=== PATIENT | female | born 1945 | race Caucasian/White ===

== ENCOUNTER → 2017-06-16 | Day surgery (SDC) | payer MEDICARE, BC ==
[2017-06-15 09:03] VITALS: BMI 31.4
[~2017-06-16] MED LIST: LIDOCAINE 2% INJ 20 MG/ML SQ ONE; LISINOPRIL 20 MG TAB PO STA; MIDAZOLAM 2 MG/2 ML VIAL IVP ONE; SODIUM CHLORIDE 0.9% 1,000 ML IV SCH; ceFAZolin IN SWFI 2 GM/20 ML SYRINGE IVP ONE
[2017-06-16 06:54] VITALS: RESP 18; TEMP 97.8
--- NOTE | 2017-06-16 08:13 | CE ---
CARDIAC ELECTROPHYSIOLOGY REPORT DATE OF SERVICE: 06/16/2017 PROCEDURE: Loop recorder implantation. PERFORMED BY: Dr. Ignacio Grewal. Moderate conscious sedation time was between 10 and 15 minutes. CLINICAL INFORMATION: Mrs. Nelly Souza is a 72-year-old lady with episodes of dizziness, lightheadedness and near syncope, who had an event monitor that was unremarkable for any bradyarrhythmias. She had 1 short nonsustained run of wide QRS tachycardia, but she has underlying left bundle branch block pattern. I have therefore advised her to have a loop recorder insertion and brought her in for the procedure electively. PROCEDURE NOTE: After the administration of antibiotic intravenously, under the influence of a local anesthetic as well as sedation, a single stab incision was made in the left 4th intercostal space using the tool that was provided with the device. I then implanted the Med[employer]onic LINQ device in a lateral direction in the 4th intercostal space. Excellent signal was obtained. The R-wave amplitude was 0.46 mV. A single suture was used to close the stab incision. The settings were made for syncope with a low rate of 40 and high rate of 140. The patient will be discharged in the next couple of hours. I will see her in the office in one week. Instructions regarding loop recorder, usage were given to the patient and her family. 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 The device is Reveal LINQ model number LNQ11, serial number [id number]. R-wave amplitude was 0.46 mV. Patient tolerated the procedure well without complication. MMODL / IJN: [id number] /
[2017-06-16 09:04] VITALS: BP 131/63; PULSE 65
== END ==
LOC: CATHEP 06:24
PROVIDERS: ATTEND Internal Medicine Interventional Cardiology
DX: R55 Syncope and collapse (principal); I44.7 Left bundle-branch block, unspecified; I10 Essential (primary) hypertension; E78.00 Pure hypercholesterolemia, unspecified; E78.5 Hyperlipidemia, unspecified; L40.50 Arthropathic psoriasis, unspecified; Z82.49 Family history of ischemic heart disease and other diseases of the circulatory system; Z79.82 Long term (current) use of aspirin; Z79.899 Other long term (current) drug therapy; Z88.5 Allergy status to narcotic agent; Z88.8 Allergy status to other drugs, medicaments and biological substances
CPT/HCPCS: 33282; C1764; J2001; J2250; J0690

== ENCOUNTER 2018-03-07 11:54 | Day surgery (SDC) | payer MEDICARE, BC ==
[2018-03-03 11:32] VITALS: BMI 31.3
[~2018-03-07 11:54] MED LIST changes: -LIDOCAINE 2% INJ 20 MG/ML SQ ONE; -LISINOPRIL 20 MG TAB PO STA; -MIDAZOLAM 2 MG/2 ML VIAL IVP ONE; -ceFAZolin IN SWFI 2 GM/20 ML SYRINGE IVP ONE
[2018-03-07] MEDS ORDERED: SODIUM CHLORIDE 0.9% 1,000 ML IV ONE (12:09)
[2018-03-07] MEDS ORDERED: ceFAZolin IN SWFI 2 GM/20 ML SYRINGE IVP STA (13:26)
[2018-03-07] MEDS ORDERED: PROPOFOL 10 MG/ML 20 ML VIAL IV ONE (13:31)
[2018-03-07] MEDS ORDERED: fentaNYL (PF) 50 MCG/ML 2 ML AMP ONE (13:31)
[2018-03-07] MEDS ORDERED: ISOPROTERENOL 250 MCG/1.25 ML SYR IV ONE (13:31)
[2018-03-07] MEDS ORDERED: MIDAZOLAM 2 MG/2 ML VIAL ONE (13:31)
[2018-03-07] MEDS ORDERED: HEPARIN SODIUM 1,000 UN/ML (10ML VL) ONE (13:42)
[2018-03-07] MEDS ORDERED: LIDOCAINE 1% INJ 10MG/ML (20 ML MDV) ONE (13:44)
[2018-03-07] MEDS ORDERED: LIDOCAINE 1% INJ 10MG/ML (20 ML MDV) SQ ONE (14:14)
[2018-03-07] MEDS ORDERED: ACETAMINOPHEN TAB 325 MG TAB PO PRN (16:48)
[2018-03-07] MEDS ORDERED: HYDROcodone/APAP 5-325MG 1 EACH TAB PO PRN (16:48)
[2018-03-07] MEDS ORDERED: ACETAMINOPHEN IV (For NPO) 1,000 MG in EMPTY BAG 1 BAG IVPB ONE (16:48)
[2018-03-07] MEDS: METOPROLOL TARTRATE 25 MG TAB PO SCH (17:37)
--- NOTE | 2018-03-07 17:53 | LTR ---
To: Dr. Montez Cid Re: Nelly Souza (47) Dear Montez, I had the pleasure seeing Nelly Souza in electrophysiology followup. 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 Hopefully this takes care of her SVT, which was causing presyncopal spells, even though they were very short episodes. I will restart all her medications again and we will watch for any episodes of atrial tachycardia or atrial fibrillation in the future. Thank you for entrusting me with the care of your patient. Warm regards. Sincerely, MD KADE Iyer / SHALININ: [id number] /
--- NOTE | 2018-03-07 17:53 | PCN ---
PROCEDURE NOTE Nelly Souza is a 73-year-old female who has had recurrent supraventricular tachycardia documented on a loop monitor with presyncope. These were short episodes, but nevertheless they result in presyncopal spells. She was brought in for a diagnostic EP study and possible radiofrequency ablation. The patient was brought to the EP lab in a fasting state. Written informed consent was obtained prior to the procedure. The right and left groins were prepped and draped as per protocol. Lidocaine 1% was used for local anesthesia. Venous sheaths were placed in the right and left femoral veins. Via these, diagnostic catheters were placed in the high right atrium, His bundle, right ventricle and coronary sinus. The sinus cycle length was 900 milliseconds, WV interval 204 milliseconds, QRS 178 milliseconds, left bundle branch block pattern, and QT interval was 470 milliseconds. AH interval 88 milliseconds, HV interval 54 milliseconds. Atrial pacing was performed. There was evidence of slow pathway conduction. There were no delta waves noted. Sinus node recovery times at 600, 500 and 400 milliseconds were 1166, 1256 milliseconds. When pacing at a cycle length of 400 milliseconds, there was intermittent induction of SVT consistent with AV christo reentry, but these were very brief episodes. With atrial extrastimulation there was significant prolongation of the AH interval to 286 milliseconds but no clear-cut jump in the AH interval. AV node Wenckebach block 380 milliseconds, VA Wenckebach block 40 milliseconds, slow pathway around 390 to 400 milliseconds. Retrograde conduction in the midline and decremental. Ventricular extrastimulation was performed. Atrial extrastimulation was performed. Para-Hisian pacing produced christo response. On Isuprel, there was absolutely no SVT that could be induced despite stimulation from 3 sites. In the presence of antegrade slow pathway conduction with very brief bursts of AV christo reentry and absence of atrial fibrillation, atrial flutter and atrial tachycardia or any accessory pathway conduction, decision was made to proceed with slow pathway ablation for management of recurrent symptomatic SVT. A 4 mm catheter was used. A long sheath was placed. Slow pathway was mapped. RF ablation was applied. Good power and temperature was achieved. Occasional junctional beats were noted and there was a clear change in the antegrade conduction properties of the AV node, and the AV node block occurred at 420 milliseconds thereafter. There was a mild shortening of the WV interval to 170 to 180 milliseconds at the end of the procedure. Atrial and ventricular extrastimulation was performed and no echo beats and no bursts of SVT or AV christo reentry were induced. No other SVT was induced. All catheters were then removed and patient was transferred back to Telemetry. RESULT: Diagnostic EP study revealed the presence of slow pathway and very brief bursts of AV christo reentry. No other SVT induced. Therefore, slow pathway ablation was performed. PLAN: Resume current medications and follow up thereafter. KADE / ABDI: [id number] /
[2018-03-07] MEDS: HYDROmorphone 0.5 MG/0.5 ML SYRINGE IVP PRN (20:08)
[2018-03-07] MEDS ORDERED: METHYLDOPA 250 MG TAB PO SCH (21:00)
[2018-03-08] MEDS: HYDROmorphone 0.5 MG/0.5 ML SYRINGE IVP PRN (02:29)
[2018-03-08 07:46] VITALS: BP 176/81; PULSE 59; RESP 18; TEMP 98.3
[2018-03-08] MEDS: METOPROLOL TARTRATE 25 MG TAB PO SCH (08:17)
[2018-03-08] MEDS ORDERED: FUROSEMIDE 40 MG TAB PO SCH (09:00)
[2018-03-08] MEDS ORDERED: ASPIRIN 81 MG PO SCH (09:00)
[2018-03-08] MEDS ORDERED: METHYLDOPA 250 MG TAB PO SCH (09:00)
[2018-03-08] MEDS ORDERED: ATORVASTATIN 40 MG TAB PO SCH (09:00)
--- NOTE | 2018-03-08 10:40 | P.DS ---
Providers Attending physician: Stephan Soliman Primary care physician: Montez [facility] Course: Patient is ambulating in the room and is getting up in the bathroom. She denies any dizziness lightheadedness chest discomfort. 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 Grewal within a week for a groin check Loop monitor should stay in situ for future monitoring If she does well in the next 4-6 weeks without any episodes I would consider reducing the dose of metoprolol to 50 g twice daily Plan - Discharge Summary Discharge Rx Participant: Yes New Discharge Prescriptions: Continue Omeprazole 40 mg PO DAILY Ascorbic Acid [Vitamin C] 1,000 mg PO DAILY Multivitamins, Thera [Multivitamin (formulary)] 2 tab PO DAILY Folic Acid 1 mg PO DAILY Ibuprofen [Motrin] 800 mg PO Q8HR PRN PRN Reason: Mild Pain Atorvastatin [Lipitor] 40 mg PO DAILY Furosemide [Lasix] 40 mg PO DAILY Methyldopa [Aldomet] 500 mg PO BID Potassium Chloride [Klor-Con 10] 10 meq PO DAILY Methotrexate Sodium [Methotrexate] 25 mg PO TH Methylcellulose (with Sugar) [Citrucel Powder] 2 gm PO DAILY Vitamin E (Dl,Tocopheryl Acet) [Vitamin E] 400 unit PO DAILY Aspirin 81 mg PO DAILY Vitamin B Complex 1 each PO DAILY [place]-3 Fatty Acids/Fish Oil [Fish Oil 1,000 mg Softgel] 1 each PO DAILY Cranberry Fruit Extract [Cranberry] 25,000 mg PO DAILY Cholecalciferol (Vitamin D3) [Vitamin D3] 2,000 unit PO DAILY Calcium Carb/Vitamin D3/Vit K1 [Citracal Soft Chew] 1 each PO DAILY Acai [place] Extract [Acai] 1,000 mg PO DAILY Metoprolol Tartrate [Lopressor] 75 mg PO BID L.acidoph,Paracasei, B.lactis [Probiotic] 1 each PO DAILY Discharge Medication List Ascorbic Acid [Vitamin C] 1,000 mg PO DAILY 10/02/15 [History] Atorvastatin [Lipitor] 40 mg PO DAILY 10/02/15 [History] Folic Acid 1 mg PO DAILY 10/02/15 [History] Furosemide [Lasix] 40 mg PO DAILY 10/02/15 [History] Ibuprofen [Motrin] 800 mg PO Q8HR PRN 10/02/15 [History] Methotrexate Sodium [Methotrexate] 25 mg PO TH 10/02/15 [History] Methyldopa [Aldomet] 500 mg PO BID 10/02/15 [History] Multivitamins, Thera [Multivitamin (formulary)] 2 tab PO DAILY 10/02/15 [History ] Omeprazole 40 mg PO DAILY 10/02/15 [History] Potassium Chloride [Klor-Con 10] 10 meq PO DAILY 10/02/15 [History] Acai Manz[place] Extract [Acai] 1,000 mg PO DAILY 06/15/17 [History] Aspirin 81 mg PO DAILY 06/15/17 [History] Calcium Carb/Vitamin D3/Vit K1 [Citracal Soft Chew] 1 each PO DAILY 06/15/17 [ History] Cholecalciferol (Vitamin D3) [Vitamin D3] 2,000 unit PO DAILY 06/15/17 [History] Cranberry Fruit Extract [Cranberry] 25,000 mg PO DAILY 06/15/17 [History] Methylcellulose (with Sugar) [Citrucel Powder] 2 gm PO DAILY 06/15/17 [History] [place]-3 Fatty Acids/Fish Oil [Fish Oil 1,000 mg Softgel] 1 each PO DAILY [History] Vitamin B Complex 1 each PO DAILY 06/15/17 [History] Vitamin E (Dl,Tocopheryl Acet) [Vitamin E] 400 unit PO DAILY 06/15/17 [History] L.acidoph,Paracasei, B.lactis [Probiotic] 1 each PO DAILY 03/03/18 [History] Metoprolol Tartrate [Lopressor] 75 mg PO BID 03/03/18 [History] Follow up Appointment(s)/Referral(s): Stephan Soliman MD [STAFF PHYSICIAN] - As Needed (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 Martinez as needed) Activity/Diet/Wound Care/Special Instructions: Post EP study - Ablation instructions 1. Keep access sites dry for 2 days. 2. No heavy lifting or straining for 2 days. 3. Avoid bending the hips repeatedly for 2 days. 4. You may go up and down stairs slowly Call if the following is noted 1. Bleeding, increasing swelling or pain at the access sites. 2. Increasing chest discomfort, especially upon taking a deep breath. 3. Increasing shortness of breath, at rest or with exertion. 4. Undue cough / phlegm 5. Difficulty or pain while swallowing. 6. Pain or change in color in the extremities. 7. Fever, chills, rigors. 8. Increasing headache or neurologic symptoms. 9. Dizziness, fainting, palpitations Discharge Disposition: HOME SELF-CARE
[2018-03-10] MEDS ORDERED: METHOTREXATE SODIUM 2.5 MG TAB PO SCH (09:00)
== END 2018-03-08 10:54 | disposition home or self-care (01) ==
LOC: CATHEP 11:54 → 1SOBS 16:21 → CATHEP 03-08 10:54
PROVIDERS: ATTEND Internal Medicine Clinical Cardiac Electrophysiology
DX: I47.1 Supraventricular tachycardia (principal); I25.10 Atherosclerotic heart disease of native coronary artery without angina pectoris; I44.7 Left bundle-branch block, unspecified; R94.39 Abnormal result of other cardiovascular function study; E78.00 Pure hypercholesterolemia, unspecified; L40.50 Arthropathic psoriasis, unspecified; R33.9 Retention of urine, unspecified; K21.9 Gastro-esophageal reflux disease without esophagitis; I10 Essential (primary) hypertension; E78.5 Hyperlipidemia, unspecified; Z79.82 Long term (current) use of aspirin; Z82.49 Family history of ischemic heart disease and other diseases of the circulatory system; Z79.899 Other long term (current) drug therapy; Z88.8 Allergy status to other drugs, medicaments and biological substances; Z88.1 Allergy status to other antibiotic agents; Z79.1 Long term (current) use of non-steroidal anti-inflammatories (NSAID)
CPT/HCPCS: 93623; 93613; 93653; C1894; C1769 ×2; C1893; C1730 ×3; C1732; J2250; J2001; J3010; J2704; J1170 ×2; J0690

== ENCOUNTER → 2018-03-14 | Outpatient (CLI) | payer MEDICARE, BC ==
--- NOTE | 2018-03-14 16:19 | US ---
EXAMINATION TYPE: US venous doppler duplex LE DATE OF EXAM: 03/14/2018 4:06 PM COMPARISON: NONE CLINICAL HISTORY: Z86.718 HX venous thrombosis and embolism. Bilateral lower extremities swelling. SIDE PERFORMED: Bilateral TECHNIQUE: The lower extremity deep venous system is examined utilizing real time linear array sonog demond with graded compression, doppler sonography and color-flow sonography. VESSELS IMAGED: External Iliac Vein (EIV) Common Femoral Vein Deep Femoral Vein Greater Saphenous Vein * Femoral Vein Popliteal Vein Small Saphenous Vein * Proximal Calf Veins (* superficial vessels) Large body habitus. Right Leg: Negative for DVT Left Leg: Negative for DVT Grayscale, color doppler, spectral doppler imaging performed of the deep veins of the lower extremiti es. There is normal flow, compressibility, vascular waveforms. IMPRESSION: No sonographic evidence of deep venous thrombosis within either lower extremity.
== END | disposition home or self-care (01) ==
LOC: RADUSWWP 15:26
PROVIDERS: ATTEND Internal Medicine Interventional Cardiology
DX: I82.403 Acute embolism and thrombosis of unspecified deep veins of lower extremity, bilateral (principal)
CPT/HCPCS: 93970

== ENCOUNTER 2018-04-01 14:46 | Observation (INO) | payer MEDICARE, BC ==
[2018-04-01] MEDS ORDERED: SODIUM CHLORIDE 0.9% 500 ML 500 ML IV ONE (15:08)
--- NOTE | 2018-04-01 15:20 | ED ---
General Adult HPI - General Chief complaint: Syncope Stated complaint: SYNCOPE Time Seen by Provider: 04/01/18 14:55 Source: patient, RN notes reviewed Mode of arrival: ambulatory Limitations: no limitations - History of Present Illness Initial comments: This is a 73-year-old female who presents emergency Department complaining of having had a syncopal episode. Patient states she was having quite a few near syncopal episodes and recently she had a cardiac ablation for which she believes was SVT occasionally. Patient states since then she's only had one near syncopal episode but today she actually passed out for the first time. Patient states she was in a bar and lost her balance and fell backwards and hit the barn door and slid to the ground. Patient states she may have hit her head but she does not have any tenderness in that area no bleeding in that area. Patient states she did have a headache at the time but it resolved. At this time the patient was headache free and has no numbness or weakness and has no tenderness in the scalp at all. Patient states shortly thereafter she went over to her neighbor's house was sitting in a chair and felt extremely lightheaded like she was given a passout and the next thing she knew she was on the ground listening to her neighbor. Patient states at no time did she have any chest pain difficulty breathing or shortness of breath and and no tenderness she have any palpitations. Patient denies any recent fever chills. Patient denies any recent vomiting or diarrhea. - Related Data Home Medications Medication Instructions Recorded Confirmed Ascorbic Acid [Vitamin C] 1,000 mg PO DAILY 10/02/15 04/01/18 Folic Acid 1 mg PO DAILY 10/02/15 04/01/18 Furosemide [Lasix] 40 mg PO DAILY 10/02/15 04/01/18 Ibuprofen [Motrin] 800 mg PO Q8HR PRN 10/02/15 04/01/18 Methotrexate Sodium [Methotrexate] 25 mg PO TH 10/02/15 04/01/18 Methyldopa [Aldomet] 500 mg PO BID 10/02/15 04/01/18 Multivitamins, Thera [Multivitamin 2 tab PO DAILY 10/02/15 04/01/18 (formulary)] Omeprazole 40 mg PO DAILY 10/02/15 04/01/18 Potassium Chloride [Klor-Con 10] 10 meq PO DAILY 10/02/15 04/01/18 Acai Manzano Extract [Acai] 1,000 mg PO DAILY 06/15/17 04/01/18 Aspirin 81 mg PO DAILY 06/15/17 04/01/18 Calcium Carb/Vitamin D3/Vit K1 1 each PO DAILY 06/15/17 04/01/18 [Citracal Soft Chew] Cholecalciferol (Vitamin D3) 2,000 unit PO DAILY 06/15/17 04/01/18 [Vitamin D3] Cranberry Fruit Extract [Cranberry] 25,000 mg PO DAILY 06/15/17 04/01/18 Methylcellulose (with Sugar) 2 gm PO DAILY 06/15/17 04/01/18 [Citrucel Powder] [place]-3 Fatty Acids/Fish Oil [Fish 1 each PO DAILY 06/15/17 04/01/18 Oil 1,000 mg Softgel] Vitamin B Complex 1 each PO DAILY 06/15/17 04/01/18 Vitamin E (Dl,Tocopheryl Acet) 400 unit PO DAILY 06/15/17 04/01/18 [Vitamin E] L.acidoph,Paracasei, B.lactis 1 each PO DAILY 03/03/18 04/01/18 [Probiotic] Atorvastatin [Lipitor] 40 mg PO DAILY 04/01/18 04/01/18 Metoprolol Tartrate [Lopressor] 50 mg PO BID 04/01/18 04/01/18 Allergies Allergy/AdvReac Type Severity Reaction Status Date / Time meperidine HCl [From Demerol] Allergy Rash/Hives Verified 04/01/18 15:20 prochlorperazine Allergy Unknown Verified 04/01/18 15:20 [From Compazine] prochlorperazine edisylate Allergy Unknown Verified 04/01/18 15:20 [From Compazine] prochlorperazine maleate Allergy Unknown Verified 04/01/18 15:20 [From Compazine] simvastatin [From Zocor] Allergy Unknown Verified 04/01/18 15:20 moxifloxacin HCl AdvReac Anaphylaxis Verified 04/01/18 15:20 [From Avelox] Review of Systems ROS Statement: Those systems with pertinent positive or pertinent negative responses have been documented in the HPI. ROS Other: All systems not noted in ROS Statement are negative. Past Medical History Past Medical History: Cancer, GERD/Reflux, Hyperlipidemia, Hypertension, Osteoarthritis (OA), Rheumatoid Arthritis (RA), Syncope Additional Past Medical History / Comment(s): psoriatic arthritis, dizzy spells , palpitations, hx. skin cancer, self-cath's due to bladder not emptying completely History of Any Multi-Drug Resistant Organisms: None Reported Past Surgical History: Back Surgery, Cholecystectomy, Heart Catheterization, Hernia Repair, Hysterectomy, Joint Replacement, Orthopedic Surgery Additional Past Surgical History / Comment(s): henok knee replacements & right hip replaced, vein stripping, left hand fusion, left retinal repair of tear, right carpal tunnel, cardiac ablation Past Anesthesia/Blood Transfusion Reactions: No Reported Reaction Past Psychological History: No Psychological Hx Reported Smoking Status: Never smoker Past Alcohol Use History: Occasional Past Drug Use History: None Reported - Past Family History Father Family Medical History: Myocardial Infarction ([place]) Mother Family Medical History: Cancer Daughter(s) Family Medical History: Cancer General Exam - General Exam Comments Initial Comments: GENERAL: Patient is well-developed and well-nourished. Patient is nontoxic and well- hydrated and is in mild distress. ENT: Neck is soft and supple. No significant lymphadenopathy is noted. Oropharynx is clear. Moist mucous membranes. Neck has full range of motion without eliciting any pain. EYES: The sclera were anicteric and conjunctiva were pink and moist. Extraocular movements were intact and pupils were equal round and reactive to light. Eyelids were unremarkable. PULMONARY: Unlabored respirations. Good breath sounds bilaterally. No audible rales rhonchi or wheezing was noted. CARDIOVASCULAR: There is a regular rate and rhythm without any murmurs gallops or rubs. ABDOMEN: Soft and nontender with normal bowel sounds. No palpable organomegaly was noted. There is no palpable pulsatile mass. SKIN: Skin is clear with no lesions or rashes and otherwise unremarkable. NEUROLOGIC: Patient is alert and oriented x3. Cranial nerves II through XII are grossly intact. Motor and sensory are also intact. Normal speech, volume and content. Symmetrical smile. MUSCULOSKELETAL: Normal extremities with adequate strength and full range of motion. No lower extremity swelling or edema. No calf tenderness. LYMPHATICS: No significant lymphadenopathy is noted PSYCHIATRIC: Normal psychiatric evaluation. Limitations: no limitations Course Vital Signs 04/01/18 14:55 Temperature 98.7 F Pulse Rate 66 Respiratory 18 Rate Blood Pressure 154/102 O2 Sat by Pulse 97 Oximetry Medical Decision Making - Medical Decision Making EKG shows normal sinus rhythm at 60 bpm DC interval is on 76 QRS is under 58 QT interval is 486 QTC is 46 per patient has a left bundle branch block previous EKG showed the patient having a left bundle branch block as well. Chest x-ray shows atelectasis. I spoke with Dr. Giron he agreed to admit the patient admitted the patient I wrote admitting orders. - Lab Data Result diagrams: 04/01/18 15:10 04/01/18 15:10 Lab Results 04/01/18 04/01/18 04/01/18 Range/Units 15:10 15:10 15:10 WBC 3.7 L (3.8-10.6) k/uL RBC 4.07 (3.80-5.40) m/uL Hgb 12.2 (11.4-16.0) gm/dL Hct 38.2 (34.0-46.0) % MCV 93.9 (80.0-100.0) fL MCH 29.9 (25.0-35.0) pg MCHC 31.8 (31.0-37.0) g/dL RDW 14.5 (11.5-15.5) % Plt Count 157 (150-450) k/uL Neutrophils % 61 % Lymphocytes % 31 % Monocytes % 5 % Eosinophils % 2 % Basophils % 0 % Neutrophils # 2.3 (1.3-7.7) k/uL Lymphocytes # 1.2 (1.0-4.8) k/uL Monocytes # 0.2 (0-1.0) k/uL Eosinophils # 0.1 (0-0.7) k/uL Basophils # 0.0 (0-0.2) k/uL PT 9.8 (9.0-12.0) sec INR 0.9 (<1.2) APTT 17.9 L (22.0-30.0) sec Sodium 141 (137-145) mmol/L Potassium 4.1 (3.5-5.1) mmol/L Chloride 106 (98-107) mmol/L Carbon Dioxide 28 (22-30) mmol/L Anion Gap 7 mmol/L BUN 20 H (7-17) mg/dL Creatinine 0.72 (0.52-1.04) mg/dL Est GFR (CKD-EPI)AfAm >90 (>60 ml/min/1.73 sqM) Est GFR (CKD-EPI)NonAf 85 (>60 ml/min/1.73 sqM) Glucose 95 (74-99) mg/dL Calcium 9.0 (8.4-10.2) mg/dL Magnesium 2.0 (1.6-2.3) mg/dL Total Bilirubin 0.6 (0.2-1.3) mg/dL AST 29 (14-36) U/L ALT 31 (9-52) U/L Alkaline Phosphatase 70 (38-126) U/L Troponin I (0.000-0.034) ng/mL Total Protein 6.0 L (6.3-8.2) g/dL Albumin 3.8 (3.5-5.0) g/dL 04/01/18 Range/Units 15:10 WBC (3.8-10.6) k/uL RBC (3.80-5.40) m/uL Hgb (11.4-16.0) gm/dL Hct (34.0-46.0) % MCV (80.0-100.0) fL MCH (25.0-35.0) pg MCHC (31.0-37.0) g/dL RDW (11.5-15.5) % Plt Count (150-450) k/uL Neutrophils % % Lymphocytes % % Monocytes % % Eosinophils % % Basophils % % Neutrophils # (1.3-7.7) k/uL Lymphocytes # (1.0-4.8) k/uL Monocytes # (0-1.0) k/uL Eosinophils # (0-0.7) k/uL Basophils # (0-0.2) k/uL PT (9.0-12.0) sec INR (<1.2) APTT (22.0-30.0) sec Sodium (137-145) mmol/L Potassium (3.5-5.1) mmol/L Chloride (98-107) mmol/L Carbon Dioxide (22-30) mmol/L Anion Gap mmol/L BUN (7-17) mg/dL Creatinine (0.52-1.04) mg/dL Est GFR (CKD-EPI)AfAm (>60 ml/min/1.73 sqM) Est GFR (CKD-EPI)NonAf (>60 ml/min/1.73 sqM) Glucose (74-99) mg/dL Calcium (8.4-10.2) mg/dL Magnesium (1.6-2.3) mg/dL Total Bilirubin (0.2-1.3) mg/dL AST (14-36) U/L ALT (9-52) U/L Alkaline Phosphatase (38-126) U/L Troponin I <0.012 (0.000-0.034) ng/mL Total Protein (6.3-8.2) g/dL Albumin (3.5-5.0) g/dL Disposition Clinical Impression: Syncope and collapse, History of paroxysmal supraventricular tachycardia Disposition: ADMITTED IP TO THIS HOSP Referrals: Montez Cid DO [Primary Care Provider] - 1-2 days Time of Disposition: 16:09
[2018-04-01 15:35] LABS: Basophils % (A) 0 %; Eosinophils # (A) 0.1 k/uL (0-0.7); Eosinophils % (A) 2 %; HCT 38.2 % (34.0-46.0); HGB 12.2 gm/dL (11.4-16.0); Lymphocytes # (A) 1.2 k/uL (1.0-4.8); Lymphocytes % (A) 31 %; MCH 29.9 pg (25.0-35.0); MCHC 31.8 g/dL (31.0-37.0); MCV 93.9 fL (80.0-100.0); Monocytes # (A) 0.2 k/uL (0-1.0); Monocytes % (A) 5 %; Neutrophils # (A) 2.3 k/uL (1.3-7.7); Neutrophils % (A) 61 %; Platelet Count 157 k/uL (150-450); RBC 4.07 m/uL (3.80-5.40); RDW 14.5 % (11.5-15.5); WBC 3.7 k/uL (3.8-10.6)
--- NOTE | 2018-04-01 15:36 | XR ---
EXAMINATION TYPE: XR chest 2V DATE OF EXAM: 04/01/2018 COMPARISON: 12/01/2009 TECHNIQUE: PA and lateral views submitted. HISTORY: Chest pain FINDINGS: There is limited inspiration. Diffuse osteopenia and arthropathy of the shoulders. Atherosclerotic ch renny aorta. Mild central perihilar interstitial pattern with subsegmental basilar changes. Hypertroph ic and degenerative changes of the spine. IMPRESSION: 1. Basilar atelectasis or early infiltrate. Atelectasis favored secondary to reduced inspiration. 2. Correlate for mild central venous congestion.
[2018-04-01 15:41] LABS: INR 0.9 (<1.2); Prothrombin Time 9.8 sec (9.0-12.0)
[2018-04-01 15:44] LABS: Partial Thromboplastin Time 17.9 sec (22.0-30.0)
[2018-04-01 15:56] LABS: ALT 31 U/L (9-52); AST 29 U/L (14-36); Albumin 3.8 g/dL (3.5-5.0); Alkaline Phosphatase 70 U/L (38-126); Anion Gap 7 mmol/L; Blood Urea Nitrogen 20 mg/dL (7-17); Carbon Dioxide 28 mmol/L (22-30); Chloride 106 mmol/L (98-107); Glucose 95 mg/dL (74-99); Potassium 4.1 mmol/L (3.5-5.1); Sodium 141 mmol/L (137-145); Total Bilirubin 0.6 mg/dL (0.2-1.3)
[2018-04-01] MEDS ORDERED: NITROGLYCERIN SL TABS 0.4 MG TAB SUBLINGUAL PRN (16:09)
[2018-04-01] MEDS: IBUPROFEN 800 MG TAB PO PRN (18:32)
[2018-04-01] MEDS: NITROGLYCERIN OINT 1 INCH/GM PACKET TOPICAL SCH (18:33)
[2018-04-01 18:42] VITALS: BMI 30.4
[2018-04-01] MEDS ORDERED: ACETAMINOPHEN TAB 500 MG TAB PO PRN (20:04)
[2018-04-01] MEDS ORDERED: ALPRAZolam 0.25 MG TAB PO PRN (20:04)
[2018-04-01] MEDS ORDERED: TEMAZEPAM 15 MG CAP PO PRN (20:04)
--- NOTE | 2018-04-01 20:33 | CT ---
EXAMINATION TYPE: CT brain wo con DATE OF EXAM: 04/01/2018 COMPARISON: None HISTORY: Syncope/fall today. CT DLP: 1111.4 mGycm Automated exposure control for dose reduction was used. FINDINGS: There is cerebral cortical atrophy. There is no mass effect nor midline shift. There is no sign of in tracranial hemorrhage. The calvarium is intact. IMPRESSION: CEREBRAL ATROPHY. NO ACUTE INTRACRANIAL ABNORMALITY.
[2018-04-01] MEDS ORDERED: METHYLDOPA 250 MG TAB PO SCH (21:00)
--- NOTE | 2018-04-01 21:04 | HP ---
HISTORY AND PHYSICAL I am covering for Dr. Cid. DATE OF SERVICE: 04/01/2018 CHIEF COMPLAINT: Syncope. HISTORY OF PRESENT ILLNESS: This 73-year-old woman with a past medical history of multiple medical problems, including hypertension, history of hyperlipidemia,rheumatoid arthritis, syncope, history of cholecystectomy, being followed by Dr. Cid in the outpatient setting, was apparently moving a bale of hay in a barn. The patient apparently fell backwards and lost his balance, hit the barn door and slipped to the ground. The patient did not have any loss of consciousness. The patient went to his neighbor to get it checked, and while she was sitting in a chair, the patient apparently passed out. The patient is unable to remember it. The patient passed out for a few minutes and the neighbor called 911. The patient came back and was taken to [facility] admitted for further evaluation. Patient also had a Reveal monitor apparently, and the monitoring did not show any acute abnormality previously. Patient had previously episodes of PSVT and patient also had ablation. There is no history of any fever, rigor or chills. No history of headache, seizures at this time. The patient also had a cardiac catheterization. 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 PAST MEDICAL HISTORY: 1. Hypertension. 2. Hyperlipidemia. 3. History of DJD. 4. History of rheumatoid arthritis. 5. History of back surgery. 6. Cholecystectomy. 7. History of AVNRT and SVT. HOME MEDICATIONS: 1. Vitamin E 400 units daily. 2. Vitamin B complex 1 p.o. daily. 3. Klor-Con 10 mEq p.o. daily. 4. Omeprazole 40 mg p.o. daily. 5. Fish oil 1 p.o. daily. 6. Multivitamins 1 p.o. daily. 7. Lopressor 50 mg p.o. b.i.d. 8. Aldomet 500 mg p.o. b.i.d. 9. Citrucel powder 2 grams daily. 10.Methotrexate 25 mg p.o. . 11.Probiotic 1 tablet p.o. daily. 12.Motrin 800 mg q.8 p.r.n. 13.Lasix 40 mg p.o. daily. 14.Folic acid 1 mg daily. 15.Cranberry 25,000 mg p.o. daily. 16.Vitamin D3 2000 daily. 17.Citracal 1 daily. 18.Lipitor 40 mg daily. 19.Aspirin 81 mg daily. 20.Vitamin C 1000 mg daily. 21.Acai 1000 mg p.o. daily. ALLERGIES: 1. MEPERIDINE. 2. PROCHLORPERAZINE. 3. STATIN. 4. AVELOX. FAMILY HISTORY: History of myocardial infarction in the family. SOCIAL HISTORY: No history of smoking. No history of alcohol. REVIEW OF SYSTEMS: ENT: No diminished hearing. No diminished vision. Otherwise as mentioned earlier. CARDIOVASCULAR SYSTEM: As mentioned earlier. RESPIRATORY SYSTEM: No cough, hemoptysis. GI: No nausea, vomiting. : No dysuria or retention. NERVOUS SYSTEM: As mentioned earlier. ALLERGY/IMMUNOLOGY: No asthma, hayfever. MUSCULOSKELETAL: As mentioned earlier. HEMATOLOGY/ONCOLOGY: No history of anemia. ENDOCRINE: No history of diabetes, hypothyroidism. CONSTITUTIONAL: As mentioned earlier. DERMATOLOGY: Negative. RHEUMATOLOGY: Negative. PSYCHIATRY: As mentioned earlier. PHYSICAL EXAMINATION: Patient alert and oriented x3. Pulse is 67, blood pressure 168/85, respiration 16, temperature 98.2, pulse ox 94% on room air. HEENT: Conjunctivae normal. NECK: No jugular venous distention. CARDIOVASCULAR SYSTEM: S1, S2 muffled. No S3. No S4. RESPIRATORY SYSTEM: Breath sounds diminished at the bases. No rhonchi. No crackles. ABDOMEN: Soft, obese, non-tender. No mass palpable. LEGS: No edema. No swelling. NERVOUS SYSTEM: Higher functions as mentioned earlier. Moves all 4 limbs. No focal motor or sensory deficit. LYMPHATICS: No lymph node palpable in neck, axillae or groin. SKIN: No ulcer, rash, bleeding. JOINTS: No active deforming arthropathy. LABS: WBC 3.7, hemoglobin 12.2. Sodium 141, potassium 4.1. ASSESSMENT: 1. Syncope for evaluation. Rule out cardiac arrhythmia. 2. History of recent ablation for supraventricular tachycardia and AVNRT. 3. History of gastroesophageal reflux disease. 4. Hypertension. 5. Hyperlipidemia. 6. History of degenerative joint disease. 7. History of rheumatoid arthritis. 8. History of psoriatic arthritis. 9. History of self-catheterization. 10.History of cholecystectomy. RECOMMENDATIONS AND DISCUSSION: In this 73-year-old woman who presented with multiple complex medical issues, we will monitor the patient closely, continue the current medications, continue with symptomatic treatment. We will monitor the patient closely with telemetry. Cardiology consultation. Resume the home medications. Orthostatic vitals. Would also recommend a CT scan of the brain to complete the workup as well as a trauma consult. Prognosis guarded. We will follow the patient closely with you. Home medications are reconciled. KADE / SHALININ: [id number] / MTDD
--- NOTE | 2018-04-01 21:30 | US ---
EXAMINATION TYPE: US carotid duplex BILAT DATE OF EXAM: 04/01/2018 COMPARISON: NONE CLINICAL HISTORY: syncope. Syncope EXAM MEASUREMENTS: RIGHT: Peak Systolic Velocity (PSV) cm/sec ----- Right CCA: 77.6 ----- Right ICA: 81.2 ----- Right ECA: 81.2 ICA/CCA ratio: 1.0 RIGHT: End Diastole cm/sec ----- Right CCA: 16.5 ----- Right ICA: 18.6 ----- Right ECA: 9.8 LEFT: Peak Systolic Velocity (PSV) cm/sec ----- Left CCA: 79.0 ----- Left ICA: 79.8 ----- Left ECA: 75.7 ICA/CCA ratio: 1.0 LEFT: End Diastole cm/sec ----- Left CCA: 15.3 ----- Left ICA: 25.5 ----- Left ECA: 4.3 VERTEBRALS (direction of flow): Right Vertebral: Antegrade Left Vertebral: Antegrade Rhythm: Normal No significant stenosis seen, left ICA tortuous IMPRESSION: There is antegrade flow in the vertebral arteries. The images and measurements suggest l ess than 20% stenosis in both internal carotid arteries. Criteria for Assigning % of Stenosis / Diameter reduction (Estimation based on the indirect measurements of the internal carotid artery velocities (ICA PSV). 1. Normal (no stenosis)=ICA PSV < 125 cm/s: ratio < 2.0: ICA EDV<40 cm/s. 2. Less than 50% stenosis=ICA PSV < 125 cm/s: ratio < 2.0: ICA EDV<40 cm/s. 3. 50 to 69% stenosis=ICA PSV of 125 to 230 cm/s: ration 2.0 ? 4.0: ICA EDV 40-100 cm/s. 4. Greater than 70% stenosis to near occlusion= ICA PSV > 230 cm/s: ratio > 4.0: ICA EDV > 100 cm/s. 5. Near occlusion= ICA PSV velocities may be low or undetectable: variable ratio and ICA EDV. 6. Total occlusion=unable to detect flow.
[2018-04-01 22:25] LABS: Cholesterol 186 mg/dL (<200); HDL Cholesterol 39 mg/dL (40-60); LDL Cholesterol,Calculated 80 mg/dL (0-99); Triglycerides 335 mg/dL (<150)
[2018-04-01] MEDS: METOPROLOL TARTRATE 50 MG TAB PO SCH (22:31)
[2018-04-01] MEDS: HEPARIN SODIUM,PORCINE 5,000 UNIT/ML 1 ML VIAL SQ SCH (22:32)
[2018-04-02] MEDS: METHYLDOPA 250 MG TAB PO SCH ×2 (04:33→13:19)
[2018-04-02] MEDS: NITROGLYCERIN OINT 1 INCH/GM PACKET TOPICAL SCH ×4 (04:34→18:42)
[2018-04-02] MEDS: METOPROLOL TARTRATE 50 MG TAB PO SCH ×2 (05:36→18:41)
[2018-04-02] MEDS: PANTOPRAZOLE 40 MG TABLET PO SCH (05:36)
[2018-04-02 05:43] VITALS: RESP 16
[2018-04-02] MEDS ORDERED: ASCORBIC ACID 500 MG TAB PO SCH (09:00)
[2018-04-02] MEDS ORDERED: CRANBERRY FRUIT EXTRACT PO SCH (09:00)
[2018-04-02] MEDS ORDERED: FUROSEMIDE 40 MG TAB PO SCH (09:00)
[2018-04-02] MEDS ORDERED: ASPIRIN 325 MG TAB PO SCH (09:00)
[2018-04-02] MEDS ORDERED: NON-FORMULARY DRUG (Vitamin B Complex [Vitamin B Complex] 1 EACH) PO SCH (09:00)
[2018-04-02] MEDS ORDERED: NON-FORMULARY DRUG (Omega-3 Fatty Acids/Fish Oil [Fish Oil 1,000 Mg Softgel] 1 EACH) PO SCH (09:00)
[2018-04-02] MEDS ORDERED: POTASSIUM CHLORIDE ER 10 MEQ TAB.ER.PRT PO SCH (09:00)
[2018-04-02] MEDS ORDERED: ATORVASTATIN 40 MG TAB PO SCH (09:00)
[2018-04-02] MEDS: POLYETHYLENE GLYCOL 3350 17 GM POWD.PACK PO SCH (09:53)
[2018-04-02] MEDS: HEPARIN SODIUM,PORCINE 5,000 UNIT/ML 1 ML VIAL SQ SCH ×2 (09:53→21:43)
[2018-04-02] MEDS: LACTOBACILLUS ACIDOPH & BULGAR 1 EACH PACKET PO SCH (09:54)
[2018-04-02] MEDS ORDERED: amLODIPine 5 MG TAB PO SCH (10:15)
[2018-04-02] MEDS: VITAMIN E (DL,TOCOPHERYL ACET) 400 UNIT CAP PO SCH (12:58)
[2018-04-02] MEDS: CHOLECALCIFEROL 1,000 UNIT TAB PO SCH (12:58)
[2018-04-02] MEDS: MULTIVITAMINS, THERA 1 EACH TAB PO SCH (12:58)
[2018-04-02] MEDS: CALCIUM CARB-VIT D 500MG-200UN 1 EACH TAB PO SCH (12:58)
[2018-04-02] MEDS: FOLIC ACID 1 MG TAB PO SCH (12:59)
[2018-04-02] MEDS: METHYLDOPA 500MG TABLET PO SCH ×2 (13:00→13:19)
--- NOTE | 2018-04-02 14:03 | P.CRDCN ---
History of Present Illness History of present illness: This is a pleasant 73-year-old female past medical history significant for dyslipidemia, hypertension, SVT status post low back or hip lesion February 2018 gastroesophageal reflux disease. She follows in the office with Dr. Grewal. We have been asked to see her in consultation secondary to an episode of syncope. The patient states yesterday she was working out in her barn moving robbi of hay 11 of the rbobi came loose she fell backwards on her back. She felt associated have injured her back she walked over to her neighbor 's house to have her take a look at her back. While she was sitting there and her barstool and her neighbor was drinking some tea per the neighbor she put her head forward and passed out. The patient denies having any symptoms of dizziness, chest pain, shortness of breath, diaphoresis, nausea or palpitations prior to passing out. When she woke up she states she felt extremely diaphoretic and did not recall the episode whatsoever. Per the neighbor she had an passed out for approximately 6-7 minutes there is no seizure-like activity, no loss of bowel or bladder and she was unable to shake the patient awake. The neighbor states patient was extremely diaphoretic during this episode. Patient was seen and examined sitting up in bed with multiple family members at the bedside. She denies any symptoms of chest discomfort, palpitations, shortness of breath or dizziness. She's had no further episodes of syncope since arriving to the hospital. EKG reveals sinus mechanism with left bundle branch block pattern. This is consistent with previous EKG. Loop recorder interrogation shows no evidence of an acute bradycardia arrhythmia. Telemetry tracings appeared unremarkable. Chest x-ray is negative for an acute cardiopulmonary process. Bilateral carotid duplex is negative for any significant stenosis. CT of the brain is negative for an acute intracranial process. Laboratory data reviewed, WBC 3.7, hemoglobin 12.2, platelets 157, sodium 141, potassium 4.1, creatinine 0.72, magnesium 2.0, cardiac enzymes negative 3, LDL 80 and HDL 39. Current cardiac medications include Lopressor 50 mg twice a day aspirin 81 mg daily, atorvastatin 40 mg daily, Lasix 40 mg daily and Aldomet 500 mg twice a day. She underwent cardiac catheterization in 2015 revealed a right dominant system with moderate calcification, no significant obstructive coronary artery disease , normal filling pressures and preserved LV systolic function. Most recent echocardiogram obtained in the office reveals mildly decreased systolic function with ejection fraction 45%, stage I diastolic dysfunction with impaired relaxation, moderate asymmetric septal hypertrophy, moderately dilated left atrium, moderate mitral regurgitation, mildly calcified aortic valve with mild aortic regurgitation and mild tricuspid regurgitation. At the time of my exam: CONSTITUTIONAL: Denies fever. Denies chills. EYES: Denies blurred vision. Denies vision changes. Denies eye pain. EARS, NOSE, MOUTH & THROAT: Denies headache. Denies sore throat. Denies ear pain. CARDIOVASCULAR: Denies chest pain. Denies shortness of breath. Denies orthopnea. Denies PND. Denies palpitations. RESPIRATORY: Denies cough. GASTROINTESTINAL: Denies abdominal pain. Denies diarrhea. Denies constipation. Denies nausea. Denies vomiting. MUSCULOSKELETAL: Denies myalgias. INTEGUMENTARY: Denies pruitis. Denies rash. NEUROLOGIC: Denies numbness. Denies tingling. Denies weakness. PSYCHIATRIC: Denies anxiety. Denies depression. ENDOCRINE: Denies fatigue. Denies weight change. Denies polydipsia. Denies polyurina. GENITOURINARY: Denies burning, hematuria or urgency with micturation. HEMATOLOGIC: Denies history of anemia. Denies bleeding. Blood pressure 199/91 heart rate 63 afebrile maintaining oxygen saturation on room air GENERAL: This is a 73-year-old female in no apparent distress at the time of my examination. HEENT: Head is atraumatic, normocephalic. Pupils are equal, round. Sclerae anicteric. Conjunctivae are clear. Mucous membranes of the mouth are moist. Neck is supple. There is no jugular venous distention. No carotid bruit is heard. LUNGS: Clear to auscultation no wheezes, rales or rhonchi. No chest wall tenderness is noted on palpation or with deep breathing. HEART: Regular rate and rhythm with systolic ejection murmur at the left sternal border, no rubs or gallops. S1 and S2 heard. ABDOMEN: Soft, nontender. Bowel sounds are heard. No organomegaly noted. EXTREMITIES: No evidence of peripheral edema and no calf tenderness noted. VASCULAR: Radial and dorsalis pedis pulses palpated, no evidence of clubbing. NEUROLOGIC: Patient is awake, alert and oriented x3. ASSESSMENT Syncope, suggestive of possible vasovagal reaction. No evidence of acute arrhythmia loop recorder interrogation. Hypertension, uncontrolled History of paroxysmal supraventricular tachycardia status post ablation Dyslipidemia PLAN Obtain 2-D echocardiogram and Doppler study to assess cardiac structure and function. Check d-dimer, if elevated we'll proceed with CT angios of the chest to rule out pulmonary embolism. Initiate the patient on amlodipine 5 mg twice a day. Aldomet is not on formulary here and the patient states she has been on this medication for over 50 years and would like to take her home medications. No evidence of an acute arrhythmia thus far to explain her symptoms as a cardiac cause. We will continue to follow and make recommendations accordingly. Thank you kindly for this consultation. Nurse Practitioner note has been reviewed, I agree with a documented findings and plan of care. Patient was seen and examined. Past Medical History Past Medical History: Cancer, GERD/Reflux, Hyperlipidemia, Hypertension, Osteoarthritis (OA), Rheumatoid Arthritis (RA), Syncope Additional Past Medical History / Comment(s): psoriatic arthritis, dizzy spells , palpitations, hx. skin cancer, self-cath's due to bladder not emptying completely History of Any Multi-Drug Resistant Organisms: None Reported Past Surgical History: Back Surgery, Cholecystectomy, Heart Catheterization, Hernia Repair, Hysterectomy, Joint Replacement, Orthopedic Surgery Additional Past Surgical History / Comment(s): henok knee replacements & right hip replaced, vein stripping, left hand fusion, left retinal repair of tear, right carpal tunnel, cardiac ablation Past Anesthesia/Blood Transfusion Reactions: No Reported Reaction Past Psychological History: No Psychological Hx Reported Smoking Status: Unknown if ever smoked Past Alcohol Use History: Occasional Past Drug Use History: None Reported - Past Family History Father Family Medical History: Myocardial Infarction ([place]) Mother Family Medical History: Cancer Daughter(s) Family Medical History: Cancer Medications and Allergies Home Medications Medication Instructions Recorded Confirmed Type Ascorbic Acid [Vitamin C] 1,000 mg PO DAILY 10/02/15 04/01/18 History Folic Acid 1 mg PO DAILY 10/02/15 04/01/18 History Furosemide [Lasix] 40 mg PO DAILY 10/02/15 04/01/18 History Ibuprofen [Motrin] 800 mg PO Q8HR PRN 10/02/15 04/01/18 History Methotrexate Sodium [Methotrexate] 25 mg PO TH 10/02/15 04/01/18 History Methyldopa [Aldomet] 500 mg PO BID 10/02/15 04/01/18 History Multivitamins, Thera [Multivitamin 2 tab PO DAILY 10/02/15 04/01/18 History (formulary)] Omeprazole 40 mg PO DAILY 10/02/15 04/01/18 History Potassium Chloride [Klor-Con 10] 10 meq PO DAILY 10/02/15 04/01/18 History Acai [place] Extract [Acai] 1,000 mg PO DAILY 06/15/17 04/01/18 History Aspirin 81 mg PO DAILY 06/15/17 04/01/18 History Calcium Carb/Vitamin D3/Vit K1 1 each PO DAILY 06/15/17 04/01/18 History [Citracal Soft Chew] Cholecalciferol (Vitamin D3) 2,000 unit PO DAILY 06/15/17 04/01/18 History [Vitamin D3] Cranberry Fruit Extract [Cranberry] 25,000 mg PO DAILY 06/15/17 04/01/18 History Methylcellulose (with Sugar) 2 gm PO DAILY 06/15/17 04/01/18 History [Citrucel Powder] [place]-3 Fatty Acids/Fish Oil [Fish 1 each PO DAILY 06/15/17 04/01/18 History Oil 1,000 mg Softgel] Vitamin B Complex 1 each PO DAILY 06/15/17 04/01/18 History Vitamin E (Dl,Tocopheryl Acet) 400 unit PO DAILY 06/15/17 04/01/18 History [Vitamin E] L.acidoph,Paracasei, B.lactis 1 each PO DAILY 03/03/18 04/01/18 History [Probiotic] Atorvastatin [Lipitor] 40 mg PO DAILY 04/01/18 04/01/18 History Metoprolol Tartrate [Lopressor] 50 mg PO BID 04/01/18 04/01/18 History Allergies Allergy/AdvReac Type Severity Reaction Status Date / Time meperidine HCl [From Demerol] Allergy Rash/Hives Verified 04/01/18 15:20 prochlorperazine Allergy Unknown Verified 04/01/18 15:20 [From Compazine] prochlorperazine edisylate Allergy Unknown Verified 04/01/18 15:20 [From Compazine] prochlorperazine maleate Allergy Unknown Verified 04/01/18 15:20 [From Compazine] simvastatin [From Zocor] Allergy Unknown Verified 04/01/18 15:20 moxifloxacin HCl AdvReac Anaphylaxis Verified 04/01/18 15:20 [From Avelox] Physical Exam Vitals: Vital Signs Temp Pulse Pulse Pulse Pulse Resp BP 04/02/18 12:00 97.4 F L 63 16 04/02/18 08:00 97.9 F 56 L 16 04/02/18 04:00 98.4 F 52 L 71 63 16 04/01/18 20:00 97.6 F 63 71 63 18 04/01/18 19:30 63 67 58 L 18 04/01/18 17:48 98.2 F 67 16 04/01/18 17:36 71 04/01/18 17:34 67 04/01/18 17:33 66 04/01/18 17:10 66 18 154/60 04/01/18 14:55 98.7 F 66 18 154/102 BP BP BP BP Pulse Ox 04/02/18 12:00 163/95 153/81 199/91 98 04/02/18 08:00 199/92 98 04/02/18 04:00 202/84 97 04/01/18 20:00 177/80 96 04/01/18 19:30 205/93 212/98 184/85 04/01/18 17:48 168/85 94 L 04/01/18 17:36 153/95 04/01/18 17:34 154/85 04/01/18 17:33 154/85 04/01/18 17:10 98 04/01/18 14:55 97 Intake and Output 04/01/18 04/02/18 04/02/18 22:59 06:59 14:59 Other: Voiding Method Self-Catheterization # Voids 1 1 1 Results 04/01/18 15:10 04/01/18 15:10 Cardiac Enzymes 04/01/18 04/01/18 04/01/18 Range/Units 15:10 15:10 20:49 AST 29 (14-36) U/L Troponin I <0.012 <0.012 (0.000-0.034) ng/mL 04/02/18 Range/Units 03:21 AST (14-36) U/L Troponin I <0.012 (0.000-0.034) ng/mL Coagulation 02/22/19 Range/Units 15:10 PT 9.8 (9.0-12.0) sec APTT 17.9 L (22.0-30.0) sec Lipids 04/01/18 Range/Units 15:10 Triglycerides 335 H (<150) mg/dL Cholesterol 186 (<200) mg/dL HDL Cholesterol 39 L (40-60) mg/dL CBC 04/01/18 Range/Units 15:10 WBC 3.7 L (3.8-10.6) k/uL RBC 4.07 (3.80-5.40) m/uL Hgb 12.2 (11.4-16.0) gm/dL Hct 38.2 (34.0-46.0) % Plt Count 157 (150-450) k/uL Comprehensive Metabolic Panel 04/01/18 Range/Units 15:10 Sodium 141 (137-145) mmol/L Potassium 4.1 (3.5-5.1) mmol/L Chloride 106 (98-107) mmol/L Carbon Dioxide 28 (22-30) mmol/L BUN 20 H (7-17) mg/dL Creatinine 0.72 (0.52-1.04) mg/dL Glucose 95 (74-99) mg/dL Calcium 9.0 (8.4-10.2) mg/dL AST 29 (14-36) U/L ALT 31 (9-52) U/L Alkaline Phosphatase 70 (38-126) U/L Total Protein 6.0 L (6.3-8.2) g/dL Albumin 3.8 (3.5-5.0) g/dL Current Medications Generic Name Dose Route Start Last Admin Trade Name Freq PRN Reason Stop Dose Admin Acetaminophen 500 mg 04/01/18 20:04 Tylenol Tab PO Q6HR PRN Fever and/ or Mild Pain Alprazolam 0.25 mg 04/01/18 20:04 Xanax PO TID PRN Anxiety Amlodipine Besylate 5 mg 04/02/18 10:15 04/02/18 10:24 Norvasc PO 5 mg BID KODY Administration Ascorbic Acid 1,000 mg 04/02/18 09:00 04/02/18 09:50 Vitamin C PO 1,000 mg DAILY KODY Administration Aspirin 325 mg 04/02/18 09:00 04/02/18 09:51 Aspirin PO 325 mg DAILY KODY Administration Atorvastatin Calcium 40 mg 04/02/18 09:00 04/02/18 09:51 Lipitor PO 40 mg DAILY [facility] Administration Calcium Carbonate 1 each 04/02/18 12:00 04/02/18 12:58 Oscal 500+D PO 1 each DAILY@1200 KODY Administration Cholecalciferol 2,000 unit 04/02/18 12:00 04/02/18 12:58 Vitamin D3 PO 2,000 unit DAILY@1200 [facility] Administration Folic Acid 1 mg 04/02/18 12:00 04/02/18 12:59 Folic Acid PO 1 mg DAILY@1200 [facility] Administration Furosemide 40 mg 04/02/18 09:00 04/02/18 09:51 Lasix PO 40 mg DAILY [facility] Administration Heparin Sodium (Porcine) 5,000 unit 04/01/18 21:00 04/02/18 09:53 Heparin SQ Not Given Q12HR [facility] Ibuprofen 800 mg 04/01/18 17:37 04/01/18 18:32 Motrin PO 800 mg Q8HR PRN Administration Mild Pain Lactobacillus Acidoph/[place] 1 each 04/02/18 09:00 04/02/18 09:54 Lactinex PO 1 each DAILY [facility] Administration Methotrexate 25 mg 04/07/18 12:00 Methotrexate PO TH [facility] Metoprolol Tartrate 50 mg 04/01/18 21:00 04/02/18 05:36 Lopressor PO 50 mg BID [facility] Administration Multivitamins 1 each 04/02/18 12:00 04/02/18 12:58 Theragran PO 1 each DAILY@1200 [facility] Administration Nitroglycerin 1 inch 04/01/18 18:00 04/02/18 13:01 Nitro-Bid Oint TOPICAL 1 inch Q6HR [facility] Administration Nitroglycerin 0.4 mg 04/01/18 16:09 Nitrostat SUBLINGUAL Q5M PRN Chest Pain Methyldopa 500mg 1 each 04/02/18 12:00 04/02/18 13:19 Tablet PO 1 each BID [facility] Administration Pantoprazole Sodium 40 mg 04/02/18 07:30 04/02/18 05:36 Protonix PO 40 mg AC-BRKFST [facility] Administration Polyethylene Glycol 17 gm 04/02/18 09:00 04/02/18 09:53 Miralax PO 17 gm DAILY [facility] Administration Potassium Chloride 10 meq 04/02/18 09:00 04/02/18 09:51 K-Dur 10 PO 10 meq DAILY [facility] Administration Temazepam 15 mg 04/01/18 20:04 04/01/18 22:42 Restoril PO 15 mg HS PRN Administration Insomnia Vitamin E 400 unit 04/02/18 12:00 04/02/18 12:58 Vitamin E PO 400 unit DAILY@1200 KODY Administration Intake and Output 04/01/18 04/02/18 04/02/18 22:59 06:59 14:59 Other: Voiding Method Self-Catheterization # Voids 1 1 1 04/01/18 15:10 04/01/18 15:10
--- NOTE | 2018-04-02 14:57 | CT ---
EXAMINATION TYPE: CT angio chest DATE OF EXAM: 04/02/2018 COMPARISON: NONE HISTORY: Chest pain, dyspnea CT DLP: 382.8 mGycm. Automated Exposure Control for Dose Reduction was Utilized. CONTRAST: CTA scan of the thorax. Injected with 54 mL of Isovue 370, pulmonary embolism protocol. MIP Images a re created on CT scanner and reviewed. FINDINGS: LUNGS: The lungs are grossly clear, there is no concerning parenchymal mass or nodule identified. T here is no pleural effusion or pneumothorax seen. The tracheobronchial tree is patent. MEDIASTINUM: There is satisfactory enhancement of the pulmonary artery and its branches, there is no CT evidence for pulmonary embolism. There are no greater than 1 cm hilar or mediastinal lymph nodes. No cardiomegaly or pericardial effusion is seen. OTHER: Extensive multilevel degenerative type changes are seen of the spine. IMPRESSION: No pulmonary embolism.
[2018-04-02] MEDS: IBUPROFEN 800 MG TAB PO PRN (15:21)
[2018-04-02] MEDS ORDERED: hydrALAZINE HCL 20 MG/ML 1 ML VIAL IVP PRN (17:21)
[2018-04-02] MEDS ORDERED: cloNIDine HCL 0.1 MG TAB PO PRN (17:21)
[2018-04-02] MEDS: LISINOPRIL 10 MG TAB PO SCH (18:42)
[2018-04-02] MEDS: amLODIPine 5 MG TAB PO SCH (18:42)
[2018-04-02 18:56] LABS: Appearance,Urine Clear (Clear); Bilirubin,Urine Negative (Negative); Blood,Urine Negative (Negative); Color,Urine Yellow; Glucose,Urine (UA) Negative (Negative); Ketones,Urine Negative (Negative); Leukocyte Esterase,Urine Small (Negative); Nitrite,Urine Negative (Negative); Protein,Urine Negative (Negative); RBC,Urine <1 /hpf (0-5); Specific Gravity,Urine 1.036 (1.001-1.035); Urobilinogen,Urine <2.0 mg/dL (<2.0); WBC,Urine 2 /hpf (0-5)
--- NOTE | 2018-04-02 19:05 | PN ---
PROGRESS NOTE DATE OF SERVICE: 04/02/2018 I am covering for Dr. Cid. This 73-year-old woman was admitted with syncope. Patient also had cardiac arrhythmia recently with a history of ablations. Patient apparently had a fall and subsequent had syncope. Patient fell down. Cardiology is following the patient closely. The initial evaluation is being closely monitored. D-dimer is found to be 7.03. However, a chest CT was also done, which showed no evidence of pulmonary embolism. The EKG shows left bundle branch block. PAST MEDICAL HISTORY: Reviewed. REVIEW OF SYSTEMS: CARDIOVASCULAR: No angina. RESPIRATORY: As mentioned. GI: As mentioned. : No dysuria. NERVOUS SYSTEM: As mentioned earlier. CURRENT MEDICATIONS: Reviewed and include: 1. Tylenol 500 mg q.6h p.r.n. 2. Xanax 0.5 t.i.d. 3. Norvasc 5 mg b.i.d. 4. Vitamin C 1000 mg. 5. Aspirin 325 mg. 6. Lipitor 40 mg. 7. Os-Jose J with vitamin D 1 p.o. daily. 8. Vitamin D3 1999. 9. Folic acid 1 mg daily. 10.Lasix 40 mg p.o. daily. 11.Heparin 5 subcu b.i.d. 12.Motrin 800 mg q.8h p.r.n. 13.Lactinex 1 p.o. daily. 14.Zestril 10 mg p.o. b.i.d. 15.Methotrexate 25 mg q.h.s. 16.Multivitamin. 17.Nitrostat. 18.Nitro-Bid. 20.MiraLAX. 21.K-Dur. 22.Restoril. 23.Vitamin E. PHYSICAL EXAM: Patient is alert, oriented x2. Pulse is 77, blood pressure 175/92, mild orthostatic changes, respirations 16, temperature 97.8, pulse ox 93% on room air. HEENT: Conjunctivae normal. NECK: No jugular venous distention. CARDIOVASCULAR: S1, S2. RESPIRATORY: Breath sounds diminished in the bases. no rhonchi, no crackles. ABDOMEN: Soft, nontender. LEGS: No edema. NERVOUS SYSTEM: Higher functions as mentioned earlier. Moves all four limbs. No focal motor deficits. LYMPHATICS: No lymphadenopathy in the neck, axillae, groin. SKIN: No ulcer, rash or bleeding. JOINTS: No active arthropathy. LABS: At this time shows WBC 3.7, D-dimer noted. Other labs are noted. Triglycerides are 335. ASSESSMENT: 1. Syncope for evaluation, rule out cardiac arrhythmia, possible vasovagal. 2. History of recent ablation for supraventricular tachycardia and AVNRT. 3. Left bundle branch block in EKG. 4. History of gastroesophageal reflux disease. 5. Uncontrolled hypertension with hypertensive urgency. 6. Hyperlipidemia. 7. History of degenerative joint disease. 8. Rheumatoid arthritis. 9. History of psoriatic arthritis. 10.History of self catheterization. 11.History of cholecystectomy. 12.Elevated D-dimer without any evidence of pulmonary embolism. RECOMMENDATIONS AND DISCUSSION: I recommend to continue current management, continue with monitoring, and symptomatic treatment. Add lisinopril to the current regimen. Orthostatic vitals. Otherwise, continue the telemetry and I would also repeat labs. Prognosis guarded. Further recommendations to follow. MMODL / IJN: [id number] / MTDD
[2018-04-03] MEDS: METHYLDOPA 500MG TABLET PO SCH ×2 (05:54→05:57)
[2018-04-03] MEDS: NITROGLYCERIN OINT 1 INCH/GM PACKET TOPICAL SCH ×3 (05:54→12:04)
[2018-04-03] MEDS: amLODIPine 5 MG TAB PO SCH (05:55)
[2018-04-03] MEDS: IBUPROFEN 800 MG TAB PO PRN (05:56)
[2018-04-03] MEDS ORDERED: POTASSIUM CHLORIDE ER 10 MEQ TAB.ER.PRT PO SCH (06:00)
[2018-04-03] MEDS ORDERED: ATORVASTATIN 40 MG TAB PO SCH (06:00)
[2018-04-03] MEDS ORDERED: FUROSEMIDE 40 MG TAB PO SCH (06:00)
[2018-04-03] MEDS ORDERED: ASCORBIC ACID 500 MG TAB PO SCH (06:00)
[2018-04-03] MEDS ORDERED: ASPIRIN 325 MG TAB PO SCH (06:00)
[2018-04-03] MEDS: METOPROLOL TARTRATE 50 MG TAB PO SCH (06:02)
[2018-04-03] MEDS: PANTOPRAZOLE 40 MG TABLET PO SCH (06:02)
[2018-04-03 06:32] LABS: Basophils % (A) 0 %; Eosinophils # (A) 0.1 k/uL (0-0.7); Eosinophils % (A) 4 %; HCT 36.9 % (34.0-46.0); HGB 11.4 gm/dL (11.4-16.0); Hypochromasia Slight; Lymphocytes # (A) 0.9 k/uL (1.0-4.8); Lymphocytes % (A) 34 %; MCH 29.3 pg (25.0-35.0); MCHC 30.9 g/dL (31.0-37.0); MCV 94.6 fL (80.0-100.0); Mean Platelet Volume 6.9; Monocytes # (A) 0.2 k/uL (0-1.0); Monocytes % (A) 6 %; Neutrophils # (A) 1.4 k/uL (1.3-7.7); Neutrophils % (A) 52 %; Platelet Count 140 k/uL (150-450); RDW 14.6 % (11.5-15.5); WBC 2.6 k/uL (3.8-10.6)
[2018-04-03 06:45] LABS: Anion Gap 6 mmol/L; Blood Urea Nitrogen 13 mg/dL (7-17); Carbon Dioxide 31 mmol/L (22-30); Chloride 104 mmol/L (98-107); Glucose 99 mg/dL (74-99); Potassium 4.4 mmol/L (3.5-5.1); Sodium 141 mmol/L (137-145)
[2018-04-03] MEDS: LISINOPRIL 10 MG TAB PO SCH (07:45)
[2018-04-03] MEDS: POLYETHYLENE GLYCOL 3350 17 GM POWD.PACK PO SCH (09:40)
[2018-04-03] MEDS: HEPARIN SODIUM,PORCINE 5,000 UNIT/ML 1 ML VIAL SQ SCH (09:42)
[2018-04-03] MEDS: LACTOBACILLUS ACIDOPH & BULGAR 1 EACH PACKET PO SCH (09:42)
[2018-04-03] MEDS: FOLIC ACID 1 MG TAB PO SCH (12:00)
[2018-04-03] MEDS: CALCIUM CARB-VIT D 500MG-200UN 1 EACH TAB PO SCH (12:00)
[2018-04-03] MEDS: CHOLECALCIFEROL 1,000 UNIT TAB PO SCH (12:00)
[2018-04-03] MEDS: VITAMIN E (DL,TOCOPHERYL ACET) 400 UNIT CAP PO SCH (12:01)
[2018-04-03] MEDS: MULTIVITAMINS, THERA 1 EACH TAB PO SCH (12:02)
[2018-04-03 12:52] VITALS: BP 159/74; PULSE 55; TEMP 97.4
--- NOTE | 2018-04-03 15:45 | PN ---
PROGRESS NOTE This patient was admitted with syncope. Patient is feeling well. No dysrhythmias are noted on the monitor. Patient's blood pressure is stable. Echocardiogram reveals normal left ventricular systolic function. The patient can be discharged home and follow up with Dr. Ignacio Grewal as an outpatient. MMIRA / ABDI: [id number] /
--- NOTE | 2018-04-03 19:36 | DS ---
DISCHARGE SUMMARY DATE OF SERVICE: 04/03/2018 I am covering for Dr. Cid. FINAL DIAGNOSES: 1. Syncope possibly vasovagal rule out cardiac arrhythmia. 2. History of recent ablation with supraventricular tachycardia with AVNRT. 3. Left bundle branch block in EKG. 4. History of gastroesophageal reflux disease. 5. Uncontrolled hypertension with hypertensive urgency. 6. Hyperlipidemia. 7. History of degenerative joint disease. 8. History of rheumatoid arthritis. 9. History of psoriatic arthritis. 10.History of self catheterization. 11.History of cholecystectomy. 12.Elevated D-dimer without any evidence of pulmonary embolus. DISCHARGE DISPOSITION: Patient is being discharged in stable condition with guarded prognosis. Discharge cleared by Cardiology. HISTORY OF PRESENT ILLNESS: This 73-year-old woman with past medical history of multiple medical problems being followed by Dr. Montez Cid in the outpatient setting was admitted with syncope. The patient apparently had a fall also but however evaluation in the hospital was negative except minimal orthostatic hypotension. Medications were adjusted. Cardiology saw the patient and recommended outpatient followup. Chest CT was negative for pulmonary embolism. CT scan of the brain was also reviewed. On exam vitals are stable. Cardiovascular: S1, S2. Abdomen: Soft. Nervous System: No focal deficits. DISCHARGE ADVICE: 1. Diet is cardiac. 2. Activity limited until followup. 3. Follow up with Dr. Cid in 2-3 days. 4. Follow up with Cardiology in 1 week. MEDICATIONS: 1. Acai as before. 2. Vitamin C 1000 mg daily. 3. Aspirin 81 mg daily. 4. Lipitor 40 mg daily. 5. Citracal 1 tablet daily. 6. Vitamin D3 2000 daily. 7. Cranberry 61568 mg. 8. Folic acid 1 mg daily. 9. Lasix 40 mg daily. 10.Motrin mg q.p.m. 11.Probiotic 1 p.o. daily. 12.Methotrexate 25 mg p.o. q.h.s. 13.Citrucel powder 2 g daily. 14.Aldomet 500 mg p.o. b.i.d. 15.Lopressor 50 mg p.o. b.i.d. 16.Multivitamin 2 tabs daily. 17.Fish oil 1 p.o. daily. 18.Omeprazole 40 mg p.o. daily. 19.Klor-Con 10 mg p.o. daily. 20.Vitamin B complex 1. 21.Vitamin E 400 units daily. 22.Zestril 10 mg p.o. b.i.d. Hold if the blood pressure is less than 120 and blood pressure medications to be adjusted in the outpatient setting by Dr. Grewal of cardiology. KADE / SHALININ: [id number] /
[2018-04-07] MEDS ORDERED: METHOTREXATE SODIUM 2.5 MG TAB PO SCH (12:00)
== END 2018-04-03 14:25 | disposition home or self-care (01) ==
LOC: EC 14:46 → 3SCARD 16:36
PROVIDERS: ADMIT Internal Medicine; ATTEND Internal Medicine
DX: R55 Syncope and collapse (principal); I16.0 Hypertensive urgency; I10 Essential (primary) hypertension; I44.7 Left bundle-branch block, unspecified; I08.3 Combined rheumatic disorders of mitral, aortic and tricuspid valves; J98.11 Atelectasis; R61 Generalized hyperhidrosis; R79.89 Other specified abnormal findings of blood chemistry; M06.9 Rheumatoid arthritis, unspecified; K21.9 Gastro-esophageal reflux disease without esophagitis; E78.5 Hyperlipidemia, unspecified; R33.9 Retention of urine, unspecified; M19.90 Unspecified osteoarthritis, unspecified site; Z79.82 Long term (current) use of aspirin; Z79.899 Other long term (current) drug therapy; Z88.1 Allergy status to other antibiotic agents; Z88.5 Allergy status to narcotic agent; Z88.8 Allergy status to other drugs, medicaments and biological substances; Z85.828 Personal history of other malignant neoplasm of skin; L40.50 Arthropathic psoriasis, unspecified; Z90.49 Acquired absence of other specified parts of digestive tract; Z90.710 Acquired absence of both cervix and uterus; Z96.653 Presence of artificial knee joint, bilateral; Z86.79 Personal history of other diseases of the circulatory system; Z96.649 Presence of unspecified artificial hip joint; Z98.1 Arthrodesis status; Z82.49 Family history of ischemic heart disease and other diseases of the circulatory system; Z80.9 Family history of malignant neoplasm, unspecified; W01.0XXA Fall on same level from slipping, tripping and stumbling without subsequent striking against object, initial encounter
CPT/HCPCS: 96360; 99285; 36415; 93005; 93306; 85379; 80061; 80053; 80048; 83735; 84484 ×2; 85025 ×2; 85610; 85730; 81001; 71046; 93880; 70450; 71275; G0378 ×3; Q9967

== ENCOUNTER → 2018-09-21 | Day surgery (SDC) | payer MEDICARE, BC ==
[2018-09-15 16:15] VITALS: BMI 32.3
[~2018-09-21] MED LIST changes: +ACETAMINOPHEN TAB 325 MG TAB PO STA; +ACETAMINOPHEN TAB 500 MG TAB PO PRN; +LIDOCAINE 1% INJ 10MG/ML (20 ML MDV) ONE; +MIDAZOLAM (PF) 2 MG/2 ML VIAL IVP ONE; +NITROGLYCERIN SL TABS 0.4 MG TAB SUBLINGUAL ONE; +amLODIPine 5 MG TAB ONE; +amLODIPine 5 MG TAB PO STA
[2018-09-21 10:08] VITALS: RESP 16; TEMP 97.9
[2018-09-21] MEDS: LIDOCAINE 1% INJ 10MG/ML (20 ML MDV) SQ ONE ×2 (11:28→11:34)
--- NOTE | 2018-09-21 12:33 | PCN ---
PROCEDURE NOTE DATE OF SERVICE: 09/21/2018 PROCEDURE: Explantation of Loop Recorder. PERFORMED BY: Dr. Ignacio Grewal. ANESTHESIA: Moderate conscious sedation time was 17 minutes. CLINICAL INFORMATION: Ms. Nelly Souza is a 73-year-old lady with underlying left bundle branch block pattern and symptomatic SVT which was discovered on a loop recorder. She underwent ablation with good results and has not had any issues. She wished explantation of loop recorder and we had the discussion at the office regarding the rationale, risks, benefits, and options. She was brought in for the procedure. Patient was administered local anesthesia over the site with 1% lidocaine. Subsequently, a linear incision was made of about 1 inch long. Blunt dissection was performed. The device was located and taken out intact. The patient tolerated the procedure well. Hemostasis was secured. Three separate sutures were placed with a 2 0 silk. Good hemostasis was secured. She tolerated the procedure well. She was administered antibiotic at the beginning of the procedure intravenously and she will be on Keflex 500 mg t.i.d. upon discharge. I will see her in the office in one week. The details were discussed with the patient and daughter. MMODL / IJN: [id number] /
[2018-09-21 17:24] VITALS: BP 155/75; PULSE 48
== END ==
LOC: CATHEP 09:22
PROVIDERS: ATTEND Internal Medicine Interventional Cardiology
DX: Z45.09 Encounter for adjustment and management of other cardiac device (principal); R55 Syncope and collapse; I47.1 Supraventricular tachycardia; I44.7 Left bundle-branch block, unspecified; I49.5 Sick sinus syndrome; I10 Essential (primary) hypertension; E78.5 Hyperlipidemia, unspecified; E78.00 Pure hypercholesterolemia, unspecified; Z82.49 Family history of ischemic heart disease and other diseases of the circulatory system; Z79.82 Long term (current) use of aspirin; Z79.899 Other long term (current) drug therapy; Z79.1 Long term (current) use of non-steroidal anti-inflammatories (NSAID); Z88.1 Allergy status to other antibiotic agents; Z88.5 Allergy status to narcotic agent; Z88.8 Allergy status to other drugs, medicaments and biological substances
CPT/HCPCS: 33286; J0690; J2001; J2250

== ENCOUNTER → 2018-09-30 | Outpatient (CLI) | payer MEDICARE, BC ==
[2018-09-30 23:19] LABS: African American GFR (CKD) 85.4 (60.0-200.0); Anion Gap 9.7 mmol/L (4.00-12.00); Calcium 9.1 mg/dL (8.7-10.3); Carbon Dioxide 28.3 mmol/L (21.6-31.8); Non-African American GFR(CKD) 73.7 (60.0-200.0); Potassium 4.1 mmol/L (3.5-5.5)
== END | disposition home or self-care (01) ==
LOC: LABWHC1 15:25
PROVIDERS: ATTEND Nurse Practitioner
DX: I10 Essential (primary) hypertension (principal); I49.5 Sick sinus syndrome; R55 Syncope and collapse; E78.00 Pure hypercholesterolemia, unspecified; I44.7 Left bundle-branch block, unspecified; I47.1 Supraventricular tachycardia
CPT/HCPCS: 36415; 80048

== ENCOUNTER → 2020-10-31 | Outpatient (CLI) | payer MEDICARE, BC | END | disposition home or self-care (01) | LOC: LABPAT 09:06 | PROVIDERS: ATTEND Orthopaedic Surgery | DX: Z01.812 Encounter for preprocedural laboratory examination (principal); M16.12 Unilateral primary osteoarthritis, left hip | CPT/HCPCS: 87070 ==

== ENCOUNTER 2020-11-11 13:43 | Inpatient (IN) | payer MEDICARE, BC ==
[2020-11-06 17:19] VITALS: BMI 30.5
--- NOTE | 2020-11-10 16:19 | HP ---
HISTORY AND PHYSICAL HISTORY: Nelly Souza is a 75-year-old patient seen with symptomatic left hip osteoarthritis. We discussed options for treatment. She elected to proceed with direct anterior left total hip arthroplasty. Consent was obtained. Medical clearance was provided by Dr. Montez Cid. PAST MEDICAL HISTORY: Hyperlipidemia, hypertension, coronary artery disease. PAST SURGICAL HISTORY: Cholecystectomy, hysterectomy, herniorrhaphy, bilateral total knee arthroplasty, right total hip arthroplasty, lumbar spine surgery. MEDICATIONS: Omeprazole, methotrexate, losartan, ibuprofen, hydralazine, furosemide. ALLERGIES: None reported. SOCIAL HISTORY: She denies tobacco use. PHYSICAL EXAMINATION: Evaluation of the left hip, she has very limited range of motion with severe pain, diffuse weakness, diffuse tenderness. Positive impingement sign. The left lower extremity is approximately 1 cm shorter than the right. Distal neurovascular exam is intact. RADIOGRAPHS: Radiographs of the left hip reveal severe osteoarthritic changes. IMPRESSION: 1. Left hip osteoarthritis. 2. Hypertension. 3. Hyperlipidemia. 4. Rheumatoid arthritis. PLAN: Direct anterior left total hip arthroplasty. MMODL / IJN: [id number] /
[~2020-11-11 13:43] MED LIST changes: -ACETAMINOPHEN TAB 325 MG TAB PO STA; +DEXAMETHASONE SOD PHOSPHATE 4 MG/ML 1 ML VIAL IV ONE; +HYDROmorphone 0.5 MG/0.5 ML SYRINGE IVP PRN; +LIDOCAINE 1% (10MG/ML) FOR IV START INTRADERMA PRN; -LIDOCAINE 1% INJ 10MG/ML (20 ML MDV) ONE; +MELOXICAM 7.5 MG TAB PO PRN; -MIDAZOLAM (PF) 2 MG/2 ML VIAL IVP ONE; -NITROGLYCERIN SL TABS 0.4 MG TAB SUBLINGUAL ONE; +ONDANSETRON 4 MG/2 ML VIAL IVP ONE; +ONDANSETRON 4 MG/2 ML VIAL IVP PRN; +ROPIVACAINE/EPI/CLONIDINE/KET 50 ML SYRINGE MISCELLANE PRN; -SODIUM CHLORIDE 0.9% 1,000 ML IV SCH; +TRANEXAMIC ACID 1,000 MG in SODIUM CHLORIDE 0.9% 100 ML IVPB PRN; -amLODIPine 5 MG TAB ONE; -amLODIPine 5 MG TAB PO STA
[2020-11-11] MEDS: LACTATED RINGERS 1,000 ML IV SCH (15:00)
[2020-11-11] MEDS ORDERED: fentaNYL (PF) 50 MCG/ML 2 ML AMP IV ONE (15:15)
[2020-11-11] MEDS ORDERED: ePHEDrine SULFATE/0.9% NACL/PF 50 MG/5 ML SYRINGE IV ONE (15:54)
[2020-11-11] MEDS ORDERED: PROPOFOL 10 MG/ML 20 ML VIAL IV ONE (15:54)
[2020-11-11] MEDS ORDERED: fentaNYL (PF) 50 MCG/ML 2 ML AMP ONE (15:54)
[2020-11-11] MEDS ORDERED: TRANEXAMIC ACID 1,000 MG/10 ML VIAL ONE (15:54)
[2020-11-11] MEDS ORDERED: MIDAZOLAM 2 MG/2 ML VIAL ONE (15:54)
[2020-11-11] MEDS ORDERED: SODIUM CHLORIDE 0.9% 100 ML BAG ONE (15:54)
[2020-11-11] MEDS ORDERED: LACTATED RINGERS 1,000 ML IV ONE (16:56)
[2020-11-11] MEDS ORDERED: HYDROmorphone 0.5 MG/0.5 ML SYRINGE IVP PRN ×2 (17:46)
[2020-11-11] MEDS ORDERED: ONDANSETRON 4 MG/2 ML VIAL IVP PRN (17:46)
[2020-11-11] MEDS ORDERED: HYDROmorphone 0.2 MG/1 ML SYRINGE IVP PRN (17:46)
[2020-11-11] MEDS ORDERED: HYDROcodone/APAP 5-325MG 1 EACH TAB PO PRN (17:46)
[2020-11-11] MEDS ORDERED: NALOXONE 0.4 MG/ML 1 ML VIAL IV PRN (17:46)
--- NOTE | 2020-11-11 17:46 | P.OP ---
Date of Procedure: 11/11/20 Preoperative Diagnosis: Left hip osteoarthritis Postoperative Diagnosis: Left hip osteoarthritis Procedure(s) Performed: Direct anterior left total hip arthroplasty Implants: 1. Depuy Corail KA size 15 with collar press-fit femoral stem 2. Depuy pinnacle 58 mm multi hole press-fit acetabular shell 3. Depuy pinnacle neutral polyethylene acetabular liner 36 mm ID 58 mm OD 4. Biolox delta ceramic femoral head +5 36 mm Anesthesia: local, spinal Surgeon: Ramu Curtis Internet Site Designer #1: Sang Cruz Estimated Blood Loss (ml): 100 Pathology: other (Femoral head) Condition: stable Disposition: PACU Indications for Procedure: 75-year-old patient seen with symptomatic left hip osteoarthritis. After treatment options were discussed, she elected to proceed with direct anterior left total hip arthroplasty. Operative Findings: See description of procedure Description of Procedure: The patient was taken to the operative suite. Patient underwent a spinal anesthetic by the department of anesthesia. Patient was then transferred to the [place] table. Patient was given preoperative IV antibiotics and TXA. Both lower extremities were placed in standard leg spars. The hip was then prepped and draped in the normal sterile orthopedic fashion. A standard anterior incision was made beginning 3 cm lateral and 1 cm distal to the ASIS extending 10 cm. Dissection was then carried down through the subcutaneous soft tissues down to the fascia overlying the tensor fascia lorie. An incision was now made through the fascia. Careful dissection was taken down exposing the tensor fascia lorie muscle. A Cobra retractor was now placed along the medial femoral neck and a second one along the lateral femoral neck. The venous circumflex vessels were now identified, cauterized and clipped. We identified the anterior hip capsule. An incision was made through the hip capsule along the lateral border. I performed a partial anterior capsulectomy. Retractors were now placed around the femoral neck itself. A femoral neck cut was now made with a sagittal saw. It was completed with an osteotome at the lateral neck area. The femoral head was now removed without difficulty. The extremity was now rotated to 60 of external rotation. It was locked in position. Residual labrum was now debrided out. Serial reaming was performed of the acetabulum while Roberto CRUZ assisted holding an anterior retractor for exposure. Once we reached the appropriate size and a trial was position and fit nicely. The appropriate size was now chosen opened and made available. It was introduced into the acetabulum without difficulty. The C-arm/fluoroscopy was now brought into the operative field. We made sure we had a true AP pelvic view. We now under direct C-arm/fluoroscopy introduced into the acetabular component with appropriate version and inclination. I held the cup in appropriate position well Roberto CRUZ used a mallet to seat the acetabular component. I noted the component now to be well seated and stable. Acetabular cup introduce her was removed. The C-arm was pulled back. An appropriate liner was introduced and clicked into position. It was felt to be stable. At this point retractors were removed. The extremity was now placed into 140 external rotation with no traction. The leg was now dropped to the ground and adducted. Appropriate retractors were now positioned along the proximal femur. We also placed our femoral look into position. Additional capsular releasing was performed to gain access to the proximal femur. We now used a box osteotome. A canal finder was now utilized. Serial broaching was now performed with the assistance of Roberto CRUZ tapping the broaches down with a mallet while held the broach in appropriate rotation and position. This was done until we reached the appropriate size with good overall rotational stability. Appropriate calcar planing was performed. A trial head/neck was placed into position. The hip was now reduced. I brought the C-arm in and evaluated AP pelvis view. We noted reasonable leg length alignment. The trial components appeared adequately size. The C- arm/fluoroscopy was pulled back. Retractors were repositioned and the hip was dislocated. The leg was again taken down to the ground and adducted. Appropriate retractors were repositioned as well as the femoral hook. All trial components were removed. The femoral implant was opened along with the femoral head. The femoral implant was introduced on the appropriate handle into our pre-broached area. I held the component position well Roberto CRUZ used a mallet to seat the femoral component. The femoral component was now noted to be well seated and stable.. The femoral head was introduced with good positioning and fixation noted. Retractors were now removed. The hip was now reduced. There appeared be good positioning of the hip confirmed on intraoperative fluoroscopy. Spot films were obtained to document this. A second gram of TXA was given. The deep and superficial soft tissues were infiltrated with local analgesic. Bipolar cautery had been utilized intermittently through the procedure for hemostasis. The wound was irrigated copiously with pulse lavage mechanical irrigation. The fascia was repaired with Vicryl suture. The subcutaneous soft tissues were repaired in layers with Vicryl suture. The skin was approximated with pernio/Dermabond. Sterile dressings were applied. Patient was then awakened, transferred to a bed and taken to recovery in stable condition. Roberto CRUZ assisted with the complex procedure.
[2020-11-11] MEDS: hydrALAZINE HCL 25 MG TAB PO SCH (23:20)
[2020-11-11] MEDS: LOSARTAN-HCTZ 50-12.5 MG 1 EACH TAB PO SCH (23:20)
[2020-11-11] MEDS: MELATONIN 1 MG TAB PO SCH (23:20)
[2020-11-11] MEDS: ATORVASTATIN 40 MG TAB PO SCH (23:20)
[2020-11-11] MEDS: SENNOSIDES-DOCUSATE SODIUM 1 EACH TAB PO SCH (23:21)
--- NOTE | 2020-11-12 03:45 | XR ---
EXAMINATION TYPE: XR Hip Limited LT DATE OF EXAM: 11/11/2020 COMPARISON: NONE HISTORY: Hip surgery TECHNIQUE: 2 views FINDINGS: 2 fluoroscopic images were obtained at show left hip prosthesis. Components appear in good position. There was 8 seconds of fluoroscopy time recorded for the surgery. IMPRESSION: No complicating process seen.
--- NOTE | 2020-11-12 08:34 | FL ---
Fluoroscopy HISTORY: Hip replacement 8 seconds fluoroscopy time supplied to the referring clinician. 2 intraoperative C-arm images docume nt the procedure. See dictated report from orthopedic surgery.
[2020-11-12] MEDS: ENOXAPARIN 40 MG/0.4 ML SYRINGE SQ SCH (09:05)
[2020-11-12] MEDS: FUROSEMIDE 40 MG TAB PO SCH (09:06)
[2020-11-12] MEDS: POTASSIUM CHLORIDE ER 10 MEQ TAB.ER.PRT PO SCH (09:06)
[2020-11-12] MEDS: LOSARTAN-HCTZ 50-12.5 MG 1 EACH TAB PO SCH ×2 (09:06→20:45)
[2020-11-12] MEDS: PANTOPRAZOLE 40 MG TABLET PO SCH (09:06)
[2020-11-12] MEDS: HYDROcodone/APAP 5-325MG 1 EACH TAB PO PRN ×3 (09:06→19:36)
[2020-11-12] MEDS: FAMOTIDINE 20 MG TAB PO SCH (09:06)
[2020-11-12] MEDS: hydrALAZINE HCL 25 MG TAB PO SCH ×2 (09:06→20:44)
[2020-11-12 09:25] LABS: Basophils # (A) 0.01 X 10*3/uL (0.00-0.10); Basophils % (A) 0.1 %; Eosinophils # (A) 0 X 10*3/uL (0.04-0.35); Eosinophils % (A) 0 %; HCT 33.3 % (37.2-46.3); HGB 10.4 g/dL (12.0-15.0); Lymphocytes # (A) 0.83 X 10*3/uL (0.90-5.00); Lymphocytes % (A) 11.8 %; MCH 28.1 pg (27.0-32.0); MCHC 31.2 g/dL (32.0-37.0); Mean Platelet Volume 9.6 fL (9.5-12.2); Monocytes # (A) 0.62 X 10*3/uL (0.20-1.00); Monocytes % (A) 8.8 %; Neutrophils # (A) 5.54 X 10*3/uL (1.80-7.70); Platelet Count 221 X 10*3/uL (140-440); RDW 13.4 % (11.5-14.5); WBC 7.02 X 10*3/uL (4.50-10.00)
--- NOTE | 2020-11-12 09:54 | P.PN ---
Subjective Progress Note Date: 11/12/20 Principal diagnosis: Status post direct anterior left total hip arthroplasty Patient was evaluated today at bedside, she is resting comfortably. She has been up ambulating very well with therapy. Her pain is well-controlled currently. She denies any headaches, lightheadedness, chest pain or shortness of breath. Objective - Vital Signs Vital signs: Vital Signs Temp 97.9 F 11/12/20 07:28 Pulse 56 L 11/12/20 09:07 Resp 16 11/12/20 09:07 BP 138/69 11/12/20 07:28 Pulse Ox 99 11/12/20 07:28 Intake & Output 11/11/20 11/12/20 11/12/20 18:59 06:59 18:59 Intake Total 1250 100 Output Total 200 700 Balance 1050 -600 Weight 86.18 kg Intake: IV 1250 100 Output: Urine 100 700 Estimated Blood Loss 100 Other: Voiding Method Indwelling Catheter Indwelling Catheter - Exam Left lower extremity: Incision is clean, dry, and intact. The foam dress is in good condition. There is minimal soft tissue swelling and ecchymosis surrounding the medial and lateral aspects of the incision. Calf is soft, no tenderness with palpation. Plantar flexion, dorsiflexion, EHL, FHL are intact. Sensory exam to light touch throughout the extremity is intact, dorsal pedis pulses 2+. - Labs CBC & Chem 7: 11/12/20 05:43 Labs: Abnormal Lab Results - Last 24 Hours (Table) 11/12/20 Range/Units 05:43 RBC 3.70 L (4.10-5.20) X 10*6/uL Hgb 10.4 L (12.0-15.0) g/dL Hct 33.3 L (37.2-46.3) % MCHC 31.2 L (32.0-37.0) g/dL Lymphocytes # 0.83 L (0.90-5.00) X 10*3/uL Eosinophils # 0 L (0.04-0.35) X 10*3/uL Assessment and Plan Assessment: Postoperative day #1 status post direct anterior left total hip arthroplasty Plan: Pain control, plan for discharge home on oral medication GI and DVT prophylaxis, aspirin 81 mg twice a day for 30 days Wound care instructions discussed, this including both icing and elevating the limb showering Home therapy and nursing after discharge Medical recommendations Discharge planning: Patient stable for discharge home today Time with Patient: Less than 30
--- NOTE | 2020-11-12 11:11 | P.DS ---
Providers Date of admission: 11/11/2020 Expected date of discharge: 11/12/20 Attending physician: Ramu Curtis Consults: 11/11/20 17:46 Consult Physician Routine Consulting Provider: Montez Cid Reason/Comments: Medical management Do you want consulting provider notified?: Yes 11/11/20 17:50 Consult Physician Routine Consulting Provider: [facility] Reason/Comments: Intraoperative cardiac arrhythmia Do you want consulting provider notified?: Yes Primary care physician: Montez Cid Hospital Course: Date of admission: 11/11/2020 Date of discharge: 11/12/2020 Admission diagnosis: Status post direct anterior left total hip arthroplasty Discharge diagnosis: Same Attending physician: Dr. Curtis Surgical procedures: Direct anterior left total hip arthroplasty Brief history: Patient is a 75-year-old female with a history of regressive primary left hip osteoarthritis. At this point patient has failed conservative treatment measures and has opted to proceed with a elective direct anterior left total hip arthroplasty. Hospital course: Details of patient's surgery can be found in operative report. Patient tolerated the procedure well and was subsequently transported to orthopedic floor. Patient's orthopeidc and medical care was provided daily. Patient had daily laboratory tests performed for evaluation of overall blood cou nts. Patient had daily physical therapy to include strengthening range of motion as well as education with walker ambulation. Patient was treated with Lovenox for their postoperative DVT prophylaxis during their inpatient stay. Patient was noted to have a relatively uneventful postoperative course. Patient reported satisfactory pain control with oral pain medications by postoperative day 0. Patient showed satisfactory progress with physical therapy. Patient moved steadily through the program and had no difficulty meeting the goals by postoperative day 1. Given patient's otherwise satisfactory course and having met physical therapy goals, plan is to discharge patient home on postoperative day 1. Discharge condition/disposition: Patient will be discharged home in stable condition. Discharge medications: Instructions are given on resumption of patient's normal daily medications per primary care recommendation, in addition patient will be prescribed [place] 5 mg/325 mg, aspirin 81 mg, Keflex 500 mg. Discharge instructions: 1. Wound care and infection precautions, keep incision dry and covered while showering, no lotions, creams, moisturizers. No soaking, tubs, pools, hottubs. D o not scrub over the incision. 2. Weight-bear as tolerated with walker / cane until follow-up. 3. Ice and elevate when necessary. Do not exceed 20 minutes per hour with ice pack. 4. Utilize compression sleeve until seen at first follow up appointment. 5. Visiting nursing care. 6. Home physical therapy. 7. Pain meds and anticoagulants per prescription. 8. Pain medication has potential to cause constipation. Increase oral fluid and fiber intake. Contact primary care provider if you have not had a bowel movement within 48 hours after discharge 9. No anti-inflammatory medication until discussed at first post operative visit, this including Motrin, Aleve, Mobic, Diclofenac. 10. Follow up in office at 2 weeks postop with Roberto Cruz PA-C/Laith Tello 11. Follow up with your primary care doctor 7-10 days after discharge. 12. Contact [facility] with any questions, . Procedures: Direct anterior left total hip arthroplasty Patient Condition at Discharge: Good Plan - Discharge Summary Discharge Rx Participant: Yes New Discharge Prescriptions: New Aspirin [Adult Low Dose Aspirin EC] 81 mg PO BID #60 tab Cephalexin [Keflex] 500 mg PO Q6HR 10 Days #40 cap HYDROcodone/APAP 5-325MG [[place] 5-325] 1 - 2 tab PO Q6HR PRN #42 tab PRN Reason: Pain Discontinued Ibuprofen [Motrin] 800 mg PO Q8HR PRN PRN Reason: Mild Pain No Action Omeprazole 40 mg PO DAILY Ascorbic Acid [Vitamin C] 1,000 mg PO DAILY Multivitamins, Thera [Multivitamin (formulary)] 2 tab PO DAILY Folic Acid 1 mg PO DAILY Furosemide [Lasix] 40 mg PO DAILY Potassium Chloride [Klor-Con 10 ER] 10 meq PO DAILY metHOTREXate sodium [Methotrexate] 25 mg PO TH Vitamin E (Dl,Tocopheryl Acet) [Vitamin E (400 Iu = 180 mg)] 400 unit PO DAILY Vitamin B Complex 1 each PO DAILY Higden-3 Fatty Acids/Fish Oil [Fish Oil 1,000 mg Softgel] 1 each PO DAILY Cranberry Fruit Extract [Cranberry] 2,500 mg PO DAILY Cholecalciferol (Vitamin D3) [Vitamin D3] 2,000 unit PO DAILY Calcium Carb/Vitamin D3/Vit K1 [Citracal-D3 500 mg Soft Chew] 1 each PO DAILY Acai Manzano Extract [Acai] 1,000 mg PO DAILY L.acidoph,Paracasei, B.lactis [Probiotic] 1 each PO DAILY Atorvastatin [Lipitor] 40 mg PO HS Magnesium/Zinc 1 tab PO DAILY hydrALAZINE HCL [Apresoline] 25 mg PO BID Losartan-Hctz 50-12.5 mg [Hyzaar 50-12.5] 1 tab PO BID calcium polycarbophiL [Fibercon] 2 tab PO DAILY Discharge Medication List Ascorbic Acid [Vitamin C] 1,000 mg PO DAILY 10/02/15 [History] Folic Acid 1 mg PO DAILY 10/02/15 [History] Furosemide [Lasix] 40 mg PO DAILY 10/02/15 [History] Multivitamins, Thera [Multivitamin (formulary)] 2 tab PO DAILY 10/02/15 [History] Omeprazole 40 mg PO DAILY 10/02/15 [History] Potassium Chloride [Klor-Con 10 ER] 10 meq PO DAILY 10/02/15 [History] metHOTREXate sodium [Methotrexate] 25 mg PO TH 10/02/15 [History] Acai Manzano Extract [Acai] 1,000 mg PO DAILY 06/15/17 [History] Calcium Carb/Vitamin D3/Vit K1 [Citracal-D3 500 mg Soft Chew] 1 each PO DAILY 06/15/17 [History] Cholecalciferol (Vitamin D3) [Vitamin D3] 2,000 unit PO DAILY 06/15/17 [History] Cranberry Fruit Extract [Cranberry] 2,500 mg PO DAILY 06/15/17 [History] Higden-3 Fatty Acids/Fish Oil [Fish Oil 1,000 mg Softgel] 1 each PO DAILY 06/15/17 [History] Vitamin B Complex 1 each PO DAILY 06/15/17 [History] Vitamin E (Dl,Tocopheryl Acet) [Vitamin E (400 Iu = 180 mg)] 400 unit PO DAILY 06/15/17 [History] L.acidoph,Paracasei, B.lactis [Probiotic] 1 each PO DAILY 03/03/18 [History] Atorvastatin [Lipitor] 40 mg PO HS 04/01/18 [History] Losartan-Hctz 50-12.5 mg [Hyzaar 50-12.5] 1 tab PO BID 11/06/20 [History] Magnesium/Zinc 1 tab PO DAILY 11/06/20 [History] calcium polycarbophiL [Fibercon] 2 tab PO DAILY 11/06/20 [History] hydrALAZINE HCL [Apresoline] 25 mg PO BID 11/06/20 [History] Aspirin [Adult Low Dose Aspirin EC] 81 mg PO BID #60 tab 11/12/20 [Rx] Cephalexin [Keflex] 500 mg PO Q6HR 10 Days #40 cap 11/12/20 [Rx] HYDROcodone/APAP 5-325MG [[place] 5-325] 1 - 2 tab PO Q6HR PRN #42 tab 11/12/20 [Rx] Follow up Appointment(s)/Referral(s): Montez Cid DO [Primary Care Provider] - 11/15/20 11:20 am Sang Cruz PAC [PHYSICIAN ASSURANCE MANAGER] - 11/27/20 2:50 pm Fady Peres [NON-STAFF] - ([facility] will call you to schedule your first visit. ) Activity/Diet/Wound Care/Special Instructions: Orthopedic Discharge Instructions: 1. Wound care and infection precautions, keep incision dry and covered while showering, no lotions, creams, moisturizers. No soaking, pools, hot tubs. Do not scrub over incision. 2. Weight-bear as tolerated with walker / cane until follow-up. 3. Ice and elevate when necessary. Do not exceed 20 minutes per hour with ice pack. 4. Utilize compression sleeve until seen at first follow up appointment. 5. Pain meds and anticoagulants per prescription. 6. Pain medication has potential to cause constipation. Increase oral fluid and fiber intake. Contact primary care provider if you have not had a bowel movement within 48 hours after discharge. 7. No anti-inflammatory medication until discussed at first post operative visit, this including Motrin, Aleve, Mobic, Diclofenac. 8. Follow up in office at 2 weeks postop with Roberto Cruz PA-C/Laith Centeno PA-C 9. Follow up with your primary care doctor 7-10 days after discharge. 10. Contact [facility] with any questions, . Wound care instructions: 1. Okay to remove dressing on 11/15/2020 2. Keep incision covered and dry while showering Discharge Disposition: HOME WITH HOME HEALTH SERVICES
[2020-11-12 12:56] LABS: Glucose,Whole Blood 104 mg/dL (75-99)
--- NOTE | 2020-11-12 13:45 | P.CRDCN ---
History of Present Illness History of present illness: HISTORY OF PRESENTING ILLNESS This is a pleasant 75-year-old female past medical history significant for SVT status post ablation, hypertension, rheumatoid arthritis, dyslipidemia and left bundle branch block. He follows in the office with Dr. Grewal. We have been asked to see in consultation for arrhythmia intraoperatively. She presented to the hospital for an elective outpatient left hip hemiarthroplasty with Dr. Curtis. According to the nursing staff and the intra-operative paper chart there was an EKG change noted during the procedure. The documentation states "ST elevation". Telemetry tracings and EKG reviewed. She is in a left bundle branch block, making ST elevation difficult to determine. She is seen and examined sitting up in the recliner. She got up with physical therapy for the first time and walked the halls this morning. She denies symptoms of chest pain, shortness of breath, dizziness or palpitations. She complains of pain in the left leg. Later in the early afternoon she was bending over to put her shoes on and she started to feel acutely dizzy. She told the nurse she did feel good and then she went unresponsive. Unfortunately, telemetry had already been removed. Blood pressure is 138/69 heart rate 56 afebrile maintaining oxygen saturation on room air. Current daily cardiac medications include atorvastatin 40 mg at bedtime, Lasix 40 mg daily secondary to chronic lower extremity edema, losartan/hydrochlorothiazide 50/12.5 mg twice a day and hydralazine 25 mg twice a day. Most recent echocardiogram obtained in the office within 2018 revealing preserved LV systolic function with ejection fraction 50%, grade 2 diastolic dysfunction, mild concentric LVH, mildly dilated left atrium, mild aortic regurgitation, mild to moderate mitral regurgitation, mild tricuspid regurgitation and mild pulmonary hypertension. Most recent stress test performed in the office was a Lexiscan stress test in April 2020 which was negative for stress-induced ischemia. REVIEW OF SYSTEMS At the time of my exam: CONSTITUTIONAL: Denies fever or chills. CARDIOVASCULAR: Denies chest pain, shortness of breath, orthopnea, PND or palpitations. RESPIRATORY: Denies cough. GASTROINTESTINAL: Denies abdominal pain, diarrhea, constipation, nausea or vomiting. MUSCULOSKELETAL: Complains of postsurgical pain in the left hip and left leg. NEUROLOGIC: Denies numbness, tingling, headache or weakness. ENDOCRINE: Denies fatigue, weight change, polydipsia or polyurina. GENITOURINARY: Denies burning, hematuria or urgency with micturation. HEMATOLOGIC: Denies history of anemia or bleeding. PHYSICAL EXAMINATION CONSTITUTIONAL: No apparent distress. HEENT: Head is normocephalic. Pupils are equal, round. Sclerae anicteric. Mucous membranes of the mouth are moist. No JVD. No carotid bruit. CHEST EXAMINATION: Lungs are clear to auscultation. No chest wall tenderness is noted on palpation or with deep breathing. HEART EXAMINATION: Regular rate and rhythm. S1, S2 heard. Systolic ejection murmur at the left sternal border, no gallops or rub. ABDOMEN: Soft, nontender. EXTREMITIES: 2+ peripheral pulses, no lower extremity edema and no calf tenderness. NEUROLOGIC EXAMINATION: Patient is awake, alert and oriented x3. ASSESSMENT Status post left hip hemiarthroplasty Syncope Left bundle branch block Hypertension Dyslipidemia PLAN There is no documented evidence of an arrhythmia. She has baseline left bundle branch block. Obtain 2D echocardiogram and doppler study to assess cardiac structure and function. Check BMP, magnesium, TSH and troponin. Ongoing telemetry monitoring. Obtain baseline EKG. Check for orthostatic changes. Thank you kindly for this consultation. Nurse Practitioner note has been reviewed, I agree with a documented findings and plan of care. Patient was seen and examined. Past Medical History Past Medical History: Cancer, Deep Vein Thrombosis (DVT), GERD/Reflux, Hyperlipi demia, Hypertension, Osteoarthritis (OA), Rheumatoid Arthritis (RA), Syncope Additional Past Medical History / Comment(s): DVT years ago, psoriatic arthritis, hx. skin cancer, self-cath's due to bladder not emptying completely since 2006, hx. of UTI's-nothing recent that she knows of, syncope episodes prior to ablation History of Any Multi-Drug Resistant Organisms: None Reported Past Surgical History: Back Surgery, Cardiac Ablation, Cholecystectomy, Heart Catheterization, Hernia Repair, Hysterectomy, Joint Replacement, Orthopedic Surgery Additional Past Surgical History / Comment(s): henok knee replacements & right hip replaced, vein stripping, left hand fusion, left retinal repair of tear, right carpal tunnel, loop recorder insertion & then removal Past Anesthesia/Blood Transfusion Reactions: No Reported Reaction Additional Past Anesthesia/Blood Transfusion Reaction / Comment(s): seems to require alot of anesthesia to be sedated per pt. Past Psychological History: No Psychological Hx Reported Smoking Status: Never smoker Past Alcohol Use History: Rare Past Drug Use History: None Reported - Past Family History Father Family Medical History: Myocardial Infarction ([place]) Mother Family Medical History: Cancer Daughter(s) Family Medical History: Cancer Medications and Allergies Home Medications Medication Instructions Recorded Confirmed Type Ascorbic Acid [Vitamin C] 1,000 mg PO DAILY 10/02/15 11/06/20 History Folic Acid 1 mg PO DAILY 10/02/15 11/06/20 History Furosemide [Lasix] 40 mg PO DAILY 10/02/15 11/06/20 History Multivitamins, Thera [Multivitamin 2 tab PO DAILY 10/02/15 11/06/20 History (formulary)] Omeprazole 40 mg PO DAILY 10/02/15 11/06/20 History Potassium Chloride [Klor-Con 10 ER] 10 meq PO DAILY 10/02/15 11/06/20 History metHOTREXate sodium [Methotrexate] 25 mg PO TH 10/02/15 11/06/20 History Acai [place] Extract [Acai] 1,000 mg PO DAILY 06/15/17 11/06/20 History Calcium Carb/Vitamin D3/Vit K1 1 each PO DAILY 06/15/17 11/06/20 History [Citracal-D3 500 mg Soft Chew] Cholecalciferol (Vitamin D3) 2,000 unit PO DAILY 06/15/17 11/06/20 History [Vitamin D3] Cranberry Fruit Extract [Cranberry] 2,500 mg PO DAILY 06/15/17 11/06/20 History [place]-3 Fatty Acids/Fish Oil [Fish 1 each PO DAILY 06/15/17 11/06/20 History Oil 1,000 mg Softgel] Vitamin B Complex 1 each PO DAILY 06/15/17 11/06/20 History Vitamin E (Dl,Tocopheryl Acet) 400 unit PO DAILY 06/15/17 11/06/20 History [Vitamin E (400 Iu = 180 mg)] L.acidoph,Paracasei, B.lactis 1 each PO DAILY 03/03/18 11/06/20 History [Probiotic] Atorvastatin [Lipitor] 40 mg PO HS 04/01/18 11/06/20 History Losartan-Hctz 50-12.5 mg [Hyzaar 1 tab PO BID 11/06/20 11/06/20 History 50-12.5] Magnesium/Zinc 1 tab PO DAILY 11/06/20 History calcium polycarbophiL [Fibercon] 2 tab PO DAILY 11/06/20 11/06/20 History hydrALAZINE HCL [Apresoline] 25 mg PO BID 11/06/20 11/06/20 History Aspirin [Adult Low Dose Aspirin EC] 81 mg PO BID #60 tab 11/12/20 Rx Cephalexin [Keflex] 500 mg PO Q6HR 10 Days #40 cap 11/12/20 Rx HYDROcodone/APAP 5-325MG [[place] 1 - 2 tab PO Q6HR PRN #42 tab 11/12/20 Rx 5-325] Allergies Allergy/AdvReac Type Severity Reaction Status Date / Time meperidine HCl [From Demerol] Allergy Rash/Hives Verified 11/06/20 16:24 prochlorperazine Allergy agitation Verified 11/06/20 16:24 [From Compazine] prochlorperazine edisylate Allergy agitation Verified 11/06/20 16:24 [From Compazine] prochlorperazine maleate Allergy agitation Verified 11/06/20 16:24 [From Compazine] simvastatin [From Zocor] Allergy severe leg Verified 11/06/20 16:24 weakness moxifloxacin HCl AdvReac Anaphylaxis Verified 11/06/20 16:24 [From Avelox] Physical Exam Vitals: Vital Signs Temp Pulse Resp BP Pulse Ox 11/12/20 07:28 97.9 F 56 L 16 138/69 99 11/12/20 02:00 97.8 F 82 124/76 97 11/11/20 23:19 78 125/64 11/11/20 23:00 78 11/11/20 22:05 85 112/67 95 11/11/20 21:50 83 127/67 98 11/11/20 21:35 88 127/70 97 11/11/20 21:20 88 133/70 98 11/11/20 20:50 103 H 139/87 98 11/11/20 20:35 102 H 132/83 98 11/11/20 20:20 84 146/84 99 11/11/20 20:05 82 153/76 100 11/11/20 19:50 97.7 F 78 163/80 99 11/11/20 19:09 85 16 155/79 98 11/11/20 18:54 89 16 151/70 98 11/11/20 18:39 87 16 153/73 93 L 11/11/20 18:24 91 16 154/66 94 L 11/11/20 18:09 97 F L 90 16 120/80 95 11/11/20 14:20 98.3 F 77 20 189/87 95 Intake and Output 11/11/20 11/12/20 11/12/20 22:59 06:59 14:59 Intake Total 1350 Output Total 275 625 Balance 1075 -625 Intake: IV 1350 Output: Urine 175 625 Estimated Blood Loss 100 Other: Voiding Method Indwelling Catheter Weight 86.18 kg Results 11/12/20 05:43 Current Medications Generic Name Dose Route Start Last Admin Trade Name Freq PRN Reason Stop Dose Admin Hydrocodone Bitart/Acetaminophen 1 each 11/11/20 17:46 11/12/20 00:08 Hydrocodone/Apap 5-325mg 1 Each Tab PO 12/11/20 17:47 1 each Q6HR PRN Administration Pain Scale 1 to 5 Hydrocodone Bitart/Acetaminophen 2 each 11/11/20 17:46 Hydrocodone/Apap 5-325mg 1 Each Tab PO 12/11/20 17:47 Q6HR PRN Pain Scale 6 to 10 Atorvastatin Calcium 40 mg 11/11/20 21:00 11/11/20 23:20 Atorvastatin 40 Mg Tab PO 40 mg HS KODY Administration Enoxaparin Sodium 40 mg 11/12/20 09:00 Enoxaparin 40 Mg/0.4 Ml Syringe SQ 12/12/20 09:01 DAILY KODY Famotidine 20 mg 11/12/20 09:00 Famotidine 20 Mg Tab PO 12/12/20 09:01 DAILY KODY Furosemide 40 mg 11/12/20 09:00 Furosemide 40 Mg Tab PO DAILY KODY HCTZ/Losartan Potassium 1 each 11/11/20 21:00 11/11/20 23:20 Losartan-Hctz 50-12.5 Mg 1 Each Tab PO 1 each BID KODY Administration Hydralazine HCl 25 mg 11/11/20 21:00 11/11/20 23:20 Hydralazine Hcl 25 Mg Tab PO 25 mg BID KODY Administration Hydromorphone HCl 0.5 mg 11/11/20 17:46 Hydromorphone 0.5 Mg/0.5 Ml Syringe IVP 12/11/20 17:47 Q3HR PRN Pain Scale 7 to 10 Hydromorphone HCl 0.125 mg 11/11/20 17:46 Hydromorphone 0.5 Mg/0.5 Ml Syringe IVP 12/11/20 17:47 Q3HR PRN Pain Scale 1 to 3 Hydromorphone HCl 0.2 mg 11/11/20 17:46 Hydromorphone 0.2 Mg/1 Ml Syringe IVP 12/11/20 17:47 Q3HR PRN Pain Scale 4 to 6 Lactated Ringer's 1,000 mls @ 20 mls/hr 11/11/20 07:36 11/11/20 15:00 Lactated Ringers IV 12/11/20 07:37 1,000 mls .Q24H KOYD Administration Sodium Chloride 1,000 mls @ 50 mls/hr 11/11/20 18:00 Saline 0.9% IV 12/11/20 18:01 .Q20H KODY Lidocaine HCl 0.1 ml 11/11/20 07:36 11/11/20 15:00 Lidocaine 1% (10mg/Ml) For Iv Start INTRADERMA 12/11/20 07:37 0.1 ml PER PROTOCOL PRN Administration IV Start Melatonin 2 mg 11/11/20 21:30 11/11/20 23:20 Melatonin 1 Mg Tab PO 2 mg HS KODY Administration Naloxone HCl 0.2 mg 11/11/20 17:46 Naloxone 0.4 Mg/Ml 1 Ml Vial IV 12/11/20 17:47 Q2M PRN Opioid Reversal Ondansetron HCl 4 mg 11/11/20 17:46 Ondansetron 4 Mg/2 Ml Vial IVP 12/11/20 17:47 DAILY PRN Nausea And Vomiting Pantoprazole Sodium 40 mg 11/12/20 07:30 Pantoprazole 40 Mg Tablet PO AC-BRKFST KODY Potassium Chloride 10 meq 11/12/20 09:00 Potassium Chloride Er 10 Meq Tab.Er.Prt PO DAILY KODY Senna/Docusate Sodium 2 each 11/11/20 21:00 11/11/20 23:21 Sennosides-Docusate Sodium 1 Each Tab PO 12/11/20 21:01 2 each HS KODY Administration Intake and Output 11/11/20 11/12/20 11/12/20 22:59 06:59 14:59 Intake Total 1350 Output Total 275 625 Balance 1075 -625 Intake: IV 1350 Output: Urine 175 625 Estimated Blood Loss 100 Other: Voiding Method Indwelling Catheter Weight 86.18 kg
[2020-11-12 15:28] LABS: African American GFR (CKD) >90 (>60 ml/min/1.73 sqM); Anion Gap 7 mmol/L; Blood Urea Nitrogen 18 mg/dL (7-17); Calcium 8.6 mg/dL (8.4-10.2); Carbon Dioxide 26 mmol/L (22-30); Chloride 96 mmol/L (98-107); Glucose 112 mg/dL (74-99); Magnesium 1.6 mg/dL (1.6-2.3); Non-African American GFR(CKD) 90 (>60 ml/min/1.73 sqM); Potassium 3.5 mmol/L (3.5-5.1); Sodium 129 mmol/L (137-145)
--- NOTE | 2020-11-12 16:14 | US ---
EXAMINATION TYPE: US venous doppler duplex LE LT DATE OF EXAM: 11/12/2020 3:59 PM COMPARISON: US 2019 CLINICAL HISTORY: calf pain. Exam done portable. SIDE PERFORMED: Left TECHNIQUE: The lower extremity deep venous system is examined utilizing real time linear array sonog demond with graded compression, doppler sonography and color-flow sonography. VESSELS IMAGED: Common Femoral Vein Deep Femoral Vein Greater Saphenous Vein * Femoral Vein Popliteal Vein Small Saphenous Vein * Proximal Calf Veins (* superficial vessels) There is normal flow, compressibility, vascular waveforms. Left Leg: Appears negative for DVT IMPRESSION: No evident deep venous thrombosis within the left lower extremity from the level of the k nee centrally, follow-up is indicated in 24 to 48 hours if occult thrombus propagation is suspected
[2020-11-12] MEDS: LACTATED RINGERS 1,000 ML IV SCH (16:58)
[2020-11-12] MEDS: SENNOSIDES-DOCUSATE SODIUM 1 EACH TAB PO SCH (20:45)
[2020-11-12] MEDS: ATORVASTATIN 40 MG TAB PO SCH (20:45)
[2020-11-12] MEDS: MELATONIN 1 MG TAB PO SCH (20:45)
--- NOTE | 2020-11-12 23:19 | P.CONS ---
History of Present Illness - Reason for Consult Consult date: 11/12/20 - History of Present Illness This a pleasant 75-year-old white female was asked to consult postop left anterior hip replacement who apparently had an episode of SVT intraoperatively. She is currently upright in bed feeling better without any complaints. She denies any fever she denies any cough. Patient's pain is adequately controlled she currently is under cardiac evaluation for intraoperative SVT she was seen in preoperative consultation in the office without incident including EKG and labs which were unremarkable. She's had a history of SVT with prior laser ablation. Review of Systems GENERAL: Patient denies fever. Denies chills. EYES: Denies blurred vision. Denies vision changes. Denies eye pain. EARS, NOSE, MOUTH, & THROAT: Denies headache. Denies sore throat. Denies ear pain. RESPIRATORY: Denies cough. Denies shortness of breath. Denies sputum production. Denies hemoptysis. CARDIOVASCULAR: Denies chest pain or pressure. Admits to history of SVT GASTROINTESTINAL: Denies abdominal pain. Denies diarrhea. Denies constipation. Denies nausea. Denies vomiting. Denies heartburn. Denies blood in the stool. GENITOURINARY: Denies urinary frequency. Denies burning. Denies dysuria. Denies cloudy urine. Denies blood in the urine. MUSCULOSKELETAL: States the pain is controlled denies any bruising or bleeding. INTEGUMENTARY: Denies pruitis. Denies rash. PSYCHIATRIC: Denies suicidal or homicial ideations. ENDOCRINE: Denies weight change. Denies polydipsia. Denies polyuria. HEMATOLOGIC: Denies bleeding disorders. Past Medical History Past Medical History: Cancer, Deep Vein Thrombosis (DVT), GERD/Reflux, Hyperlipidemia, Hypertension, Osteoarthritis (OA), Rheumatoid Arthritis (RA), Syncope Additional Past Medical History / Comment(s): DVT years ago, psoriatic arthritis, hx. skin cancer, self-cath's due to bladder not emptying completely since 2006, hx. of UTI's-nothing recent that she knows of, syncope episodes prior to ablation History of Any Multi-Drug Resistant Organisms: None Reported Past Surgical History: Back Surgery, Cardiac Ablation, Cholecystectomy, Heart Catheterization, Hernia Repair, Hysterectomy, Joint Replacement, Orthopedic Surgery Additional Past Surgical History / Comment(s): henok knee replacements & right hip replaced, vein stripping, left hand fusion, left retinal repair of tear, right carpal tunnel, loop recorder insertion & then removal Past Anesthesia/Blood Transfusion Reactions: No Reported Reaction Additional Past Anesthesia/Blood Transfusion Reaction / Comm: seems to require alot of anesthesia to be sedated per pt. Past Psychological History: No Psychological Hx Reported Smoking Status: Never smoker Past Alcohol Use History: Rare Past Drug Use History: None Reported - Past Family History Father Family Medical History: Myocardial Infarction ([place]) Mother Family Medical History: Cancer Daughter(s) Family Medical History: Cancer Medications and Allergies Home Medications Medication Instructions Recorded Confirmed Type Ascorbic Acid [Vitamin C] 1,000 mg PO DAILY 10/02/15 11/06/20 History Folic Acid 1 mg PO DAILY 10/02/15 11/06/20 History Furosemide [Lasix] 40 mg PO DAILY 10/02/15 11/06/20 History Multivitamins, Thera [Multivitamin 2 tab PO DAILY 10/02/15 11/06/20 History (formulary)] Omeprazole 40 mg PO DAILY 10/02/15 11/06/20 History Potassium Chloride [Klor-Con 10 ER] 10 meq PO DAILY 10/02/15 11/06/20 History metHOTREXate sodium [Methotrexate] 25 mg PO TH 10/02/15 11/06/20 History Acai Manzano Extract [Acai] 1,000 mg PO DAILY 06/15/17 11/06/20 History Calcium Carb/Vitamin D3/Vit K1 1 each PO DAILY 06/15/17 11/06/20 History [Citracal-D3 500 mg Soft Chew] Cholecalciferol (Vitamin D3) 2,000 unit PO DAILY 06/15/17 11/06/20 History [Vitamin D3] Cranberry Fruit Extract [Cranberry] 2,500 mg PO DAILY 06/15/17 11/06/20 History [place]-3 Fatty Acids/Fish Oil [Fish 1 each PO DAILY 06/15/17 11/06/20 History Oil 1,000 mg Softgel] Vitamin B Complex 1 each PO DAILY 06/15/17 11/06/20 History Vitamin E (Dl,Tocopheryl Acet) 400 unit PO DAILY 06/15/17 11/06/20 History [Vitamin E (400 Iu = 180 mg)] LN[place]acidnanette,Ignacio Bravolactis 1 each PO DAILY 03/03/18 11/06/20 History [Probiotic] Atorvastatin [Lipitor] 40 mg PO HS 04/01/18 11/06/20 History Losartan-Hctz 50-12.5 mg [Hyzaar 1 tab PO BID 11/06/20 11/06/20 History 50-12.5] Magnesium/Zinc 1 tab PO DAILY 11/06/20 History calcium polycarbophiL [Fibercon] 2 tab PO DAILY 11/06/20 11/06/20 History hydrALAZINE HCL [Apresoline] 25 mg PO BID 11/06/20 11/06/20 History Aspirin [Adult Low Dose Aspirin EC] 81 mg PO BID #60 tab 11/12/20 Rx Cephalexin [Keflex] 500 mg PO Q6HR 10 Days #40 cap 11/12/20 Rx HYDROcodone/APAP 5-325MG [[place] 1 - 2 tab PO Q6HR PRN #42 tab 11/12/20 Rx 5-325] Allergies Allergy/AdvReac Type Severity Reaction Status Date / Time meperidine HCl [From Demerol] Allergy Rash/Hives Verified 11/06/20 16:24 prochlorperazine Allergy agitation Verified 11/06/20 16:24 [From Compazine] prochlorperazine edisylate Allergy agitation Verified 11/06/20 16:24 [From Compazine] prochlorperazine maleate Allergy agitation Verified 11/06/20 16:24 [From Compazine] simvastatin [From Zocor] Allergy severe leg Verified 11/06/20 16:24 weakness moxifloxacin HCl AdvReac Anaphylaxis Verified 11/06/20 16:24 [From Avelox] Physical Exam Osteopathic Statement: *. No significant issues noted on an osteopathic structural exam other than those noted in the History and Physical/Consult. Vitals: Vital Signs Temp Pulse Pulse Pulse Pulse Resp BP 11/12/20 19:13 98.2 F 79 15 11/12/20 16:42 92 70 84 100/62 11/12/20 14:00 97.8 F 72 16 135/68 11/12/20 09:07 56 L 16 11/12/20 07:28 97.9 F 56 L 16 138/69 11/12/20 02:00 97.8 F 82 124/76 11/11/20 23:19 78 125/64 11/11/20 23:00 78 BP BP Pulse Ox 11/12/20 19:13 120/61 96 11/12/20 16:42 82/48 156/69 11/12/20 14:00 98 11/12/20 09:07 11/12/20 07:28 99 11/12/20 02:00 97 11/11/20 23:19 11/11/20 23:00 Intake and Output 11/12/20 11/12/20 11/12/20 06:59 14:59 22:59 Output Total 625 300 Balance -625 -300 Output: Urine 625 300 Uretheral (Gallagher) 300 Other: Voiding Method Indwelling Catheter Indwelling Catheter # Voids 2 GENERAL: This is a 75-year-old in no apparent distress at the time of examination. Pleasant and cooperative. HEENT: Head is atraumatic, normocephalic. Pupils are equal, round, and reactive to light. Sclerae anicteric. Conjunctivae are clear. Mucus membranes of the mouth are moist. Neck is supple. RESPIRATORY: Clear to auscultation. No wheezes, rales, or rhonchi. No use of accessory muscles. No chest wall tenderness is noted on palpation or with deep breathing. CARDIOVASCULAR: Regular rate and rhythm. GASTROINTESTINAL: No distention noted. Abdomen soft and round. Normal active bowel sounds auscultated x 4 quadrants. No pain or tenderness noted upon palpation. INTEGUMENTARY: No cyanosis. No jaundice. No rashes noted. No cellulitis noted. EXTREMITIES: 2+ peripheral pulses. No evidence of peripheral edema. No calf tenderness noted. NEUROLOGIC: Cranial nerves II-XII intact. PSYCHIATRIC: Awake, alert, and oriented X 3. Appropriate affect. Intact judgement and insight. Results CBC & Chem 7: 11/12/20 05:43 11/12/20 15:01 Labs: Abnormal Lab Results - Last 24 Hours (Table) 11/12/20 11/12/20 11/12/20 Range/Units 05:43 12:55 15:01 RBC 3.70 L (4.10-5.20) X 10*6/uL Hgb 10.4 L (12.0-15.0) g/dL Hct 33.3 L (37.2-46.3) % MCHC 31.2 L (32.0-37.0) g/dL Lymphocytes # 0.83 L (0.90-5.00) X 10*3/uL Eosinophils # 0 L (0.04-0.35) X 10*3/uL Sodium 129 L (137-145) mmol/L Chloride 96 L (98-107) mmol/L BUN 18 H (7-17) mg/dL Glucose 112 H (74-99) mg/dL POC Glucose (mg/dL) 104 H (75-99) mg/dL Assessment and Plan (1) Osteoarthritis of left hip Current Visit: Yes Status: Acute Code(s): M16.12 - UNILATERAL PRIMARY OSTEOARTHRITIS, LEFT HIP SNOMED Code(s): 450164465444962 (2) S/P total left hip arthroplasty Current Visit: Yes Status: Acute Code(s): Z96.642 - PRESENCE OF LEFT AR TIFICIAL HIP JOINT SNOMED Code(s): 450568538248 (3) History of paroxysmal supraventricular tachycardia Current Visit: No Status: Acute Code(s): Z86.79 - PERSONAL HISTORY OF OTHER DISEASES OF THE CIRCULATORY SYSTEM SNOMED Code(s): 411626840518180 (4) Syncope and collapse Current Visit: No Status: Acute Code(s): R55 - SYNCOPE AND COLLAPSE SNOMED Code(s): 040719280 Plan: Apparently patient had an episode of syncope and collapse today nurses notify me in the afternoon. She quickly responded and was placed back in bed. She will continue cardiac workup will also check labs for any abnormalities patient did had quite a bit of pain on ambulation which we could be dealing with a vasovagal syncope. Agree with holding discharge at this time we'll observe her and monitor her overnight and await recommendations forthcoming. Thank you for allowing me to participate in this patient's care.
--- NOTE | 2020-11-13 00:36 | XR ---
EXAMINATION TYPE: XR Hip Complete LT DATE OF EXAM: 11/12/2020 COMPARISON: 10/15/2020 HISTORY: Hip surgery TECHNIQUE: 2 views FINDINGS: There is a left hip prosthesis. Components are in anatomic position. No fracture seen. Left hemipelvis appears intact. IMPRESSION: Hip prosthesis appears in good position. No complicating process.
--- NOTE | 2020-11-13 00:37 | XR ---
EXAMINATION TYPE: XR femur LT DATE OF EXAM: 11/12/2020 COMPARISON: NONE HISTORY: Leg pain TECHNIQUE: 4 views FINDINGS: There is left knee prosthesis. Components appear in anatomic position. There is left hip pr osthesis. Components appear in anatomic position. I see no fracture. IMPRESSION: Hip and knee surgery. No complicating process seen. There is some soft tissue air lateral to the left hip related to recent surgery.
[2020-11-13] MEDS: HYDROcodone/APAP 5-325MG 1 EACH TAB PO PRN ×4 (01:48→19:41)
[2020-11-13] MEDS: PANTOPRAZOLE 40 MG TABLET PO SCH (07:20)
[2020-11-13] MEDS: ENOXAPARIN 40 MG/0.4 ML SYRINGE SQ SCH (07:20)
[2020-11-13] MEDS: POTASSIUM CHLORIDE ER 10 MEQ TAB.ER.PRT PO SCH (07:21)
[2020-11-13] MEDS: hydrALAZINE HCL 25 MG TAB PO SCH ×2 (07:21→21:07)
[2020-11-13] MEDS: FAMOTIDINE 20 MG TAB PO SCH (07:21)
[2020-11-13] MEDS: FUROSEMIDE 40 MG TAB PO SCH (07:21)
[2020-11-13] MEDS: LOSARTAN-HCTZ 50-12.5 MG 1 EACH TAB PO SCH ×2 (07:21→21:07)
--- NOTE | 2020-11-13 10:51 | P.PN ---
Subjective HISTORY OF PRESENTING ILLNESS This is a pleasant 75-year-old female past medical history significant for SVT status post ablation, hypertension, rheumatoid arthritis, dyslipidemia and left bundle branch block. He follows in the office with Dr. Grewal. We have been asked to see in consultation for arrhythmia intraoperatively. She presen fatmata to the hospital for an elective outpatient left hip hemiarthroplasty with Dr. Curtis. According to the nursing staff and the intra-operative paper chart there was an EKG change noted during the procedure. The documentation states "ST elevation". Telemetry tracings and EKG reviewed. She is in a left bundle branch block, making ST elevation difficult to determine. She is seen and examined sitting up in the recliner. She got up with physical therapy for the first time and walked the halls this morning. She denies symptoms of chest pain, shortness of breath, dizziness or palpitations. She complains of pain in the left leg. Later in the early afternoon she was bending over to put her shoes on and she started to feel acutely dizzy. She told the nurse she did feel good and then she went unresponsive. Unfortunately, telemetry had already been removed. Blood pressure is 138/69 heart rate 56 afebrile maintaining oxygen saturation on room air. Current daily cardiac medications include atorvastatin 40 mg at bedtime, Lasix 40 mg daily secondary to chronic lower extremity edema, losartan/hydrochlorothiazide 50/12.5 mg twice a day and hydralazine 25 mg twice a day. Most recent echocardiogram obtained in the office within 2018 revealing preserved LV systolic function with ejection fraction 50%, grade 2 diastolic dysfunction, mild concentric LVH, mildly dilated left atrium, mild aortic regurgitation, mild to moderate mitral regurgitation, mild tricuspid regurgitation and mild pulmonary hypertension. Most recent stress test performed in the office was a Lexiscan stress test in April 2020 which was negative for stress-induced ischemia. 11/13/2020 Pt is seen and examined sitting up in bed with her daughter at the bedside. She has been up and ambulating in the room this morning to the bathroom and chair without incident. She denies any further episodes of dizziness or syncope. Yesterday, orthostatic blood pressures were positive, supine blood pressure was 156/69 and standing was 82/48. She was initiated on IV fluids. This morning blood pressure is 144/70 heart rate of 81 afebrile maintaining oxygen saturation on room air. Telemetry tracings have been unremarkable for an acute arrhythmia. Laboratory data reviewed, WBC 7, hemoglobin 10.4, platelets 221, sodium 129, potassium 3.5, creatinine 0.61, magnesium 1.6, TSH 1.14 and troponin 0.028. PHYSICAL EXAMINATION HEENT: Head is normocephalic. Pupils are equal, round. Sclerae anicteric. Mucous membranes of the mouth are moist. No JVD. No carotid bruit. CHEST EXAMINATION: Lungs are clear to auscultation. No chest wall tenderness is noted on palpation or with deep breathing. HEART EXAMINATION: Regular rate and rhythm. S1, S2 heard. Systolic ejection murmur at the left sternal border, no gallops or rub. EXTREMITIES: 2+ peripheral pulses, no lower extremity edema and no calf tenderness. ASSESSMENT Status post left hip hemiarthroplasty Syncope, likely related to orthostatic changes Orthostatic hypotension Left bundle branch block Hypertension Dyslipidemia PLAN Check d-dimer. Repeat orthostatic vital signs. Echocardiogram has been obtained and will be reviewed. Recommend outpatient event monitoring on discharge. Nurse Practitioner note has been reviewed, I agree with a documented findings and plan of care. Patient was seen and examined. Objective - Vital Signs Vital signs: Vital Signs Temp 98.4 F 11/13/20 07:43 Pulse 81 11/13/20 08:00 Resp 17 11/13/20 08:00 BP 144/70 11/13/20 07:43 Pulse Ox 92 L 11/13/20 07:43 Intake & Output 11/12/20 11/13/20 11/13/20 18:59 06:59 18:59 Output Total 300 Balance -300 Output: Urine 300 Uretheral (Gallagher) 300 Other: Voiding Method Indwelling Catheter Indwelling Catheter # Voids 2 2 - Labs CBC & Chem 7: 11/12/20 05:43 11/12/20 15:01 Labs: Abnormal Lab Results - Last 24 Hours (Table) 11/12/20 11/12/20 Range/Units 12:55 15:01 Sodium 129 L (137-145) mmol/L Chloride 96 L (98-107) mmol/L BUN 18 H (7-17) mg/dL Glucose 112 H (74-99) mg/dL POC Glucose (mg/dL) 104 H (75-99) mg/dL
[2020-11-13 11:11] LABS: Basophils % (A) 0 %; Eosinophils % (A) 1 %; HCT 31.1 % (34.0-46.0); Lymphocytes # (A) 0.9 k/uL (1.0-4.8); Lymphocytes % (A) 17 %; MCH 28.9 pg (25.0-35.0); MCHC 32.2 g/dL (31.0-37.0); MCV 89.7 fL (80.0-100.0); Mean Platelet Volume 7.1; Monocytes # (A) 0.2 k/uL (0-1.0); Monocytes % (A) 5 %; Neutrophils # (A) 4.1 k/uL (1.3-7.7); Neutrophils % (A) 76 %; Platelet Count 196 k/uL (150-450); RBC 3.47 m/uL (3.80-5.40); RDW 13.4 % (11.5-15.5); WBC 5.4 k/uL (3.8-10.6)
[2020-11-13 11:28] LABS: African American GFR (CKD) >90 (>60 ml/min/1.73 sqM); Anion Gap 6 mmol/L; Blood Urea Nitrogen 12 mg/dL (7-17); Calcium 8.1 mg/dL (8.4-10.2); Carbon Dioxide 28 mmol/L (22-30); Chloride 96 mmol/L (98-107); Glucose 147 mg/dL (74-99); Non-African American GFR(CKD) >90 (>60 ml/min/1.73 sqM); Potassium 3.1 mmol/L (3.5-5.1); Sodium 130 mmol/L (137-145)
--- NOTE | 2020-11-13 12:40 | P.PN ---
Subjective Progress Note Date: 11/13/20 Principal diagnosis: Status post direct anterior left total hip arthroplasty Patient was evaluated today at bedside, she is resting comfortably. Patient was kept overnight last night due to a syncopal episode. She's undergone further testing. She is being followed by both cardiology and internal medicine at this time. She's had no further episodes since yesterday. She does note some discomfort throughout the lower extremity. X-rays were ordered yesterday, there were no acute findings of either the hip or femur fracture. She currently denies any headaches, lightheadedness, chest pain or shortness of breath. Objective - Vital Signs Vital signs: Vital Signs Temp 98.4 F 11/13/20 07:43 Pulse 81 11/13/20 08:00 Resp 17 11/13/20 08:00 BP 144/70 11/13/20 07:43 Pulse Ox 92 L 11/13/20 07:43 Intake & Output 11/12/20 11/13/20 11/13/20 18:59 06:59 18:59 Output Total 300 Balance -300 Output: Urine 300 Uretheral (Gallagher) 300 Other: Voiding Method Indwelling Catheter Indwelling Catheter # Voids 2 2 - Exam Left lower extremity: Incision is clean, dry, and intact. The foam dress is in good condition. There is minimal soft tissue swelling and ecchymosis surrounding the medial and lateral aspects of the incision. Calf is soft, no tenderness with palpation. Plantar flexion, dorsiflexion, EHL, FHL are intact. Sensory exam to light touch throughout the extremity is intact, dorsal pedis pulses 2+. - Labs CBC & Chem 7: 11/13/20 10:45 11/13/20 10:45 Labs: Abnormal Lab Results - Last 24 Hours (Table) 11/12/20 11/12/20 11/13/20 Range/Units 12:55 15:01 10:45 RBC 3.47 L (3.80-5.40) m/uL Hgb 10.0 L (11.4-16.0) gm/dL Hct 31.1 L (34.0-46.0) % Lymphocytes # 0.9 L (1.0-4.8) k/uL D-Dimer (<0.60) mg/L FEU Sodium 129 L (137-145) mmol/L Potassium (3.5-5.1) mmol/L Chloride 96 L (98-107) mmol/L BUN 18 H (7-17) mg/dL Glucose 112 H (74-99) mg/dL POC Glucose (mg/dL) 104 H (75-99) mg/dL Calcium (8.4-10.2) mg/dL 11/13/20 11/13/20 Range/Units 10:45 10:55 RBC (3.80-5.40) m/uL Hgb (11.4-16.0) gm/dL Hct (34.0-46.0) % Lymphocytes # (1.0-4.8) k/uL D-Dimer 1.02 H (<0.60) mg/L FEU Sodium 130 L (137-145) mmol/L Potassium 3.1 L (3.5-5.1) mmol/L Chloride 96 L (98-107) mmol/L BUN (7-17) mg/dL Glucose 147 H (74-99) mg/dL POC Glucose (mg/dL) (75-99) mg/dL Calcium 8.1 L (8.4-10.2) mg/dL Assessment and Plan Assessment: Postoperative day #1 status post direct anterior left total hip arthroplasty Hyponatremia Other medical comorbidities Plan: Pain control, continue current medication GI and DVT prophylaxis, aspirin 81 mg twice a day for 30 days Wound care instructions discussed, this including both icing and elevating the limb showering Home therapy and nursing after discharge Other medical scheduler recommendations Discharge planning: Orthopedically patient remained stable for discharge, we'll await medical scheduler recommendations. Time with Patient: Less than 30
--- NOTE | 2020-11-13 14:38 | P.PN ---
Subjective Progress Note Date: 11/13/20 Patient seen today with no complaints however her potassium and sodium were low and these are being replaced. She has been on telemetry overnight without incident she's had no new syncopal episodes. Objective - Vital Signs Vital signs: Vital Signs Temp 97.8 F 11/13/20 13:22 Pulse 72 11/13/20 13:22 Resp 18 11/13/20 13:22 BP 130/71 11/13/20 13:22 Pulse Ox 95 11/13/20 13:22 Intake & Output 11/12/20 11/13/20 11/13/20 18:59 06:59 18:59 Output Total 300 Balance -300 Output: Urine 300 Uretheral (Gallagher) 300 Other: Voiding Method Indwelling Catheter Indwelling Catheter # Voids 2 2 - Exam GENERAL: This is a 75-year-old in no apparent distress at the time of examination. Pleasant and cooperative. HEENT: Head is atraumatic, normocephalic. Pupils are equal, round, and reactive to light. Sclerae anicteric. Conjunctivae are clear. Mucus membranes of the mouth are moist. Neck is supple. RESPIRATORY: Clear to auscultation. No wheezes, rales, or rhonchi. No use of accessory muscles. No chest wall tenderness is noted on palpation or with deep breathing. CARDIOVASCULAR: Regular rate and rhythm. GASTROINTESTINAL: No distention noted. Abdomen soft and round. Normal active bowel sounds auscultated x 4 quadrants. No pain or tenderness noted upon palpation. INTEGUMENTARY: No cyanosis. No jaundice. No rashes noted. No cellulitis noted. EXTREMITIES: 2+ peripheral pulses. No evidence of peripheral edema. No calf tenderness noted. NEUROLOGIC: Cranial nerves II-XII intact. PSYCHIATRIC: Awake, alert, and oriented X 3. Appropriate affect. Intact judgement and insight. - Labs CBC & Chem 7: 11/13/20 10:45 11/13/20 10:45 Labs: Abnormal Lab Results - Last 24 Hours (Table) 11/12/20 11/13/20 11/13/20 Range/Units 15:01 10:45 10:45 RBC 3.47 L (3.80-5.40) m/uL Hgb 10.0 L (11.4-16.0) gm/dL Hct 31.1 L (34.0-46.0) % Lymphocytes # 0.9 L (1.0-4.8) k/uL D-Dimer (<0.60) mg/L FEU Sodium 129 L 130 L (137-145) mmol/L Potassium 3.1 L (3.5-5.1) mmol/L Chloride 96 L 96 L (98-107) mmol/L BUN 18 H (7-17) mg/dL Glucose 112 H 147 H (74-99) mg/dL Calcium 8.1 L (8.4-10.2) mg/dL 11/13/20 Range/Units 10:55 RBC (3.80-5.40) m/uL Hgb (11.4-16.0) gm/dL Hct (34.0-46.0) % Lymphocytes # (1.0-4.8) k/uL D-Dimer 1.02 H (<0.60) mg/L FEU Sodium (137-145) mmol/L Potassium (3.5-5.1) mmol/L Chloride (98-107) mmol/L BUN (7-17) mg/dL Glucose (74-99) mg/dL Calcium (8.4-10.2) mg/dL Assessment and Plan (1) Osteoarthritis of left hip Current Visit: Yes Status: Acute Code(s): M16.12 - UNILATERAL PRIMARY OSTEOARTHRITIS, LEFT HIP SNOMED Code(s): 454540289504386 (2) S/P total left hip arthroplasty Current Visit: Yes Status: Acute Code(s): Z96.642 - PRESENCE OF LEFT F[place]A F[place]IAL HIP JOINT SNOMED Code(s): 208201851819 (3) History of paroxysmal supraventricular tachycardia Current Visit: No Status: Acute Code(s): Z86.79 - PERSONAL HISTORY OF OTHER DISEASES OF THE CIRCULATORY SYSTEM SNOMED Code(s): 516177625799675 (4) Syncope and collapse Current Visit: No Status: Acute Code(s): R55 - SYNCOPE AND COLLAPSE SNOMED Code(s): 116258919 (5) Hyponatremia Current Visit: Yes Status: Acute Code(s): E87.1 - HYPO-OSMOLALITY AND HYPONATREMIA SNOMED Code(s): 77150285 (6) Hypokalemia Current Visit: Yes Status: Acute Code(s): E87.6 - HYPOKALEMIA SNOMED Code(s): 42497527 Plan: We will replace electrolytes and continue to observe her overnight if she is doing well most likely discharge in the morning. Patient seen with daughter at bedside and appears stable at this time.
[2020-11-13] MEDS ORDERED: Potassium Replacement Protocol 1 EACH MISC MISCELLANE PRN (14:40)
--- NOTE | 2020-11-13 15:26 | CT ---
EXAMINATION TYPE: CT angio chest DATE OF EXAM: 11/13/2020 3:16 PM COMPARISON: CT chest April 02, 2018 HISTORY: ELEVATED D-DIMER CT DLP: 371.1 mGycm Automated exposure control for dose reduction was used. CONTRAST: CTA scan of the thorax is performed with IV Contrast, patient injected with 100 mL of Isovue 370, pul monary embolism protocol. MIP images are created and reviewed. FINDINGS: LUNGS: Mild underlying emphysematous changes are present. Small 4 mm calcified nodule or granuloma po sterior aspect left upper lobe axial image 23. Mild bibasilar linear scarring redemonstrated. No pleu ral effusion or pneumothorax. No suspicious focal consolidation MEDIASTINUM: There is satisfactory enhancement of the pulmonary artery and its branches, there is no CT evidence for pulmonary embolism. Enlarged main pulmonary artery at 3.7 cm axial image 74, CT findi ng consistent with underlying pulmonary artery hypertension. There are no greater than 1 cm hilar or mediastinal lymph nodes. Tiny pericardial effusion is redemonstrated. No cardiomegaly. Severe coronar y artery calcification redemonstrated. Persistent ascending aortic aneurysm up to 4.6 cm. Calcificati on at level of mitral valve redemonstrated. OTHER: Underlying scoliosis. Moderate to severe multilevel spurring in the spine. IMPRESSION: 1. No CT evidence for acute pulmonary embolism. 2. Mild underlying emphysematous change without acute pulmonary process. Underlying pulmonary artery hypertension and 4.6 cm ascending aortic aneurysm are redemonstrated.
[2020-11-13] MEDS: POTASSIUM CHLORIDE ER 20 MEQ TAB.ER PO SCH ×2 (19:41→21:07)
[2020-11-13] MEDS: ATORVASTATIN 40 MG TAB PO SCH (21:07)
[2020-11-13] MEDS: SENNOSIDES-DOCUSATE SODIUM 1 EACH TAB PO SCH (21:07)
[2020-11-13] MEDS: MELATONIN 1 MG TAB PO SCH (21:07)
[2020-11-14] MEDS ORDERED: POTASSIUM CHLORIDE ER 20 MEQ TAB.ER PO STA (00:42)
[2020-11-14] MEDS: HYDROcodone/APAP 5-325MG 1 EACH TAB PO PRN ×2 (02:12→09:18)
[2020-11-14] MEDS: SODIUM CHLORIDE 0.9% 1,000 ML IV SCH ×3 (05:39→06:32)
[2020-11-14] MEDS: POTASSIUM CHLORIDE ER 20 MEQ TAB.ER PO SCH ×2 (05:40→05:41)
[2020-11-14] MEDS: LACTATED RINGERS 1,000 ML IV SCH ×2 (05:40→09:26)
[2020-11-14 06:29] LABS: Potassium 4.2 mmol/L (3.5-5.1)
[2020-11-14] MEDS: ENOXAPARIN 40 MG/0.4 ML SYRINGE SQ SCH (07:07)
[2020-11-14] MEDS: LOSARTAN-HCTZ 50-12.5 MG 1 EACH TAB PO SCH (07:07)
[2020-11-14] MEDS: POTASSIUM CHLORIDE ER 10 MEQ TAB.ER.PRT PO SCH (07:08)
[2020-11-14] MEDS: PANTOPRAZOLE 40 MG TABLET PO SCH (07:08)
[2020-11-14] MEDS: FUROSEMIDE 40 MG TAB PO SCH (07:08)
[2020-11-14] MEDS: FAMOTIDINE 20 MG TAB PO SCH (07:08)
[2020-11-14] MEDS: hydrALAZINE HCL 25 MG TAB PO SCH (07:08)
[2020-11-14 08:24] VITALS: BP 102/66; PULSE 79; RESP 18; TEMP 98.2
[2020-11-14 09:54] LABS: Basophils # (A) 0.02 X 10*3/uL (0.00-0.10); Basophils % (A) 0.4 %; Eosinophils # (A) 0.08 X 10*3/uL (0.04-0.35); Eosinophils % (A) 1.7 %; HCT 28.5 % (37.2-46.3); HGB 8.7 g/dL (12.0-15.0); Lymphocytes # (A) 1.01 X 10*3/uL (0.90-5.00); Lymphocytes % (A) 21.4 %; MCH 27.2 pg (27.0-32.0); MCHC 30.5 g/dL (32.0-37.0); MCV 89.1 fL (80.0-97.0); Mean Platelet Volume 9.6 fL (9.5-12.2); Monocytes # (A) 0.43 X 10*3/uL (0.20-1.00); Monocytes % (A) 9.1 %; Neutrophils # (A) 3.17 X 10*3/uL (1.80-7.70); Neutrophils % (A) 67.2 %; Platelet Count 189 X 10*3/uL (140-440); RDW 13.5 % (11.5-14.5); WBC 4.72 X 10*3/uL (4.50-10.00)
[2020-11-14 11:37] LABS: African American GFR (CKD) >90 (>60 ml/min/1.73 sqM); Anion Gap 4 mmol/L; Blood Urea Nitrogen 11 mg/dL (7-17); Calcium 8.1 mg/dL (8.4-10.2); Carbon Dioxide 28 mmol/L (22-30); Chloride 101 mmol/L (98-107); Glucose 106 mg/dL (74-99); Non-African American GFR(CKD) >90 (>60 ml/min/1.73 sqM); Sodium 133 mmol/L (137-145)
--- NOTE | 2020-11-14 12:44 | ECHOF ---
Referral Reason:syncope MEASUREMENTS -------- HEIGHT: 170.2 cm WEIGHT: 85.7 kg BP: 138/69 RVIDd: 3.6 cm (< 3.3) IVSd: 1.5 cm (0.6 - 1.1) LVIDd: 4.3 cm (3.9 - 5.3) LVPWd: 1.4 cm (0.6 - 1.1) IVSs: 1.9 cm LVIDs: 3.2 cm LVPWs: 1.9 cm LA Diam: 3.9 cm (2.7 - 3.8) LAESV Index (A-L): 27.50 ml/m Ao Diam: 4.0 cm (2.0 - 3.7) AV Cusp: 2.3 cm (1.5 - 2.6) MV EXCURSION: 14.924 mm (> 18.000) MV EF SLOPE: 34 mm/s (70 - 150) EPSS: 0.9 cm MV E Romie: 1.07 m/s MV DecT: 270 ms MV A Romie: 1.06 m/s MV E/A Ratio: 1.01 AV maxP.54 mmHg AV meanP.88 mmHg RAP: 5.00 mmHg RVSP: 34.31 mmHg FINDINGS -------- Sinus rhythm. This was a technically adequate study. The left ventricular size is normal. There is moderate concentric left ventricular hypertrophy. O verall left ventricular systolic function is normal with, an EF between 55 - 60 %. The right ventricle is mildly enlarged. Normal LA size by volume 22+/-6 ml/m2. The right atrium is normal in size. There is mild aortic valve sclerosis. There is mild aortic regurgitation. The mitral valve leaflets are mildly thickened. Moderate mitral annular calcification present. Mild tricuspid regurgitation present. There is borderline pulmonary hypertension. The right ventr icular systolic pressure, as measured by Doppler, is 34.31mmHg. There is no pulmonic regurgitation present. The aortic root is dilated measuring 4.0cm. IVC Not well visulized. There is no pericardial effusion. CONCLUSIONS -------- 1. The left ventricular size is normal. 2. There is moderate concentric left ventricular hypertrophy. 3. Overall left ventricular systolic function is normal with, an EF between 55 - 60 %. 4. The right ventricle is mildly enlarged. 5. Normal LA size by volume 22+/-6 ml/m2. 6. There is mild aortic valve sclerosis. 7. There is mild aortic regurgitation. 8. The mitral valve leaflets are mildly thickened. 9. Moderate mitral annular calcification present. 10. Mild tricuspid regurgitation present. 11. There is borderline pulmonary hypertension. 12. The right ventricular systolic pressure, as measured by Doppler, is 34.31mmHg. 13. The aortic root is dilated measuring 4.0cm. 14. There is no pericardial effusion. WORD PROCESSING SUPERVISOR: Sonja Garcia RDCS
--- NOTE | 2020-11-14 13:00 | P.PN ---
Subjective Progress Note Date: 11/14/20 Principal diagnosis: Status post direct anterior left total hip arthroplasty Patient was evaluated today at bedside, she is resting comfortably. Patient's labs are improving, she was noted to have a decrease in her hemoglobin compared to last. She currently denies any headaches, lightheadedness, chest pain or shortness of breath. Objective - Vital Signs Vital signs: Vital Signs Temp 98.2 F 11/14/20 08:00 Pulse 79 11/14/20 08:00 Resp 18 11/14/20 08:00 BP 102/66 11/14/20 08:00 Pulse Ox 95 11/14/20 08:00 Intake & Output 11/13/20 11/14/20 11/14/20 18:59 06:59 18:59 Other: Voiding Method Self-Catheterization # Voids 4 1 - Exam Left lower extremity: Incision is clean, dry, and intact. The foam dress is in good condition. There is minimal soft tissue swelling and ecchymosis surrounding the medial and lateral aspects of the incision. Calf is soft, no tenderness with palpation. Plantar flexion, dorsiflexion, EHL, FHL are intact. Sensory exam to light touch throughout the extremity is intact, dorsal pedis pulses 2+. - Labs CBC & Chem 7: 11/14/20 05:27 11/14/20 05:27 Labs: Abnormal Lab Results - Last 24 Hours (Table) 11/13/20 11/14/20 11/14/20 Range/Units 17:57 05:27 05:27 RBC 3.20 L (4.10-5.20) X 10*6/uL Hgb 8.7 L (12.0-15.0) g/dL Hct 28.5 L (37.2-46.3) % MCHC 30.5 L (32.0-37.0) g/dL Sodium 133 L (137-145) mmol/L Potassium 3.3 L (3.5-5.1) mmol/L Glucose 106 H (74-99) mg/dL Calcium 8.1 L (8.4-10.2) mg/dL Assessment and Plan Assessment: Postoperative day #3 status post direct anterior left total hip arthroplasty Acute blood loss anemia, expected surgical outcome Hyponatremia Other medical comorbidities Plan: Pain control, plan for discharge home on [employer] 5 mg/325 mg Ferrous sulfate 325 mg twice a day for 30 days Both CBC and CMP will be drawn early next week GI and DVT prophylaxis, aspirin 81 mg twice a day for 30 days Wound care instructions discussed, this including both icing and elevating along with showering Home therapy and nursing after discharge Other medical care manager recommendations Discharge planning: Plan for discharge home today Time with Patient: Less than 30
--- NOTE | 2020-11-14 13:07 | P.DS ---
Providers Date of admission: 11/13/20 16:39 Expected date of discharge: 11/14/20 Attending physician: Ramu Curtis Consults: 11/11/20 17:46 Consult Physician Routine Consulting Provider: Montez Cid Reason/Comments: Medical management Do you want consulting provider notified?: Yes 11/11/20 17:50 Consult Physician Routine Consulting Provider: Cardiology Nuha Consult Reason/Comments: Intraoperative cardiac arrhythmia Do you want consulting provider notified?: Yes Primary care physician: Montez Cid Hospital Course: Date of admission: 11/11/2020 Date of discharge: 11/14/2020 Admission diagnosis: Status post direct anterior left total hip arthroplasty Discharge diagnosis: Same Attending physician: Dr. Curtis Surgical procedures: Direct anterior left total hip arthroplasty Brief history: Patient is a 75-year-old female with a history of progressive primary left hip osteoarthritis. At this point patient has failed conservative treatment measures and has opted to proceed with a elective direct anterior left total hip arthroplasty. Hospital course: Details of patient's surgery can be found in operative report. Patient tolerated the procedure well and was subsequently transported to orthopedic floor. Patient's orthopeidc and medical care was provided daily. Patient had daily laboratory tests performed for evaluation of overall blood counts. Patient had daily physical therapy to include strengthening range of motion as well as education with walker ambulation. Patient was treated with Lovenox for their postoperative DVT prophylaxis during their inpatient stay. On postop day #1 patient had a syncopal/unresponsive episode in her room. Patient has known history of these events. Patient was evaluated by cardiology during her hospital stay. It was noted she had hypokalemia along with hyponatremia, both treated during the hospital stay. Patient reported satisfactory pain control with oral pain medications by postoperative day 0. Patient showed satisfactory progress with physical therapy. Patient moved steadily through the program and had no difficulty meeting the goals by postoperative day 3. Given patient's otherwise satisfactory course and having met physical therapy goals, plan is to discharge patient home on postoperative day 3. Discharge condition/disposition: Patient will be discharged home in stable co ndition. Discharge medications: Instructions are given on resumption of patient's normal daily medications per primary care recommendation, in addition patient will be prescribed [place] 5 mg/325 mg, aspirin 81 mg, ferrous sulfate 325 mg, Keflex 5 mg. Discharge instructions: 1. Wound care and infection precautions, keep incision dry and covered while showering, no lotions, creams, moisturizers. No soaking, tubs, pools, hottubs. Do not scrub over the incision. 2. Weight-bear as tolerated with walker / cane until follow-up. 3. Ice and elevate when necessary. Do not exceed 20 minutes per hour with ice pack. 4. Utilize compression sleeve until seen at first follow up appointment. 5. Visiting nursing care. 6. Home physical therapy. 7. Pain meds and anticoagulants per prescription. 8. Pain medication has potential to cause constipation. Increase oral fluid and fiber intake. Contact primary care provider if you have not had a bowel movement within 48 hours after discharge 9. No anti-inflammatory medication until discussed at first post operative visit, this including Motrin, Aleve, Mobic, Diclofenac. 10. Follow up in office at 2 weeks postop with Roberto Cruz PA-C/Laith Tello 11. Follow up with your primary care doctor 7-10 days after discharge. 12. Contact [facility] with any questions, . Procedures: Direct anterior left total hip arthroplasty Patient Condition at Discharge: Good Plan - Discharge Summary Discharge Rx Participant: Yes New Discharge Prescriptions: New Aspirin [Adult Low Dose Aspirin EC] 81 mg PO BID #60 tab Cephalexin [Keflex] 500 mg PO Q6HR 10 Days #40 cap HYDROcodone/APAP 5-325MG [[place] 5-325] 1 - 2 tab PO Q6HR PRN #42 tab PRN Reason: Pain Ferrous Sulfate [Iron (65 MG Elemental)] 325 mg PO BID #60 tab Discontinued Ibuprofen [Motrin] 800 mg PO Q8HR PRN PRN Reason: Mild Pain No Action Omeprazole 40 mg PO DAILY Ascorbic Acid [Vitamin C] 1,000 mg PO DAILY Multivitamins, Thera [Multivitamin (formulary)] 2 tab PO DAILY Folic Acid 1 mg PO DAILY Furosemide [Lasix] 40 mg PO DAILY Potassium Chloride [Klor-Con 10 ER] 10 meq PO DAILY metHOTREXate sodium [Methotrexate] 25 mg PO TH Vitamin E (Dl,Tocopheryl Acet) [Vitamin E (400 Iu = 180 mg)] 400 unit PO DAILY Vitamin B Complex 1 each PO DAILY [place]-3 Fatty Acids/Fish Oil [Fish Oil 1,000 mg Softgel] 1 each PO DAILY Cranberry Fruit Extract [Cranberry] 2,500 mg PO DAILY Cholecalciferol (Vitamin D3) [Vitamin D3] 2,000 unit PO DAILY Calcium Carb/Vitamin D3/Vit K1 [Citracal-D3 500 mg Soft Chew] 1 each PO DAILY Acai Manzano Extract [Acai] 1,000 mg PO DAILY L.acidoph,Paracasei, B.lactis [Probiotic] 1 each PO DAILY Atorvastatin [Lipitor] 40 mg PO HS Magnesium/Zinc 1 tab PO DAILY hydrALAZINE HCL [Apresoline] 25 mg PO BID Losartan-Hctz 50-12.5 mg [Hyzaar 50-12.5] 1 tab PO BID calcium polycarbophiL [Fibercon] 2 tab PO DAILY Discharge Medication List Ascorbic Acid [Vitamin C] 1,000 mg PO DAILY 10/02/15 [History] Folic Acid 1 mg PO DAILY 10/02/15 [History] Furosemide [Lasix] 40 mg PO DAILY 10/02/15 [History] Multivitamins, Thera [Multivitamin (formulary)] 2 tab PO DAILY 10/02/15 [History] Omeprazole 40 mg PO DAILY 10/02/15 [History] Potassium Chloride [Klor-Con 10 ER] 10 meq PO DAILY 10/02/15 [History] metHOTREXate sodium [Methotrexate] 25 mg PO TH 10/02/15 [History] Acai Manzano Extract [Acai] 1,000 mg PO DAILY 06/15/17 [History] Calcium Carb/Vitamin D3/Vit K1 [Citracal-D3 500 mg Soft Chew] 1 each PO DAILY 06/15/17 [History] Cholecalciferol (Vitamin D3) [Vitamin D3] 2,000 unit PO DAILY 06/15/17 [History] Cranberry Fruit Extract [Cranberry] 2,500 mg PO DAILY 06/15/17 [History] [place]-3 Fatty Acids/Fish Oil [Fish Oil 1,000 mg Softgel] 1 each PO DAILY 06/15/17 [History] Vitamin B Complex 1 each PO DAILY 06/15/17 [History] Vitamin E (Dl,Tocopheryl Acet) [Vitamin E (400 Iu = 180 mg)] 400 unit PO DAILY 06/15/17 [History] L.acidoph,Paracasei, B.lactis [Probiotic] 1 each PO DAILY 03/03/18 [History] Atorvastatin [Lipitor] 40 mg PO HS 04/01/18 [History] Losartan-Hctz 50-12.5 mg [Hyzaar 50-12.5] 1 tab PO BID 11/06/20 [History] Magnesium/Zinc 1 tab PO DAILY 11/06/20 [History] calcium polycarbophiL [Fibercon] 2 tab PO DAILY 11/06/20 [History] hydrALAZINE HCL [Apresoline] 25 mg PO BID 11/06/20 [History] Aspirin [Adult Low Dose Aspirin EC] 81 mg PO BID #60 tab 11/12/20 [Rx] Cephalexin [Keflex] 500 mg PO Q6HR 10 Days #40 cap 11/12/20 [Rx] HYDROcodone/APAP 5-325MG [[place] 5-325] 1 - 2 tab PO Q6HR PRN #42 tab 11/12/20 [Rx] Ferrous Sulfate [Iron (65 MG Elemental)] 325 mg PO BID #60 tab 11/14/20 [Rx] Follow up Appointment(s)/Referral(s): Yassine Grewal MD [STAFF PHYSICIAN] - 02/03/21 9:00 am Montez Cid DO [Primary Care Provider] - 11/15/20 11:20 am Sang Cruz PAC [PHYSICIAN DEVELOPMENT SYSTEM EFFICIENCY MANAGER] - 11/27/20 2:50 pm Fady Peres [NON-STAFF] - ([facility] will call you to schedule your first visit. ) Ambulatory/Diagnostic Orders: Complete Blood Count w/diff [LAB.AMB] Location: None Selected Complete Blood Count w/diff [LAB.AMB] Location: None Selected Comprehensive Metabolic Panel [LAB.AMB] Location: None Selected Comprehensive Metabolic Panel [LAB.AMB] Location: None Selected Patient Instructions/Handouts: Anterior Hip Replacement (DC) Activity/Diet/Wound Care/Special Instructions: Orthopedic Discharge Instructions: 1. Wound care and infection precautions, keep incision dry and covered while showering, no lotions, creams, moisturizers. No soaking, pools, hot tubs. Do not scrub over incision. 2. Weight-bear as tolerated with walker / cane until follow-up. 3. Ice and elevate when necessary. Do not exceed 20 minutes per hour with ice pack. 4. Utilize compression sleeve until seen at first follow up appointment. 5. Pain meds and anticoagulants per prescription. 6. Pain medication has potential to cause constipation. Increase oral fluid and fiber intake. Contact primary care provider if you have not had a bowel movement within 48 hours after discharge. 7. No anti-inflammatory medication until discussed at first post operative visit, this including Motrin, Aleve, Mobic, Diclofenac. 8. Follow up in office at 2 weeks postop with Roberto Cruz PA-C/Laith Centeno PA-C 9. Follow up with your primary care doctor 7-10 days after discharge. 10. Contact [facility] with any questions, . Wound care instructions: 1. Okay to remove dressing on 11/15/2020 2. Keep incision covered and dry while showering Discharge Disposition: HOME WITH HOME HEALTH SERVICES
--- NOTE | 2020-11-14 19:00 | P.PN ---
Subjective Progress Note Date: 11/14/20 Patient is feeling better today she's had no further episodes of dizziness or syncope. This was no arrhythmia noted on telemetry. Her potassium and sodium have converted to normal after replacement. Objective - Vital Signs Vital signs: Vital Signs Temp 98.2 F 11/14/20 08:00 Pulse 79 11/14/20 08:00 Resp 18 11/14/20 08:00 BP 102/66 11/14/20 08:00 Pulse Ox 95 11/14/20 08:00 Intake & Output 11/13/20 11/14/20 11/14/20 18:59 06:59 18:59 Other: Voiding Method Self-Catheterization # Voids 4 1 - Exam GENERAL: This is a 75-year-old in no apparent distress at the time of examination. Pleasant and cooperative. HEENT: Head is atraumatic, normocephalic. Pupils are equal, round, and reactive to light. Sclerae anicteric. Conjunctivae are clear. Mucus membranes of the mouth are moist. Neck is supple. RESPIRATORY: Clear to auscultation. No wheezes, rales, or rhonchi. No use of accessory muscles. No chest wall tenderness is noted on palpation or with deep breathing. CARDIOVASCULAR: Regular rate and rhythm. GASTROINTESTINAL: No distention noted. Abdomen soft and round. Normal active bowel sounds auscultated x 4 quadrants. No pain or tenderness noted upon palpation. INTEGUMENTARY: No cyanosis. No jaundice. No rashes noted. No cellulitis noted. EXTREMITIES: 2+ peripheral pulses. No evidence of peripheral edema. No calf tenderness noted. NEUROLOGIC: Cranial nerves II-XII intact. PSYCHIATRIC: Awake, alert, and oriented X 3. Appropriate affect. Intact judgement and insight. - Labs CBC & Chem 7: 11/14/20 05:27 11/14/20 05:27 Labs: Abnormal Lab Results - Last 24 Hours (Table) 11/14/20 11/14/20 Range/Units 05:27 05:27 RBC 3.20 L (4.10-5.20) X 10*6/uL Hgb 8.7 L (12.0-15.0) g/dL Hct 28.5 L (37.2-46.3) % MCHC 30.5 L (32.0-37.0) g/dL Sodium 133 L (137-145) mmol/L Glucose 106 H (74-99) mg/dL Calcium 8.1 L (8.4-10.2) mg/dL Assessment and Plan (1) Osteoarthritis of left hip Status: Acute Code(s): M16.12 - UNILATERAL PRIMARY OSTEOARTHRITIS, LEFT HIP SNOMED Code(s): 838488234436083 (2) S/P total left hip arthroplasty Status: Acute Code(s): Z96.642 - PRESENCE OF LEFT ARTIFICIAL HIP JOINT SNOMED Code(s): 229729197765 (3) History of paroxysmal supraventricular tachycardia Status: Acute Code(s): Z86.79 - PERSONAL HISTORY OF OTHER DISEASES OF THE CIRCULATORY SYSTEM SNOMED Code(s): 223740538795453 (4) Syncope and collapse Status: Acute Code(s): R55 - SYNCOPE AND COLLAPSE SNOMED Code(s): 625054451 (5) Hyponatremia Status: Acute Code(s): E87.1 - HYPO-OSMOLALITY AND HYPONATREMIA SNOMED Code(s): 22602135 (6) Hypokalemia Status: Acute Code(s): E87.6 - HYPOKALEMIA SNOMED Code(s): 53510604 Plan: Patient is cleared for discharge will follow-up in the office to recheck electrolytes in one week.
== END 2020-11-14 14:28 | disposition home health service (06) | DRG 470 ==
LOC: OR 13:43 → 4SSUR 18:08 → OR 11-13 16:39 → 4SSUR 11-13 16:39
PROVIDERS: ADMIT Orthopaedic Surgery; ATTEND Orthopaedic Surgery
PROC: 0SRB04A Replacement of Left Hip Joint with Ceramic on Polyethylene Synthetic Substitute, Uncemented, Open Approach (ICD-10-PCS; principal; 2020-11-13)
PROC: 8E0YXBG Computer Assisted Procedure of Lower Extremity, With Computerized Tomography (ICD-10-PCS; 2020-11-13)
DX: M16.12 Unilateral primary osteoarthritis, left hip (principal); I47.1 Supraventricular tachycardia; D62 Acute posthemorrhagic anemia; E87.1 Hypo-osmolality and hyponatremia; M79.605 Pain in left leg; E78.5 Hyperlipidemia, unspecified; I25.10 Atherosclerotic heart disease of native coronary artery without angina pectoris; I10 Essential (primary) hypertension; I44.7 Left bundle-branch block, unspecified; M06.9 Rheumatoid arthritis, unspecified; R42 Dizziness and giddiness; Z20.822 Contact with and (suspected) exposure to COVID-19; Z79.899 Other long term (current) drug therapy; T80.92XA Unspecified transfusion reaction, initial encounter; Y84.8 Other medical procedures as the cause of abnormal reaction of the patient, or of later complication, without mention of misadventure at the time of the procedure; R60.0 Localized edema; I27.20 Pulmonary hypertension, unspecified; I95.1 Orthostatic hypotension; E87.6 Hypokalemia; Z90.710 Acquired absence of both cervix and uterus; Z96.641 Presence of right artificial hip joint; Z96.653 Presence of artificial knee joint, bilateral; K21.9 Gastro-esophageal reflux disease without esophagitis; M19.90 Unspecified osteoarthritis, unspecified site; L40.50 Arthropathic psoriasis, unspecified; Z85.828 Personal history of other malignant neoplasm of skin; Z79.82 Long term (current) use of aspirin; Z88.8 Allergy status to other drugs, medicaments and biological substances; Z87.19 Personal history of other diseases of the digestive system; Z86.718 Personal history of other venous thrombosis and embolism; Z87.440 Personal history of urinary (tract) infections; Z98.1 Arthrodesis status; Z86.79 Personal history of other diseases of the circulatory system
CPT/HCPCS: 71275; 73501; 73502; 80048; 83735; 84132; 84443; 84484; 85025; 85379; 86850; 86900; 86901; 87635; 88300; 93005; 93270; 93306; 94760

== ENCOUNTER 2020-11-24 11:48 | Emergency (ER) | payer MEDICARE, BC ==
[2020-11-24 12:14] VITALS: BP 129/78; TEMP 98.4
[2020-11-24 13:00] LABS: Basophils % (A) 1 %; Eosinophils # (A) 0.3 k/uL (0-0.7); Eosinophils % (A) 5 %; HCT 32.9 % (34.0-46.0); HGB 11.1 gm/dL (11.4-16.0); Lymphocytes # (A) 1.3 k/uL (1.0-4.8); Lymphocytes % (A) 23 %; MCH 28.8 pg (25.0-35.0); MCHC 33.7 g/dL (31.0-37.0); MCV 85.5 fL (80.0-100.0); Mean Platelet Volume 6.9; Monocytes # (A) 0.3 k/uL (0-1.0); Monocytes % (A) 5 %; Neutrophils # (A) 3.4 k/uL (1.3-7.7); Neutrophils % (A) 63 %; Platelet Count 361 k/uL (150-450); RBC 3.85 m/uL (3.80-5.40); WBC 5.4 k/uL (3.8-10.6)
[2020-11-24 13:11] LABS: ALT 22 U/L (4-34); AST 24 U/L (14-36); African American GFR (CKD) >90 (>60 ml/min/1.73 sqM); Albumin 3.5 g/dL (3.5-5.0); Alkaline Phosphatase 120 U/L (38-126); Anion Gap 10 mmol/L; Blood Urea Nitrogen 16 mg/dL (7-17); Calcium 8.9 mg/dL (8.4-10.2); Carbon Dioxide 28 mmol/L (22-30); Chloride 93 mmol/L (98-107); Glucose 96 mg/dL (74-99); Non-African American GFR(CKD) 90 (>60 ml/min/1.73 sqM); Potassium 3.1 mmol/L (3.5-5.1); Sodium 131 mmol/L (137-145); Total Bilirubin 0.5 mg/dL (0.2-1.3); Total Protein 5.8 g/dL (6.3-8.2)
[2020-11-24 13:19] LABS: INR 0.9 (<1.2); Partial Thromboplastin Time 22.4 sec (22.0-30.0); Prothrombin Time 9.9 sec (9.0-12.0)
[2020-11-24] MEDS ORDERED: POTASSIUM CHLORIDE ER 20 MEQ TAB.ER PO STA (13:25)
--- NOTE | 2020-11-24 13:48 | ED ---
General Adult HPI - General Chief complaint: Skin/Abscess/Foreign Body Stated complaint: post op possible infected incision Time Seen by Provider: 11/24/20 12:18 Source: patient, RN notes reviewed, old records reviewed Mode of arrival: wheelchair Limitations: no limitations - History of Present Illness Initial comments: 75-year-old female presenting for pain and swelling left thigh. Patient had left hip replacement approximately 2 weeks ago. Over the past 24 hours she had noted some swelling just adjacent to the incision. There was no drainage. No erythema. No fever. No pain in the remainder of the leg. Patient is not on anticoagulation. She takes 281 mg aspirin daily. - Related Data Home Medications Medication Instructions Recorded Confirmed Ascorbic Acid [Vitamin C] 1,000 mg PO DAILY 10/02/15 11/24/20 Folic Acid 1 mg PO DAILY 10/02/15 11/24/20 Furosemide [Lasix] 40 mg PO DAILY 10/02/15 11/24/20 Multivitamins, Thera [Multivitamin 2 tab PO DAILY 10/02/15 11/24/20 (formulary)] Omeprazole 40 mg PO DAILY 10/02/15 11/24/20 Potassium Chloride [Klor-Con 10 ER] 10 meq PO DAILY 10/02/15 11/24/20 metHOTREXate sodium [Methotrexate] 25 mg PO TH 10/02/15 11/24/20 Acai Manzano Extract [Acai] 1,000 mg PO DAILY 06/15/17 11/24/20 Calcium Carb/Vitamin D3/Vit K1 1 tab PO DAILY 06/15/17 11/24/20 [Citracal-D3 500 mg Soft Chew] Cranberry Fruit Extract [Cranberry] 2,500 mg PO DAILY 06/15/17 11/24/20 [place]-3 Fatty Acids/Fish Oil [Fish 1 cap PO DAILY 06/15/17 11/24/20 Oil 1,000 mg Softgel] Vitamin B Complex 1 cap PO DAILY 06/15/17 11/24/20 Vitamin E (Dl,Tocopheryl Acet) 400 unit PO DAILY 06/15/17 11/24/20 [Vitamin E (400 Iu = 180 mg)] L.acidoph,Paracasei, B.lactis 1 cap PO DAILY 03/03/18 11/24/20 [Probiotic] Atorvastatin [Lipitor] 40 mg PO HS 04/01/18 11/24/20 Losartan-Hctz 50-12.5 mg [Hyzaar 1 tab PO BID 11/06/20 11/24/20 50-12.5] Magnesium/Zinc 1 tab PO DAILY 11/06/20 11/24/20 calcium polycarbophiL [Fibercon] 1,250 mg PO DAILY 11/06/20 11/24/20 hydrALAZINE HCL [Apresoline] 50 mg PO BID 11/06/20 11/24/20 Cephalexin [Keflex] 500 mg PO Q6H 11/24/20 11/24/20 Cholecalciferol [Vitamin D3 (25 50 mcg PO DAILY 11/24/20 11/24/20 Mcg = 1000 Iu)] HYDROcodone/APAP 5-325MG [[place] 1 - 2 tab PO Q6H PRN 11/24/20 11/24/20 5-325] Previous Rx's Medication Instructions Recorded Aspirin [Adult Low Dose Aspirin EC] 81 mg PO BID #60 tab 11/12/20 Ferrous Sulfate [Iron (65 MG 325 mg PO BID #60 tab 11/14/20 Elemental)] Allergies Allergy/AdvReac Type Severity Reaction Status Date / Time meperidine HCl [From Demerol] Allergy Rash/Hives Verified 11/24/20 14:49 prochlorperazine Allergy agitation Verified 11/24/20 14:49 [From Compazine] prochlorperazine edisylate Allergy agitation Verified 11/24/20 14:49 [From Compazine] prochlorperazine maleate Allergy agitation Verified 11/24/20 14:49 [From Compazine] simvastatin [From Zocor] Allergy severe leg Verified 11/24/20 14:49 weakness moxifloxacin HCl AdvReac Anaphylaxis Verified 11/24/20 14:49 [From Avelox] Review of Systems ROS Statement: Those systems with pertinent positive or pertinent negative responses have been documented in the HPI. ROS Other: All systems not noted in ROS Statement are negative. Past Medical History Past Medical History: Cancer, GERD/Reflux, Hyperlipidemia, Hypertension Additional Past Medical History / Comment(s): DVT years ago, psoriatic arthritis, hx. skin cancer, self-cath's due to bladder not emptying completely, currently has a bladder infection-picking up antibiotic today History of Any Multi-Drug Resistant Organisms: None Reported Past Surgical History: Joint Replacement Additional Past Surgical History / Comment(s): henok knee replacements & right hip replaced, vein stripping, left hand fusion, left retinal repair of tear, right carpal tunnel, left hip replacement Past Anesthesia/Blood Transfusion Reactions: No Reported Reaction Additional Past Anesthesia/Blood Transfusion Reaction / Comment(s): seems to require alot of anesthesia to be sedated per pt. Past Psychological History: No Psychological Hx Reported Smoking Status: Never smoker Past Alcohol Use History: Occasional Past Drug Use History: None Reported - Past Family History Father Family Medical History: Myocardial Infarction (MT) Mother Family Medical History: Cancer Daughter(s) Family Medical History: Cancer General Exam Limitations: no limitations General appearance: alert, in no apparent distress Head exam: Present: atraumatic, normocephalic Eye exam: Present: normal appearance, PERRL ENT exam: Present: normal exam Neck exam: Present: normal inspection Respiratory exam: Present: normal lung sounds bilaterally. Absent: respiratory distress Cardiovascular Exam: Present: regular rate, normal rhythm GI/Abdominal exam: Present: soft. Absent: distended, tenderness Extremities exam: Present: other (Left leg. Incision is anterior thigh, well- healed. There is an adjacent approximately 10 cm x 8 cm mass which is nonpulsatile, nonerythematous, no induration. This is fluctuant. Distal pulses are intact.) Course Vital Signs 11/24/20 12:09 Temperature 98.4 F Pulse Rate 84 Respiratory 18 Rate Blood Pressure 129/78 O2 Sat by Pulse 97 Oximetry Medical Decision Making - Medical Decision Making 75-year-old female with swelling at the incision site of a left hip replacement. Distal pulses are intact, the mass is nonpulsatile, fluctuant, no overlying cellulitis or erythema. I did perform CT imaging of this which is consistent with hematoma. There is no leukocytosis, stable hemoglobin. I discussed case with [facility] who is seeing the patient on outp atient basis this week. Will follow closely. Return parameters were discussed with the patient and her daughter at length. Compression wrap and ice applied in the emergency department - Lab Data Result diagrams: 11/24/20 12:50 11/24/20 12:50 Lab Results 11/24/20 11/24/20 11/24/20 Range/Units 12:50 12:50 12:50 WBC 5.4 (3.8-10.6) k/uL RBC 3.85 (3.80-5.40) m/uL Hgb 11.1 L (11.4-16.0) gm/dL Hct 32.9 L (34.0-46.0) % MCV 85.5 (80.0-100.0) fL MCH 28.8 (25.0-35.0) pg MCHC 33.7 (31.0-37.0) g/dL RDW 14.0 (11.5-15.5) % Plt Count 361 (150-450) k/uL MPV 6.9 Neutrophils % 63 % Lymphocytes % 23 % Monocytes % 5 % Eosinophils % 5 % Basophils % 1 % Neutrophils # 3.4 (1.3-7.7) k/uL Lymphocytes # 1.3 (1.0-4.8) k/uL Monocytes # 0.3 (0-1.0) k/uL Eosinophils # 0.3 (0-0.7) k/uL Basophils # 0.0 (0-0.2) k/uL PT 9.9 (9.0-12.0) sec INR 0.9 (<1.2) APTT 22.4 (22.0-30.0) sec Sodium 131 L (137-145) mmol/L Potassium 3.1 L (3.5-5.1) mmol/L Chloride 93 L (98-107) mmol/L Carbon Dioxide 28 (22-30) mmol/L Anion Gap 10 mmol/L BUN 16 (7-17) mg/dL Creatinine 0.61 (0.52-1.04) mg/dL Est GFR (CKD-EPI)AfAm >90 (>60 ml/min/1.73 sqM) Est GFR (CKD-EPI)NonAf 90 (>60 ml/min/1.73 sqM) Glucose 96 (74-99) mg/dL Calcium 8.9 (8.4-10.2) mg/dL Total Bilirubin 0.5 (0.2-1.3) mg/dL AST 24 (14-36) U/L ALT 22 (4-34) U/L Alkaline Phosphatase 120 (38-126) U/L Total Protein 5.8 L (6.3-8.2) g/dL Albumin 3.5 (3.5-5.0) g/dL Disposition Clinical Impression: Hematoma of left hip Disposition: HOME SELF-CARE Condition: Good Instructions (If sedation given, give patient instructions): Hematoma (ED) Is patient prescribed a controlled substance at d/c from ED?: No Referrals: Montez Cid DO [Primary Care Provider] - 1-2 days Ramu Curtis DO [Doctor of Osteopathic Medicine] - 1-2 days Time of Disposition: 15:03
--- NOTE | 2020-11-24 14:35 | CT ---
EXAMINATION TYPE: CT lower extremity LT w con DATE OF EXAM: 11/24/2020 COMPARISON: None HISTORY: Pain and swelling Lt hip CT DLP: 751.1 mGycm Automated exposure control for dose reduction was used. CONTRAST: Performed with IV Contrast, patient injected with 100 mL of Isovue 300. Images obtained from the iliac crest to the mid shaft of the femur with IV contrast. There is left hip prosthesis. Visualized soft tissues in the pelvis appear intact. There is some vasc ular calcification. There is no free fluid in the pelvis. Bladder distends smoothly. Sacroiliac joint is intact. Left iliac bone appears intact. The hip prosthesis appears in good position. I see no fra cture line. There is no evidence of focal bone destruction. There is subcutaneous elongated fluid col lection lateral to the hip prosthesis measuring 7 x 2.5 cm. This is density of 33 and consistent with a hematoma. There is no pathologic enhancement. There appears to be normal enhancement of the femora l artery and vein. IMPRESSION: Subcutaneous fluid collection lateral to the left hip consistent with a hematoma. No focal bone destr uction seen.
[2020-11-24 15:28] VITALS: PULSE 78; RESP 16
== END 2020-11-24 15:28 | disposition home or self-care (01) ==
LOC: EC 11:48
DX: S70.02XA Contusion of left hip, initial encounter (principal); I10 Essential (primary) hypertension; E78.5 Hyperlipidemia, unspecified; K21.9 Gastro-esophageal reflux disease without esophagitis; Z79.899 Other long term (current) drug therapy; Z88.5 Allergy status to narcotic agent; Z88.8 Allergy status to other drugs, medicaments and biological substances; Z79.82 Long term (current) use of aspirin; Z86.718 Personal history of other venous thrombosis and embolism; Z96.643 Presence of artificial hip joint, bilateral; Z96.653 Presence of artificial knee joint, bilateral; X58.XXXA Exposure to other specified factors, initial encounter
CPT/HCPCS: 36415; 80053; 85025; 85610; 85730; 73701; 99284; Q9967

== ENCOUNTER → 2020-12-05 | Outpatient (CLI) | payer MEDICARE, BC ==
[2020-12-05 23:07] LABS: Magnesium 2.2 mg/dL (1.5-2.4)
[2020-12-06 06:55] LABS: African American GFR (CKD) 98.9 (60.0-200.0); BUN/Creat Ratio 19.57 Ratio (12.00-20.00); Blood Urea Nitrogen 13.7 mg/dL (9.0-27.0); Calcium 9.4 mg/dL (8.7-10.3); Non-African American GFR(CKD) 85.4 (60.0-200.0); Potassium 4.3 mmol/L (3.5-5.5)
== END | disposition home or self-care (01) ==
LOC: LABWHC1 09:15
PROVIDERS: ATTEND Internal Medicine Interventional Cardiology
DX: I10 Essential (primary) hypertension (principal)
CPT/HCPCS: 36415; 80048; 83735

== ENCOUNTER → 2020-12-25 | Outpatient (CLI) | payer MEDICARE, BC ==
--- NOTE | 2020-12-25 15:29 | XR ---
Left hip HISTORY: M16.12 2 views of the left hip, correlation to left femur 11/12/2020 Patient is status post left hip arthroplasty. There is anatomic alignment. Bone mineralization is red uced. There are vascular calcifications noted incidentally. Heterotopic new bone formation noted. Nile ency within the soft tissues has resolved. IMPRESSION: Postop changes.
== END | disposition home or self-care (01) ==
LOC: RADXRMAIN 11:28
PROVIDERS: ATTEND Orthopaedic Surgery
DX: M16.12 Unilateral primary osteoarthritis, left hip (principal)
CPT/HCPCS: 73502

== ENCOUNTER → 2021-09-12 | Outpatient (CLI) | payer MEDICARE, BC ==
--- NOTE | 2021-09-12 11:25 | XR ---
EXAMINATION TYPE: XR chest 2V DATE OF EXAM: 09/12/2021 COMPARISON: Chest x-ray 04/01/2018, CT chest 11/13/2020 HISTORY: Presurgical TECHNIQUE: Frontal and lateral views of the chest are obtained. FINDINGS: There is no focal air space opacity, pleural effusion, or pneumothorax seen. The cardiac silhouette size is within normal limits. Right hemidiaphragm remains elevated. Aorta is dense and ane urysmal. There is arthropathy in the right shoulder. Coronary artery calcification is present. The o sseous structures are intact. IMPRESSION: No acute cardiopulmonary process. Jose artery disease. Aortic aneurysm.
[2021-09-12 13:41] LABS: INR 0.9 (<1.2); Partial Thromboplastin Time 24.1 sec (22.0-30.0); Prothrombin Time 10.3 sec (9.0-12.0)
[2021-09-12 18:26] LABS: Basophils # (A) 0.03 X 10*3/uL (0.00-0.10); Basophils % (A) 0.7 %; Eosinophils # (A) 0.02 X 10*3/uL (0.04-0.35); Eosinophils % (A) 0.5 %; HGB 12.1 g/dL (12.0-15.0); Immature Grans, Automated 0.2 %; Lymphocytes # (A) 1.14 X 10*3/uL (0.90-5.00); MCH 27.8 pg (27.0-32.0); MCHC 30.3 g/dL (32.0-37.0); MCV 91.7 fL (80.0-97.0); Mean Platelet Volume 9.5 fL (9.5-12.2); Monocytes # (A) 0.31 X 10*3/uL (0.20-1.00); Monocytes % (A) 7.1 %; NRBC Per 100 WBC 0 /100 WBCS (0.0-0.0); Neutrophils # (A) 2.87 X 10*3/uL (1.80-7.70); Neutrophils % (A) 65.5 %; Platelet Count 309 X 10*3/uL (140-440); RBC 4.36 X 10*6/uL (4.10-5.20); RDW 14.3 % (11.5-14.5); WBC 4.38 X 10*3/uL (4.50-10.00)
[2021-09-12 19:10] LABS: African American GFR (CKD) 98.2 (60.0-200.0); Albumin 4.5 g/dL (3.8-4.9); Albumin/Globulin Ratio 1.88 (1.60-3.17); Anion Gap 15.4 mmol/L (10.00-18.00); BUN/Creat Ratio 19.71 Ratio (12.00-20.00); Blood Urea Nitrogen 13.8 mg/dL (9.0-27.0); Calcium 9.7 mg/dL (8.7-10.3); Carbon Dioxide 26.6 mmol/L (20.0-27.5); Globulin 2.4 g/dL (1.6-3.3); Non-African American GFR(CKD) 84.8 (60.0-200.0); Potassium 3.7 mmol/L (3.5-5.5); Total Bilirubin 0.5 mg/dL (0.30-1.20); Total Protein 6.9 g/dL (6.2-8.2)
== END | disposition home or self-care (01) ==
LOC: LABWHC1 10:55
PROVIDERS: ATTEND Neurological Surgery
DX: Z01.812 Encounter for preprocedural laboratory examination (principal); Z01.818 Encounter for other preprocedural examination; M48.00 Spinal stenosis, site unspecified
CPT/HCPCS: 36415; 71046; 80053; 81001; 85025; 85610; 85730; 86850; 86900; 86901; 87070; 87086; 93005

== ENCOUNTER → 2023-02-04 | Outpatient (CLI) | payer MEDICARE, BC ==
--- NOTE | 2023-02-07 20:58 | BD ---
EXAMINATION TYPE: Axial Bone Density DATE OF EXAM: 02/04/2023 CLINICAL HISTORY: 77 years old Female. 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 Menopause before 45: yes hyst Rheumatoid Arthritis: yes RISK FACTORS HISTORY OF: Hip Fracture (Right/Left): yes When: Spine Fracture: yes When: 2013 History of Wrist Fracture: yes When: 1969 Surgery to Spine/Hip(right/left)/Wrist (left): yes with cement When: Family History of Osteoporosis: yes Active: yes Diet low in dairy products/other sources of calcium: yes Postmenopausal woman: yes Lost more than 2 inches in height since high school: yes Frequent falls: no MEDICATIONS: Additional Medications: yes hbp meds cholesterol , EXAM MEASUREMENTS: Bone mineral densitometry was performed using the [employer]. Bone mineral density as measured about the Lumbar spine is: ----- L1-L4(G/cm2): 1.319 T Score Values are as follows: ----- L1: 0.0 ----- L2: 1.2 ----- L3: 1.1 ----- L4: 2.0 ----- L1-L4: 1.2 Z Score Values are as follows: ----- L1: 1.4 ----- L2: 2.6 ----- L3: 2.5 ----- L4: 3.4 ----- L1-L4: 2.6 Bone mineral density baseline Bone mineral density about the R Wrist (g/cm2): 0.571 -----Dist. R+U: -1.2 -----Prox. R+U: -2.0 -----Radius total: -1.7 Z Score values are as follows: -----Dist. R+U: 1.2 -----Prox. R+U: 0.5 -----Radius total: 0.7 Bone mineral density about the L Wrist (g/cm2): 0.574 T Score values are as follows: -----Dist. R+U: -1.3 -----Prox. R+U: -2.2 -----Radius total: -1.7 Z Score values are as follows: -----Dist. R+U: 1.2 -----Prox. R+U: 0.3 -----Radius total: 0.8 Bone mineral density baseline FRAX%s: none IMPRESSION: Osteopenia (T Score between -2.5 and -1). There is slightly increased risk of fracture and the patient may be considered for treatment. Re-Screen 2-5 years. NOTE: T-SCORE=SD OF THE YOUNG ADULT MEAN.
== END | disposition home or self-care (01) ==
LOC: RADBDWWP 15:24
PROVIDERS: ATTEND Family Medicine
DX: M85.89 Other specified disorders of bone density and structure, multiple sites (principal); M81.0 Age-related osteoporosis without current pathological fracture; Z78.0 Asymptomatic menopausal state
CPT/HCPCS: 77080

== ENCOUNTER 2023-07-24 09:43 | Observation (INO) | payer MEDICARE, BC ==
[2023-07-24 10:55] LABS: Basophils % (A) 0 %; Eosinophils # (A) 0.1 k/uL (0-0.7); Eosinophils % (A) 2 %; HCT 35.1 % (34.0-46.0); HGB 10.9 gm/dL (11.4-16.0); Hypochromasia Slight; Lymphocytes # (A) 0.6 k/uL (1.0-4.8); Lymphocytes % (A) 12 %; MCH 29.5 pg (25.0-35.0); MCHC 31.1 g/dL (31.0-37.0); MCV 94.8 fL (80.0-100.0); Mean Platelet Volume 7.1; Monocytes # (A) 0.1 k/uL (0-1.0); Monocytes % (A) 3 %; Neutrophils # (A) 3.8 k/uL (1.3-7.7); Neutrophils % (A) 82 %; Platelet Count 176 k/uL (150-450); RDW 14.3 % (11.5-15.5); WBC 4.7 k/uL (3.8-10.6)
[2023-07-24 11:14] LABS: Prothrombin Time 10.6 sec (10.0-12.5)
[2023-07-24 11:21] LABS: ALT 13 U/L (4-34); AST 25 U/L (14-36); African American GFR (CKD) >90 (>60 ml/min/1.73 sqM); Albumin 3.7 g/dL (3.5-5.0); Alkaline Phosphatase 56 U/L (38-126); Anion Gap 5 mmol/L; Blood Urea Nitrogen 20 mg/dL (7-17); Calcium 8.8 mg/dL (8.4-10.2); Carbon Dioxide 28 mmol/L (22-30); Chloride 104 mmol/L (98-107); Glucose 96 mg/dL (74-99); Non-African American GFR(CKD) 79 (>60 ml/min/1.73 sqM); Potassium 4.1 mmol/L (3.5-5.1); Sodium 137 mmol/L (137-145); Total Bilirubin 0.7 mg/dL (0.2-1.3); Total Protein 5.5 g/dL (6.3-8.2)
[2023-07-24 11:37] LABS: Partial Thromboplastin Time 21.5 sec (22.0-30.0)
[2023-07-24] MEDS: HYDROcodone/APAP 5-325MG 1 EACH TAB PO STA (11:50)
[2023-07-24 12:06] LABS: NT-Pro-B-Type Natriuretic Pept 429 pg/mL
--- NOTE | 2023-07-24 12:12 | ED ---
General Adult HPI - General Chief complaint: Syncope Stated complaint: Syncope Source: patient, EMS Mode of arrival: EMS Limitations: no limitations - History of Present Illness Initial comments: 78-year-old female who presents emergency department after she had multiple syncopal episodes at home. Patient was getting her haircut when she went unresponsive several times. Patient states that she felt very lightheaded but does not remember the majority of what happened. EMS was called. Patient reports that she thinks her symptoms are due to possible infection in her right ankle. Patient has developed a blister on the right lateral aspect. She denies any fevers. No nausea or vomiting. She did see her primary care doctor about this. She has been using Babar bandages to assist with the edema. She has been unable to get her compression stockings on. She is not currently on any antibiotics. No other alleviating, precipitating or modifying factors - Related Data Home Medications Medication Instructions Recorded Confirmed Folic Acid 1 mg PO DAILY 10/02/15 07/24/23 Furosemide [Lasix] 40 mg PO DAILY 10/02/15 07/24/23 Multivitamins, Thera [Multivitamin 2 tab PO DAILY 10/02/15 07/24/23 (formulary)] metHOTREXate sodium [Methotrexate] 25 mg PO TH 10/02/15 07/24/23 Atorvastatin [Lipitor] 40 mg PO HS 04/01/18 07/24/23 Fiber Choice 2 cap PO DAILY 07/24/23 07/24/23 Potassium Chloride ER [K-Dur 20] 20 meq PO DAILY 07/24/23 07/24/23 fluorouraciL [Efudex] 1 applic TOPICAL DIRECTED 07/24/23 07/24/23 hydrALAZINE HCL [Apresoline] 50 mg PO BID 07/24/23 07/24/23 Previous Rx's Medication Instructions Recorded Losartan [Cozaar] 100 mg PO DAILY 30 Days #30 tab 07/25/23 Metoprolol Succinate [Metoprolol 25 mg PO DAILY 30 Days #30 tab 07/25/23 Succinate ER] Allergies Allergy/AdvReac Type Severity Reaction Status Date / Time meperidine HCl [From Demerol] Allergy Rash/Hives Verified 07/24/23 13:54 moxifloxacin HCl Allergy Anaphylaxis Verified 07/24/23 13:54 [From Avelox] prochlorperazine AdvReac agitation Verified 07/24/23 13:54 [From Compazine] prochlorperazine edisylate AdvReac agitation Verified 07/24/23 13:54 [From Compazine] prochlorperazine maleate AdvReac agitation Verified 07/24/23 13:54 [From Compazine] simvastatin [From Zocor] AdvReac severe leg Verified 07/24/23 13:54 weakness Review of Systems ROS Statement: Those systems with pertinent positive or pertinent negative responses have been documented in the HPI. ROS Other: All systems not noted in ROS Statement are negative. Past Medical History Past Medical History: Cancer, GERD/Reflux, Hyperlipidemia, Hypertension Additional Past Medical History / Comment(s): DVT years ago, psoriatic arthritis, hx. skin cancer, self-cath's due to bladder not emptying completely, currently has a bladder infection-picking up antibiotic today History of Any Multi-Drug Resistant Organisms: None Reported Past Surgical History: Joint Replacement Additional Past Surgical History / Comment(s): henok knee replacements & right hip replaced, vein stripping, left hand fusion, left retinal repair of tear, right carpal tunnel, left hip replacement Past Anesthesia/Blood Transfusion Reactions: No Reported Reaction Additional Past Anesthesia/Blood Transfusion Reaction / Comment(s): seems to require alot of anesthesia to be sedated per pt. Past Psychological History: No Psychological Hx Reported Smoking Status: Never smoker Past Alcohol Use History: Occasional Past Drug Use History: None Reported - Past Family History Father Family Medical History: Myocardial Infarction ([place]) Mother Family Medical History: Cancer Daughter(s) Family Medical History: Cancer General Exam Limitations: no limitations General appearance: alert, in no apparent distress Head exam: Present: atraumatic, normocephalic, normal inspection Eye exam: Present: normal appearance, PERRL, EOMI. Absent: scleral icterus, conjunctival injection, periorbital swelling ENT exam: Present: normal exam, mucous membranes moist Neck exam: Present: normal inspection. Absent: tenderness, meningismus, lymphadenopathy Respiratory exam: Present: normal lung sounds bilaterally. Absent: respiratory distress, wheezes, rales, rhonchi, stridor Cardiovascular Exam: Present: regular rate, normal rhythm, normal heart sounds. Absent: systolic murmur, diastolic murmur, rubs, gallop, clicks GI/Abdominal exam: Present: soft, normal bowel sounds. Absent: distended, tenderness, guarding, rebound, rigid Extremities exam: Present: full ROM, normal capillary refill, other (Large blister over the right malleolus - lateral. Area of black eschar over the second toe). Absent: tenderness, pedal edema, joint swelling, calf tenderness Back exam: Present: normal inspection Neurological exam: Present: alert, oriented X3, CN II-XII intact Psychiatric exam: Present: normal affect, normal mood Skin exam: Present: warm, dry, intact, normal color. Absent: rash Course Vital Signs 07/24/23 07/24/23 09:47 15:48 Temperature 97.5 F L 97.8 F Pulse Rate 58 L Pulse Rate [ 66 Left] Respiratory 18 16 Rate Blood Pressure 152/80 Blood Pressure 130/72 [Right Arm Sitting] Blood Pressure 136/73 [Right Arm Standing] Blood Pressure 159/68 [Right Arm Supine] O2 Sat by Pulse 96 97 Oximetry Medical Decision Making - Medical Decision Making Was pt. sent in by a medical professional or institution (, PA, DEATH CLAIM CLERK, urgent care, hospital, or senior care...) When possible be specific @ -No Did you speak to anyone other than the patient for history (EMS, parent, family, police, friend...)? What history was obtained from this source @ -Spoke with EMS for history Did you review nursing and triage notes (agree or disagree)? Why? @ -I reviewed and agree with nursing and triage notes Were old charts reviewed (outside hosp., previous admission, EMS record, old EKG, old radiological studies, urgent care reports/EKG's, senior care records)? Report findings @ -No old charts were reviewed Differential Diagnosis (chest pain, altered mental status, abdominal pain women, abdominal pain men, vaginal bleeding, weakness, fever, dyspnea, syncope, headache, dizziness, GI bleed, back pain, seizure, CVA, palpatations, mental health, musculoskeletal)? @ -Differential Syncope: Valvular disease, hypertrophic cardiomyopathy, pulmonary embolism, tamponade, tachycardia, bradycardia, MA, hypovolemia, hemorrhage, dissection, anemia, intracranial hemorrhage, seizure, hypoglycemia, carbon monoxide poisoning, this is not meant to be an all-inclusive list. EKG interpreted by me (3pts min.). @ -Yes and demonstrates sinus rhythm with a rate of 59. QRS 169. QTc of 488. Left bundle branch block X-rays interpreted by me (1pt min.). @ -Yes and demonstrates no acute process CT interpreted by me (1pt min.). @ -None done U/S interpreted by me (1pt. min.). @ -None done What testing was considered but not performed or refused? (CT, X-rays, U/S, labs)? Why? @ -None What meds were considered but not given or refused? Why? @ -None Did you discuss the management of the patient with other professionals (professionals i.e. , PA, DEATH CLAIM CLERK, lab, RT, psych nurse, social worker school, attorney lawyer, teacher, donor relations officer, manager of case)? Give summary @ -Spoke with Dr. Chase for admission Was smoking cessation discussed for >3mins.? @ -No Was critical care preformed (if so, how long)? @ -No Were there social determinants of health that impacted care today? How? (Homelessness, low income, unemployed, alcoholism, drug addiction, transportation, low edu. Level, literacy, decrease access to med. care, penitentiary, rehab)? @ -No Was there de-escalation of care discussed even if they declined (Discuss DNR or withdrawal of care, Hospice)? DNR status @ -No What co-morbidities impacted this encounter? (DM, HTN, Smoking, COPD, CAD, Cancer, CVA, ARF, Chemo, Hep., AIDS, mental health diagnosis, sleep apnea, morbid obesity)? @ -None Was patient admitted / discharged? Hospital course, mention meds given and route, prescriptions, significant lab abnormalities, going to OR and other pertinent info. @ -Upon arrival patient seen and evaluated in room 9. Thorough history and physical exam was performed. Patient placed on continuous pulse ox and cardiac monitoring. Twelve-lead EKG is obtained. Laboratory studies are conducted. Chest x-ray was performed. X-ray also performed of the patient's foot. There is concern for bony destruction however this is nowhere near the patient's area of skin changes. I will cover her with 1 dose of antibiotics. Recommended admission for multiple syncopal episodes. Echo and carotid Dopplers were ordered. Spoke with Dr. Chase for admission Undiagnosed new problem with uncertain prognosis? @ -No Drug Therapy requiring intensive monitoring for toxicity (Heparin, Nitro, Insulin, Cardizem)? @ -No Were any procedures done? @ -No Diagnosis/symptom? @ -Acute syncopemultiple, lower extremity edema Acute, or Chronic, or Acute on Chronic? @ -Acute Uncomplicated (without systemic symptoms) or Complicated (systemic symptoms)? @ -Complicated Side effects of treatment? @ -No Exacerbation, Progression, or Severe Exacerbation? @ -No Poses a threat to life or bodily function? How? (Chest pain, USA, MA, pneumonia, PE, COPD, DKA, ARF, appy, cholecystitis, CVA, Diverticulitis, Homicidal, Suicidal, threat to staff... and all critical care pts) @ -No - Lab Data Result diagrams: 07/25/23 04:36 07/25/23 04:36 Lab Results 07/24/23 07/24/23 07/24/23 Range/Units 10:32 10:32 10:32 WBC 4.7 (3.8-10.6) k/uL RBC 3.70 L (3.80-5.40) m/uL Hgb 10.9 L (11.4-16.0) gm/dL Hct 35.1 (34.0-46.0) % MCV 94.8 (80.0-100.0) fL MCH 29.5 (25.0-35.0) pg MCHC 31.1 (31.0-37.0) g/dL RDW 14.3 (11.5-15.5) % Plt Count 176 (150-450) k/uL MPV 7.1 Neutrophils % 82 % Lymphocytes % 12 % Monocytes % 3 % Eosinophils % 2 % Basophils % 0 % Neutrophils # 3.8 (1.3-7.7) k/uL Lymphocytes # 0.6 L (1.0-4.8) k/uL Monocytes # 0.1 (0-1.0) k/uL Eosinophils # 0.1 (0-0.7) k/uL Basophils # 0.0 (0-0.2) k/uL Hypochromasia Slight PT 10.6 (10.0-12.5) sec INR 1.0 (<1.2) APTT 21.5 L (22.0-30.0) sec Sodium 137 (137-145) mmol/L Potassium 4.1 (3.5-5.1) mmol/L Chloride 104 (98-107) mmol/L Carbon Dioxide 28 (22-30) mmol/L Anion Gap 5 mmol/L BUN 20 H (7-17) mg/dL Creatinine 0.74 (0.52-1.04) mg/dL Est GFR (CKD-EPI)AfAm >90 (>60 ml/min/1.73 sqM) Est GFR (CKD-EPI)NonAf 79 (>60 ml/min/1.73 sqM) Glucose 96 (74-99) mg/dL Calcium 8.8 (8.4-10.2) mg/dL Total Bilirubin 0.7 (0.2-1.3) mg/dL AST 25 (14-36) U/L ALT 13 (4-34) U/L Alkaline Phosphatase 56 (38-126) U/L Troponin I (0.000-0.034) ng/mL NT-Pro-B Natriuret Pep pg/mL Total Protein 5.5 L (6.3-8.2) g/dL Albumin 3.7 (3.5-5.0) g/dL TSH (0.465-4.680) mIU/L 07/24/23 07/24/23 Range/Units 10:32 10:32 WBC (3.8-10.6) k/uL RBC (3.80-5.40) m/uL Hgb (11.4-16.0) gm/dL Hct (34.0-46.0) % MCV (80.0-100.0) fL MCH (25.0-35.0) pg MCHC (31.0-37.0) g/dL RDW (11.5-15.5) % Plt Count (150-450) k/uL MPV Neutrophils % % Lymphocytes % % Monocytes % % Eosinophils % % Basophils % % Neutrophils # (1.3-7.7) k/uL Lymphocytes # (1.0-4.8) k/uL Monocytes # (0-1.0) k/uL Eosinophils # (0-0.7) k/uL Basophils # (0-0.2) k/uL Hypochromasia PT (10.0-12.5) sec INR (<1.2) APTT (22.0-30.0) sec Sodium (137-145) mmol/L Potassium (3.5-5.1) mmol/L Chloride (98-107) mmol/L Carbon Dioxide (22-30) mmol/L Anion Gap mmol/L BUN (7-17) mg/dL Creatinine (0.52-1.04) mg/dL Est GFR (CKD-EPI)AfAm (>60 ml/min/1.73 sqM) Est GFR (CKD-EPI)NonAf (>60 ml/min/1.73 sqM) Glucose (74-99) mg/dL Calcium (8.4-10.2) mg/dL Total Bilirubin (0.2-1.3) mg/dL AST (14-36) U/L ALT (4-34) U/L Alkaline Phosphatase (38-126) U/L Troponin I <0.012 (0.000-0.034) ng/mL NT-Pro-B Natriuret Pep 429 pg/mL Total Protein (6.3-8.2) g/dL Albumin (3.5-5.0) g/dL TSH 1.390 (0.465-4.680) mIU/L Disposition Clinical Impression: Peripheral edema, Syncope Disposition: ADMITTED IP TO THIS [facility] Condition: Stable Is patient prescribed a controlled substance at d/c from ED?: No Time of Disposition: 13:32 Decision to Admit Reason: Admit from EC Decision Date: 07/24/23 Decision Time: 13:32
--- NOTE | 2023-07-24 12:20 | XR ---
EXAMINATION TYPE: XR chest 2V DATE OF EXAM: 07/24/2023 11:17 AM CLINICAL INDICATION:Female, 78 years old with history of syncope; [facility] COMPARISON: 09/12/2021 TECHNIQUE: XR chest 2V. Frontal and lateral views of the chest.. FINDINGS: Lines/Tubes/Devices: No indwelling lines are seen. EKG leads overlie the chest. Heart/mediastinum: Heart size upper normal. Atherosclerotic calcifications are seen in the aorta. N ormal mediastinal contours. Pulmonary vascularity: Not increased, Lungs/Pleura: Mild chronic senescent changes in the lungs without acute infiltrate, effusion, or pneu mothorax. Somewhat geometric shaped nodular focus over the right midlung zone likely summation of sha dows. Musculoskeletal: No acute osseous abnormality demonstrated in the limits of the exam. Degenerative c hanges of the spine and shoulders. Other findings: None. IMPRESSION: No acute cardiopulmonary abnormality.
--- NOTE | 2023-07-24 12:35 | XR ---
EXAMINATION TYPE: XR foot complete RT DATE OF EXAM: 07/24/2023 11:17 AM CLINICAL INDICATION:Female, 78 years old with history of ulcer; [facility] COMPARISON: None. TECHNIQUE: Three views right foot were obtained. FINDINGS: Bones appear demineralized with moderate osteoarthritic changes. No acute fracture lucency or disloca tion is evident. The reported ulcer/wound is not readily apparent. Best seen on frontal view there is what appears to be some lucency along the medial margin of the fifth metatarsal head region concern for cortical destruction.. Degenerative changes along the midfoot forefoot junction with preserved al ignment at the Lisfranc joints. IMPRESSION: 1. Possible destructive changes along the fifth metatarsal head, which can be seen with osteomyeliti s. 2. Please correlate clinically, and if needed MRI could be obtained for further imaging evaluation.
[2023-07-24] MEDS ORDERED: NALOXONE 0.4 MG/ML 1 ML VIAL IV PRN (13:37)
[2023-07-24] MEDS: AMPICILLIN-SULBACTAM 3 GM in SODIUM CHLORIDE 0.9% 100 ML IVPB STA (14:37)
[2023-07-24] MEDS: SODIUM CHLORIDE 0.9% 1,000 ML IV SCH (14:37)
--- NOTE | 2023-07-24 15:27 | US ---
EXAMINATION TYPE: US carotid duplex BILAT DATE OF EXAM: 07/24/2023 COMPARISON: 04/01/2018 CLINICAL INDICATION: Female, 78 years old with history of syncope; Syncope TECHNIQUE: Carotid duplex ultrasound examination. Indirect Doppler criteria was utilized. FINDINGS: EXAM MEASUREMENTS: RIGHT: Peak Systolic Velocity (PSV) cm/sec ----- Right CCA: 72.1 ----- Right ICA: 103 ----- Right ECA: 56.2 ICA/CCA ratio: 1.4 RIGHT: End Diastole cm/sec ----- Right CCA: 13.6 ----- Right ICA: 22.1 ----- Right ECA: 2.3 LEFT: Peak Systolic Velocity (PSV) cm/sec ----- Left CCA: 70.0 ----- Left ICA: 142 ----- Left ECA: 42.7 ICA/CCA ratio: 2.0 LEFT: End Diastole cm/sec ----- Left CCA: 13.8 ----- Left ICA: 38.5 ----- Left ECA: 0.0 VERTEBRALS (direction of flow): Right Vertebral: Antegrade Left Vertebral: Antegrade Rhythm: Normal CADMIUM PLATER NOTES: No significant stenosis seen, left ICA tortuous causing elevated velocities IMPRESSION: Findings suggest a 50-69% stenosis proximal left ICA.. Criteria for Assigning % of Stenosis / Diameter reduction (Estimation based on the indirect measurements of the internal carotid artery velocities (ICA PSV). 1. Normal (no stenosis)=ICA PSV < 125 cm/s: ratio < 2.0: ICA EDV<40 cm/s. 2. Less than 50% stenosis=ICA PSV < 125 cm/s: ratio < 2.0: ICA EDV<40 cm/s. 3. 50 to 69% stenosis=ICA PSV of 125 to 230 cm/s: ration 2.0 ? 4.0: ICA EDV 40-100 cm/s. 4. Greater than 70% stenosis to near occlusion= ICA PSV > 230 cm/s: ratio > 4.0: ICA EDV > 100 cm/s. 5. Near occlusion= ICA PSV velocities may be low or undetectable: variable ratio and ICA EDV. 6. Total occlusion=unable to detect flow.
[2023-07-24] MEDS: ATORVASTATIN 40 MG TAB PO SCH (20:42)
[2023-07-24] MEDS: HYDROcodone/APAP 5-325MG 1 EACH TAB PO PRN (20:42)
[2023-07-24] MEDS: hydrALAZINE HCL 50 MG TAB PO SCH (20:42)
--- NOTE | 2023-07-24 23:45 | P.HPIM ---
History of Present Illness H&P Date: 07/24/23 Chief Complaint: Syncope Patient is a 78-year-old female with a past medical history of hypertension, hyperlipidemia, GERD, history of skin cancer, psoriatic arthritis, self cath due to incomplete emptying of bladder and arthritis with history of bilateral knee and hip replacement presents to ER due to syncopal episode. Patient states that she was at home getting haircut and suddenly felt lightheaded and passed out. Patient had about 3 similar episodes. Patient states that she lost consciousness but not sure how long. Denies any chest pain. No shortness of breath denies any palpitations. No weakness or seizures. Denies any recent illnesses. No sick contacts. No headache. While in the EMS patient had another syncopal episode. Patient had similar syncopal episode several years ago and was seen by her primary care physician. Patient has been having increased swelling of the legs recently and also had blister on the right foot due to swelling and edema which has ruptured. Currently not on antibiotics. Patient did take extra dose of Lasix without impr ovement in swelling. Chest x-ray showed no acute cardiopulmonary abnormality. Foot x-ray showed possible destructive changes surrounding the fifth metatarsal head which can be seen with osteomyelitis. Please correlate clinically and if needed MRI could be obtained for further imaging evaluation. EKG showed atrial fibrillation with slow ventricular response. Review of Systems Constitutional: Patient denies any fever or chills . No generalized weakness or weight loss. Abdomen: Patient denied nausea vomiting and diarrhea and abdominal pain. Cardiovascular: Patient denies any chest pain or short of breath no palpitations. Increased leg swelling Respiratory: patient denied any cough or sputum production. No shortness of breath Neurologic: Patient denied any numbness or tingling. no headache. Musculoskeletal: Patient denies any complaints of joint swelling or deformity. Skin: Negative Psychiatric: Negative Endocrine: No heat or cold intolerance. No recent weight gain. Genitourinary: No dysuria or hematuria. All other 14 point ROS negative except the above Past Medical History Past Medical History: Cancer, GERD/Reflux, Hyperlipidemia, Hypertension Additional Past Medical History / Comment(s): psoriatic arthritis, hx. skin cancer, self-cath's due to bladder not emptying completely, History of Any Multi-Drug Resistant Organisms: None Reported Past Surgical History: Joint Replacement Additional Past Surgical History / Comment(s): henok knee replacements & right hip replaced, vein stripping, left hand fusion, left retinal repair of tear, right carpal tunnel, left hip replacement Past Anesthesia/Blood Transfusion Reactions: No Reported Reaction Additional Past Anesthesia/Blood Transfusion Reaction / Comment(s): seems to require alot of anesthesia to be sedated per pt. Past Psychological History: No Psychological Hx Reported Smoking Status: Never smoker Past Alcohol Use History: Occasional Past Drug Use History: None Reported - Past Family History Father Family Medical History: Myocardial Infarction ([place]) Mother Family Medical History: Cancer Daughter(s) Family Medical History: Cancer Medications and Allergies Home Medications Medication Instructions Recorded Confirmed Type Folic Acid 1 mg PO DAILY 10/02/15 07/24/23 History Furosemide [Lasix] 40 mg PO DAILY 10/02/15 07/24/23 History Multivitamins, Thera [Multivitamin 2 tab PO DAILY 10/02/15 07/24/23 History (formulary)] metHOTREXate sodium [Methotrexate] 25 mg PO TH 10/02/15 07/24/23 History Acai Manzano Extract [Acai] 1,000 mg PO DAILY 06/15/17 07/24/23 History Cranberry Fruit Extract [Cranberry] 500 mg PO DAILY 06/15/17 07/24/23 History Atorvastatin [Lipitor] 40 mg PO HS 04/01/18 07/24/23 History Fiber Choice 2 cap PO DAILY 07/24/23 07/24/23 History Losartan/Hydrochlorothiazide 1 tab PO DAILY 07/24/23 07/24/23 History [Losartan-Hctz 100-25 mg Tab] Metoprolol Tartrate [Lopressor] 25 mg PO DAILY 07/24/23 07/24/23 History Potassium Chloride ER [K-Dur 20] 20 meq PO DAILY 07/24/23 07/24/23 History fluorouraciL [Efudex] 1 applic TOPICAL DIRECTED 07/24/23 07/24/23 History hydrALAZINE HCL [Apresoline] 50 mg PO BID 07/24/23 07/24/23 History Allergies Allergy/AdvReac Type Severity Reaction Status Date / Time meperidine HCl [From Demerol] Allergy Rash/Hives Verified 07/24/23 13:54 moxifloxacin HCl Allergy Anaphylaxis Verified 07/24/23 13:54 [From Avelox] prochlorperazine AdvReac agitation Verified 07/24/23 13:54 [From Compazine] prochlorperazine edisylate AdvReac agitation Verified 07/24/23 13:54 [From Compazine] prochlorperazine maleate AdvReac agitation Verified 07/24/23 13:54 [From Compazine] simvastatin [From Zocor] AdvReac severe leg Verified 07/24/23 13:54 weakness Physical Exam Vitals: Vital Signs Temp Pulse Pulse Resp BP BP BP 07/24/23 15:48 97.8 F 66 16 130/72 136/73 07/24/23 09:47 97.5 F L 58 L 18 152/80 BP Pulse Ox 07/24/23 15:48 159/68 97 07/24/23 09:47 96 Intake and Output 07/24/23 07/24/23 07/24/23 06:59 14:59 22:59 Intake Total 118 Balance 118 Intake: Oral 118 Other: Voiding Method Self-Catheterization Weight 77.111 kg PHYSICAL EXAMINATION: Patient is lying in the bed comfortably, no acute distress, awake alert and oriented.. HEENT: Normocephalic. Neck is supple. Pupils reactive. Nostrils clear. Oral cavity is moist. Neck reveals no JVD, carotid bruits, or thyromegaly. CHEST EXAMINATION: Trachea is central. Symmetrical expansion. Lung piña clear to auscultation and percussion. CARDIAC: Normal S1, S2 with no gallops. No murmurs ABDOMEN: Soft. Bowel sounds present. No organomegaly. No abdominal bruits. Extremities: Bilateral lower extremity 2+ edema with ruptured blister on the side of the right ankle. No evidence of infection. No clubbing or cyanosis Neurologically awake, alert, oriented x3 with well-coordinated movements. No focal deficits noted Skin: No rash or skin lesions. Psychiatric: Coperative. Nonsuicidal Musculoskeletal: No joint swelling or deformity. Normal range of motion. Results CBC & Chem 7: 07/24/23 10:32 07/24/23 10:32 Labs: Abnormal Lab Results - Last 24 Hours (Table) 07/24/23 07/24/23 07/24/23 Range/Units 10:32 10:32 10:32 RBC 3.70 L (3.80-5.40) m/uL Hgb 10.9 L (11.4-16.0) gm/dL Lymphocytes # 0.6 L (1.0-4.8) k/uL APTT 21.5 L (22.0-30.0) sec BUN 20 H (7-17) mg/dL Total Protein 5.5 L (6.3-8.2) g/dL Thrombosis Risk Factor Assmnt - DVT/VTE Prophylaxis DVT/VTE Prophylaxis: Pharmacologic Prophylaxis ordered - Choose All That Apply Each Risk Factor Represents 3 Points: Age 75 years or older Thrombosis Risk Factor Assessment Total Risk Factor Score: 3 Thrombosis Risk Factor Assessment Level: Moderate Risk Assessment and Plan Assessment: Acute syncopal episode. Possible orthostatic. Rule out arrhythmia. Atrial fibrillation with slow ventricular response. 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 Continue with gentle IV hydration. Orthostatic vitals were ordered. Diuretics Lasix, will hydrochlorothiazide is on hold. Continue with losartan. Patient is also on metoprolol and hydralazine at home. Cardiology was consulted for evaluation. 2D echocardiogram and carotid duplex was ordered. Follow-up closely. Discussed with the patient and her family at bedside in detail. Time with Patient: Greater than 30
[2023-07-25 07:54] VITALS: RESP 16; TEMP 97.6
[2023-07-25] MEDS: MULTIVITAMINS, THERA 1 EACH TAB PO SCH (08:17)
[2023-07-25] MEDS: METOPROLOL TARTRATE 25 MG TAB PO SCH (08:17)
[2023-07-25] MEDS: FOLIC ACID 1 MG TAB PO SCH (08:17)
[2023-07-25] MEDS: POTASSIUM CHLORIDE ER 20 MEQ TAB.ER PO SCH (08:17)
[2023-07-25] MEDS ORDERED: LOSARTAN-HCTZ 50-12.5 MG 1 EACH TAB PO SCH (09:00)
[2023-07-25] MEDS ORDERED: ACAI BERRY EXTRACT PO SCH (09:00)
[2023-07-25] MEDS ORDERED: FIBER CHOICE PO SCH (09:00)
[2023-07-25] MEDS ORDERED: FUROSEMIDE 40 MG TAB PO SCH (09:00)
[2023-07-25] MEDS ORDERED: NON FORMULARY DRUG (Cranberry Fruit Extract [Cranberry] 500 MG Tablet) PO SCH (09:00)
--- NOTE | 2023-07-25 09:30 | P.GSCN ---
History of Present Illness Consult date: 07/25/23 Reason for Consult: Carotid stenosis. History of present illness: Patient is a 78-year-old female who recently experienced 4 episodes of "passing out" while sitting in a chair getting her hair styled. She denies any previous similar symptoms nor has this recurred since that time. The patient did not report any symptoms of hemiparesis, slurring of the speech or other focal motor deficits. She is a never smoker, denying any previous cardiac or neurologic event. There is no history of lower extremity claudication. During her workup carotid duplex was performed. Past Medical History Past Medical History: Cancer, GERD/Reflux, Hyperlipidemia, Hypertension Additional Past Medical History / Comment(s): psoriatic arthritis, hx. skin cancer, self-cath's due to bladder not emptying completely, History of Any Multi-Drug Resistant Organisms: None Reported Past Surgical History: Joint Replacement Additional Past Surgical History / Comment(s): henok knee replacements & right hip replaced, vein stripping, left hand fusion, left retinal repair of tear, right carpal tunnel, left hip replacement Past Anesthesia/Blood Transfusion Reactions: No Reported Reaction Additional Past Anesthesia/Blood Transfusion Reaction / Comm: seems to require alot of anesthesia to be sedated per pt. Past Psychological History: No Psychological Hx Reported Smoking Status: Never smoker Past Alcohol Use History: Occasional Past Drug Use History: None Reported - Past Family History Father Family Medical History: Myocardial Infarction ([place]) Mother Family Medical History: Cancer Daughter(s) Family Medical History: Cancer Medications and Allergies Home Medications Medication Instructions Recorded Confirmed Type Folic Acid 1 mg PO DAILY 10/02/15 07/24/23 History Furosemide [Lasix] 40 mg PO DAILY 10/02/15 07/24/23 History Multivitamins, Thera [Multivitamin 2 tab PO DAILY 10/02/15 07/24/23 History (formulary)] metHOTREXate sodium [Methotrexate] 25 mg PO TH 10/02/15 07/24/23 History Acai Manzano Extract [Acai] 1,000 mg PO DAILY 06/15/17 07/24/23 History Cranberry Fruit Extract [Cranberry] 500 mg PO DAILY 06/15/17 07/24/23 History Atorvastatin [Lipitor] 40 mg PO HS 04/01/18 07/24/23 History Fiber Choice 2 cap PO DAILY 07/24/23 07/24/23 History Losartan/Hydrochlorothiazide 1 tab PO DAILY 07/24/23 07/24/23 History [Losartan-Hctz 100-25 mg Tab] Metoprolol Tartrate [Lopressor] 25 mg PO DAILY 07/24/23 07/24/23 History Potassium Chloride ER [K-Dur 20] 20 meq PO DAILY 07/24/23 07/24/23 History fluorouraciL [Efudex] 1 applic TOPICAL DIRECTED 07/24/23 07/24/23 History hydrALAZINE HCL [Apresoline] 50 mg PO BID 07/24/23 07/24/23 History Allergies Allergy/AdvReac Type Severity Reaction Status Date / Time meperidine HCl [From Demerol] Allergy Rash/Hives Verified 07/24/23 13:54 moxifloxacin HCl Allergy Anaphylaxis Verified 07/24/23 13:54 [From Avelox] prochlorperazine AdvReac agitation Verified 07/24/23 13:54 [From Compazine] prochlorperazine edisylate AdvReac agitation Verified 07/24/23 13:54 [From Compazine] prochlorperazine maleate AdvReac agitation Verified 07/24/23 13:54 [From Compazine] simvastatin [From Zocor] AdvReac severe leg Verified 07/24/23 13:54 weakness Surgical - Exam Osteopathic Statement: *. No significant issues noted on an osteopathic structural exam other than those noted in the History and Physical/Consult. Vital Signs Temp Pulse Resp BP Pulse Ox 97.5 F L 58 L 18 152/80 96 07/24/23 09:47 07/24/23 09:47 07/24/23 09:47 07/24/23 09:47 07/24/23 09:47 Patient Seen Date: 07/25/23 Patient Seen Time: 09:10 Patient is awake, alert and in no apparent distress. Cranial nerves II through XII are grossly intact. Equal motor strength is noted in the upper lower extremities bilaterally. Bilateral carotid bruits are noted. Abdomen is soft and otherwise benign. Femoral, popliteal, DP and PT pulses are intact bilaterally. Healing superficial wound of the posterior lateral aspect of the right foot is noted. Cardiac: Regular rate and rhythm. Lungs: Clear to auscultation bilaterally. I reviewed the results of the carotid duplex imaging. This demonstrates no significant carotid occlusive disease. Results - Labs 07/24/23 10:32 07/24/23 10:32 Abnormal Lab Results - Last 24 Hours (Table) 07/24/23 07/24/23 07/24/23 Range/Units 10:32 10:32 10:32 RBC 3.70 L (3.80-5.40) m/uL Hgb 10.9 L (11.4-16.0) gm/dL Lymphocytes # 0.6 L (1.0-4.8) k/uL APTT 21.5 L (22.0-30.0) sec BUN 20 H (7-17) mg/dL Total Protein 5.5 L (6.3-8.2) g/dL Diabetes panel 07/24/23 Range/Units 10:32 Sodium 137 (137-145) mmol/L Potassium 4.1 (3.5-5.1) mmol/L Chloride 104 (98-107) mmol/L Carbon Dioxide 28 (22-30) mmol/L BUN 20 H (7-17) mg/dL Creatinine 0.74 (0.52-1.04) mg/dL Glucose 96 (74-99) mg/dL Calcium 8.8 (8.4-10.2) mg/dL AST 25 (14-36) U/L ALT 13 (4-34) U/L Alkaline Phosphatase 56 (38-126) U/L Total Protein 5.5 L (6.3-8.2) g/dL Albumin 3.7 (3.5-5.0) g/dL Thyroid panel 07/24/23 Range/Units 10:32 TSH 1.390 (0.465-4.680) mIU/L Calcium panel 07/24/23 Range/Units 10:32 Calcium 8.8 (8.4-10.2) mg/dL Albumin 3.7 (3.5-5.0) g/dL Pituitary panel 07/24/23 07/24/23 Range/Units 10:32 10:32 Sodium 137 (137-145) mmol/L Potassium 4.1 (3.5-5.1) mmol/L Chloride 104 (98-107) mmol/L Carbon Dioxide 28 (22-30) mmol/L BUN 20 H (7-17) mg/dL Creatinine 0.74 (0.52-1.04) mg/dL Glucose 96 (74-99) mg/dL Calcium 8.8 (8.4-10.2) mg/dL TSH 1.390 (0.465-4.680) mIU/L Adrenal panel 07/24/23 Range/Units 10:32 Sodium 137 (137-145) mmol/L Potassium 4.1 (3.5-5.1) mmol/L Chloride 104 (98-107) mmol/L Carbon Dioxide 28 (22-30) mmol/L BUN 20 H (7-17) mg/dL Creatinine 0.74 (0.52-1.04) mg/dL Glucose 96 (74-99) mg/dL Calcium 8.8 (8.4-10.2) mg/dL Total Bilirubin 0.7 (0.2-1.3) mg/dL AST 25 (14-36) U/L ALT 13 (4-34) U/L Alkaline Phosphatase 56 (38-126) U/L Total Protein 5.5 L (6.3-8.2) g/dL Albumin 3.7 (3.5-5.0) g/dL - Imaging Additional studies: Carotid duplex study reviewed. Assessment and Plan Assessment: 1: Nonhemodynamically severe and asymptomatic carotid stenosis. Plan: No intervention is warranted from a surgical standpoint. I agree with medical care. Will be happy to reevaluate the patient at your request. Time with Patient: Greater than 30
[2023-07-25] MEDS: LOSARTAN 50 MG TAB PO SCH (10:37)
[2023-07-25 10:58] LABS: Basophils # (A) 0.02 X 10*3/uL (0.00-0.10); Basophils % (A) 0.7 %; Eosinophils # (A) 0.12 X 10*3/uL (0.04-0.35); Eosinophils % (A) 4.5 %; HCT 31.1 % (37.2-50.0); HGB 9.3 g/dL (12.0-17.0); Lymphocytes # (A) 0.93 X 10*3/uL (0.90-5.00); Lymphocytes % (A) 34.7 %; MCHC 29.9 g/dL (32.0-37.0); MCV 96.9 FL (80.0-97.0); Mean Platelet Volume 9.6 FL (9.5-12.2); Monocytes # (A) 0.18 X 10*3/uL (0.20-1.00); Monocytes % (A) 6.7 %; NRBC Per 100 WBC 0 X 10*3/uL (0.00-0.01); Neutrophils # (A) 1.42 X 10*3/uL (1.80-7.70); Platelet Count 160 X 10*3/uL (140-440); RBC 3.21 X 10*6/uL (4.10-5.60); RDW 13.8 % (11.5-14.5); WBC 2.68 X 10*3/uL (4.50-10.00)
[2023-07-25 10:59] LABS: BUN/Creat Ratio 18.43 Ratio (12.00-20.00); Blood Urea Nitrogen 12.9 mg/dL (9.0-27.0); Calcium 8.1 mg/dL (8.7-10.3); Carbon Dioxide 26.3 mmol/L (21.6-31.8); Chloride 102 mmol/L (96-109); Glucose 88 mg/dL (70-110); Potassium 3.8 mmol/L (3.5-5.5); Sodium 138 mmol/L (135-145)
[2023-07-25] MEDS: carvediloL 6.25 MG TAB PO SCH (11:23)
[2023-07-25] MEDS: LOSARTAN 50 MG TAB PO ONE (11:54)
[2023-07-25 11:56] VITALS: BP 122/67; PULSE 54
--- NOTE | 2023-07-25 13:00 | P.CRDCN ---
History of Present Illness Consult date: 07/25/23 History of present illness: HISTORY OF PRESENTING ILLNESS 78-year-old female with past medical history of hypertension hyperlipidemia GERD. On her ECG she has a chronic left bundle branch block with first-degree AV block. She is known to follow-up with Dr. Grewal. Patient also has history of urinary retention with self-catheterization. He presented to the hospital because of a syncopal episode while she was having her haircut done. Patient felt lightheaded and passed out. Patient never had a fall from her stool. Patient denies any loss of bowel bladder control. Patient and bystanders do not describe any seizure-like activity. Patient reports that her loss of consciousness was very short-lived. She is not able to tell me that if she slept into sleep or it was really losing consciousness. Apparently patient had another episode which was very similar while she was in [place] with EMS. Patient denies any symptoms of chest pressure or shortness of breath during the event or before the event. Patient reported that she has had similar episodes in the past and she has had loop recorder sentiment monitors which has not picked up any cardiac arrhythmias in the past. Her last echocardiogram from 2020 did not show any LV dysfunction or any major valvular abnormality. She had a event monitor in 2020 which did not rock picker any atrial fibrillation. Her admission ECG is reviewed and shows sinus rhythm with first-degree AV block and left bundle branch block. Chest x-ray does not show any pulmonary congestion. Clinically she does not appear volume overloaded with normal JVD and chronic lower extremity swelling which is most likely dependent edema and chronic venous stasis. Her orthostatic vital signs have been negative. Carotid Doppler showed left 50 to 69% carotid disease. No prior history of strokes. At the time of evaluation patient is asymptomatic denies any palpitations lightheadedness dizziness chest pressure or chest pain. She is eager to go home. REVIEW OF SYSTEMS 14 point review of system is negative except what is mentioned above in HPI. PHYSICAL EXAMINATION Vital signs reviewed. Head: Normocephalic. Eyes: Sclerae nonicteric. Neck: Brisk carotid upstroke, no jugular venous distention. Lungs: Clear to auscultation. Heart: Regular rate and rhythm, S1-S2, no S3, no murmur or rub. Abdomen: Soft nontender, positive bowel sounds. Extremities: 1+ edema in bilateral lower extremity which is nonpitting. Neuro: Alert, oritented, no focal deficits. Detailed neuro exam was not performed. ASSESSMENT Questionable syncope Essential hypertension Chronic lower extremity venous stasis Left bundle branch block with first-degree AV block PLAN No active dizziness or lightheadedness. For hypertension patient is on hydralazine which can cause labile blood pressure. Not sure if patient had hypotension after taking her hydralazine that made her pass out. He is on losartan hydrochlorothiazide at home. Along with that she takes Lasix 40 mg for lower extremity edema. This might contribute to her dehydration and having presyncopal symptoms. Continue Lasix 40 mg as patient does not want to stop it because of lower extremity edema. Discontinue HCTZ Losartan 100 mg daily Meto XL 25 mg once daily Continue hydralazine 50 mg twice daily for now. Consider switching it A ntihypertensives like amlodipine. Highly recommend compression socks and EDISON hose in bilateral lower extremity Recommend blood pressure monitoring for next 2 to 3 weeks. Patient has an upcoming appointment for echocardiogram outpatient in early August. Patient is okay to be discharged from cardiovascular standpoint, recommend outpatient follow-up with Dr. Grewal for optimization of antihypertensives and going over echo results. Also consider an outpatient event monitor. Fabian Garber MD, FACC, RPVI Thank you for allowing [facility] to participate in this patient's care. Feel free to reach out in case of any followup questions. Past Medical History Past Medical History: Cancer, GERD/Reflux, Hyperlipidemia, Hypertension Additional Past Medical History / Comment(s): psoriatic arthritis, hx. skin can cer, self-cath's due to bladder not emptying completely, History of Any Multi-Drug Resistant Organisms: None Reported Past Surgical History: Joint Replacement Additional Past Surgical History / Comment(s): henok knee replacements & right hip replaced, vein stripping, left hand fusion, left retinal repair of tear, right carpal tunnel, left hip replacement Past Anesthesia/Blood Transfusion Reactions: No Reported Reaction Additional Past Anesthesia/Blood Transfusion Reaction / Comment(s): seems to require alot of anesthesia to be sedated per pt. Past Psychological History: No Psychological Hx Reported Smoking Status: Never smoker Past Alcohol Use History: Occasional Past Drug Use History: None Reported - Past Family History Father Family Medical History: Myocardial Infarction ([place]) Mother Family Medical History: Cancer Daughter(s) Family Medical History: Cancer Medications and Allergies Home Medications Medication Instructions Recorded Confirmed Type Folic Acid 1 mg PO DAILY 10/02/15 07/24/23 History Furosemide [Lasix] 40 mg PO DAILY 10/02/15 07/24/23 History Multivitamins, Thera [Multivitamin 2 tab PO DAILY 10/02/15 07/24/23 History (formulary)] metHOTREXate sodium [Methotrexate] 25 mg PO TH 10/02/15 07/24/23 History Atorvastatin [Lipitor] 40 mg PO HS 04/01/18 07/24/23 History Fiber Choice 2 cap PO DAILY 07/24/23 07/24/23 History Potassium Chloride ER [K-Dur 20] 20 meq PO DAILY 07/24/23 07/24/23 History fluorouraciL [Efudex] 1 applic TOPICAL DIRECTED 07/24/23 07/24/23 History hydrALAZINE HCL [Apresoline] 50 mg PO BID 07/24/23 07/24/23 History Losartan [Cozaar] 100 mg PO DAILY 30 Days #30 tab 07/25/23 Rx Metoprolol Succinate [Metoprolol 25 mg PO DAILY 30 Days #30 tab 07/25/23 Rx Succinate ER] Allergies Allergy/AdvReac Type Severity Reaction Status Date / Time meperidine HCl [From Demerol] Allergy Rash/Hives Verified 07/24/23 13:54 moxifloxacin HCl Allergy Anaphylaxis Verified 07/24/23 13:54 [From Avelox] prochlorperazine AdvReac agitation Verified 07/24/23 13:54 [From Compazine] prochlorperazine edisylate AdvReac agitation Verified 07/24/23 13:54 [From Compazine] prochlorperazine maleate AdvReac agitation Verified 07/24/23 13:54 [From Compazine] simvastatin [From Zocor] AdvReac severe leg Verified 07/24/23 13:54 weakness Physical Exam Vitals: Vital Signs Temp Pulse Resp BP BP BP BP 07/25/23 11:55 54 L 122/67 07/25/23 09:41 07/25/23 07:00 97.6 F 60 16 171/78 07/25/23 02:00 98.1 F 70 15 137/58 07/24/23 19:21 98.2 F 70 15 145/62 07/24/23 15:48 97.8 F 66 16 130/72 136/73 159/68 Pulse Ox FiO2 07/25/23 11:55 07/25/23 09:41 97 21 07/25/23 07:00 97 07/25/23 02:00 97 07/24/23 19:21 97 07/24/23 15:48 97 Intake and Output 07/24/23 07/25/23 07/25/23 22:59 06:59 14:59 Intake Total 118 118 Balance 118 118 Intake: Oral 118 118 Other: Voiding Method Self-Catheterization Self-Catheterization # Voids 1 1 Results 07/25/23 04:36 07/25/23 04:36 Cardiac Enzymes 07/24/23 07/24/23 Range/Units 16:14 20:34 Troponin I <0.012 <0.012 (0.000-0.034) ng/mL CBC 07/25/23 Range/Units 04:36 WBC 2.68 L (4.50-10.00) X 10*3/uL RBC 3.21 L (4.10-5.60) X 10*6/uL Hgb 9.3 L (12.0-17.0) g/dL Hct 31.1 L (37.2-50.0) % Plt Count 160 (140-440) X 10*3/uL Comprehensive Metabolic Panel 07/25/23 Range/Units 04:36 Sodium 138 (135-145) mmol/L Potassium 3.8 (3.5-5.5) mmol/L Chloride 102 (96-109) mmol/L Carbon Dioxide 26.3 (21.6-31.8) mmol/L BUN 12.9 (9.0-27.0) mg/dL Creatinine 0.7 (0.6-1.5) mg/dL Glucose 88 (70-110) mg/dL Calcium 8.1 L (8.7-10.3) mg/dL Current Medications Generic Name Dose Route Start Last Admin Trade Name Freq PRN Reason Stop Dose Admin Hydrocodone Bitart/Acetaminophen 1 each 07/24/23 20:18 07/25/23 05:32 Hydrocodone/Apap 5-325mg 1 Each Tab PO 1 each Q4HR PRN Administration Pain Atorvastatin Calcium 40 mg 07/24/23 21:00 07/24/23 20:42 Atorvastatin 40 Mg Tab PO 40 mg HS KODY Administration Folic Acid 1 mg 07/25/23 09:00 07/25/23 08:17 Folic Acid 1 Mg Tab PO 1 mg DAILY KODY Administration Heparin Sodium (Porcine) 5,000 unit 07/25/23 16:00 Heparin Sodium,Porcine 5,000 Unit/Ml 1 Ml Vial SQ Q8HR KODY Losartan Potassium 100 mg 07/26/23 09:00 Losartan 50 Mg Tab PO DAILY KODY Methotrexate 25 mg 07/29/23 09:00 Methotrexate Sodium 2.5 Mg Tab PO TH [facility] Multivitamins 1 each 07/25/23 09:00 07/25/23 08:17 Multivitamins, Thera 1 Each Tab PO 1 each DAILY KODY Administration Naloxone HCl 0.2 mg 07/24/23 13:37 Naloxone 0.4 Mg/Ml 1 Ml Vial IV Q2M PRN Opioid Reversal Fluorouracil [Efudex 1 applic 07/26/23 09:00 ] 40 Gm Cream [facility]ICAL [facility] Potassium Chloride 20 meq 07/25/23 09:00 07/25/23 08:17 Potassium Chloride Er 20 Meq Tab.Er PO 20 meq DAILY KODY Administration Intake and Output 07/24/23 07/25/23 07/25/23 22:59 06:59 14:59 Intake Total 118 118 Balance 118 118 Intake: Oral 118 118 Other: Voiding Method Self-Catheterization Self-Catheterization # Voids 1 1 07/25/23 04:36 07/25/23 04:36
[2023-07-25] MEDS ORDERED: HEPARIN SODIUM,PORCINE 5,000 UNIT/ML 1 ML VIAL SQ SCH (16:00)
[2023-07-26] MEDS ORDERED: FLUOROURACIL TOPICAL SCH (09:00)
[2023-07-26] MEDS ORDERED: LOSARTAN 50 MG TAB PO SCH (09:00)
[2023-07-26] MEDS ORDERED: amLODIPine 5 MG TAB PO SCH (09:00)
[2023-07-29] MEDS ORDERED: metHOTREXate sodium 2.5 MG TAB PO SCH (09:00)
== END 2023-07-25 12:58 | disposition home or self-care (01) ==
LOC: EC 09:43 → 6NMEDSUR 13:37
PROVIDERS: ADMIT Hospitalist; ATTEND Hospitalist
DX: R55 Syncope and collapse (principal); I48.91 Unspecified atrial fibrillation; L40.50 Arthropathic psoriasis, unspecified; M79.89 Other specified soft tissue disorders; K21.9 Gastro-esophageal reflux disease without esophagitis; E78.5 Hyperlipidemia, unspecified; I10 Essential (primary) hypertension; Z86.711 Personal history of pulmonary embolism; Z96.653 Presence of artificial knee joint, bilateral; Z85.828 Personal history of other malignant neoplasm of skin; Z82.49 Family history of ischemic heart disease and other diseases of the circulatory system; Z79.899 Other long term (current) drug therapy
CPT/HCPCS: 96365; 99285; 36415; 94760; 93005; 83880; 80053; 80048; 84443; 84484; 85025 ×2; 85610; 85730; 73630; 71046; 93880; G0378 ×2; J0295

== ENCOUNTER 2023-11-18 17:00 | Emergency (ER) | payer MEDICARE, BC ==
[2023-11-18 17:15] VITALS: RESP 18; TEMP 97.6
--- NOTE | 2023-11-18 18:32 | XR ---
EXAMINATION TYPE: XR chest 2V DATE OF EXAM: 11/18/2023 COMPARISON: 07/24/2023 HISTORY: 78-year-old female with syncope TECHNIQUE: AP and lateral views FINDINGS: The heart is upper limits of normal in size. Focal densities right mid and lower lung are unchanged f rom prior cholecystectomy represent callus of healed rib fracture deformities. There is colonic inter position below the right hemidiaphragm. Mild interstitial prominence is unchanged. On the lateral vie w, there is some focal patchy posterior basilar opacity. IMPRESSION: 1. Densities projecting at the right mid and lower lung are unchanged and are favored to represent ol d rib fracture deformities. Recommend three-month follow-up radiograph to reassess. 2. Patchy posterior basilar atelectasis versus early infiltrate on the lateral view. [facility], , 11/18/2023 6:30 PM
--- NOTE | 2023-11-18 18:51 | ED ---
General Adult HPI - General Chief complaint: Syncope Stated complaint: Syncope Time Seen by Provider: 11/18/23 17:13 Source: patient, EMS Mode of arrival: EMS Limitations: no limitations - History of Present Illness Initial comments: This patient is a 78-year-old woman who presents to have evaluation after having syncopal episode. The patient had been admitted in the hospital after having had a number of syncopal episodes and she reports that she had a loop recorder implanted. Today the patient had been walking with her walker and then stopped and was sitting on it, when she stated that she began to feel awful. She was feeling nauseated, sweaty and lightheaded. Her newspaper clipper reported that she then passed out for "probably a couple of minutes." The patient denied having marilee pains. She did not notice palpitations or dyspnea. The patient states she feels a little bit weak now but otherwise close to baseline. Onset/Timin -: hour(s) Severity scale (1-10): 0 Consistency: now resolved Improves with: none Worsens with: none Associated Symptoms: syncope Treatments Prior to Arrival: none - Related Data Home Medications Medication Instructions Recorded Confirmed Folic Acid 1 mg PO DAILY 10/02/15 07/24/23 Furosemide [Lasix] 40 mg PO DAILY 10/02/15 07/24/23 Multivitamins, Thera [Multivitamin 2 tab PO DAILY 10/02/15 07/24/23 (formulary)] metHOTREXate sodium [Methotrexate] 25 mg PO TH 10/02/15 07/24/23 Atorvastatin [Lipitor] 40 mg PO HS 04/01/18 07/24/23 Fiber Choice 2 cap PO DAILY 07/24/23 07/24/23 Potassium Chloride ER [K-Dur 20] 20 meq PO DAILY 07/24/23 07/24/23 fluorouraciL [Efudex] 1 applic TOPICAL DIRECTED 07/24/23 07/24/23 hydrALAZINE HCL [Apresoline] 50 mg PO BID 07/24/23 07/24/23 Previous Rx's Medication Instructions Recorded Losartan [Cozaar] 100 mg PO DAILY 30 Days #30 tab 07/25/23 Metoprolol Succinate [Metoprolol 25 mg PO DAILY 30 Days #30 tab 07/25/23 Succinate ER] Allergies Allergy/AdvReac Type Severity Reaction Status Date / Time meperidine HCl [From Demerol] Allergy Rash/Hives Verified 11/18/23 17:15 moxifloxacin HCl Allergy Anaphylaxis Verified 11/18/23 17:15 [From Avelox] prochlorperazine AdvReac agitation Verified 11/18/23 17:15 [From Compazine] prochlorperazine edisylate AdvReac agitation Verified 11/18/23 17:15 [From Compazine] prochlorperazine maleate AdvReac agitation Verified 11/18/23 17:15 [From Compazine] simvastatin [From Zocor] AdvReac severe leg Verified 11/18/23 17:15 weakness Review of Systems ROS Statement: Those systems with pertinent positive or pertinent negative responses have been documented in the HPI. ROS Other: All systems not noted in ROS Statement are negative. Constitutional: Reports: weakness. Denies: fever, chills Eyes: Denies: vision change Respiratory: Denies: cough, dyspnea Cardiovascular: Reports: syncope. Denies: chest pain, palpitations, orthopnea, edema Gastrointestinal: Denies: abdominal pain, nausea, vomiting, diarrhea Genitourinary: Denies: dysuria, hematuria Musculoskeletal: Denies: back pain Skin: Denies: rash Neurological: Denies: headache, weakness, numbness Past Medical History Past Medical History: Cancer, GERD/Reflux, Hyperlipidemia, Hypertension Additional Past Medical History / Comment(s): DVT years ago, psoriatic arthritis, hx. skin cancer, self-cath's due to bladder not emptying completely, currently has a bladder infection-picking up antibiotic today History of Any Multi-Drug Resistant Organisms: None Reported Past Surgical History: Joint Replacement Additional Past Surgical History / Comment(s): henok knee replacements & right hip replaced, vein stripping, left hand fusion, left retinal repair of tear, right carpal tunnel, left hip replacement Past Anesthesia/Blood Transfusion Reactions: No Reported Reaction Additional Past Anesthesia/Blood Transfusion Reaction / Comment(s): seems to require alot of anesthesia to be sedated per pt. Past Psychological History: No Psychological Hx Reported Smoking Status: Never smoker Past Alcohol Use History: Occasional Past Drug Use History: None Reported - Past Family History Father Family Medical History: Myocardial Infarction (DC) Mother Family Medical History: Cancer Daughter(s) Family Medical History: Cancer General Exam Limitations: no limitations General appearance: alert, in no apparent distress Head exam: Present: atraumatic, normocephalic Eye exam: Present: normal appearance. Absent: scleral icterus, conjunctival injection Neck exam: Present: normal inspection Respiratory exam: Present: normal lung sounds bilaterally. Absent: respiratory distress, wheezes, rales, rhonchi, stridor, accessory muscle use Cardiovascular Exam: Present: regular rate, normal rhythm, normal heart sounds. Absent: systolic murmur, diastolic murmur, rubs, gallop GI/Abdominal exam: Present: soft. Absent: distended, tenderness, guarding, rebound, rigid, mass, pulsatile mass Extremities exam: Present: normal inspection, normal capillary refill. Absent: pedal edema, calf tenderness Back exam: Present: normal inspection. Absent: CVA tenderness (R), CVA tenderness (L) Neurological exam: Present: alert Skin exam: Present: warm, dry, intact, normal color. Absent: rash Course Vital Signs 11/18/23 11/18/23 17:04 20:22 Temperature 97.6 F Pulse Rate 62 79 Respiratory 18 18 Rate Blood Pressure 160/75 133/72 O2 Sat by Pulse 99 96 Oximetry EKG Findings - EKG Comments: EKG Findings:: There is pre-existing left bundle branch block. - EKG Results: EKG: interpreted by ERMD, sinus rhythm (Right on the rate 73 bpm) - Blocks, Interior, Hypertrophy, ST Abn: AV and intraventricular conduction: 1 AV block, left bundle branch block (fixed/intermittent, complete/incomplete) Medical Decision Making - Medical Decision Making The patient had chest x-ray that I interpreted as negative for acute infiltrate, pneumothorax, congestive heart failure Was pt. sent in by a medical professional or institution (ANTHONY Eastman, DOCUMENT MANAGEMENT SPECIALIST, urgent care, hospital, or prison...) When possible be specific @ -[Advertising Inserter did give history Did you speak to anyone other than the patient for history (EMS, parent, family, police, friend...)? What history was obtained from this source @ -[No] Did you review nursing and triage notes (agree or disagree)? Why? @ -[I reviewed and agree with nursing and triage notes] Were old charts reviewed (outside hosp., previous admission, EMS record, old EKG, old radiological studies, urgent care reports/EKG's, prison records)? Report findings @ -[No old charts were reviewed] Differential Diagnosis (chest pain, altered mental status, abdominal pain women, abdominal pain men, vaginal bleeding, weakness, fever, dyspnea, syncope, headache, dizziness, GI bleed, back pain, seizure, CVA, palpatations, mental health, musculoskeletal)? @ -[Differential Syncope: Valvular disease, hypertrophic cardiomyopathy, pulmonary embolism, tamponade, tachycardia, bradycardia, DC, hypovolemia, hemorrhage, dissection, anemia, intracranial hemorrhage, seizure, hypoglycemia, carbon monoxide poisoning, this is not meant to be an all-inclusive list. EKG interpreted by me (3pts min.). @ -[I interpreted as above] X-rays interpreted by me (1pt min.). @ -I interpreted as above CT interpreted by me (1pt min.). @ -[None done] U/S interpreted by me (1pt. min.). @ -[None done] What testing was considered but not performed or refused? (CT, X-rays, U/S, labs)? Why? @ -[None] What meds were considered but not given or refused? Why? @ -[None] Did you discuss the management of the patient with other professionals (professionals i.e. , PA, DOCUMENT MANAGEMENT SPECIALIST, lab, RT, psych nurse, clinical social work aide, clay modeler, teacher, promotion officer, case supervisor)? Give summary @ -[No] Was smoking cessation discussed for >3mins.? @ -[No] Was critical care preformed (if so, how long)? @ -[No] Were there social determinants of health that impacted care today? How? (Homelessness, low income, unemployed, alcoholism, drug addiction, trans portation, low edu. Level, literacy, decrease access to med. care, group home, rehab)? @ -[No] Was there de-escalation of care discussed even if they declined (Discuss DNR or withdrawal of care, Hospice)? DNR status @ -[No] What co-morbidities impacted this encounter? (DM, HTN, Smoking, COPD, CAD, Cance r, CVA, ARF, Chemo, Hep., AIDS, mental health diagnosis, sleep apnea, morbid obesity)? @ -[None] Was patient admitted / discharged? Hospital course, mention meds given and route, prescriptions, significant lab abnormalities, going to OR and other pertinent info. @ -[Patient is 78-year-old woman here to have evaluation after syncopal episode. Patient back at baseline and would like to go home. Discussed appropriate further care and follow-up as well as return parameters. Undiagnosed new problem with uncertain prognosis? @ -[No] Drug Therapy requiring intensive monitoring for toxicity (Heparin, Nitro, Insulin, Cardizem)? @ -[No] Were any procedures done? @ -[No] Diagnosis/symptom? @ -[Acute syncopal episode Acute, or Chronic, or Acute on Chronic? @ -[Acute Uncomplicated (without systemic symptoms) or Complicated (systemic symptoms)? @ -[Uncomplicated Side effects of treatment? @ -[No] Exacerbation, Progression, or Severe Exacerbation? @ -[No] Poses a threat to life or bodily function? How? (Chest pain, USA, DC, pneumonia, PE, COPD, DKA, ARF, appy, cholecystitis, CVA, Diverticulitis, Homicidal, Suicidal, threat to staff... and all critical care pts) @ -[No] - Lab Data Result diagrams: 11/18/23 18:44 11/18/23 18:44 Lab Results 11/18/23 11/18/23 11/18/23 Range/Units 18:44 18:44 18:44 WBC 4.3 (3.8-10.6) k/uL RBC 3.75 L (3.80-5.40) m/uL Hgb 10.8 L (11.4-16.0) gm/dL Hct 34.0 (34.0-46.0) % MCV 90.8 (80.0-100.0) fL MCH 28.7 (25.0-35.0) pg MCHC 31.7 (31.0-37.0) g/dL RDW 16.2 H (11.5-15.5) % Plt Count 195 (150-450) k/uL MPV 7.3 Neutrophils % 85 % Lymphocytes % 8 % Monocytes % 4 % Eosinophils % 1 % Basophils % 0 % Neutrophils # 3.7 (1.3-7.7) k/uL Lymphocytes # 0.4 L (1.0-4.8) k/uL Monocytes # 0.2 (0-1.0) k/uL Eosinophils # 0.1 (0-0.7) k/uL Basophils # 0.0 (0-0.2) k/uL Hypochromasia Slight Anisocytosis Slight PT 10.6 (10.0-12.5) sec INR 1.0 (<1.2) APTT 20.2 L (22.0-30.0) sec Sodium 139 (137-145) mmol/L Potassium 4.2 (3.5-5.1) mmol/L Chloride 105 (98-107) mmol/L Carbon Dioxide 26 (22-30) mmol/L Anion Gap 8 mmol/L BUN 22 H (7-17) mg/dL Creatinine 0.80 (0.52-1.04) mg/dL Est GFR (CKD-EPI)AfAm 82 (>60 ml/min/1.73 sqM) Est GFR (CKD-EPI)NonAf 72 (>60 ml/min/1.73 sqM) Glucose 125 H (74-99) mg/dL Calcium 8.8 (8.4-10.2) mg/dL Magnesium 1.8 (1.6-2.3) mg/dL Total Bilirubin 0.5 (0.2-1.3) mg/dL AST 26 (14-36) U/L ALT 12 (4-34) U/L Alkaline Phosphatase 61 (38-126) U/L Troponin I (0.000-0.034) ng/mL Total Protein 5.8 L (6.3-8.2) g/dL Albumin 3.9 (3.5-5.0) g/dL 11/18/23 Range/Units 18:44 WBC (3.8-10.6) k/uL RBC (3.80-5.40) m/uL Hgb (11.4-16.0) gm/dL Hct (34.0-46.0) % MCV (80.0-100.0) fL MCH (25.0-35.0) pg MCHC (31.0-37.0) g/dL RDW (11.5-15.5) % Plt Count (150-450) k/uL MPV Neutrophils % % Lymphocytes % % Monocytes % % Eosinophils % % Basophils % % Neutrophils # (1.3-7.7) k/uL Lymphocytes # (1.0-4.8) k/uL Monocytes # (0-1.0) k/uL Eosinophils # (0-0.7) k/uL Basophils # (0-0.2) k/uL Hypochromasia Anisocytosis PT (10.0-12.5) sec INR (<1.2) APTT (22.0-30.0) sec Sodium (137-145) mmol/L Potassium (3.5-5.1) mmol/L Chloride (98-107) mmol/L Carbon Dioxide (22-30) mmol/L Anion Gap mmol/L BUN (7-17) mg/dL Creatinine (0.52-1.04) mg/dL Est GFR (CKD-EPI)AfAm (>60 ml/min/1.73 sqM) Est GFR (CKD-EPI)NonAf (>60 ml/min/1.73 sqM) Glucose (74-99) mg/dL Calcium (8.4-10.2) mg/dL Magnesium (1.6-2.3) mg/dL Total Bilirubin (0.2-1.3) mg/dL AST (14-36) U/L ALT (4-34) U/L Alkaline Phosphatase (38-126) U/L Troponin I 0.013 (0.000-0.034) ng/mL Total Protein (6.3-8.2) g/dL Albumin (3.5-5.0) g/dL Disposition Clinical Impression: Syncope Disposition: HOME SELF-CARE Condition: Good Instructions (If sedation given, give patient instructions): Syncope (ED) Is patient prescribed a controlled substance at d/c from ED?: No Referrals: Montez Cid DO [Primary Care Provider] - 1-2 days Yassine Grewal MD [STAFF PHYSICIAN] - 1-2 days
[2023-11-18 19:05] LABS: Anisocytosis Slight; Basophils % (A) 0 %; Eosinophils # (A) 0.1 k/uL (0-0.7); Eosinophils % (A) 1 %; HGB 10.8 gm/dL (11.4-16.0); Hypochromasia Slight; Lymphocytes # (A) 0.4 k/uL (1.0-4.8); Lymphocytes % (A) 8 %; MCH 28.7 pg (25.0-35.0); MCHC 31.7 g/dL (31.0-37.0); MCV 90.8 fL (80.0-100.0); Mean Platelet Volume 7.3; Monocytes # (A) 0.2 k/uL (0-1.0); Monocytes % (A) 4 %; Neutrophils # (A) 3.7 k/uL (1.3-7.7); Neutrophils % (A) 85 %; Platelet Count 195 k/uL (150-450); RBC 3.75 m/uL (3.80-5.40); RDW 16.2 % (11.5-15.5); WBC 4.3 k/uL (3.8-10.6)
[2023-11-18 19:17] LABS: Prothrombin Time 10.6 sec (10.0-12.5)
[2023-11-18 19:20] LABS: Partial Thromboplastin Time 20.2 sec (22.0-30.0)
[2023-11-18 19:26] LABS: ALT 12 U/L (4-34); AST 26 U/L (14-36); African American GFR (CKD) 82 (>60 ml/min/1.73 sqM); Albumin 3.9 g/dL (3.5-5.0); Alkaline Phosphatase 61 U/L (38-126); Anion Gap 8 mmol/L; Blood Urea Nitrogen 22 mg/dL (7-17); Calcium 8.8 mg/dL (8.4-10.2); Carbon Dioxide 26 mmol/L (22-30); Chloride 105 mmol/L (98-107); Glucose 125 mg/dL (74-99); Magnesium 1.8 mg/dL (1.6-2.3); Non-African American GFR(CKD) 72 (>60 ml/min/1.73 sqM); Potassium 4.2 mmol/L (3.5-5.1); Sodium 139 mmol/L (137-145); Total Bilirubin 0.5 mg/dL (0.2-1.3); Total Protein 5.8 g/dL (6.3-8.2)
[2023-11-18 20:23] VITALS: BP 133/72; PULSE 79
== END 2023-11-18 20:23 | disposition home or self-care (01) ==
LOC: EC 17:00
CPT/HCPCS: 36415; 71046; 80053; 83735; 84484; 85025; 85610; 85730; 93005; 99284

== ENCOUNTER → 2023-12-27 | Outpatient (CLI) | payer MEDICARE, BC ==
[2023-12-27 15:09] LABS: HCT 38.7 % (37.2-50.0); HGB 11.6 g/dL (12.0-17.0); MCH 28.3 pg (27.0-32.0); MCV 94.4 FL (80.0-97.0); Mean Platelet Volume 9.9 FL (9.5-12.2); NRBC Per 100 WBC 0 X 10*3/uL (0.00-0.01); Platelet Count 234 X 10*3/uL (140-440); RDW 15.1 % (11.5-14.5); WBC 4.24 X 10*3/uL (4.50-10.00)
[2023-12-27 15:10] LABS: Blood Urea Nitrogen 14.7 mg/dL (9.0-27.0); Carbon Dioxide 28.3 mmol/L (21.6-31.8); Chloride 102 mmol/L (96-109); Potassium 4.4 mmol/L (3.5-5.5); Sodium 143 mmol/L (135-145)
== END | disposition home or self-care (01) ==
LOC: LABPAT 10:14
PROVIDERS: ATTEND Internal Medicine Interventional Cardiology
DX: Z01.812 Encounter for preprocedural laboratory examination (principal); R94.39 Abnormal result of other cardiovascular function study
CPT/HCPCS: 36415; 80051; 82565; 84520; 85027

== ENCOUNTER 2023-12-29 10:19 | Day surgery (SDC) | payer MEDICARE, BC ==
[~2023-12-29 10:19] MED LIST changes: -ACETAMINOPHEN TAB 500 MG TAB PO PRN; +ALPRAZolam 0.25 MG TAB PO PRN; +ALPRAZolam 0.5 MG TAB PO PRN; -DEXAMETHASONE SOD PHOSPHATE 4 MG/ML 1 ML VIAL IV ONE; -HYDROmorphone 0.5 MG/0.5 ML SYRINGE IVP PRN; -LIDOCAINE 1% (10MG/ML) FOR IV START INTRADERMA PRN; -MELOXICAM 7.5 MG TAB PO PRN; +NITROGLYCERIN SL TABS 0.4 MG TAB SUBLINGUAL PRN; -ONDANSETRON 4 MG/2 ML VIAL IVP ONE; -ONDANSETRON 4 MG/2 ML VIAL IVP PRN; -ROPIVACAINE/EPI/CLONIDINE/KET 50 ML SYRINGE MISCELLANE PRN; -TRANEXAMIC ACID 1,000 MG in SODIUM CHLORIDE 0.9% 100 ML IVPB PRN
[2023-12-29] MEDS: SODIUM CHLORIDE 0.9% 1,000 ML in EMPTY BAG 1 BAG IV SCH (10:47)
[2023-12-29] MEDS: ASPIRIN 325 MG TAB PO STA (10:47)
[2023-12-29 10:48] VITALS: RESP 18; TEMP 98
[2023-12-29] MEDS: IV FLUID CONTINUATION 1,000 ML IV ONE (10:50)
[2023-12-29] MEDS: MIDAZOLAM 2 MG/2 ML VIAL IVP ONE ×2 (11:17)
[2023-12-29] MEDS: LIDOCAINE 1% INJ 10MG/ML (20 ML MDV) SQ ONE (11:17)
[2023-12-29] MEDS: HEPARIN SODIUM,PORCINE 10,000 UNIT in SODIUM CHLORIDE 0.9% 1,000 ML IRRIGATION PRN (11:25)
[2023-12-29] MEDS: HEPARIN SODIUM,PORCINE (1 ML) 2,500 UNIT in SODIUM CHLORIDE 0.9% 250 ML IRRIGATION PRN (11:29)
[2023-12-29] MEDS: IOPAMIDOL-370 100ML BTL INJ ONE (11:52)
--- NOTE | 2023-12-29 12:30 | P.CARDCATH ---
Date of Procedure: 12/29/23 Description of Procedure: History: Patient was referred for cardiac catheterization to evaluate for CAD. This is a 78-year-old lady with history of paroxysmal SVT, left bundle branch block pattern. She had ablation for SVT. She has hypertension hyperlipidemia left bundle and rheumatoid arthritis. She also has vasodepressor syncope. However she is going for elective shoulder surgery and had an abnormal stress test therefore I recommended coronary angiography. In 2016 I performed coronary angiography and from right radial approach it was very tortuous and difficult I performed from the right femoral approach and she had no obstructive CAD of significance. Given the stress test abnormality of apical ischemia and symptoms of exertional shortness of breath prior to elective surgery I recommended coronary angiography from right femoral approach and brought her with her for the procedure electively after due discussion regarding risks benefits and options Procedure Details: The risks, benefits, complications, treatment options, and expected outcomes were discussed with the patient. The patient and/or family concurred with the proposed plan, giving informed consent. Patient was brought to the dairy and food laboratory assistant after IV hydration was begun and oral premedication was given. Patient was further sedated with midazolam. Patient was prepped and draped in the usual manner. Under strict aseptic precautions and local anesthesia a 6 Kazakh introducer was placed in the right femoral artery using ultrasound guidance and micropuncture needle.. Using a JL 4.5 and a JR 4/0 catheters I performed coronary angiography. There was a lot of calcification in the distal abdominal aorta at the junction of the aorta and iliac artery on the right side. There was a lot of resistance and I used a Amplatz stiff wire with soft tip. I did not check LV pressures. Moderate conscious sedation time was 38 minutes. Patient's oxygen saturation hemodynamics and EKG were monitored closely. After the procedure was completed the sheaths and catheters were all removed. Hemostasis was achieved with Angio-Seal device. Patient tolerated procedure well. There were no complications Findings: Hemodynamics: LV pressures were not checked Left Main: Not patent calcified vessel no significant disease bifurcates into LAD and circumflex LAD: Good caliber vessel moderate calcification gives off several septal and 1 large diagonal branch. There are minor irregularities no significant disease vessel runs all the way to the apex and the distal one fourth has mild diffuse disease. No more than 30% narrowing in this calcified LAD with good flow CIRC: Nondominant vessel gives off 2 good size obtuse marginals that runs laterally and 1 vessel runs in the AV groove. There is about a 30 to 40% narrowing with calcification but no significant disease. Even though it is a nondominant vessel it is a large-caliber large distribution circumflex system RCA: Dominant vessel has some calcium at the ostium but no significant disease most of the calcium is in the aorta at the ostium but not within the ostium. Good flow noted distally bifurcates into PDA and PLV. All branches and the main RCA have minor irregularities no significant disease proximally there is about a 30 to 35% narrowing. No significant disease in the dominant RCA LV: LV pressures are not checked and LV gram not performed Closure Device: Angio-Seal Complications: None Estimated Blood Loss: Minimal Impression: This patient has calcified vessels of right dominant system LV pressures were not checked. She has a 30 to 40% disease in the RCA circumflex and LAD. Diffuse distal LAD disease. No significant CAD. Pre Procedure Diagnosis: Abnormal stress test with CAD Final Post Procedure Diagnosis: Noncritical CAD calcified coronaries Recommendation: Continued aggressive medical therapy with risk factor modification. Patient can proceed with shoulder surgery advised cautious fluid administration and optimal BP control perioperatively. No contraindication moderate risk. Complications: None; patient tolerated the procedure well. Disposition: [facility]- hemodynamically stable. Condition: Stable Discharge Disposition: Discharge patient home later on today.
[2023-12-29 17:18] VITALS: BP 135/63; PULSE 50
== END 2023-12-29 17:30 | disposition home or self-care (01) ==
LOC: CATHCVL 10:19
PROVIDERS: ATTEND Internal Medicine Interventional Cardiology
DX: I25.110 Atherosclerotic heart disease of native coronary artery with unstable angina pectoris (principal); I25.84 Coronary atherosclerosis due to calcified coronary lesion; I49.5 Sick sinus syndrome; I47.19 Other supraventricular tachycardia; I10 Essential (primary) hypertension; E78.2 Mixed hyperlipidemia; I44.7 Left bundle-branch block, unspecified; M06.9 Rheumatoid arthritis, unspecified; R55 Syncope and collapse; Z79.631 Long term (current) use of antimetabolite agent; Z79.899 Other long term (current) drug therapy; Z82.49 Family history of ischemic heart disease and other diseases of the circulatory system; Z88.1 Allergy status to other antibiotic agents; Z88.8 Allergy status to other drugs, medicaments and biological substances
CPT/HCPCS: 93454; C1769 ×4; C1760; C1894; J2250; J1644 ×2; J2003; Q9967

== ENCOUNTER → 2024-01-04 | Outpatient (CLI) | payer MEDICARE, BC ==
--- NOTE | 2024-01-04 08:36 | XR ---
EXAMINATION TYPE: XR chest 2V DATE OF EXAM: 01/04/2024 COMPARISON: 11/18/2023, CT scan 11/13/2020 CLINICAL INDICATION: Female, 78 years old with history of S22.39XB OLD RIB FX; , TECHNIQUE: XR chest 2V views of the chest. FINDINGS: Emphysematous changes. Loop recorder device. Heart size normal. Atherosclerotic change aorta. Vague d ensity overlying the right midlung laterally stable may represent a pleural plaque. Calcified nodules along the medial margin right upper lobe stable. No new consolidation or heart failure. Osteopenia a nd arthropathy of the shoulders. Degenerative change of the spine. IMPRESSION: 1. No acute process. COPD. 2. Suspect the oblong nodular density in the right lower lobe which is stable and is most likely rela fatmata to a pleural plaque or remote rib fracture. However, no pleural plaque Was seen on the CT scan of 2020 cm short-term follow-up CT scan. [facility], , 01/04/2024 8:33 AM
== END | disposition home or self-care (01) ==
LOC: RADXRMAIN 07:59
PROVIDERS: ATTEND Family Medicine
DX: S22.39XB Fracture of one rib, unspecified side, initial encounter for open fracture (principal); J44.9 Chronic obstructive pulmonary disease, unspecified
CPT/HCPCS: 71046

== ENCOUNTER → 2024-02-04 | Outpatient (CLI) | payer MEDICARE, BC ==
--- NOTE | 2024-02-04 10:34 | MR ---
EXAMINATION TYPE: MR angio head wo con DATE OF EXAM: 02/04/2024 7:09 AM COMPARISON: None. CLINICAL INDICATION: Female, 78 years old with history of R55 SYNCOPE AND COLLAPSE, Syncope, cervical myelopathy. IV Contrast: cc (None if empty) TECHNIQUE: Time of flight images focusing on the [place] were performed without contrast. Findings: There is no sizable aneurysm sac, vascular malformation or occlusive disease. IMPRESSION: No significant abnormality seen. [facility], Workstation: [id number] 02/04/2024 10:32 AM
[2024-02-04 10:42] LABS: Basophils # (A) 0.02 X 10*3/uL (0.00-0.10); Basophils % (A) 0.6 %; Eosinophils # (A) 0.09 X 10*3/uL (0.04-0.35); Eosinophils % (A) 2.6 %; HCT 35.7 % (37.2-50.0); HGB 10.7 g/dL (12.0-17.0); Lymphocytes # (A) 0.69 X 10*3/uL (0.90-5.00); Lymphocytes % (A) 19.8 %; MCV 89.9 FL (80.0-97.0); Mean Platelet Volume 9.9 FL (9.5-12.2); Monocytes % (A) 8.6 %; NRBC Per 100 WBC 0 X 10*3/uL (0.00-0.01); Neutrophils # (A) 2.37 X 10*3/uL (1.80-7.70); Neutrophils % (A) 68.1 %; Platelet Count 178 X 10*3/uL (140-440); RBC 3.97 X 10*6/uL (4.10-5.60); RDW 15.1 % (11.5-14.5); WBC 3.48 X 10*3/uL (4.50-10.00)
--- NOTE | 2024-02-04 10:43 | MR ---
EXAMINATION TYPE: MR brain wo/w mraneck wo/wcon DATE OF EXAM: 02/04/2024 7:08 AM COMPARISON: None. CLINICAL INDICATION: Female, 78 years old with history of R55 SYNCOPE AND COLLAPSE, Syncope, cervical myelopathy. IV Contrast: 8 cc Gadobutrol (None if empty) TECHNIQUE: Multiplanar, multisequence images of the brain and brainstem is performed without and with IV contras t, utilizing 8 mL intravenous Gadobutrol . Findings: MRI BRAIN: On the T1-weighted images, the midline structures including the craniovertebral junction relationship s are normal. The ventricles, basal cisterns and sulci over convexities are moderately to markedly enlarged consist ent with moderate to marked atrophy. On the diffusion-weighted images, there is no diffusion restriction or acute ischemic event. Following contrast demonstration, there is no pathological enhancement throughout the brain parenchym a On the susceptibility weighted images there is no microhemorrhage posterior fossa including the brain stem, fourth ventricle and cerebellopontine angles appear normal. The intraorbital contents appear normal and symmetric.There is moderate to marked chronic inflammator y changes in the maxillary sinuses. There is moderate fluid in the mastoid air cells bilaterally, lef t greater than right MRA neck: The common and internal carotid arteries as well as the carotid bifurcations are widely patent with n o stenosis. The brachiocephalic origins are widely patent. IMPRESSION:. 1. moderate to marked generalized atrophy. 2. No mass, mass effect, pathological enhancement or acute ischemic event. 3. Moderate to marked chronic inflammatory changes in the maxillary sinuses and fluid in the mastoid air cells bilaterally, left greater than right. 4. No significant arteriosclerotic or occlusive disease within the neck arterial circulation. [facility], , 02/04/2024 10:41 AM
[2024-02-04 11:17] LABS: ALT 13 U/L (8-49); AST 20 U/L (13-35); Blood Urea Nitrogen 20.4 mg/dL (9.0-27.0); Carbon Dioxide 28.2 mmol/L (21.6-31.8); Chloride 104 mmol/L (96-109); Glucose 94 mg/dL (70-110); Magnesium 1.9 mg/dL (1.5-2.4); Phosphorus 3.9 mg/dL (2.4-5.1); Potassium 4.3 mmol/L (3.5-5.5); Sodium 143 mmol/L (135-145)
[2024-02-04 12:30] LABS: Erythrocyte Sedimentation Rate 2 mm/Hr (0-30)
== END | disposition home or self-care (01) ==
LOC: RADMRIMAIN 05:56
PROVIDERS: ATTEND Psychiatry & Neurology Neurology
DX: R55 Syncope and collapse (principal); J34.89 Other specified disorders of nose and nasal sinuses
CPT/HCPCS: 84439; 80051; 85652; 82607; 82310; 82565; 82746; 83735; 84100; 82947; 84443; 84450; 84460; 84520; 85025; 86780; 86038; 86039; 70544; 70549; 70553; A9585

== ENCOUNTER → 2024-02-07 | Outpatient (CLI) | payer MEDICARE, BC ==
--- NOTE | 2024-02-07 08:47 | MR ---
INDICATION: Patient age:Female; 78 years old; Reason for study: G95.9 cervical myelopathy; [facility]. COMPARISON: MRI brain: 272, MRA head 02/04/2024. TECHNIQUE: Multi planar, multi sequence imaging was performed of the cervical spine before and after the uneventful administration of 8 mL of Gadobutrol intravenously. FINDINGS: Alignment: The cervical vertebral bodies have preserved heights. Alignment is within normal limits gi joel patient positioning. Bones: Bone signal is within normal limits. Multilevel anterior osteophytosis. Cord: The spinal cord is unremarkable with regards to their signal intensity and morphology. No abnor mal contrast enhancement. Discs: Multilevel disc desiccation is present. C2-C3: Eccentric left posterior disc osteophyte complex with mild effacement of the anterior thecal s ac. Uncovertebral joint hypertrophy with left facet arthropathy. Moderate left neural foraminal sten osis. The right neural foramen is patent. C3-C4: Posterior disc osteophyte complex with mild effacement of the anterior thecal sac. Mild to mod erate central canal stenosis. Uncovertebral joint hypertrophy with bilateral facet arthropathy resul ting in moderate bilateral neuroforaminal stenoses of the left greater than right. C4-C5: Minimal broad-based disc bulge with minimal effacement of the anterior thecal sac. Uncovertebr al joint hypertrophy with moderate right neural foraminal stenosis. The left neural foramen is patent . C5-C6: Eccentric right broad-based disc bulge with mild effacement of the anterior thecal sac with cl ose approximation to the anterior aspect of the spinal cord. Uncovertebral joint hypertrophy resultin g in moderate right neural foraminal stenosis. The left neural foramen is patent. C6-C7: Central disc protrusion with cranial migration approximately 7 mm along the posterior aspect o f the C6 vertebral body. Results in mild central canal stenosis. Mild left neural foraminal stenosis. The right neural foramen is patent. C7-T1: No significant disc pathology. The spinal canal is patent. No neural foraminal stenosis. Other: Dimitri cisterna magna versus arachnoid cyst in the posterior cranial fossa. IMPRESSION: Moderate multilevel disc degeneration with associated osteoarthritic changes as described above. C6-C 7 central disc protrusion with cranial migration resulting in mild central canal stenosis. No abnorma l contrast enhancement. [facility], , 02/07/2024 8:45 AM
== END | disposition home or self-care (01) ==
LOC: RADMRIMAIN 05:57
PROVIDERS: ATTEND Psychiatry & Neurology Neurology
DX: M47.812 Spondylosis without myelopathy or radiculopathy, cervical region (principal); M48.02 Spinal stenosis, cervical region; G95.9 Disease of spinal cord, unspecified; M50.321 Other cervical disc degeneration at C4-C5 level
CPT/HCPCS: 72156; A9585

== ENCOUNTER 2024-07-29 17:22 | Inpatient (IN) | payer MEDICARE, BC ==
--- NOTE | 2024-07-29 18:01 | ED ---
Syncope HPI - General Chief Complaint: Syncope Stated Complaint: Chest pain Time Seen by Provider: 07/29/24 17:34 Source: patient, family Mode of arrival: wheelchair Limitations: no limitations - History of Present Illness Initial Comments: This patient is a 79-year-old lady arriving to have evaluation after syncopal episode. The patient and daughter both contribute to history. They state that they had just gotten back to the patient's residence. Patient had gotten out of the car gone up steps to the porch and then was feeling lightheaded, having shortness of breath and was feeling sweaty. She has had previous syncopal episodes and felt that another was coming on. She then did pass out. Patient denies having any injury related to the syncopal episode. The patient's daughter monitors her blood pressure at the time and it was in the 90s. The patient states that she does feel nearly back to her baseline now. She does feel little weak. MD Complaint: loss of consciousness, collapsed -: minutes(s) Prodromal Symptoms: lightheaded, shortness of breath, diaphoresis -: second(s) Witnessed: yes - by bystander Injuries Sustained Associated with Event: None Current Symptoms: back to baseline Context: other (As above) Treatments Prior to Arrival: none - Related Data Home Medications Medication Instructions Recorded Confirmed Folic Acid 1 mg PO DAILY 10/02/15 08/05/24 metHOTREXate sodium [Methotrexate] 25 mg PO TH 10/02/15 08/05/24 Potassium Chloride ER [K-Dur 20] 20 meq PO DAILY 07/24/23 08/05/24 Cholecalciferol (Vitamin D3) 50 mcg PO DAILY 07/29/24 08/05/24 [Vitamin D3 (50 Mcg = 2000 Iu)] Citracal + Vitamin D3(Unknown Dose) 1 tab PO DAILY 07/29/24 08/05/24 Fish Oil 1360mg 1 cap PO DAILY 07/29/24 08/05/24 Magnesium-Zinc 266mg-10mg 1 tab PO DAILY 07/29/24 08/05/24 Multivitamins, Thera [Multivitamin 1 tab PO BID 07/29/24 08/05/24 (formulary)] Psyllium Husk [Fiber Capsule] 0.4 gm PO BID 07/29/24 08/05/24 Super B-Complex W/Vitamin C & 1 tab PO DAILY 07/29/24 08/05/24 Biotin Donepezil [Aricept] 10 mg PO HS 08/02/24 08/05/24 Furosemide [Lasix] 20 mg PO DAILY 08/05/24 08/05/24 Previous Rx's Medication Instructions Recorded Aspirin 81 mg PO DAILY #30 tab 08/03/24 Atorvastatin [Lipitor] 80 mg PO DAILY #30 tab 08/03/24 Nitroglycerin Sl Tabs [Nitrostat] 0.4 mg SUBLINGUAL Q5M PRN #30 tab 08/03/24 Ticagrelor [Brilinta] 90 mg PO BID #60 tab 08/03/24 hydrALAZINE HCL [Apresoline] 50 mg PO TID #90 tab 08/03/24 HYDROcodone/APAP 5-325MG [[place] 1 tab PO Q4HR PRN 3 Days #18 tab 08/06/24 5-325] Allergies Allergy/AdvReac Type Severity Reaction Status Date / Time meperidine HCl [From Demerol] Allergy Rash/Hives Verified 08/05/24 18:49 moxifloxacin HCl Allergy Anaphylaxis Verified 08/05/24 18:49 [From Avelox] prochlorperazine AdvReac agitation Verified 08/05/24 18:49 [From Compazine] prochlorperazine edisylate AdvReac agitation Verified 08/05/24 18:49 [From Compazine] prochlorperazine maleate AdvReac agitation Verified 08/05/24 18:49 [From Compazine] simvastatin [From Zocor] AdvReac severe leg Verified 08/05/24 18:49 weakness Review of Systems ROS Statement: Those systems with pertinent positive or pertinent negative responses have been documented in the HPI. ROS Other: All systems not noted in ROS Statement are negative. Constitutional: Denies: fever, chills, weakness Eyes: Denies: vision change Respiratory: Denies: cough, dyspnea Cardiovascular: Reports: syncope. Denies: chest pain, palpitations, edema Gastrointestinal: Denies: abdominal pain, nausea, vomiting Genitourinary: Denies: dysuria, hematuria Musculoskeletal: Denies: back pain Skin: Denies: rash Neurological: Denies: headache, weakness, numbness Past Medical History Past Medical History: Cancer, Deep Vein Thrombosis (DVT), GERD/Reflux, Hyperlipidemia, Hypertension, Syncope Additional Past Medical History / Comment(s): DVT years ago, psoriatic arthritis, hx. skin cancer, self-cath's due to bladder not emptying completely, syncopal episodes with dizziness History of Any Multi-Drug Resistant Organisms: None Reported Past Surgical History: Back Surgery, Joint Replacement, Orthopedic Surgery Additional Past Surgical History / Comment(s): henok knee replacements & henok hip replaced, vein stripping, left hand fusion, left retinal repair of tear, right carpal tunnel, back surgery x2. R shoulder replacement 02/25/2024 Past Anesthesia/Blood Transfusion Reactions: No Reported Reaction Additional Past Anesthesia/Blood Transfusion Reaction / Comment(s): seems to require alot of anesthesia to be sedated per pt. Past Psychological History: No Psychological Hx Reported Smoking Status: Never smoker Past Alcohol Use History: None Reported Past Drug Use History: None Reported - Past Family History Father Family Medical History: Myocardial Infarction ([place]) Mother Family Medical History: Cancer Daughter(s) Family Medical History: Cancer General Exam Limitations: no limitations General appearance: alert, in no apparent distress Head exam: Present: atraumatic, normocephalic Eye exam: Present: normal appearance. Absent: scleral icterus, conjunctival injection ENT exam: Present: normal oropharynx Neck exam: Present: normal inspection Respiratory exam: Present: normal lung sounds bilaterally. Absent: respiratory distress, wheezes, rales, rhonchi, stridor, accessory muscle use Cardiovascular Exam: Present: bradycardia (Rate is 40 my exam), normal heart sounds. Absent: systolic murmur, diastolic murmur, rubs, gallop GI/Abdominal exam: Present: soft. Absent: distended, tenderness, guarding, rebound, rigid, mass Extremities exam: Present: normal capillary refill, pedal edema (Trace edema at the ankles bilaterally). Absent: calf tenderness Back exam: Present: normal inspection Neurological exam: Present: alert Skin exam: Present: warm, dry, intact, normal color. Absent: rash Course Vital Signs 07/29/24 07/29/24 07/29/24 17:24 17:36 18:01 Temperature 97.7 F Pulse Rate 41 L 45 L Pulse Rate [ 49 L [employer] ] Respiratory 18 18 Rate Blood Pressure 119/67 126/68 O2 Sat by Pulse 97 96 Oximetry 07/29/24 07/29/24 07/29/24 18:26 19:00 19:49 Temperature Pulse Rate 45 L 44 L 41 L Pulse Rate [ [employer]ent [employer]or ] Respiratory 17 17 17 Rate Blood Pressure 111/66 115/74 125/65 O2 Sat by Pulse 97 95 98 Oximetry 07/29/24 07/29/24 07/29/24 20:08 20:15 20:43 Temperature Pulse Rate 45 L 50 L 59 L Pulse Rate [ [employer]ent [employer]or ] Respiratory 17 17 Rate Blood Pressure 109/59 135/60 166/86 O2 Sat by Pulse 95 96 96 Oximetry 07/29/24 07/30/24 07/30/24 23:00 00:00 01:00 Temperature Pulse Rate 58 L 60 70 Pulse Rate [ [employer]ent [employer]or ] Respiratory 17 18 18 Rate Blood Pressure 165/78 140/79 152/72 O2 Sat by Pulse 92 L 97 98 Oximetry 07/30/24 07/30/24 07/30/24 02:00 03:00 04:59 Temperature Pulse Rate 55 L 60 63 Pulse Rate [ [employer]ent [employer]or ] Respiratory 18 18 18 Rate Blood Pressure 132/80 138/72 117/68 O2 Sat by Pulse 94 L 96 94 L Oximetry 07/30/24 07/30/24 07/30/24 06:54 08:00 10:00 Temperature Pulse Rate 60 68 63 Pulse Rate [ [employer]ent [employer]or ] Respiratory 18 17 18 Rate Blood Pressure 132/72 143/76 143/65 O2 Sat by Pulse 94 L 93 L 93 L Oximetry 07/30/24 07/30/24 07/30/24 12:01 13:12 14:00 Temperature Pulse Rate 66 60 64 Pulse Rate [ [employer]inquent [employer]or ] Respiratory 16 17 17 Rate Blood Pressure 164/85 112/63 116/76 O2 Sat by Pulse 94 L 93 L 94 L Oximetry - Reevaluation(s) Reevaluation #1: 07/29/24 20:20 Case discussed with cardiology, Dr. Garber and treatment recommendations incorporated. Case discussed with Dr. Knox for admission (patient sees Dr. Rios in [place] as primary) EKG Findings - EKG Comments: EKG Findings:: Underlying rhythm appears to be junctional. - EKG Results: EKG: interpreted by ERMD, normal axis EKG shows: bradycardia (Rate 41 bpm) - Blocks, Beatty, Hypertrophy, ST Abn: AV and intraventricular conduction: left bundle branch block (fixed/intermittent, complete/incomplete) Medical Decision Making - Medical Decision Making The patient had chest x-ray that I interpreted as negative for acute infiltrate, pneumothorax, congestive heart failure Was pt. sent in by a medical professional or institution ([facility], [facility], urgent care, hospital, or halfway...) When possible be specific @ -[No] Did you speak to anyone other than the patient for history (EMS, parent, family, police, friend...)? What history was obtained from this source @ -[No] Did you review nursing and triage notes (agree or disagree)? Why? @ -[I reviewed and agree with nursing and triage notes] Were old charts reviewed (outside hosp., previous admission, EMS record, old EKG, old radiological studies, urgent care reports/EKG's, halfway records)? Report findings @ -[No old charts were reviewed] Differential Diagnosis (chest pain, altered mental status, abdominal pain women, abdominal pain men, vaginal bleeding, weakness, fever, dyspnea, syncope, headache, dizziness, GI bleed, back pain, seizure, CVA, palpatations, mental health, musculoskeletal)? @ -Differential Syncope: Valvular disease, hypertrophic cardiomyopathy, pulmonary embolism, tamponade, tachycardia, bradycardia, [place], hypovolemia, hemorrhage, dissection, anemia, intracranial hemorrhage, seizure, hypoglycemia, carbon monoxide poisoning, this is not meant to be an all-inclusive list. EKG interpreted by me (3pts min.). @ -[I interpreted as above] X-rays interpreted by me (1pt min.). @ -[I interpreted as above CT interpreted by me (1pt min.). @ -[None done] U/S interpreted by me (1pt. min.). @ -[None done] What testing was considered but not performed or refused? (CT, X-rays, U/S, labs)? Why? @ -[None] What meds were considered but not given or refused? Why? @ -[None] Did you discuss the management of the patient with other professionals (professionals i.e. [facility], [facility], lab, RT, psych nurse, transition social worker, revenue cycle consultant, teacher, textile technical officer, hospice case manager)? Give summary @ -[Case discussed with the admitting physician. Case discussed with cardiology on-call. Treatment recommendations are incorporated Was smoking cessation discussed for >3mins.? @ -[No] Was critical care preformed (if so, how long)? @ -Yes, 35 minutes Were there social determinants of health that impacted care today? How? (Homelessness, low income, unemployed, alcoholism, drug addiction, transportation, low edu. Level, literacy, decrease access to med. care, care home, rehab)? @ -[No] Was there de-escalation of care discussed even if they declined (Discuss DNR or withdrawal of care, Hospice)? DNR status @ -[No] What co-morbidities impacted this encounter? (DM, HTN, Smoking, COPD, CAD, Cancer, CVA, ARF, Chemo, Hep., AIDS, mental health diagnosis, sleep apnea, morbid obesity)? @ -[None] Was patient admitted / discharged? Hospital course, mention meds given and route, prescriptions, significant lab abnormalities, going to OR and other pertinent info. @ -[Patient 79-year-old woman presenting with syncopal episode, found to have elevated troponin consistent with NSTEMI. Patient admitted to have further cardiology evaluation. Undiagnosed new problem with uncertain prognosis? @ -[No] Drug Therapy requiring intensive monitoring for toxicity (Heparin, Nitro, Insulin, Cardizem)? @ -[IV heparin Were any procedures done? @ -[No] Diagnosis/symptom? @ -[Acute syncopal episode Acute NSTEMI Acute, or Chronic, or Acute on Chronic? @ -[Acute Uncomplicated (without systemic symptoms) or Complicated (systemic symptoms)? @ -[Uncomplicated Side effects of treatment? @ -[No] Exacerbation, Progression, or Severe Exacerbation? @ -[No] Poses a threat to life or bodily function? How? (Chest pain, [place], [place], pneumonia, PE, COPD, DKA, ARF, appy, cholecystitis, CVA, Diverticulitis, Homicidal, Suicidal, threat to staff... and all critical care pts) @ -[No] All treatments are based on ideal body weight as in ED triage - Lab Data Result diagrams: 08/03/24 07:32 08/03/24 07:32 Lab Results 07/29/24 07/29/24 07/29/24 Range/Units 17:46 17:46 17:46 WBC 4.78 (4.50-10.00) 10*3/uL RBC 4.05 L (4.10-5.20) 10*6/uL Hgb 10.8 L (12.0-15.0) g/dL Hct 35.4 L (37.2-46.3) % MCV 87.4 (80.0-97.0) fL MCH 26.7 L (27.0-32.0) pg MCHC 30.5 L (32.0-37.0) g/dL Plt Count 198 (140-440) 10*3/uL MPV 10.0 (9.5-12.2) fL Immature Gran % (Auto) 0.4 % Neutrophils % 74.1 % Lymphocytes % 20.3 % Monocytes % 4.0 % Eosinophils % 0.6 % Basophils % 0.6 % Immature Gran # 0.02 (0.00-0.04) 10*3/uL Neutrophils # 3.54 (1.80-7.70) 10*3/uL Lymphocytes # 0.97 (0.90-5.00) 10*3/uL Monocytes # 0.19 L (0.20-1.00) 10*3/uL Eosinophils # 0.03 L (0.04-0.35) 10*3/uL Basophils # 0.03 (0.00-0.10) 10*3/uL PT 10.3 (10.0-12.5) sec INR 0.9 (<1.2) APTT 21.0 L (22.0-30.0) sec Sodium 130 L (137-145) mmol/L Potassium 5.1 (3.5-5.1) mmol/L Chloride 94 L (98-107) mmol/L Carbon Dioxide 26 (22-30) mmol/L Anion Gap 10 mmol/L BUN 28 H (7-17) mg/dL Creatinine 0.82 (0.52-1.04) mg/dL Est GFR (CKD-EPI)AfAm 79 (>60 ml/min/1.73 sqM) Est GFR (CKD-EPI)NonAf 69 (>60 ml/min/1.73 sqM) Glucose 100 H (74-99) mg/dL Calcium 9.2 (8.4-10.2) mg/dL Magnesium 2.3 (1.6-2.3) mg/dL Total Bilirubin 0.8 (0.2-1.3) mg/dL AST 79 H (14-36) U/L ALT 82 H (4-34) U/L Alkaline Phosphatase 80 (38-126) U/L Troponin I (0.000-0.034) ng/mL Total Protein 5.9 L (6.3-8.2) g/dL Albumin 4.0 (3.5-5.0) g/dL 07/29/24 Range/Units 17:46 WBC (4.50-10.00) 10*3/uL RBC (4.10-5.20) 10*6/uL Hgb (12.0-15.0) g/dL Hct (37.2-46.3) % MCV (80.0-97.0) fL MCH (27.0-32.0) pg MCHC (32.0-37.0) g/dL Plt Count (140-440) 10*3/uL MPV (9.5-12.2) fL Immature Gran % (Auto) % Neutrophils % % Lymphocytes % % Monocytes % % Eosinophils % % Basophils % % Immature Gran # (0.00-0.04) 10*3/uL Neutrophils # (1.80-7.70) 10*3/uL Lymphocytes # (0.90-5.00) 10*3/uL Monocytes # (0.20-1.00) 10*3/uL Eosinophils # (0.04-0.35) 10*3/uL Basophils # (0.00-0.10) 10*3/uL PT (10.0-12.5) sec INR (<1.2) APTT (22.0-30.0) sec Sodium (137-145) mmol/L Potassium (3.5-5.1) mmol/L Chloride (98-107) mmol/L Carbon Dioxide (22-30) mmol/L Anion Gap mmol/L BUN (7-17) mg/dL Creatinine (0.52-1.04) mg/dL Est GFR (CKD-EPI)AfAm (>60 ml/min/1.73 sqM) Est GFR (CKD-EPI)NonAf (>60 ml/min/1.73 sqM) Glucose (74-99) mg/dL Calcium (8.4-10.2) mg/dL Magnesium (1.6-2.3) mg/dL Total Bilirubin (0.2-1.3) mg/dL AST (14-36) U/L ALT (4-34) U/L Alkaline Phosphatase (38-126) U/L Troponin I 4.040 H* (0.000-0.034) ng/mL Total Protein (6.3-8.2) g/dL Albumin (3.5-5.0) g/dL Disposition Clinical Impression: Syncope, Hyponatremia, NSTEMI (non-ST elevation myocardial infarction) Disposition: ADMITTED IP TO THIS HOSP Condition: Stable Is patient prescribed a controlled substance at d/c from ED?: No
[2024-07-29 18:05] LABS: Basophils # (A) 0.03 10*3/uL (0.00-0.10); Basophils % (A) 0.6 %; Eosinophils # (A) 0.03 10*3/uL (0.04-0.35); Eosinophils % (A) 0.6 %; HCT 35.4 % (37.2-46.3); HGB 10.8 g/dL (12.0-15.0); Lymphocytes # (A) 0.97 10*3/uL (0.90-5.00); Lymphocytes % (A) 20.3 %; MCH 26.7 pg (27.0-32.0); MCHC 30.5 g/dL (32.0-37.0); MCV 87.4 fL (80.0-97.0); Monocytes # (A) 0.19 10*3/uL (0.20-1.00); Neutrophils # (A) 3.54 10*3/uL (1.80-7.70); Neutrophils % (A) 74.1 %; Platelet Count 198 10*3/uL (140-440); RBC 4.05 10*6/uL (4.10-5.20); RDW 18.5 % (11.5-14.5); WBC 4.78 10*3/uL (4.50-10.00)
[2024-07-29 18:21] LABS: INR 0.9 (<1.2); Prothrombin Time 10.3 sec (10.0-12.5)
[2024-07-29 18:22] LABS: ALT 82 U/L (4-34); AST 79 U/L (14-36); African American GFR (CKD) 79 (>60 ml/min/1.73 sqM); Alkaline Phosphatase 80 U/L (38-126); Anion Gap 10 mmol/L; Blood Urea Nitrogen 28 mg/dL (7-17); Calcium 9.2 mg/dL (8.4-10.2); Carbon Dioxide 26 mmol/L (22-30); Chloride 94 mmol/L (98-107); Glucose 100 mg/dL (74-99); Magnesium 2.3 mg/dL (1.6-2.3); Non-African American GFR(CKD) 69 (>60 ml/min/1.73 sqM); Potassium 5.1 mmol/L (3.5-5.1); Sodium 130 mmol/L (137-145); Total Bilirubin 0.8 mg/dL (0.2-1.3); Total Protein 5.9 g/dL (6.3-8.2)
[2024-07-29] MEDS: ACETAMINOPHEN TAB 325 MG TAB PO STA ×2 (18:40→19:53)
--- NOTE | 2024-07-29 18:42 | XR ---
EXAMINATION TYPE: XR chest 1V portable DATE OF EXAM: 07/29/2024 5:58 PM COMPARISON: Multiple prior chest radiograph, most recently dated 01/04/2024. CLINICAL INDICATION: Female, 79 years old with history of syncope; [facility] TECHNIQUE: XR chest 1V portable Frontal view of the chest. FINDINGS: Lungs/Pleura: There is no evidence of pleural effusion, focal consolidation, or pneumothorax. Likely mild atelectasis at the left lung base. Pulmonary vascularity: Unremarkable. Heart/mediastinum: Cardiomediastinal silhouette is stable. Musculoskeletal: No acute osseous pathology. Right shoulder as requested. Other findings: Possible loop recorder device overlying the lower left chest wall. IMPRESSION: Mild left lung base atelectasis. Otherwise, no acute abnormality in the chest. [facility], , 07/29/2024 6:40 PM
[2024-07-29] MEDS ORDERED: HEPARIN SODIUM 1,000 UN/ML (10ML VL) IV PRN (18:53)
[2024-07-29] MEDS: HEPARIN SOD,PORK IN 0.45% NACL 25,000 UNIT in 0.45% NACL 1 250ML.BAG IV SCH (19:14)
[2024-07-29] MEDS: HEPARIN SODIUM 1,000 UN/ML (10ML VL) IV ONE (19:15)
[2024-07-29] MEDS: SODIUM CHLORIDE 0.9% 500 ML 500 ML IV STA (19:43)
[2024-07-29] MEDS: ASPIRIN 81 MG PO STA (19:46)
[2024-07-29] MEDS: MORPHINE SULFATE 2 MG/ML SYRINGE IV STA (19:50)
[2024-07-29] MEDS: DOPamine DRIP 800 MG in DEXTROSE/WATER 1 250ML.BAG IV ONE (19:56)
[2024-07-29] MEDS ORDERED: NITROGLYCERIN SL TABS 0.4 MG TAB SUBLINGUAL PRN (20:21)
[2024-07-29] MEDS: ONDANSETRON 4 MG/2 ML VIAL IVP STA (21:30)
[2024-07-29] MEDS: ATORVASTATIN 40 MG TAB PO SCH (21:30)
[2024-07-29] MEDS ORDERED: LOSARTAN 25 MG TAB PO SCH (22:00)
--- NOTE | 2024-07-29 22:00 | P.HPIM ---
History of Present Illness H&P Date: 07/29/24 Chief Complaint: Syncope Patient is a 79 year old female with GERD, hyperlipidemia, hypertension, history of DVT, psoriatic arthritis presented to the ED after syncopal episode. Patient had just gotten back to her residence. As the patient was getting out of the car and going up the steps to the porch she started feeling lightheaded. Associated with that she had shortness of breath and diaphoresis. She has had previous syncopal episodes and states her symptoms were similar to the prior episodes. She then passed out. Patient's daughter monitored her blood pressure at the time and it was in the 90s. Currently patient reports feeling weak but seems to be back to her baseline. 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 Moreover, she self caths at home due to bladder not emptying completely. Denies history of CHF but uses Lasix at home for chronic lower extremity edema. Denies fever, chills, cough, palpitations, abdominal pain, nausea, vomiting, hematuria, dysuria, hematochezia, melena, headache, slurred speech, numbness, tingling. ED documentation reviewed. In the ED patient was treated with acetaminophen, aspirin, dopamine drip, heparin drip, morphine, 0.9 normal saline, ondansetron. Vitals on admission T 97.7 F, [place] 41 bpm, RR 18, BP 119/67, SpO2 97% on room air Most recent vital [place] 50 bpm, RR 17, BP 135/60, SpO2 96% on room air EKG independently interpreted as bradycardia, rate 41 bpm, QTc 462 ms, QRS 145 ms Chest x-ray shows mid left lung base atelectasis, no acute abnormality in the chest Labs on admission show WBC 4.78, hemoglobin 10.8, platelet 198, APTT 21, sodium 130, potassium 5.1, BUN 28, creatinine 0.82, glucose 100, magnesium 2.3, AST 79, ALT 82, troponin I 4.040 Review of systems: Pertinent positives and negatives as discussed in HPI, a complete review of s ystems was performed and all other systems are negative. Physical examination: Vital signs reviewed General: nontoxic, no distress, appears at stated age Derm: warm, dry, intact Head: atraumatic, normocephalic, symmetric Eyes: EOMI, anicteric sclera Mouth: no lip lesion, mucus membranes moist Cardiovascular: S1 S2 reg, no murmur Lungs: CTA bilateral, no rhonchi, no rales, no accessory muscle use Abdominal: soft, non-tender to palpation Extremities: No cyanosis, clubbing, or pedal edema. Neuro: Alert, Oriented, Gross neurological examination did not reveal any focal deficits. Psych: well appearing, appropriate affect Assessment/Plan: Patient is a 79 year old female with GERD, hyperlipidemia, hypertension, history of DVT, psoriatic arthritis presented to the ED after syncopal episode. Patient admitted to internal medicine service. Active: #. Syncopal episode #. Symptomatic bradycardia, concerning for complete heart block #. History of multiple syncopal episodes #. NSTEMI troponin 4.040 continue to trend EKG independently interpreted as bradycardia, rate 41 bpm, QTc 462 ms, QRS 145 ms Received aspirin 324 mg p.o. once in the ED Continue aspirin 81 mg p.o. daily Resume home atorvastatin 40 mg p.o. daily Continue heparin drip Continue dopamine drip Continue nitroglycerin 0.4 mg sublingual Q5M as needed Hold home and metoprolol Obtain lipid panel, A1c, TSH Continue to trend troponin Continue telemetry monitoring Fall precautions Cardiology consulted #. Hyponatremia Received 0.5L bolus of NS in the ED Monitor CMP #. Transaminitis AST 79, ALT 82 Denies any abdominal pain Monitor CMP Chronic: #. Hypertension #. Urinary retention, self cath at home #. Lower extremity edema #. Chronic normocytic anemia #. Psoriatic arthritis Gallagher catheter and Monitor CBC F: None E: Hyponatremia N: NPO A: Bed rest DVT prophylaxis: Heparin drip The patient is admitted with an anticipated more than 2 midnight stay for evaluation of syncope CODE STATUS: Full code Discussed with: Patient Anticipated discharge place: Pending clinical course Dictation was produced using [employer] dictation software. please excuse any grammatical, word or spelling errors. Maximo Olson MD PGY-1 IM I have seen and evaluated the patient today. I Discussed the case with the resident and agree with the resident's findings I edited the assessment and plan as necessary as documented in the resident's note. Past Medical History Past Medical History: Cancer, Deep Vein Thrombosis (DVT), GERD/Reflux, Hyperlipidemia, Hypertension, Syncope Additional Past Medical History / Comment(s): DVT years ago, psoriatic arthritis, hx. skin cancer, self-cath's due to bladder not emptying completely, syncopal episodes with dizziness History of Any Multi-Drug Resistant Organisms: None Reported Past Surgical History: Back Surgery, Joint Replacement, Orthopedic Surgery Additional Past Surgical History / Comment(s): henok knee replacements & henok hip replaced, vein stripping, left hand fusion, left retinal repair of tear, right carpal tunnel, back surgery x2. R shoulder replacement 02/25/2024 Past Anesthesia/Blood Transfusion Reactions: No Reported Reaction Additional Past Anesthesia/Blood Transfusion Reaction / Comment(s): seems to require alot of anesthesia to be sedated per pt. Past Psychological History: No Psychological Hx Reported Smoking Status: Never smoker Past Alcohol Use History: None Reported Past Drug Use History: None Reported - Past Family History Father Family Medical History: Myocardial Infarction (VT) Mother Family Medical History: Cancer Daughter(s) Family Medical History: Cancer Medications and Allergies Home Medications Medication Instructions Recorded Confirmed Type Folic Acid 1 mg PO DAILY 10/02/15 07/29/24 History Furosemide [Lasix] 40 mg PO DAILY 10/02/15 07/29/24 History metHOTREXate sodium [Methotrexate] 25 mg PO TH 10/02/15 07/29/24 History Atorvastatin [Lipitor] 40 mg PO DAILY 04/01/18 07/29/24 History Potassium Chloride ER [K-Dur 20] 20 meq PO DAILY 07/24/23 07/29/24 History hydrALAZINE HCL [Apresoline] 50 mg PO BID 07/24/23 07/29/24 History Metoprolol Succinate [Metoprolol 25 mg PO DAILY 30 Days #30 tab 07/25/23 07/29/24 Rx Succinate ER] Cholecalciferol (Vitamin D3) 50 mcg PO DAILY 07/29/24 07/29/24 History [Vitamin D3 (50 Mcg = 2000 Iu)] Citracal + Vitamin D3(Unknown Dose) 1 tab PO DAILY 07/29/24 07/29/24 History Fish Oil 1360mg 1 cap PO DAILY 07/29/24 07/29/24 History Losartan [Cozaar] 25 mg PO DIRECTED 07/29/24 07/29/24 History Magnesium-Zinc 266mg-10mg 1 tab PO DAILY 07/29/24 07/29/24 History Multivitamins, Thera [Multivitamin 1 tab PO BID 07/29/24 07/29/24 History (formulary)] Psyllium Husk [Fiber Capsule] 0.4 gm PO BID 07/29/24 07/29/24 History Super B-Complex W/Vitamin C & 1 tab PO DAILY 07/29/24 07/29/24 History Biotin Allergies Allergy/AdvReac Type Severity Reaction Status Date / Time meperidine HCl [From Demerol] Allergy Rash/Hives Verified 07/29/24 20:22 moxifloxacin HCl Allergy Anaphylaxis Verified 07/29/24 20:22 [From Avelox] prochlorperazine AdvReac agitation Verified 07/29/24 20:22 [From Compazine] prochlorperazine edisylate AdvReac agitation Verified 07/29/24 20:22 [From Compazine] prochlorperazine maleate AdvReac agitation Verified 07/29/24 20:22 [From Compazine] simvastatin [From Zocor] AdvReac severe leg Verified 07/29/24 20:22 weakness Physical Exam Vitals: Vital Signs Temp Pulse Pulse Resp BP Pulse Ox 07/29/24 20:15 50 L 17 135/60 96 07/29/24 20:08 45 L 109/59 95 07/29/24 19:49 41 L 17 125/65 98 07/29/24 19:00 44 L 17 115/74 95 07/29/24 18:26 45 L 17 111/66 97 07/29/24 18:01 45 L 18 126/68 96 07/29/24 17:36 49 L 07/29/24 17:24 97.7 F 41 L 18 119/67 97 Intake and Output 07/29/24 07/29/24 07/29/24 06:59 14:59 22:59 Intake Total 1.225 Balance 1.225 Intake: Intake, IV Titration 1.225 Amount DOPamine DRIP 800 mg In 1.225 Dextrose/Water 1 250ml. bag @ 3 MCG/KG/MIN 4.082 mls/hr IV .Q24H ONE Rx#: [id number] Other: Weight 72.575 kg Results CBC & Chem 7: 07/29/24 17:46 07/29/24 17:46 Labs: Abnormal Lab Results - Last 24 Hours (Table) 07/29/24 07/29/24 07/29/24 Range/Units 17:46 17:46 17:46 RBC 4.05 L (4.10-5.20) 10*6/uL Hgb 10.8 L (12.0-15.0) g/dL Hct 35.4 L (37.2-46.3) % MCH 26.7 L (27.0-32.0) pg MCHC 30.5 L (32.0-37.0) g/dL Monocytes # 0.19 L (0.20-1.00) 10*3/uL Eosinophils # 0.03 L (0.04-0.35) 10*3/uL APTT 21.0 L (22.0-30.0) sec Sodium 130 L (137-145) mmol/L Chloride 94 L (98-107) mmol/L BUN 28 H (7-17) mg/dL Glucose 100 H (74-99) mg/dL AST 79 H (14-36) U/L ALT 82 H (4-34) U/L Troponin I (0.000-0.034) ng/mL Total Protein 5.9 L (6.3-8.2) g/dL 07/29/24 Range/Units 17:46 RBC (4.10-5.20) 10*6/uL Hgb (12.0-15.0) g/dL Hct (37.2-46.3) % MCH (27.0-32.0) pg MCHC (32.0-37.0) g/dL Monocytes # (0.20-1.00) 10*3/uL Eosinophils # (0.04-0.35) 10*3/uL APTT (22.0-30.0) sec Sodium (137-145) mmol/L Chloride (98-107) mmol/L BUN (7-17) mg/dL Glucose (74-99) mg/dL AST (14-36) U/L ALT (4-34) U/L Troponin I 4.040 H* (0.000-0.034) ng/mL Total Protein (6.3-8.2) g/dL
[2024-07-30 05:44] LABS: Basophils # (A) 0.03 10*3/uL (0.00-0.10); Basophils % (A) 0.6 %; Eosinophils # (A) 0.03 10*3/uL (0.04-0.35); Eosinophils % (A) 0.6 %; HCT 33.5 % (37.2-46.3); Lymphocytes # (A) 0.91 10*3/uL (0.90-5.00); Lymphocytes % (A) 19.7 %; MCH 26.2 pg (27.0-32.0); MCHC 29.9 g/dL (32.0-37.0); MCV 87.9 fL (80.0-97.0); Mean Platelet Volume 9.4 fL (9.5-12.2); Monocytes # (A) 0.14 10*3/uL (0.20-1.00); Neutrophils % (A) 75.7 %; Platelet Count 199 10*3/uL (140-440); RBC 3.81 10*6/uL (4.10-5.20); RDW 18.5 % (11.5-14.5); WBC 4.63 10*3/uL (4.50-10.00)
[2024-07-30 05:56] LABS: ALT 65 U/L (4-34); AST 54 U/L (14-36); African American GFR (CKD) >90 (>60 ml/min/1.73 sqM); Albumin 3.3 g/dL (3.5-5.0); Alkaline Phosphatase 69 U/L (38-126); Anion Gap 7 mmol/L; Blood Urea Nitrogen 22 mg/dL (7-17); Calcium 8.3 mg/dL (8.4-10.2); Carbon Dioxide 28 mmol/L (22-30); Chloride 98 mmol/L (98-107); Glucose 99 mg/dL (74-99); Non-African American GFR(CKD) 81 (>60 ml/min/1.73 sqM); Potassium 4.2 mmol/L (3.5-5.1); Sodium 133 mmol/L (137-145); Total Bilirubin 0.8 mg/dL (0.2-1.3); Total Protein 5.1 g/dL (6.3-8.2)
[2024-07-30 06:02] LABS: Prothrombin Time 10.9 sec (10.0-12.5)
[2024-07-30] MEDS: ASPIRIN 81 MG PO SCH (08:16)
[2024-07-30] MEDS ORDERED: ASPIRIN 325 MG TAB PO SCH (09:00)
[2024-07-30 10:11] LABS: Chol/HDL Ratio 2.33 Ratio; LDL Cholesterol,Calculated 50.1 mg/dL (0.0-131.0); VLDL Calculation 14.54 mg/dL (5.00-40.00)
--- NOTE | 2024-07-30 11:14 | P.PN ---
Subjective Progress Note Date: 07/30/24 Hospital Course: Patient is a 79 year old female with GERD, hyperlipidemia, hypertension, history of DVT, psoriatic arthritis presented to the ED after syncopal episode. Patient had just gotten back to her residence. As the patient was getting out of the car and going up the steps to the porch she started feeling lightheaded. Associated with that she had shortness of breath and diaphoresis. She has had previous syncopal episodes and states her symptoms were similar to the prior episodes. She then passed out. Patient's daughter monitored her blood pressure at the time and it was in the 90s. Currently patient reports feeling weak but seems to be back to her baseline. 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 Moreover, she self caths at home due to bladder not emptying completely. Denies history of CHF but uses Lasix at home for chronic lower extremity edema. Denies fever, chills, cough, palpitations, abdominal pain, nausea, vomiting, hematuria, dysuria, hematochezia, melena, headache, slurred speech, numbness, tingling. ED documentation reviewed. In the ED patient was treated with acetaminophen, aspirin, dopamine drip, heparin drip, morphine, 0.9 normal saline, ondansetron. Vitals on admission T 97.7 F, [place] 41 bpm, RR 18, BP 119/67, SpO2 97% on room air. EKG independently interpreted as bradycardia, rate 41 bpm, QTc 462 ms, QRS 145 ms,Chest x-ray shows mid left lung base atelectasis, no acute abnormality in the chest. Labs on admission show WBC 4.78, hemoglobin 10.8, platelet 198, APTT 21, sodium 130, potassium 5.1, BUN 28, creatinine 0.82, glucose 100, magnesium 2.3, AST 79, ALT 82, troponin I 4.040 07/30/2024: Seen and examined in the ER, no events overnight, patient is accompanied by her daughter who provides collateral history. She states that the breathing is at baseline however she sometimes gets short of breath on exertion, she does not have any chest discomfort at rest, she does have reproducible chest pain around her loop recorder. She mentioned that she always can tell when she is going to pass out, described feeling hot, sick, lightheaded. Daughter also shared that patient has been dealing with decreased appetite and weight loss. She was continued on dopamine drip through the night, heart rate in 60s, BP improved to 140s over 70s. Lab work showed normal WBC count and stable hemoglobin 10.0, sodium improved to 133, normal potassium and bicarb, creatinine normal, AST and ALT trending down 54 and 65 accordingly, troponin peaked at 4.04, LDL 50, TSH 0.4, pending free T4. Pending cardiology Pertinent positives and negatives as discussed above, a complete review of systems was performed and all other systems are negative. Vitals Signs Reviewed. General: [nontoxic], [no distress], [appears at stated age] Derm: [warm], [dry] Head: [atraumatic], [normocephalic], [symmetric] Eyes: [EOMI], [no lid lag], [anicteric sclera] Mouth: [no lip lesion], [mucus membranes moist] Cardiovascular: [S1S2 reg], [no murmur], left-sided chest loop recorder palpated Lungs: [CTA bilateral], [no rhonchi, no rales] , [no accessory muscle use] Abdominal: [soft], [ nontender to palpation], [no guarding], [no appreciable organomegaly] Ext: [no gross muscle atrophy], bilateral lower extremity swelling left more than right chronic [no contractures] Neuro: [ CN II-XI grossly intact], [no focal neuro deficits] Psych: [Alert], [oriented], [appropriate affect] Assessment and Plan: Recurrent syncopal episodes, possibly vasovagal in nature Symptomatic bradycardia NSTEMI -troponin peaked at 4.040 -Received aspirin 324 mg p.o. once in the ED -Continue aspirin 81 mg p.o. daily -Resume home atorvastatin 40 mg p.o. daily -Continue heparin drip -Continue dopamine drip 3 mcg/kg/min -Continue nitroglycerin 0.4 mg sublingual Q5M as needed -Hold home and metoprolol -Lipid panel and TSH as above, A1c pending, T4 pending -Continue telemetry monitoring: Resume home losartan 25 daily, hold metoprolol 25 ER daily, hold hydralazine 50 mg p.o. twice daily Urinary retention, self cath at home Lower extremity edema: On home Lasix 40 10 daily Chronic normocytic anemia Psoriatic arthritis: Holding home methotrexate Hyperlipidemia: Continue Lipitor 40 daily DVT ppx: Heparin drip Code status: Full code Anticipated discharge place: TBD Anticipated discharge time: TBD Objective - Vital Signs Vital signs: Vital Signs Temp 97.7 F 07/29/24 17:24 Pulse 63 07/30/24 10:00 Resp 18 07/30/24 10:00 BP 143/65 07/30/24 10:00 Pulse Ox 93 L 07/30/24 10:00 FiO2 Intake & Output 07/29/24 07/30/24 07/30/24 18:59 06:59 18:59 Intake Total 1.225 Output Total 1600 Balance -1598.775 Weight 72.575 kg Intake: Intake, IV Titration 1.225 Amount DOPamine DRIP 800 mg In 1.225 Dextrose/Water 1 250ml. bag @ 3 MCG/KG/MIN 4.082 mls/hr IV .Q24H ONE Rx#: [id number] Output: Urine 1600 - Labs CBC & Chem 7: 07/30/24 05:12 07/30/24 05:12 Labs: Abnormal Lab Results - Last 24 Hours (Table) 07/29/24 07/29/24 07/29/24 Range/Units 17:46 17:46 17:46 RBC 4.05 L (4.10-5.20) 10*6/uL Hgb 10.8 L (12.0-15.0) g/dL Hct 35.4 L (37.2-46.3) % MCH 26.7 L (27.0-32.0) pg MCHC 30.5 L (32.0-37.0) g/dL MPV (9.5-12.2) fL Monocytes # 0.19 L (0.20-1.00) 10*3/uL Eosinophils # 0.03 L (0.04-0.35) 10*3/uL APTT 21.0 L (22.0-30.0) sec Sodium 130 L (137-145) mmol/L Chloride 94 L (98-107) mmol/L BUN 28 H (7-17) mg/dL Glucose 100 H (74-99) mg/dL Calcium (8.4-10.2) mg/dL AST 79 H (14-36) U/L ALT 82 H (4-34) U/L Troponin I (0.000-0.034) ng/mL Total Protein 5.9 L (6.3-8.2) g/dL Albumin (3.5-5.0) g/dL TSH (0.465-4.680) mIU/L 07/29/24 07/29/24 07/30/24 Range/Units 17:46 21:38 00:31 RBC (4.10-5.20) 10*6/uL Hgb (12.0-15.0) g/dL Hct (37.2-46.3) % MCH (27.0-32.0) pg MCHC (32.0-37.0) g/dL MPV (9.5-12.2) fL Monocytes # (0.20-1.00) 10*3/uL Eosinophils # (0.04-0.35) 10*3/uL APTT (22.0-30.0) sec Sodium (137-145) mmol/L Chloride (98-107) mmol/L BUN (7-17) mg/dL Glucose (74-99) mg/dL Calcium (8.4-10.2) mg/dL AST (14-36) U/L ALT (4-34) U/L Troponin I 4.040 H* 3.870 H* 3.600 H* (0.000-0.034) ng/mL Total Protein (6.3-8.2) g/dL Albumin (3.5-5.0) g/dL TSH (0.465-4.680) mIU/L 07/30/24 07/30/24 07/30/24 Range/Units 00:31 05:12 05:12 RBC 3.81 L (4.10-5.20) 10*6/uL Hgb 10.0 L (12.0-15.0) g/dL Hct 33.5 L (37.2-46.3) % MCH 26.2 L (27.0-32.0) pg MCHC 29.9 L (32.0-37.0) g/dL MPV 9.4 L (9.5-12.2) fL Monocytes # 0.14 L (0.20-1.00) 10*3/uL Eosinophils # 0.03 L (0.04-0.35) 10*3/uL APTT 44.8 H (22.0-30.0) sec Sodium (137-145) mmol/L Chloride (98-107) mmol/L BUN (7-17) mg/dL Glucose (74-99) mg/dL Calcium (8.4-10.2) mg/dL AST (14-36) U/L ALT (4-34) U/L Troponin I (0.000-0.034) ng/mL Total Protein (6.3-8.2) g/dL Albumin (3.5-5.0) g/dL TSH 0.424 L (0.465-4.680) mIU/L 07/30/24 Range/Units 05:12 RBC (4.10-5.20) 10*6/uL Hgb (12.0-15.0) g/dL Hct (37.2-46.3) % MCH (27.0-32.0) pg MCHC (32.0-37.0) g/dL MPV (9.5-12.2) fL Monocytes # (0.20-1.00) 10*3/uL Eosinophils # (0.04-0.35) 10*3/uL APTT (22.0-30.0) sec Sodium 133 L (137-145) mmol/L Chloride (98-107) mmol/L BUN 22 H (7-17) mg/dL Glucose (74-99) mg/dL Calcium 8.3 L (8.4-10.2) mg/dL AST 54 H (14-36) U/L ALT 65 H (4-34) U/L Troponin I (0.000-0.034) ng/mL Total Protein 5.1 L (6.3-8.2) g/dL Albumin 3.3 L (3.5-5.0) g/dL TSH (0.465-4.680) mIU/L
[2024-07-30] MEDS: TRANEXAMIC ACID 1,000 MG/10 ML VIAL MISCELLANE ONE (11:17)
[2024-07-30 11:42] LABS: T4, Free (Free Thyroxine) 1.33 ng/dL (0.78-2.19)
--- NOTE | 2024-07-30 12:12 | P.CRDCN ---
History of Present Illness Consult date: 07/30/24 History of present illness: HISTORY OF PRESENTING ILLNESS: 79-year-old known to Dr. Grewal. Prior history of vasodepressor syncope in the past. For this she has got a loop recorder in 2018 which was nonrevealing. In 2023 she had a Lexiscan done as an outpatient which was abnormal for which she had a heart catheterization done. This Lexiscan was done for perioperative evaluation for a shoulder surgery. Since July 2024 she is having some symptoms of substernal chest heaviness along with feeling weak and dizzy. For this she saw Dr. Grewal in the office and her chest pain was reproducible in the loop recorder area therefore no interventions were performed at that time. She was noticed to be hypertensive for which her hydralazine was increased from 100 mg twice daily to 3 times daily. This time patient presented to the hospital because of concerns of syncope. Patient's daughter is present at bedside to provide the history. She reports that yesterday she was sitting in a chair when she slumped over for approximately a minute and a half and then woke up feeling very weak and tired. She never had any seizure-like activity or loss of bowel bladder control. She did check patient's heart rate and it was in 30s. On admission to the ER her heart rate was in 30s. Rhythm appears to be junctional rhythm with left bundle branch block. Her left bundle branch block is old. She started on dopamine drip and thereafter she is in sinus rhythm with left b undle branch block heart rate around 60 bpm REVIEW OF SYSTEMS: 14 point review of system is negative except what is mentioned above in HPI. PHYSICAL EXAMINATION: Neck: Brisk carotid upstroke, no jugular venous distention. Lungs: Clear to auscultation. Heart: Regular rate and rhythm, S1-S2, no murmur or rub. Abdomen: Soft nontender, positive bowel sounds. Extremities: No edema, intact distal pulses. Neuro: Alert, oritented, no focal deficits. Detailed neuro exam was not performed. 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 If no significant blockages, plan for dual-chamber PPM Continue dopamine drip at 2.5 mcg. Transfer to ICU Aspirin 81, Lipitor 40, IV heparin drip After GDMT with Aldactone, Farxiga, losartan prior to discharge. For now keep her on hydralazine 50 3 times daily Fabian Garber MD, FACC, RPVI Thank you for allowing [facility] to participate in this patient's care. Feel free to reach out in case of any followup questions. Past Medical History Past Medical History: Cancer, Deep Vein Thrombosis (DVT), GERD/Reflux, Hyperlipidemia, Hypertension, Syncope Additional Past Medical History / Comment(s): DVT years ago, psoriatic arthritis, hx. skin cancer, self-cath's due to bladder not emptying completely, syncopal episodes with dizziness History of Any Multi-Drug Resistant Organisms: None Reported Past Surgical History: Back Surgery, Joint Replacement, Orthopedic Surgery Additional Past Surgical History / Comment(s): henok knee replacements & henok hip replaced, vein stripping, left hand fusion, left retinal repair of tear, right carpal tunnel, back surgery x2. R shoulder replacement 02/25/2024 Past Anesthesia/Blood Transfusion Reactions: No Reported Reaction Additional Past Anesthesia/Blood Transfusion Reaction / Comment(s): seems to require alot of anesthesia to be sedated per pt. Past Psychological History: No Psychological Hx Reported Smoking Status: Never smoker Past Alcohol Use History: None Reported Past Drug Use History: None Reported - Past Family History Father Family Medical History: Myocardial Infarction ([place]) Mother Family Medical History: Cancer Daughter(s) Family Medical History: Cancer Medications and Allergies Home Medications Medication Instructions Recorded Confirmed Type Folic Acid 1 mg PO DAILY 10/02/15 07/29/24 History Furosemide [Lasix] 40 mg PO DAILY 10/02/15 07/29/24 History metHOTREXate sodium [Methotrexate] 25 mg PO TH 10/02/15 07/29/24 History Atorvastatin [Lipitor] 40 mg PO DAILY 04/01/18 07/29/24 History Potassium Chloride ER [K-Dur 20] 20 meq PO DAILY 07/24/23 07/29/24 History hydrALAZINE HCL [Apresoline] 50 mg PO BID 07/24/23 07/29/24 History Metoprolol Succinate [Metoprolol 25 mg PO DAILY 30 Days #30 tab 07/25/23 07/29/24 Rx Succinate ER] Cholecalciferol (Vitamin D3) 50 mcg PO DAILY 07/29/24 07/29/24 History [Vitamin D3 (50 Mcg = 2000 Iu)] Citracal + Vitamin D3(Unknown Dose) 1 tab PO DAILY 07/29/24 07/29/24 History Fish Oil 1360mg 1 cap PO DAILY 07/29/24 07/29/24 History Losartan [Cozaar] 25 mg PO DIRECTED 07/29/24 07/29/24 History Magnesium-Zinc 266mg-10mg 1 tab PO DAILY 07/29/24 07/29/24 History Multivitamins, Thera [Multivitamin 1 tab PO BID 07/29/24 07/29/24 History (formulary)] Psyllium Husk [Fiber Capsule] 0.4 gm PO BID 07/29/24 07/29/24 History Super B-Complex W/Vitamin C & 1 tab PO DAILY 07/29/24 07/29/24 History Biotin Allergies Allergy/AdvReac Type Severity Reaction Status Date / Time meperidine HCl [From Demerol] Allergy Rash/Hives Verified 07/29/24 20:22 moxifloxacin HCl Allergy Anaphylaxis Verified 07/29/24 20:22 [From Avelox] prochlorperazine AdvReac agitation Verified 07/29/24 20:22 [From Compazine] prochlorperazine edisylate AdvReac agitation Verified 07/29/24 20:22 [From Compazine] prochlorperazine maleate AdvReac agitation Verified 07/29/24 20:22 [From Compazine] simvastatin [From Zocor] AdvReac severe leg Verified 07/29/24 20:22 weakness Physical Exam Vitals: Vital Signs Temp Pulse Pulse Resp BP Pulse Ox 07/30/24 12:01 66 16 164/85 94 L 07/30/24 10:00 63 18 143/65 93 L 07/30/24 08:00 68 17 143/76 93 L 07/30/24 06:54 60 18 132/72 94 L 07/30/24 04:59 63 18 117/68 94 L 07/30/24 03:00 60 18 138/72 96 07/30/24 02:00 55 L 18 132/80 94 L 07/30/24 01:00 70 18 152/72 98 07/30/24 00:00 60 18 140/79 97 07/29/24 23:00 58 L 17 165/78 92 L 07/29/24 20:43 59 L 17 166/86 96 07/29/24 20:15 50 L 17 135/60 96 07/29/24 20:08 45 L 109/59 95 07/29/24 19:49 41 L 17 125/65 98 07/29/24 19:00 44 L 17 115/74 95 07/29/24 18:26 45 L 17 111/66 97 07/29/24 18:01 45 L 18 126/68 96 07/29/24 17:36 49 L 07/29/24 17:24 97.7 F 41 L 18 119/67 97 Intake and Output 07/29/24 07/30/24 07/30/24 22:59 06:59 14:59 Intake Total 1.225 107.617 Output Total 1600 Balance 1.225 -1600 107.617 Intake: Intake, IV Titration 1.225 107.617 Amount DOPamine DRIP 800 mg In 1.225 107.617 Dextrose/Water 1 250ml. bag @ 3 MCG/KG/MIN 4.082 mls/hr IV .Q24H ONE Rx#: [id number] Output: Urine 1600 Other: Weight 72.575 kg Results 07/30/24 05:12 07/30/24 05:12 Cardiac Enzymes 07/29/24 07/29/24 07/29/24 Range/Units 17:46 17:46 21:38 AST 79 H (14-36) U/L Troponin I 4.040 H* 3.870 H* (0.000-0.034) ng/mL 07/30/24 07/30/24 Range/Units 00:31 05:12 AST 54 H (14-36) U/L Troponin I 3.600 H* (0.000-0.034) ng/mL Coagulation 07/29/24 07/30/24 07/30/24 Range/Units 17:46 00:31 05:12 PT 10.3 10.9 (10.0-12.5) sec APTT 21.0 L 44.8 H (22.0-30.0) sec Lipids 07/30/24 Range/Units 05:12 Triglycerides 72.70 (0.00-149.00) mg/dL Cholesterol 113.00 (0.00-200.00) mg/dL HDL Cholesterol 48.40 (40.00-60.00) mg/dL Cholesterol/HDL Ratio 2.33 Ratio CBC 07/29/24 07/30/24 Range/Units 17:46 05:12 WBC 4.78 4.63 (4.50-10.00) 10*3/uL RBC 4.05 L 3.81 L (4.10-5.20) 10*6/uL Hgb 10.8 L 10.0 L (12.0-15.0) g/dL Hct 35.4 L 33.5 L (37.2-46.3) % Plt Count 198 199 (140-440) 10*3/uL Comprehensive Metabolic Panel 07/29/24 07/30/24 Range/Units 17:46 05:12 Sodium 130 L 133 L (137-145) mmol/L Potassium 5.1 4.2 (3.5-5.1) mmol/L Chloride 94 L 98 (98-107) mmol/L Carbon Dioxide 26 28 (22-30) mmol/L BUN 28 H 22 H (7-17) mg/dL Creatinine 0.82 0.72 (0.52-1.04) mg/dL Glucose 100 H 99 (74-99) mg/dL Calcium 9.2 8.3 L (8.4-10.2) mg/dL AST 79 H 54 H (14-36) U/L ALT 82 H 65 H (4-34) U/L Alkaline Phosphatase 80 69 (38-126) U/L Total Protein 5.9 L 5.1 L (6.3-8.2) g/dL Albumin 4.0 3.3 L (3.5-5.0) g/dL Current Medications Generic Name Dose Route Start Last Admin Trade Name Freq PRN Reason Stop Dose Admin Aspirin 81 mg 07/30/24 09:00 07/30/24 08:16 Aspirin 81 Mg PO 81 mg DAILY [facility] Administration Atorvastatin Calcium 40 mg 07/29/24 21:00 07/30/24 08:15 Atorvastatin 40 Mg Tab PO 40 mg DAILY [facility] Administration Folic Acid 1 mg 07/31/24 09:00 Folic Acid 1 Mg Tab PO DAILY [facility] Furosemide 40 mg 07/31/24 09:00 Furosemide 40 Mg Tab PO DAILY [facility] Heparin Sodium (Porcine) 0 unit 07/29/24 18:53 Heparin Sodium 1,000 Un/Ml (10ml Vl) IV PER PROTOCOL PRN Low PTT Protocol Hydralazine HCl 50 mg 07/30/24 12:15 Hydralazine Hcl 50 Mg Tab PO TID KODY Heparin Sodium/Sodium Chloride 250 mls @ 8.709 mls/hr 07/29/24 19:00 07/29/24 19:14 25,000 unit/ Sodium Chloride IV 12 units/kg/hr .Q24H KODY 8.709 mls/hr Administration Protocol 12 UNITS/KG/HR Dopamine HCl/Dextrose 800 mg/ 250 mls @ 4.082 mls/hr 07/29/24 19:40 07/30/24 12:03 IV Solution IV 07/30/24 19:39 2.5 mcg/kg/min .Q24H ONE 3.402 mls/hr Titration Protocol 3 MCG/KG/MIN Nitroglycerin 0.4 mg 07/29/24 20:21 Nitroglycerin Sl Tabs 0.4 Mg Tab SUBLINGUAL Q5M PRN Chest Pain Intake and Output 07/29/24 07/30/24 07/30/24 22:59 06:59 14:59 Intake Total 1.225 107.617 Output Total 1600 Balance 1.225 -1600 107.617 Intake: Intake, IV Titration 1.225 107.617 Amount DOPamine DRIP 800 mg In 1.225 107.617 Dextrose/Water 1 250ml. bag @ 3 MCG/KG/MIN 4.082 mls/hr IV .Q24H ONE Rx#: [id number] Output: Urine 1600 Other: Weight 72.575 kg 07/30/24 05:12 07/30/24 05:12
[2024-07-30] MEDS ORDERED: ALPRAZolam 0.25 MG TAB PO PRN (12:14)
[2024-07-30] MEDS ORDERED: NITROGLYCERIN SL TABS 0.4 MG TAB SUBLINGUAL PRN (12:14)
[2024-07-30] MEDS: hydrALAZINE HCL 50 MG TAB PO SCH (13:11)
[2024-07-30 14:27] LABS: Glucose,Whole Blood 153 mg/dL (70-110)
--- NOTE | 2024-07-31 00:55 | P.CNPUL ---
History of Present Illness Consult date: 07/31/24 Requesting physician: Fabian Garber Reason for consult: other (ICU management) Chief complaint: Syncopal event History of present illness: Patient is 79-year-old female past medical history significant for hypertension, hyperlipidemia, nonobstructive coronary artery disease, carotid artery stenosis, loop recorder, and previous episodes of syncope. Did previously have a heart catheterization December, remarkable for nonocclusive coronary artery disease. With 30 to 40% disease in the RCA, circumflex, and LAD. Brought in to the emergency department on 07/29/2024. Reportedly, was sitting in a chair outside with her daughter. Had been feeling relatively well up until this point. She became lightheaded, diaphoretic, and short of breath followed by a period of unresponsiveness. EMS was called. She was found to be bradycardic, with a heart rate reportedly in the 30s bpm. EKG done on arrival remarkable for wide-complex regular rhythm, rate 41 bpm, chronic LBBB, probable junctional rhythm. She was started on dopamine infusion. Also, found to have elevated troponins, 4.04, 3.87, and 3.6. Patient was started on IV heparin per cardiology. Remaining labs including a CBC with a WBC count of 4.6, hemoglobin 10, platelets 199. Most recent APTT 45. CMP: Sodium 133, potassium 4.2, chloride 98, serum bicarb 28, BUN 22, creatinine 0.72, glucose 111. NT proBNP 3930. TSH 0.42. Patient currently being evaluated in the intensive care unit. She is resting comfortably on room air. She is awake and alert. No focal neurological deficits. Denies any chest pain, heart palpitations, lower extremity edema. Denies any nausea or vomiting. Denies any difficulty in breathing. She does take metoprolol outpatient basis, denies taking extra doses, and states that her children organize her pillbox. Dopamine continues at 2.5 mcg/kg/min. Also, heparin infusing per protocol. Heart rhythm appears normal sinus on bedside monitor with a rate of 66 bpm. Blood pressure is normot ensive at 125/68 mmHg. Plan for possible heart catheterization tomorrow. Review of Systems Constitutional: Reports fatigue, Reports sweats, Reports weakness, Denies chills, Denies fever, Denies poor appetite, Denies weight gain, Denies weight loss Ears, nose, mouth and throat: Denies headache, Denies nasal congestion, Denies nasal discharge, Denies post-nasal drip, Denies sinus pain, Denies sinus pressure, Denies sore throat Cardiovascular: Reports lightheadedness, Reports syncope, Denies chest pain, Den ies dyspnea on exertion, Denies leg edema, Denies orthopnea, Denies palpitations, Denies paroxysmal nocturnal dyspnea Respiratory: Denies congestion, Denies cough, Denies dyspnea Gastrointestinal: Denies abdominal pain, Denies diarrhea, Denies nausea, Denies vomiting Genitourinary: Reports difficulty voiding (Chronic urinary retention issues, straight caths), Denies dysuria, Denies flank pain, Denies hematuria Musculoskeletal: Denies limitation of motion Integumentary: Denies rash Neurological: Denies confusion, Denies head injury, Denies headaches, Denies numbness, Denies paralysis, Denies paresthesias, Denies seizures, Denies syncope, Denies tremors, Denies visual changes Psychiatric: Denies anxiety, Denies depression Past Medical History Past Medical History: Cancer, Deep Vein Thrombosis (DVT), GERD/Reflux, Hyperlipidemia, Hypertension, Syncope Additional Past Medical History / Comment(s): DVT years ago, psoriatic arthritis, hx. skin cancer, self-cath's due to bladder not emptying completely, syncopal episodes with dizziness History of Any Multi-Drug Resistant Organisms: None Reported Past Surgical History: Back Surgery, Joint Replacement, Orthopedic Surgery Additional Past Surgical History / Comment(s): henok knee replacements & henok hip replaced, vein stripping, left hand fusion, left retinal repair of tear, right carpal tunnel, back surgery x2. R shoulder replacement 02/25/2024 Past Anesthesia/Blood Transfusion Reactions: No Reported Reaction Additional Past Anesthesia/Blood Transfusion Reaction / Comment(s): seems to require alot of anesthesia to be sedated per pt. Past Psychological History: No Psychological Hx Reported Smoking Status: Never smoker Past Alcohol Use History: None Reported Past Drug Use History: None Reported - Past Family History Father Family Medical History: CVA/TIA, Myocardial Infarction ([place]) Additional Family Medical History / Comment(s): x3 CVA Mother Family Medical History: Cancer Additional Family Medical History / Comment(s): Heart Failure Daughter(s) Family Medical History: Cancer Medications and Allergies Home Medications Medication Instructions Recorded Confirmed Type Folic Acid 1 mg PO DAILY 10/02/15 07/29/24 History Furosemide [Lasix] 40 mg PO DAILY 10/02/15 07/29/24 History metHOTREXate sodium [Methotrexate] 25 mg PO TH 10/02/15 07/29/24 History Atorvastatin [Lipitor] 40 mg PO DAILY 04/01/18 07/29/24 History Potassium Chloride ER [K-Dur 20] 20 meq PO DAILY 07/24/23 07/29/24 History hydrALAZINE HCL [Apresoline] 50 mg PO BID 07/24/23 07/29/24 History Metoprolol Succinate [Metoprolol 25 mg PO DAILY 30 Days #30 tab 07/25/23 Rx Succinate ER] Cholecalciferol (Vitamin D3) 50 mcg PO DAILY 07/29/24 07/29/24 History [Vitamin D3 (50 Mcg = 2000 Iu)] Citracal + Vitamin D3(Unknown Dose) 1 tab PO DAILY 07/29/24 07/29/24 History Fish Oil 1360mg 1 cap PO DAILY 07/29/24 07/29/24 History Magnesium-Zinc 266mg-10mg 1 tab PO DAILY 07/29/24 07/29/24 History Multivitamins, Thera [Multivitamin 1 tab PO BID 07/29/24 07/29/24 History (formulary)] Psyllium Husk [Fiber Capsule] 0.4 gm PO BID 07/29/24 07/29/24 History Super B-Complex W/Vitamin C & 1 tab PO DAILY 07/29/24 07/29/24 History Biotin Losartan [Cozaar] 50 mg PO DAILY 07/31/24 07/31/24 History Allergies Allergy/AdvReac Type Severity Reaction Status Date / Time meperidine HCl [From Demerol] Allergy Rash/Hives Verified 07/29/24 20:22 moxifloxacin HCl Allergy Anaphylaxis Verified 07/29/24 20:22 [From Avelox] prochlorperazine AdvReac agitation Verified 07/29/24 20:22 [From Compazine] prochlorperazine edisylate AdvReac agitation Verified 07/29/24 20:22 [From Compazine] prochlorperazine maleate AdvReac agitation Verified 07/29/24 20:22 [From Compazine] simvastatin [From Zocor] AdvReac severe leg Verified 07/29/24 20:22 weakness Physical Exam Vitals: Vital Signs Temp Pulse Pulse Resp BP BP Pulse Ox 07/30/24 20:00 97.8 F 67 18 125/68 96 07/30/24 16:00 98.2 F 21 119/64 95 07/30/24 14:00 64 17 116/76 94 L 07/30/24 13:12 60 17 112/63 93 L 07/30/24 12:01 66 16 164/85 94 L 07/30/24 10:00 63 18 143/65 93 L 07/30/24 08:00 68 17 143/76 93 L 07/30/24 06:54 60 18 132/72 94 L 07/30/24 04:59 63 18 117/68 94 L 07/30/24 03:00 60 18 138/72 96 07/30/24 02:00 55 L 18 132/80 94 L 07/30/24 01:00 70 18 152/72 98 Intake and Output 07/30/24 07/30/24 07/31/24 14:59 22:59 06:59 Intake Total 107.617 227.45 Output Total 375 Balance 107.617 -147.55 Intake: Intake, IV Titration 107.617 227.45 Amount DOPamine DRIP 800 mg In 107.617 Dextrose/Water 1 250ml. bag @ 3 MCG/KG/MIN 4.082 mls/hr IV .Q24H ONE Rx#: [id number] Heparin Sod,Pork in 0.45% 227.45 NaCl 25,000 unit In 0.45 % NaCl 1 250ml.bag @ 12 UNITS/KG/HR 8.709 mls/hr IV .Q24H REPLACED BY [facility] Rx#: [id number] Output: Urine 375 Other: Voiding Method Indwelling Catheter Indwelling Catheter GENERAL EXAM: Alert, 79-year-old female, comfortable in no apparent distress. HEAD: Normocephalic and atraumatic EYES: Normal reaction of pupils, equal size. NOSE: Clear with pink turbinates. THROAT: No erythema or exudates. NECK: No masses, no JVD. CHEST: No chest wall deformity. LUNGS: Equal air entry with no crackles, wheeze, rhonchi or dullness. On room air. No conversational dyspnea or accessory muscle use.. CVS: S1 and S2 normal with no audible murmur, regular rhythm. No extra heart sounds ABDOMEN: No hepatosplenomegaly, active bowel sounds, no guarding or rigidity. SPINE: No scoliosis or deformity SKIN: No rashes CENTRAL NERVOUS SYSTEM:. Alert fully oriented, cranial nerves II through XII intact, no focal deficits, tone is normal in all 4 extremities. EXTREMITIES: There is no peripheral edema, clubbing, or cyanosis. Peripheral pulses are intact. Results - Laboratory Findings CBC and BMP: 07/31/24 06:26 07/31/24 06:26 PT/INR, D-dimer PT 10.9 sec (10.0-12.5) 07/30/24 05:12 INR 1.0 (<1.2) 07/30/24 05:12 Abnormal lab findings: Abnormal Labs 07/29/24 07/29/24 07/29/24 17:46 17:46 17:46 RBC 4.05 L Hgb 10.8 L Hct 35.4 L MCH 26.7 L MCHC 30.5 L MPV Monocytes # 0.19 L Eosinophils # 0.03 L APTT 21.0 L Sodium 130 L Chloride 94 L BUN 28 H Glucose 100 H POC Glucose (mg/dL) Calcium AST 79 H ALT 82 H Troponin I Total Protein 5.9 L Albumin TSH 07/29/24 07/29/24 07/30/24 17:46 21:38 00:31 RBC Hgb Hct MCH MCHC MPV Monocytes # Eosinophils # APTT Sodium Chloride BUN Glucose POC Glucose (mg/dL) Calcium AST ALT Troponin I 4.040 H* 3.870 H* 3.600 H* Total Protein Albumin TSH 07/30/24 07/30/24 07/30/24 00:31 05:12 05:12 RBC 3.81 L Hgb 10.0 L Hct 33.5 L MCH 26.2 L MCHC 29.9 L MPV 9.4 L Monocytes # 0.14 L Eosinophils # 0.03 L APTT 44.8 H Sodium Chloride BUN Glucose POC Glucose (mg/dL) Calcium AST ALT Troponin I Total Protein Albumin TSH 0.424 L 07/30/24 07/30/24 05:12 14:25 RBC Hgb Hct MCH MCHC MPV Monocytes # Eosinophils # APTT Sodium 133 L Chloride BUN 22 H Glucose POC Glucose (mg/dL) 153 H Calcium 8.3 L AST 54 H ALT 65 H Troponin I Total Protein 5.1 L Albumin 3.3 L TSH - Diagnostic Findings Chest x-ray: image reviewed Assessment and Plan Assessment: Symptomatic bradycardia, previously started on IV dopamine, currently appears to be sinus mechanism, with heart rate in the mid 60s bpm Syncope Elevated troponins, possible type II non-ST elevation [place], previously systemically heparinized and tentative plan is for heart catheterization later this morning Hypertension History of hyperlipidemia History of nonobstructive coronary artery disease History of left internal carotid stenosis, 50 to 69% Remote history of DVT Chronic urinary retention, requiring intermittent straight catheterizations History of frequent urinary tract infections History of psoriatic arthritis Plan: Patient is being monitored in the intensive care unit Current rhythm appears normal sinus on bedside monitor, chronic LBBB pattern Continues on dopamine infusion at 2.5 mcg/kg/min; however, this could probably be discontinued Beta-shiraz on hold Systemically heparinized per cardiology recommendation, monitor APTT per protocol Tentative plan for heart catheterization in the morning I have personally seen and examined the patient, performed the documentation and the assessment and plan as written. Number of minutes spent on the visit:20 This is a joint evaluation that was done along with the nurse practitioner) today. The patient was seen and evaluated in the ICU and this evaluation was done in more than 35 minutes. This patient presented to the hospita with syncope and the patient was found to have severe bradycardia with a heart rate in the 30s. I reviewed the EKG and the patient had a sinus bradycardia initially at rate of 40 with a bundle branch block pattern. The patient also had positive troponins despite having a cardiac catheterization back in December 2043 showing unremarkable nonocclusive coronary artery disease with 30 to 40% involvement of the RCA, circumflex and LAD. The patient is currently in the intensive care unit. Echocardiogram is in progress. The patient remains on IV heparin. Beta-blockers have been discontinued. The plan is to monitor the cardiac rhythm and perform another cardiac catheterization. The patient will be kept off the beta-blockers for now. Cardiology on the case. Patient is hemodynamically stable and the patient is currently on room air oxygen with a pulse ox of 97%. The current heart rate is around 60 to with a bundle branch block pattern on the left. Time with Patient: Greater than 30
[2024-07-31] MEDS: ASPIRIN 325 MG TAB PO ONE (06:19)
[2024-07-31] MEDS: ATORVASTATIN 80 MG TAB PO ONE (06:19)
[2024-07-31 06:48] LABS: Basophils # (A) 0.04 10*3/uL (0.00-0.10); Eosinophils # (A) 0.06 10*3/uL (0.04-0.35); Eosinophils % (A) 1.5 %; HCT 32.8 % (37.2-46.3); HGB 9.8 g/dL (12.0-15.0); Lymphocytes # (A) 0.73 10*3/uL (0.90-5.00); Lymphocytes % (A) 18.6 %; MCH 26.8 pg (27.0-32.0); MCHC 29.9 g/dL (32.0-37.0); MCV 89.6 fL (80.0-97.0); Mean Platelet Volume 9.7 fL (9.5-12.2); Monocytes # (A) 0.14 10*3/uL (0.20-1.00); Monocytes % (A) 3.6 %; Neutrophils # (A) 2.95 10*3/uL (1.80-7.70); Platelet Count 203 10*3/uL (140-440); RBC 3.66 10*6/uL (4.10-5.20); RDW 18.1 % (11.5-14.5); WBC 3.93 10*3/uL (4.50-10.00)
[2024-07-31] MEDS ORDERED: HEPARIN SODIUM,PORCINE 10,000 UNIT in SODIUM CHLORIDE 0.9% 1,000 ML IRRIGATION PRN (07:00)
[2024-07-31] MEDS ORDERED: HEPARIN SODIUM,PORCINE (1 ML) 2,500 UNIT in SODIUM CHLORIDE 0.9% 250 ML IRRIGATION PRN (07:00)
[2024-07-31 07:26] LABS: African American GFR (CKD) >90 (>60 ml/min/1.73 sqM); Anion Gap 6 mmol/L; Blood Urea Nitrogen 16 mg/dL (7-17); Calcium 7.9 mg/dL (8.4-10.2); Carbon Dioxide 28 mmol/L (22-30); Chloride 102 mmol/L (98-107); Glucose 108 mg/dL (74-99); Magnesium 2.1 mg/dL (1.6-2.3); Non-African American GFR(CKD) 88 (>60 ml/min/1.73 sqM); Sodium 136 mmol/L (137-145)
[2024-07-31] MEDS ORDERED: METOPROLOL SUCCINATE (ER) 25 MG TAB.ER.24H PO SCH (09:00)
[2024-07-31] MEDS: FUROSEMIDE 40 MG TAB PO SCH (09:33)
[2024-07-31] MEDS: FOLIC ACID 1 MG TAB PO SCH (09:33)
[2024-07-31] MEDS: SODIUM CHLORIDE 0.9% 1,000 ML IV SCH (09:42)
--- NOTE | 2024-07-31 09:57 | P.PN ---
Subjective Progress Note Date: 07/31/24 The patient is a 79-year-old female who presented to the hospital with an episode of syncope. She is a prior patient of Dr. ARIADNE Grewal and plans on continuing with Dr. Mccormick. The patient was interviewed and examined resting comfortably. No further episodes of syncope or bradycardia on telemetry overnig ht. GENERAL: Well-appearing, well-nourished and in no acute distress. NECK: Supple without JVD or thyromegaly. LUNGS: Breath sounds clear to auscultation bilaterally. Respiration equal and unlabored. No wheezes, rales or rhonchi. HEART: Regular rate and rhythm without murmurs, rubs or gallops. S1 and S2 heard. EXTREMITIES: Normal range of motion, no edema. No clubbing or cyanosis. Peripheral pulses intact and strong. TELEMETRY: Sinus mechanism overnight LABS: WBC 3.9, hemoglobin 9.8, hct 32.8, platelet 203, sodium 136, potassium 4.0, BUN 16, creatinine 0.60, proBNP 3900, triglycerides 72, LDL 50, HDL 48, TSH 0.42 IMPRESSION: Type II myocardial infarction, demand supply mismatch secondary to bradycardia Bradycardia Syncope Cardiomyopathy, EF 40 to 45% Poorly controlled hypertension History of mild coronary artery disease PLAN: Continue hydralazine Continue dopamine drip Plan for coronary angiogram later today with Dr Garber Possible permanent pacemaker thereafter I am dictating on behalf of Dr Stephan Soliman's history/physical and assessment/plan. Objective - Vital Signs Vital signs: Vital Signs Temp 97.6 F 07/31/24 04:00 Pulse 69 07/31/24 04:00 Resp 17 07/31/24 04:00 BP 124/60 07/31/24 04:00 Pulse Ox 95 07/31/24 04:00 FiO2 Intake & Output 07/30/24 07/31/24 07/31/24 18:59 06:59 18:59 Intake Total 107.617 227.45 102.331 Output Total 1075 Balance 107.617 -847.55 102.331 Weight 74.9 kg Intake: Intake, IV Titration 107.617 227.45 102.331 Amount DOPamine DRIP 800 mg In 107.617 Dextrose/Water 1 250ml. bag @ 3 MCG/KG/MIN 4.082 mls/hr IV .Q24H [facility] Rx#: [id number] Heparin Sod,Pork in 0.45% 227.45 102.331 NaCl 25,000 unit In 0.45 % NaCl 1 250ml.bag @ 12 UNITS/KG/HR 8.709 mls/hr IV .Q24H [facility] Rx#: [id number] Output: Urine 1075 Other: Voiding Method Indwelling Catheter Indwelling Catheter - Labs CBC & Chem 7: 07/31/24 06:26 07/31/24 06:26 Labs: Abnormal Lab Results - Last 24 Hours (Table) 07/30/24 07/30/24 07/31/24 Range/Units 05:12 14:25 06:26 WBC 3.93 L (4.50-10.00) 10*3/uL RBC 3.66 L (4.10-5.20) 10*6/uL Hgb 9.8 L (12.0-15.0) g/dL Hct 32.8 L (37.2-46.3) % MCH 26.8 L (27.0-32.0) pg MCHC 29.9 L (32.0-37.0) g/dL Lymphocytes # 0.73 L (0.90-5.00) 10*3/uL Monocytes # 0.14 L (0.20-1.00) 10*3/uL APTT (22.0-30.0) sec Sodium (137-145) mmol/L Glucose (74-99) mg/dL POC Glucose (mg/dL) 153 H (70-110) mg/dL Calcium (8.4-10.2) mg/dL TSH 0.424 L (0.465-4.680) mIU/L 07/31/24 07/31/24 Range/Units 06:26 06:26 WBC (4.50-10.00) 10*3/uL RBC (4.10-5.20) 10*6/uL Hgb (12.0-15.0) g/dL Hct (37.2-46.3) % MCH (27.0-32.0) pg MCHC (32.0-37.0) g/dL Lymphocytes # (0.90-5.00) 10*3/uL Monocytes # (0.20-1.00) 10*3/uL APTT 36.4 H (22.0-30.0) sec Sodium 136 L (137-145) mmol/L Glucose 108 H (74-99) mg/dL POC Glucose (mg/dL) (70-110) mg/dL Calcium 7.9 L (8.4-10.2) mg/dL TSH (0.465-4.680) mIU/L
--- NOTE | 2024-07-31 11:02 | CA ---
Transthoracic Echo Report Name: Nelly Souza Age: 79 Gender: F : 1945 Exam Date: 07/31/2024 08:52 Exam Location: [facility] Ht (in): 67 Wt (lb): 160 Ordering Physician: Fabian Garber MD ([email or web address]) Attending/Referring Phys: Executive Assistant To President Ashia Cuellar RDCS Procedure CPT: Indications: cardiomyopathy Cardiac Hx: Technical Quality: Good Contrast 1: Total Dose (mL): Contrast 2: Total Dose (mL): MEASUREMENTS (Male / Female) Normal Values 2D ECHO LV Diastolic Diameter PLAX 3.9 cm 4.2 - 5.9 / 3.9 - 5.3 cm LV Systolic Diameter PLAX 2.6 cm IVS Diastolic Thickness 1.6 cm 0.6 - 1.0 / 0.6 - 0.9 cm LVPW Diastolic Thickness 1.6 cm 0.6 - 1.0 / 0.6 - 0.9 cm LV Relative Wall Thickness 0.8 RV Internal Dim ED PLAX 4.8 cm LVOT Diameter 2.2 cm LA Systolic Diameter LX 4.1 cm 3.0 - 4.0 / 2.7 - 3.8 cm LV Diastolic Volume MOD 4C 72.8 cm??? LV Systolic Volume MOD 4C 25.6 cm??? LV Ejection Fraction MOD 4C 64.9 % LV Cardiac Index MOD 4C 1598.6 cm???/min???m??? LV Diastolic Length 4C 8.1 cm LV Systolic Length 4C 6.3 cm M-MODE Aortic Root Diameter MM 3.7 cm LA Systolic Diameter MM 4.5 cm LA Ao Ratio MM 1.2 AV Cusp Separation MM 2.0 cm DOPPLER AV Peak Velocity 158.9 cm/s AV Peak Gradient 10.1 mmHg AI Peak Velocity 399.8 cm/s AI Peak Gradient 63.9 mmHg AI Pressure Half Time 779.3 ms LVOT Peak Velocity 107.9 cm/s LVOT Peak Gradient 4.7 mmHg LVOT Velocity Time Integral 21.9 cm LVOT Stroke Volume 81.0 cm??? LVOT Stroke Volume Index 44.0 ml/m??? LVOT Cardiac Index 2739.8 cm???/min???m??? AV Area Cont Eq pk 2.5 cm??? MV Area PHT 2.0 cm??? Mitral E Point Velocity 81.8 cm/s Mitral A Point Velocity 116.2 cm/s Mitral E to A Ratio 0.7 MV Deceleration Time 384.9 ms TR Peak Velocity 237.6 cm/s TR Peak Gradient 22.6 mmHg Right Ventricular Systolic Press 42.0 mmHg FINDINGS Left Ventricle Left ventricular ejection fraction is estimated at 50-55%. Moderately increased septal wall thickness. Moderately increased posterior wall thickness. Borderline global left ventricular systolic function. Abnormal septal motion. Right Ventricle Mild right ventricular dilatation. Mild pulmonary hypertension. Right Atrium Moderate right atrial dilatation. Left Atrium Moderate left atrial dilatation. Interatrial septal aneurysm. Mitral Valve Mitral valve thickened. Mild mitral regurgitation. Mild mitral annular calcification. Aortic Valve No aortic stenosis. Gnhm-ex-npmcklms aortic regurgitation. Trileaflet aortic valve. Tricuspid Valve Structurally normal tricuspid valve. [id number] tricuspid regurgitation. No tricuspid stenosis. Pulmonic Valve Structurally normal pulmonic valve. Trace pulmonic regurgitation. No pulmonic stenosis. Pericardium Small to trivial pericardial effusion. Aorta Aorta at upper limits of normal. CONCLUSIONS Normal LV size with concentric LVH fair systolic function. Atypical septal motion secondary to bundle branch block. Mild to moderate aortic regurgitation mild mitral regurgitation probably trivial pericardial effusion Previewed by: Dr. Yassine Grewal MD (Electronically Signed) Final Date: 31 July 2024 11:01
[2024-07-31] MEDS: fentaNYL (PF) 50 MCG/1 ML VIAL IVP ONE (13:25)
[2024-07-31] MEDS: MIDAZOLAM 2 MG/2 ML VIAL IVP ONE (13:25)
[2024-07-31] MEDS: LIDOCAINE 1% INJ 10MG/ML (20 ML MDV) SQ ONE (13:25)
[2024-07-31] MEDS: VERAPAMIL SYRINGE (5 MG/10 ML) INTRAARTER ONE (13:27)
[2024-07-31] MEDS: HEPARIN SODIUM 1,000 UN/ML (10ML VL) IVP ONE (13:43)
[2024-07-31] MEDS: NITROGLYCERIN 1000MCG/10ML SYRINGE INTRACORON ONE (13:53)
[2024-07-31] MEDS: HEPARIN SODIUM,PORCINE 10,000 UNIT in SODIUM CHLORIDE 0.9% 1,000 ML IRRIGATION ONE (13:54)
[2024-07-31] MEDS: SODIUM CHLORIDE 0.9% 1,000 ML IV ONE (13:54)
[2024-07-31] MEDS: HEPARIN SODIUM,PORCINE (1 ML) 2,500 UNIT in SODIUM CHLORIDE 0.9% 250 ML IRRIGATION ONE (13:54)
[2024-07-31] MEDS: IOPAMIDOL-370 100ML BTL INJ ONE (14:06)
[2024-07-31] MEDS ORDERED: ALPRAZolam 0.25 MG TAB PO PRN (14:14)
[2024-07-31] MEDS ORDERED: NITROGLYCERIN SL TABS 0.4 MG TAB SUBLINGUAL PRN (14:14)
[2024-07-31] MEDS ORDERED: ALPRAZolam 0.5 MG TAB PO PRN (14:14)
--- NOTE | 2024-07-31 14:54 | P.PN ---
Subjective Progress Note Date: 07/31/24 79 year old M with PMH of DVT, skin CA, psoriatic arthritis, GERD, HTN, HLD presents to the ED for syncope. In the ED she underwent extensive evaluation. BP 119/67, HR 41, T 97.7F, RR 18, 97% on RA. Labs significant for RRBC 4.05, Hg 10.8, Hct 35.4, APTT 21, Na 130, Cl 94, BUN 28, glu 100, AST 79, ALT 82, Trop 4.04-3.87-3.6 with EKG showing AFib with SVR. Patient was started on heparin and dopamine drip and admitted for Cardiology evaluation. Patient was admitted for further workup and management. 07/31 Patient was seen and examined. Denies dizziness, chest pain, shortness of breath or palpitations. Maintained on heparin drip at 14 units/kg/hr and Dopamine drip at 2.5 mcg/kg/min. CBC, Coag panel and BMP significant for WBC 3.93, RBC 3.66, Hg 9.8, Hct 32.8, APTT 36.4, Na 136, glu 108, Ca 7.9. Mag 2.1. Echo shows EF 50-55% with septal wall thickness, mild-mod AR, mild MR. Plans for cardiac cath today. General: non toxic, no distress, appears at stated age Derm: warm, dry Head: atraumatic, normocephalic, symmetric Eyes: EOMI, no lid lag, anicteric sclera Mouth: no lip lesion, mucus membranes moist Cardiovascular: S1S2 antonio, no murmur Lungs: Decreased BS bilateral, no rhonchi, no rales , no accessory muscle use Ext: no gross muscle atrophy, no edema, no contractures Neuro: no focal neuro deficits Psych: Alert, oriented, appropriate affect Based on my assessment of this patient, this patient meets a high complexity level of care. NSTEMI: Continue heparin drip. Monitor daily APTT. ASA 81 mg PO QD. Lipitor 40 mg PO QD. Echo as above. Telemetry monitoring. Plans for Cardiac cath today. Cardiology on board. AV block: Continue dopamine drip. Possible pacemaker per Cardiology. Syncope likely due to above Urinary retention: Straight cath PRN. Lower extremity edema: Lasix 40 mg PO QD. Hypertension: Hydralazine 50 mg PO TID. Losartan and Metoprolol on hold. Chronic normocytic anemia: Recommend age appropriate CA screening. Psoriatic arthritis: Holding MTX. Hyperlipidemia: Lipitor as above. CODE STATUS: FULL CODE DVT Prophylaxis: Heparin drip GI Prophylaxis: Designated medical POA if patient is not able to make medical decisions for themselves: I have reviewed the following interior design consultant notes: Cardio. I have reviewed the results of the following tests: CBC, BMP, Coag panel, Echo. I have ordered the following tests: Daily APTT while on heparin drip. I have discussed the care of this patient with the following independent historian: RN. Davenport. I have independently interpreted the following test below: I have discussed the management of this patient with the following physician: Objective - Vital Signs Vital signs: Vital Signs Temp 97.3 F L 07/31/24 12:00 Pulse 67 07/31/24 12:00 Resp 16 07/31/24 12:00 BP 122/67 07/31/24 14:00 Pulse Ox 98 07/31/24 12:00 FiO2 Intake & Output 07/30/24 07/31/24 07/31/24 18:59 06:59 18:59 Intake Total 107.617 227.45 427.331 Output Total 1075 1050 Balance 107.617 -847.55 -622.669 Weight 74.9 kg 74.9 kg Intake: IV 100 Intake, IV Titration 107.617 227.45 327.331 Amount DOPamine DRIP 800 mg In 107.617 Dextrose/Water 1 250ml. bag @ 3 MCG/KG/MIN 4.082 mls/hr IV .Q24H [facility] Rx#: [id number] Heparin Sod,Pork in 0.45% 227.45 102.331 NaCl 25,000 unit In 0.45 % NaCl 1 250ml.bag @ 12 UNITS/KG/HR 8.709 mls/hr IV .Q24H [facility] Rx#: [id number] Sodium Chloride 0.9% 1, 225 000 ml @ 75 mls/hr IV . [id number] [facility] Rx#:[id number] Output: Urine 1075 1050 Other: Voiding Method Indwelling Catheter Indwelling Catheter Indwelling Catheter - Labs CBC & Chem 7: 07/31/24 06:26 07/31/24 06:26 Labs: Abnormal Lab Results - Last 24 Hours (Table) 07/31/24 07/31/24 07/31/24 Range/Units 06:26 06:26 06:26 WBC 3.93 L (4.50-10.00) 10*3/uL RBC 3.66 L (4.10-5.20) 10*6/uL Hgb 9.8 L (12.0-15.0) g/dL Hct 32.8 L (37.2-46.3) % MCH 26.8 L (27.0-32.0) pg MCHC 29.9 L (32.0-37.0) g/dL Lymphocytes # 0.73 L (0.90-5.00) 10*3/uL Monocytes # 0.14 L (0.20-1.00) 10*3/uL APTT 36.4 H (22.0-30.0) sec Sodium 136 L (137-145) mmol/L Glucose 108 H (74-99) mg/dL Calcium 7.9 L (8.4-10.2) mg/dL
[2024-07-31] MEDS: ACETAMINOPHEN TAB 325 MG TAB PO PRN (15:36)
[2024-07-31] MEDS: LIDOCAINE 4% PATCH TOPICAL SCH (15:42)
[2024-07-31] MEDS ORDERED: DOPamine DRIP 800 MG in DEXTROSE/WATER 1 250ML.BAG IV SCH (17:00)
[2024-07-31] MEDS: DOPamine DRIP 800 MG in DEXTROSE/WATER 1 250ML.BAG IV SCH (17:05)
--- NOTE | 2024-07-31 17:33 | P.CARDCATH ---
Date of Procedure: 07/31/24 Description of Procedure: DIAGNOSTIC CORONARY ANGIOGRAPHY and LEFT HEART CATH REPORT PROCEDURES PERFORMED: Left heart catheterization Selective coronary angiography Moderate conscious sedation 35 mins Left radial access INDICATION: NSTEMI Patient with past medical history of unexplained syncope in the past. Presented with syncope. On admission she was noticed to be bradycardic with junctional rhythm and left bundle branch block. On admission she also had evidence of elevated troponin. She was scheduled for a heart catheterization. Her prior heart catheter #[id number] shows moderate nonobstructive disease in RCA and LCx. BRIEF HPI: CONSENT: I have explained the procedural steps of above-mentioned procedures in layman's terms to the patient. I discussed the risks (including but not limited to stroke, emergent vascular or cardiac surgery or ), benefits and alternative therapies for the above-mentioned procedure. I discussed the risks of sedation/analgesia and blood product administration (if indicated). The patient has indicated understanding and acceptance of these risks. Conscious Sedation: Patient's ECG, heart rate, blood pressure, pulse oximetry were monitored throughout the duration of procedure under my direct supervision. 0.5 mg Versed and 25 mcg Fentanyl were used for induction of moderate conscious sedation. Total duration of moderate concious sedation 35 minutes. PROCEDURAL DETAILS: Patient was prepped and draped in sterile fashion. 1% lidocaine was infiltrated over the right radial artery. Left radial access was obtained via modified seldinger technique. Medications: 5mg of verapamil was administed in the radial sheet. 5000 Units of Heparin was administed once the catheter reached the aortic root Wires and Catheter used: J wire was advanced under fluroscopy to get to aortic root. 5 american JR 4 diagnostic catheter was utilized obtain left ventricular pressure and pressure gradint across aortic valve. 5 american JR 4 diagnostic catheter was used to selectively engage the right coronary ostium. 5 american JL 4 diagnostic catheter was utilized to selectively engage the left coronary ostium. Angiographic images were reviewed in detail. Catheter and wire were removed. Radial sheet was flushed. The right radial sheath was removed and a TR band was placed. Patent hemostasis was achieved. The patient tolerated the procedure well. Patient was transported back to the post catheterization holding area in stable condition. TECHNICAL DETAILS Total contrast used: Isovue [75 ml] Complications: [none] Estimated Blood loss: less than 15 ml HEMODYNAMICS: Aortic Pressure: 130/70 mmHg. LV pressure: 130/2 mmHg. LVEDP 6 mmHg. There was no significant gradient across the aortic valve. SELECTIVE CORONARY ARTERIOGRAPHY: LEFT MAIN: The left main is short and large caliber vessel. It bifurcates into the LAD and circumflex. Left main appears angiographically normal. LEFT ANTERIOR DESCENDING CORONARY ARTERY: LAD is large caliber and reaches up to the apex. LAD appears angiographically patent with mild luminal irregularities. It gives rise to diagonal branches which appears patent. LEFT CIRCUMFLEX CORONARY ARTERY: LCx is large caliber and is codominant. Proximal LCx is mildly ectatic with 40 to 50% disease in midportion. Proximal LCx gives rise to small OM1, large OM 2 which appear patent. After giving OM 2 mid and distal LCx appears patent with mild luminal irregularities. RIGHT CORONARY ARTERY: Codominant vessel. Proximal portion of mid RCA has 70 to 80% stenosis. Distal RCA appears spasmodic with sluggish flow and mild competitive flow in distal portion. There are also faint [id number] collaterals noticed. IMPRESSION: 70 to 80% mid RCA disease with QUIQUE II flow Faint [id number] collaterals filling distal RCA and PDA 40 to 50% disease in proximal LCx Normal LVEDP When compared to prior heart cath, RCA disease appears to to have progressed, LCx appears stable PLAN: 75 cc/h for 6 hours Continue ICU, discontinue IV heparin Plan for staged intracordal nitroglycerin administration of RCA and IFR assessment. Performing Physician Fabian Garber MD, FACC, RPVI Thank you for allowing [facility] to participate in this patient's care. Feel free to reach out in case of any followup questions.
[2024-08-01] MEDS: SODIUM CHLORIDE 0.9% 1,000 ML in EMPTY BAG 1 BAG IV SCH (01:30)
[2024-08-01] MEDS: ATORVASTATIN 80 MG TAB PO ONE (05:12)
[2024-08-01] MEDS: ASPIRIN 325 MG TAB PO ONE (05:12)
[2024-08-01] MEDS: IV FLUID CONTINUATION 1,000 ML IV ONE (11:03)
[2024-08-01] MEDS: HEPARIN SODIUM,PORCINE (1 ML) 2,500 UNIT in SODIUM CHLORIDE 0.9% 250 ML IRRIGATION PRN (11:05)
[2024-08-01] MEDS: HEPARIN SODIUM,PORCINE 10,000 UNIT in SODIUM CHLORIDE 0.9% 1,000 ML IRRIGATION PRN (11:05)
[2024-08-01] MEDS: MIDAZOLAM 2 MG/2 ML VIAL IVP ONE (11:08)
[2024-08-01] MEDS: LIDOCAINE 1% INJ 10MG/ML (20 ML MDV) SQ ONE (11:09)
[2024-08-01] MEDS: NITROGLYCERIN 1000MCG/10ML SYRINGE INTRACORON ONE (11:27)
[2024-08-01] MEDS: HEPARIN SODIUM 1,000 UN/ML (10ML VL) IV ONE (11:31)
[2024-08-01] MEDS: IOPAMIDOL-370 100ML BTL INJ ONE ×3 (11:54→13:14)
[2024-08-01] MEDS: TICAGRELOR 90 MG TAB PO ONE (11:58)
[2024-08-01] MEDS: HYDROmorphone 0.5 MG/0.5 ML SYRINGE IVP ONE (12:19)
[2024-08-01] MEDS: SODIUM CHLORIDE 0.9% 1,000 ML IV ONE (13:14)
--- NOTE | 2024-08-01 14:05 | P.PN ---
Subjective Progress Note Date: 08/01/24 79 year old M with PMH of DVT, skin CA, psoriatic arthritis, GERD, HTN, HLD presents to the ED for syncope. In the ED she underwent extensive evaluation. BP 119/67, HR 41, T 97.7F, RR 18, 97% on RA. Labs significant for RRBC 4.05, Hg 10.8, Hct 35.4, APTT 21, Na 130, Cl 94, BUN 28, glu 100, AST 79, ALT 82, Trop 4.04-3.87-3.6 with EKG showing AFib with SVR. Patient was started on heparin and dopamine drip and admitted for Cardiology evaluation. Patient was admitted for further workup and management. 07/31 Patient was seen and examined. Denies dizziness, chest pain, shortness of breath or palpitations. Maintained on heparin drip at 14 units/kg/hr and Dopamine drip at 2.5 mcg/kg/min. CBC, Coag panel and BMP significant for WBC 3.93, RBC 3.66, Hg 9.8, Hct 32.8, APTT 36.4, Na 136, glu 108, Ca 7.9. Mag 2.1. Echo shows EF 50-55% with septal wall thickness, mild-mod AR, mild MR. Plans for cardiac cath today. 08/01 Underwent cardiac cath yesterday showing 70 to 80% mid RCA disease with QUIQUE II flow, 40 to 50% disease in proximal LCx. Plans for intracordal nitroglycerin administration of RCA and IFR assessment today. 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 Based on my assessment of this patient, this patient meets a high complexity level of care. NSTEMI: ASA 81 mg PO QD. Lipitor 40 mg PO QD. Echo as above. Telemetry monitoring. Plans for intracordal nitroglycerin administration of RCA and IFR assessment today. Cardiology on board. AV block: Continue dopamine drip. Possible pacemaker per Cardiology. Syncope likely due to above Urinary retention: Straight cath PRN. Lower extremity edema: Lasix 40 mg PO QD. Hypertension: Hydralazine 50 mg PO TID. Losartan and Metoprolol on hold. Chronic normocytic anemia: Recommend age appropriate CA screening. Psoriatic arthritis: Holding MTX. Hyperlipidemia: Lipitor as above. CODE STATUS: FULL CODE DVT Prophylaxis: Lovenox SQ GI Prophylaxis: Designated medical POA if patient is not able to make medical decisions for themselves: I have reviewed the following oracle adf consultant notes: Cardio. I have reviewed the results of the following tests: I have ordered the following tests: I have discussed the care of this patient with the following independent historian: ERIC. I have independently interpreted the following test below: I have discussed the management of this patient with the following physician: Objective - Vital Signs Vital signs: Vital Signs Temp 98 F 08/01/24 08:10 Pulse 76 08/01/24 08:10 Resp 16 08/01/24 08:10 BP 149/76 08/01/24 08:10 Pulse Ox 96 08/01/24 08:10 FiO2 Intake & Output 07/31/24 08/01/24 08/01/24 18:59 06:59 18:59 Intake Total 427.331 Output Total 2250 625 350 Balance -1822.669 -625 -350 Weight 74.9 kg 45.5 kg 75 kg Intake: IV 100 Intake, IV Titration 327.331 Amount Heparin Sod,Pork in 0.45% 102.331 NaCl 25,000 unit In 0.45 % NaCl 1 250ml.bag @ 12 UNITS/KG/HR 8.709 mls/hr IV .Q24H [facility] Rx#: [id number] Sodium Chloride 0.9% 1, 225 000 ml @ 75 mls/hr IV . [id number] [facility] Rx#:[id number] Output: Urine 2250 625 350 Other: Voiding Method Indwelling Catheter Indwelling Catheter Indwelling Catheter - Labs CBC & Chem 7: 07/31/24 06:26 07/31/24 06:26
--- NOTE | 2024-08-01 14:59 | P.CARDCATH ---
Date of Procedure: 08/01/24 Description of Procedure: Procedure: #1 IFR assessment of right coronary artery #2 PTCA and stenting of proximal and ostial RCA with drug-eluting stents. #3 intravascular ultrasound of right coronary artery. Performed by Dr. Ignacio Grewal, assisted by Dr. Cabello History: Patient was referred for cardiac catheterization to evaluate for significance of ostial and proximal RCA lesion with IFR and intervention as determined. This is a 79-year-old lady with a history of hypertension hyperlipidemia rheumatoid arthritis left bundle branch block pattern with a history of syncope which was thought to be unrelated to any arrhythmia based on a loop recorder evaluation but probably a vasodepressor component. She had a Lexiscan stress test that was abnormal in 2023 and cardiac cath did not reveal significant lesion. She underwent shoulder surgery uneventfully following that. She came into the hospital with what appears to be an episode of syncope and she slumped over sitting on a chair. Heart rate was in the 30s. She had a junctional rhythm with a left bundle. Troponins were abnormal suggestive of a non-ST elevation DC. Cardiac cath performed by Dr. Garber yesterday revealed ostial and proximal RCA disease. I reviewed the angiograms talked with the patient and family and suggested a repeat cardiac cath with IFR assessment and intervention based on findings. The rationale risks benefits options were explained to the patient and family. They understood all details and wished to proceed with the procedure. Patient has calcified arteries and very difficult right radial approach and she had a left radial cath yesterday. Procedure Details: The risks, benefits, complications, treatment options, and expected outcomes were discussed with the patient. The patient and/or family concurred with the proposed plan, giving informed consent. Patient was brought to the process laboratory specialist after IV hydration was begun and oral premedication was given. Patient was further sedated with midazolam. Patient was prepped and draped in the usual manner. Under strict aseptic precautions and local anesthesia a 6 Slovenian introducer was placed in the left femoral artery. I used a regular needle because of significant calcification and micropuncture wire would not advance. There was a small hematoma noted. Patient received heparin and ACT was kept between 250 and 300. She received 180 mg of Brilinta. I used a standard right Jonathon guide catheter and performed a IFR assessment of the appropriate calibration and balancing. iFR was 0.41. I then advanced a additional wire which was a 014 run-through wire and over this I could not advance a 3.0 balloon. I switched to a 2.0 balloon and dilated the proximal lesion and the ostial lesion. Subsequently I used a 3.2 balloon and dilated both the lesions. I had [address] 1 was a IFR wire and 1 was a run-through wire. Over the run-through wire I advanced a 3.25 caliber 23 mm long Xience stent and deployed this at 16 tracie. I then had difficulty with a guide support and the guidewire and the catheter came out. I went back with a KR H guide catheter and a run-through wire and then I dilated the ostium with a 4.2 NC trek balloon. As I was manipulating the wire the tip of the wire got embedded behind the sheath and I could not take the wire out. I requested the assistance of Dr. Cabello. Which switched over to a right Jonathon guide catheter and additional run-through wire was advanced. Eventually the tip of the wire broke off and the tip remained behind the first stent. We then advanced a second run-through wire with [address] we used a 3.5 balloon and dilated the entire stented segment. I noted that the stent deployment was just beyond the ostium and therefore an additional 4.5 caliber 23 mm long stent was deployed and the stent was kept right at the ostium. The ostial portion of the stent was also flared. We then used a 4.0 NC trek balloon and dilated the proximal lesion as well. The entire stented area was dilated with a 4.5 stent balloon and the proximal lesion was dilated with a 4.0 NC trek balloon. I performed intravascular ultrasound which revealed that the stent was fully expanded well opposed and the area of dissection where the wire was trapped was completely open with good flow. The sheath was then taken out and a Angio-Seal device used to secure hemostasis but because of a hematoma I applied a FemoStop as well. Patient Toller procedure well. The details including the wire trapping behind the stent were explained to the patient and family. She was sent to the room in a stable condition with a FemoStop good hemostasis and excellent angiographic result. End result both angiographically and by ultrasound was excellent with the remarkable apposition and full expansion of the stent and a excellent QUIQUE-3 flow. We will probably discharge the patient in 48 hours and observe the groin closely. Moderate conscious sedation time was 130 minutes. Patient's oxygen saturation hemodynamics and EKG were monitored closely. After the procedure was completed the sheaths and catheters were all removed. Hemostasis was achieved with Angio-Seal device/manual pressure and FemoStop. Complications: None Estimated Blood Loss: Minimal Complications: None; patient tolerated the procedure well. Disposition: 3 S. telemetry unit- hemodynamically stable. Condition: Stable Discharge Disposition: To 3 S. telemetry and discharge in 24 to 48 hours. Details discussed with the patient and her family members including all daughters and son.
--- NOTE | 2024-08-01 21:25 | P.PN ---
Subjective Progress Note Date: 08/01/24 Patient is 79-year-old female past medical history significant for hypertension, hyperlipidemia, nonobstructive coronary artery disease, carotid artery stenosis, loop recorder, and previous episodes of syncope. Did previously have a heart catheterization December, remarkable for nonocclusive coronary artery disease. With 30 to 40% disease in the RCA, circumflex, and LAD. Brought in to the emergency department on 07/29/2024. Reportedly, was sitting in a chair outside with her daughter. Had been feeling relatively well up until this point. She became lightheaded, diaphoretic, and short of breath followed by a period of unresponsiveness. EMS was called. She was found to be bradycardic, with a heart rate reportedly in the 30s bpm. EKG done on arrival remarkable for wide-complex regular rhythm, rate 41 bpm, chronic LBBB, probable junctional rhythm. She was started on dopamine infusion. Also, found to have elevated troponins, 4.04, 3.87, and 3.6. Patient was started on IV heparin per cardiology. Remaining labs including a CBC with a WBC count of 4.6, hemoglobin 10, platelets 199. Most recent APTT 45. CMP: Sodium 133, potassium 4.2, chloride 98, serum bicarb 28, BUN 22, creatinine 0.72, glucose 111. NT proBNP 3930. TSH 0.42. Patient currently being evaluated in the intensive care unit. She is resting comfortably on room air. She is awake and alert. No focal neurological deficits. Denies any chest pain, heart palpitations, lower extremity edema. Denies any nausea or vomiting. Denies any difficulty in breathing. She does take metoprolol outpatient basis, denies taking extra doses, and states that her children organize her pillbox. Dopamine continues at 2.5 mcg/kg/min. Also, heparin infusing per protocol. Heart rhythm appears normal sinus on bedside monitor with a rate of 66 bpm. Blood pressure is normotensive at 125/68 mmHg. Plan for possible heart catheterization tomorrow. On 08/01/2024, the patient is being seen for a follow-up. The patient underwent a cardiac catheterization and the patient underwent PTCA and stenting of the proximal and ostial RCA with a drug-eluting stent. Noted this patient has been having syncope and this was thought to be unrelated to cardiac arrhythmia based on loop recorder. She was bradycardic with a junctional rhythm and a bundle branch block pattern and the troponins were elevated suggestive of an acute and STEMI and a cardiac catheterization revealed ostial and proximal RCA disease and based on that the patient underwent catheterization and angioplasty and stenting of the LAD. The patient is currently stable. Hemodynamically stable. She is on room air oxygen. Heart rate is 71 and the most recent EKG from earlier this morning showed a sinus rhythm with occasional PVCs and a left bundle branch blo ck pattern. The labs from yesterday was noted. The patient is currently on a combination of aspirin and Brilinta. Lovenox for DVT prophylaxis. Lasix 20 mg p.o. daily. No beta-blockers for now. Objective - Vital Signs Vital signs: Vital Signs Temp 98 F 08/01/24 08:10 Pulse 76 08/01/24 08:10 Resp 16 08/01/24 08:10 BP 149/76 08/01/24 08:10 Pulse Ox 96 08/01/24 08:10 FiO2 Intake & Output 07/31/24 08/01/24 08/01/24 18:59 06:59 18:59 Intake Total 427.331 Output Total 2250 625 350 Balance -1822.669 -625 -350 Weight 74.9 kg 45.5 kg 75 kg Intake: IV 100 Intake, IV Titration 327.331 Amount Heparin Sod,Pork in 0.45% 102.331 NaCl 25,000 unit In 0.45 % NaCl 1 250ml.bag @ 12 UNITS/KG/HR 8.709 mls/hr IV .Q24H KODY Rx#: [id number] Sodium Chloride 0.9% 1, 225 000 ml @ 75 mls/hr IV . [id number] KODY Rx#:[id number] Output: Urine 2250 625 350 Other: Voiding Method Indwelling Catheter Indwelling Catheter Indwelling Catheter - Exam GENERAL EXAM: Alert, 79-year-old female, comfortable in no apparent distress. The patient is currently on room air oxygen HEAD: Normocephalic and atraumatic EYES: Normal reaction of pupils, equal size. NOSE: Clear with pink turbinates. THROAT: No erythema or exudates. NECK: No masses, no JVD. CHEST: No chest wall deformity. LUNGS: Equal air entry with no crackles, wheeze, rhonchi or dullness. CVS: S1 and S2 normal with no audible murmur, regular rhythm. No extra heart sounds ABDOMEN: No hepatosplenomegaly, active bowel sounds, no guarding or rigidity. SPINE: No scoliosis or deformity SKIN: No rashes CENTRAL NERVOUS SYSTEM:. Alert fully oriented, cranial nerves II through XII intact, no focal deficits, tone is normal in all 4 extremities. EXTREMITIES: There is no peripheral edema, clubbing, or cyanosis. Peripheral pulses are intact. - Labs CBC & Chem 7: 07/31/24 06:26 07/31/24 06:26 Assessment and Plan Assessment: Symptomatic bradycardia, recovered Syncope, secondary to above Coronary artery disease and acute NSTEMI the patient is postcardiac catheterization and stenting of the proximal and ostial RCA, currently on a combination of aspirin and Brilinta. Hypertension History of hyperlipidemia History of left internal carotid stenosis, 50 to 69% Remote history of DVT Chronic urinary retention, requiring intermittent straight catheterizations History of frequent urinary tract infections History of psoriatic arthritis Plan: Patient is on room air oxygen Hemodynamically stable Current rhythm appears normal sinus on bedside monitor, chronic LBBB pattern Postcardiac catheterization and stenting of the RCA proximal and ostial lesion Maintained on aspirin and Brilinta Beta-shiraz on hold Continue monitoring the overall hemodynamics Oral diuretics Will continue to follow Time with Patient: Greater than 30
[2024-08-02 08:07] LABS: Basophils # (A) 0.01 10*3/uL (0.00-0.10); Basophils % (A) 0.3 %; Eosinophils # (A) 0.06 10*3/uL (0.04-0.35); Eosinophils % (A) 2.1 %; HCT 30.1 % (37.2-46.3); HGB 8.9 g/dL (12.0-15.0); Lymphocytes # (A) 0.42 10*3/uL (0.90-5.00); Lymphocytes % (A) 14.7 %; MCH 26.6 pg (27.0-32.0); MCHC 29.6 g/dL (32.0-37.0); MCV 89.9 fL (80.0-97.0); Mean Platelet Volume 8.8 fL (9.5-12.2); Monocytes # (A) 0.25 10*3/uL (0.20-1.00); Monocytes % (A) 8.7 %; Neutrophils # (A) 2.12 10*3/uL (1.80-7.70); Neutrophils % (A) 74.2 %; Platelet Count 182 10*3/uL (140-440); RBC 3.35 10*6/uL (4.10-5.20); RDW 18.9 % (11.5-14.5); WBC 2.86 10*3/uL (4.50-10.00)
[2024-08-02 08:34] LABS: African American GFR (CKD) >90 (>60 ml/min/1.73 sqM); Anion Gap 4 mmol/L; Blood Urea Nitrogen 11 mg/dL (7-17); Calcium 7.5 mg/dL (8.4-10.2); Carbon Dioxide 26 mmol/L (22-30); Chloride 107 mmol/L (98-107); Glucose 106 mg/dL (74-99); Non-African American GFR(CKD) 87 (>60 ml/min/1.73 sqM); Potassium 3.7 mmol/L (3.5-5.1); Sodium 137 mmol/L (137-145)
[2024-08-02] MEDS: ATORVASTATIN 80 MG TAB PO SCH (09:08)
[2024-08-02] MEDS: FUROSEMIDE 20 MG TAB PO SCH (09:09)
[2024-08-02] MEDS: ENOXAPARIN 40 MG/0.4 ML SYRINGE SQ SCH (09:09)
[2024-08-02] MEDS: TICAGRELOR 90 MG TAB PO SCH (09:09)
--- NOTE | 2024-08-02 09:29 | US ---
EXAMINATION TYPE: US lower ext pseudo artery LT DATE OF EXAM: 08/02/2024 COMPARISON: NONE CLINICAL INDICATION: Female, 79 years old with history of Status post cath, hematoma, pain and swelli ng, rule out pseudoaneurysm; Groin approach heart cath on Wednesday TECHNIQUE: Grayscale, color Doppler and spectral Doppler imaging performed of the groin, post cardiac catheter to assess for pseudoaneurysm. SIDE PERFORMED: left Color and Waveform Doppler performed to assess for the presence of pseudoaneurysm; FINDINGS AND IMPRESSION: Patients area of concern scanned. 1. There is a 4.1 x 0.9 x 1.5 cm complex fluid collection/hematoma adjacent to the GSV. 2. There is a 5.9 x 2.0 x 2.6 cm lobulated oval collection adjacent to the HISTORY TUTOR with prominent interna l thrombosis but residual areas of arterial flow within. Suspect a very narrow neck from the subjacen t HISTORY TUTOR. Given the lack of bidirectional flow, consider a contained leak/extravasation rather than pseu doaneurysm. 3. There is a smaller 3.5 x 0.8 x 1.3cm rounded collection connected to this primary area via a 3 mm long and 2 mm wide neck. No internal flow within. Possible extension of contained leak, now thrombose d. [facility], , 08/02/2024 9:27 AM
--- NOTE | 2024-08-02 10:53 | P.PN ---
Subjective HISTORY OF PRESENT ILLNESS: Patient is s/p cardiac catheterization yesterday with Dr. Grewal with stenting of proximal and ostial RCA. Patient examined this morning the bedside. Patient currently denies chest pain or pressure. She denies shortness of breath. Patient had previously been bradycardic and was on dopamine drip which has since been discontinued. Telemetry reveals sinus mechanism with a heart rate in the 60s70s. The patient does have a small right hematoma and required use of FemStop overnight. PHYSICAL EXAM: VITAL SIGNS: Reviewed. GENERAL: Well-developed in no acute distress. NECK: Supple. No JVD or thyromegaly LUNGS: Respirations even and unlabored. Lungs essentially clear to auscultation bilaterally. HEART: Regular rate and rhythm. S1 and S2 heard. EXTREMITIES: Normal range of motion. No clubbing or cyanosis. Peripheral pulses intact. No lower extremity edema ASSESSMENT: Syncope Non-STEMI, status post cardiac catheterization with stenting of proximal ostial RCA Bradycardia, requiring dopamine, resolved after stenting of RCA History of syncope History of loop recorder implantation Hypertension Ischemic cardiomyopathy 40 to 45% PLAN: Continue dual antiplatelet therapy with aspirin and Brilinta for 12 months Continue high intensity statin. LDL goal less than 70 Continue Lasix and hydralazine Avoid AV christo blocking agents Continue telemetry monitoring Obtain ultrasound of right groin to assess for pseudoaneurysm Further recommendations pending patient course Nurse practitioner note has been reviewed by physician. Signing provider agrees with the documented findings, assessment, and plan of care documented by OUTBOUND TELEMARKETING REPRESENTATIVE as a scribe. Objective - Vital Signs Vital signs: Vital Signs Temp 98.1 F 08/02/24 09:05 Pulse 76 08/02/24 09:05 Resp 16 08/02/24 09:05 BP 132/71 08/02/24 09:05 Pulse Ox 97 08/02/24 09:05 FiO2 Intake & Output 08/01/24 08/02/24 08/02/24 18:59 06:59 18:59 Intake Total 520 Output Total 1525 225 Balance -1005 -225 Weight 75 kg 75.6 kg Intake: IV 520 Output: Urine 1525 225 Other: Voiding Method Indwelling Catheter Indwelling Catheter Indwelling Catheter - Labs CBC & Chem 7: 08/02/24 07:28 08/02/24 07:28 Labs: Abnormal Lab Results - Last 24 Hours (Table) 08/02/24 08/02/24 Range/Units 07:28 07:28 WBC 2.86 L (4.50-10.00) 10*3/uL RBC 3.35 L (4.10-5.20) 10*6/uL Hgb 8.9 L (12.0-15.0) g/dL Hct 30.1 L (37.2-46.3) % MCH 26.6 L (27.0-32.0) pg MCHC 29.6 L (32.0-37.0) g/dL MPV 8.8 L (9.5-12.2) fL Lymphocytes # 0.42 L (0.90-5.00) 10*3/uL Glucose 106 H (74-99) mg/dL Calcium 7.5 L (8.4-10.2) mg/dL
--- NOTE | 2024-08-02 11:42 | P.PN ---
Subjective Progress Note Date: 08/02/24 79 year old M with PMH of DVT, skin CA, psoriatic arthritis, GERD, HTN, HLD presents to the ED for syncope. In the ED she underwent extensive evaluation. BP 119/67, HR 41, T 97.7F, RR 18, 97% on RA. Labs significant for RRBC 4.05, Hg 10.8, Hct 35.4, APTT 21, Na 130, Cl 94, BUN 28, glu 100, AST 79, ALT 82, Trop 4.04-3.87-3.6 with EKG showing AFib with SVR. Patient was started on heparin and dopamine drip and admitted for Cardiology evaluation. Patient was admitted for further workup and management. 07/31 Patient was seen and examined. Denies dizziness, chest pain, shortness of breath or palpitations. Maintained on heparin drip at 14 units/kg/hr and Dopamine drip at 2.5 mcg/kg/min. CBC, Coag panel and BMP significant for WBC 3.93, RBC 3.66, Hg 9.8, Hct 32.8, APTT 36.4, Na 136, glu 108, Ca 7.9. Mag 2.1. Echo shows EF 50-55% with septal wall thickness, mild-mod AR, mild MR. Plans for cardiac cath today. 08/01 Underwent cardiac cath yesterday showing 70 to 80% mid RCA disease with QUIQUE II flow, 40 to 50% disease in proximal LCx. Plans for intracordal nitroglycerin administration of RCA and IFR assessment today. 08/02 Patient was seen and examined. Underwent PTCA and stenting of proximal and ostial RCA with drug-eluting stents yesterday. She has bruising and swelling of the left groin. Arterial duplex showing 4.1 x 0.9 x 1.5 cm hematoma adjacent to the GSV, 5.9 x 2 x 2.6 hematoma adjacent to the DIRECTOR GLOBAL SALES with leak, 3.5 x 0.8 x 1.3 cm collection concerning of possible extension of contained leak. Femostop re- applied. CBC and BMP significant for WBC 2.86, RBC 3.35, Hg 8.9, Hct 30.1, glu 106, Ca 7.5. General: non toxic, no distress, appears at stated age Derm: warm, dry Head: atraumatic, normocephalic, symmetric Eyes: EOMI, no lid lag, anicteric sclera Mouth: no lip lesion, mucus membranes moist Cardiovascular: S1S2 reg, no murmur Lungs: Decreased BS bilateral, no rhonchi, no rales , no accessory muscle use Ext: no gross muscle atrophy, no edema, no contractures, bruising and swelling of the L michelet with femostop applied. Neuro: no focal neuro deficits Psych: Alert, oriented, appropriate affect Based on my assessment of this patient, this patient meets a high complexity level of care. NSTEMI: Status post PTCA and stenting of proximal and ostial RCA with drug- eluting stent. ASA 81 mg PO QD. Lipitor 80 mg PO QD. Brilinta 90 mg PO BID. Echo as above. Telemetry monitoring. Cardiology on board. L groin hematoma: Femostop applied by Cardiology. Monitor Hg and pulses. Morphine 2 mg IV Q4H PRN pain. AV block: Avoid AV christo blockers per Cardiology. Syncope likely due to above Urinary retention: Straight cath PRN. Lower extremity edema: Lasix 40 mg PO QD. Hypertension: Hydralazine 50 mg PO TID. Losartan and Metoprolol on hold. Chronic normocytic anemia: Recommend age appropriate CA screening. Psoriatic arthritis: Holding MTX. Hyperlipidemia: Lipitor as above. CODE STATUS: FULL CODE DVT Prophylaxis: Lovenox SQ GI Prophylaxis: Designated medical POA if patient is not able to make medical decisions for themselves: I have reviewed the following device sales consultant notes: Cardio. I have reviewed the results of the following tests: CBC, BMP, Art duplex. I have ordered the following tests: CBC and BMP in the AM. I have discussed the care of this patient with the following independent historian: ERIC. Family. I have independently interpreted the following test below: I have discussed the management of this patient with the following physician: Objective - Vital Signs Vital signs: Vital Signs Temp 98.1 F 08/02/24 09:05 Pulse 76 08/02/24 09:05 Resp 16 08/02/24 09:05 BP 132/71 08/02/24 09:05 Pulse Ox 97 08/02/24 09:05 FiO2 Intake & Output 08/01/24 08/02/24 08/02/24 18:59 06:59 18:59 Intake Total 520 Output Total 1525 225 Balance -1005 -225 Weight 75 kg 75.6 kg Intake: IV 520 Output: Urine 1525 225 Other: Voiding Method Indwelling Catheter Indwelling Catheter Indwelling Catheter - Labs CBC & Chem 7: 08/02/24 07:28 08/02/24 07:28 Labs: Abnormal Lab Results - Last 24 Hours (Table) 08/02/24 08/02/24 Range/Units 07:28 07:28 WBC 2.86 L (4.50-10.00) 10*3/uL RBC 3.35 L (4.10-5.20) 10*6/uL Hgb 8.9 L (12.0-15.0) g/dL Hct 30.1 L (37.2-46.3) % MCH 26.6 L (27.0-32.0) pg MCHC 29.6 L (32.0-37.0) g/dL MPV 8.8 L (9.5-12.2) fL Lymphocytes # 0.42 L (0.90-5.00) 10*3/uL Glucose 106 H (74-99) mg/dL Calcium 7.5 L (8.4-10.2) mg/dL
[2024-08-02] MEDS: polyethylene glycoL 3350 17 GM POWD.PACK PO SCH (12:00)
[2024-08-02] MEDS: MORPHINE SULFATE 2 MG/ML SYRINGE IVP STA (14:47)
[2024-08-02 16:14] VITALS: RESP 16
[2024-08-02] MEDS: MORPHINE SULFATE 2 MG/ML SYRINGE IVP PRN (19:33)
--- NOTE | 2024-08-02 20:20 | P.PN ---
Subjective Progress Note Date: 08/02/24 Patient is 79-year-old female past medical history significant for hypertension, hyperlipidemia, nonobstructive coronary artery disease, carotid artery stenosis, loop recorder, and previous episodes of syncope. Did previously have a heart catheterization December, remarkable for nonocclusive coronary artery disease. With 30 to 40% disease in the RCA, circumflex, and LAD. Brought in to the emergency department on 07/29/2024. Reportedly, was sitting in a chair outside with her daughter. Had been feeling relatively well up until this point. She became lightheaded, diaphoretic, and short of breath followed by a period of unresponsiveness. EMS was called. She was found to be bradycardic, with a heart rate reportedly in the 30s bpm. EKG done on arrival remarkable for wide-complex regular rhythm, rate 41 bpm, chronic LBBB, probable junctional rhythm. She was started on dopamine infusion. Also, found to have elevated troponins, 4.04, 3.87, and 3.6. Patient was started on IV heparin per cardiology. Remaining labs including a CBC with a WBC count of 4.6, hemoglobin 10, platelets 199. Most recent APTT 45. CMP: Sodium 133, potassium 4.2, chloride 98, serum bicarb 28, BUN 22, creatinine 0.72, glucose 111. NT proBNP 3930. TSH 0.42. Patient currently being evaluated in the intensive care unit. She is resting comfortably on room air. She is awake and alert. No focal neurological deficits. Denies any chest pain, heart palpitations, lower extremity edema. Denies any nausea or vomiting. Denies any difficulty in breathing. She does take metoprolol outpatient basis, denies taking extra doses, and states that her children organize her pillbox. Dopamine continues at 2.5 mcg/kg/min. Also, heparin infusing per protocol. Heart rhythm appears normal sinus on bedside monitor with a rate of 66 bpm. Blood pressure is normotensive at 125/68 mmHg. Plan for possible heart catheterization tomorrow. On 08/01/2024, the patient is being seen for a follow-up. The patient underwent a cardiac catheterization and the patient underwent PTCA and stenting of the proximal and ostial RCA with a drug-eluting stent. Noted this patient has been having syncope and this was thought to be unrelated to cardiac arrhythmia based on loop recorder. She was bradycardic with a junctional rhythm and a bundle branch block pattern and the troponins were elevated suggestive of an acute and STEMI and a cardiac catheterization revealed ostial and proximal RCA disease and based on that the patient underwent catheterization and angioplasty and stenting of the LAD. The patient is currently stable. Hemodynamically stable. She is on room air oxygen. Heart rate is 71 and the most recent EKG from earlier this morning showed a sinus rhythm with occasional PVCs and a left bundle branch blo ck pattern. The labs from yesterday was noted. The patient is currently on a combination of aspirin and Brilinta. Lovenox for DVT prophylaxis. Lasix 20 mg p.o. daily. No beta-blockers for now. On 08/02/2024, the patient is being seen for a follow-up. Patient is doing well. No specific complaints. The patient is postcardiac catheterization and stenting of the RCA. No syncope. No bradycardia arrhythmias. The patient did develop a hematoma in the left groin and there was some mild drop in hemoglobin and hemoglobin is currently down to 8.9 compared to 9.8. Doppler duplex of the lower extremity artery showed a 4.1 cm complex fluid collection/hematoma adjacent to the greater saphenous vein. There is also a 5.9 cm lobulated oval collection adjacent to the common femoral artery with prominent internal thrombosis but residual areas of arterial flow within them. Suspect a very narrow neck adjacent to the FRANCHISE SALES REPRESENTATIVE. Another 3.5 cm rounded collection collected his primary area via a 3 mm long and a 2 mm wide neck. Based on that, the patient was offered a FemoStop that is being applied every 2 hours. There is pulses in the lower extremities bilaterally. The patient is post NSTEMI and maintenance advisor on the case. The patient also has cardiomyopathy with an ejection fraction 40 to 45% and she is known to have hypertension. Hemoglobin is being monitored. The patient continues to be on a combination of aspirin and Brilinta. The patient is also on a combination of Lasix 20 mg p.o. daily and hydralazine 50 mg p.o. 3 times daily. Objective - Vital Signs Vital signs: Vital Signs Temp 97.8 F 08/02/24 12:00 Pulse 77 08/02/24 12:00 Resp 18 08/02/24 12:00 BP 129/72 08/02/24 12:00 Pulse Ox 98 08/02/24 12:00 FiO2 Intake & Output 08/01/24 08/02/24 08/02/24 18:59 06:59 18:59 Intake Total 520 Output Total 1525 225 Balance -1005 -225 Weight 75 kg 75.6 kg Intake: IV 520 Output: Urine 1525 225 Other: Voiding Method Indwelling Catheter Indwelling Catheter Indwelling Catheter - Exam GENERAL EXAM: Alert, 79-year-old female, comfortable in no apparent distress. The patient is currently on room air oxygen HEAD: Normocephalic and atraumatic EYES: Normal reaction of pupils, equal size. NOSE: Clear with pink turbinates. THROAT: No erythema or exudates. NECK: No masses, no JVD. CHEST: No chest wall deformity. LUNGS: Equal air entry with no crackles, wheeze, rhonchi or dullness. CVS: S1 and S2 normal with no audible murmur, regular rhythm. No extra heart sounds ABDOMEN: No hepatosplenomegaly, active bowel sounds, no guarding or rigidity. SPINE: No scoliosis or deformity SKIN: No rashes CENTRAL NERVOUS SYSTEM:. Alert fully oriented, cranial nerves II through XII intact, no focal deficits, tone is normal in all 4 extremities. EXTREMITIES: There is no peripheral edema, clubbing, or cyanosis. Peripheral pulses are intact. - Labs CBC & Chem 7: 08/02/24 07:28 08/02/24 07:28 Labs: Abnormal Lab Results - Last 24 Hours (Table) 08/02/24 08/02/24 Range/Units 07:28 07:28 WBC 2.86 L (4.50-10.00) 10*3/uL RBC 3.35 L (4.10-5.20) 10*6/uL Hgb 8.9 L (12.0-15.0) g/dL Hct 30.1 L (37.2-46.3) % MCH 26.6 L (27.0-32.0) pg MCHC 29.6 L (32.0-37.0) g/dL MPV 8.8 L (9.5-12.2) fL Lymphocytes # 0.42 L (0.90-5.00) 10*3/uL Glucose 106 H (74-99) mg/dL Calcium 7.5 L (8.4-10.2) mg/dL Assessment and Plan Assessment: Symptomatic bradycardia, recovered, postcardiac catheterization and stenting of the RCA. The patient is currently off beta-blockers. Syncope, secondary to above, currently stable and there is no recurrence of sy ncope Coronary artery disease and acute NSTEMI the patient is postcardiac catheterization and stenting of the proximal and ostial RCA, currently on a combination of aspirin and Brilinta. Left groin hematoma adjacent to GSV measuring 4.1 cm and another collection adjacent to the FRANCHISE SALES REPRESENTATIVE measuring 5.9 cm in size. No evidence of any pseudoaneurysm formation and the patient has a FemoStop being applied to the left groin. Blood loss anemia hemoglobin is currently at 9.8 CHF with an EF of around 40 to 45% Hypertension History of hyperlipidemia History of left internal carotid stenosis, 50 to 69% Remote history of DVT Chronic urinary retention, requiring intermittent straight catheterizations History of frequent urinary tract infections History of psoriatic arthritis Plan: Patient is on room air oxygen Hemodynamically stable Current rhythm appears normal sinus on bedside monitor, chronic LBBB pattern Postcardiac catheterization and stenting of the RCA proximal and ostial lesion Arterial Doppler of the left lower extremity was noted. Will monitor the hemoglobin. Adequate pulses in lower extremities. Maintained on aspirin and Brilinta Beta-shiraz on hold Maintained on hydralazine for blood pressure control in combination with Lasix Continue monitoring the overall hemodynamics Will continue to follow
[2024-08-02] MEDS: DONEPEZIL 10 MG TAB PO SCH (21:57)
[2024-08-02] MEDS: ALPRAZolam 0.5 MG TAB PO PRN (23:36)
[2024-08-03 08:06] LABS: HCT 28.4 % (37.2-46.3); HGB 8.5 g/dL (12.0-15.0); MCH 26.8 pg (27.0-32.0); MCHC 29.9 g/dL (32.0-37.0); MCV 89.6 fL (80.0-97.0); Platelet Count 183 10*3/uL (140-440); RBC 3.17 10*6/uL (4.10-5.20); RDW 18.9 % (11.5-14.5); WBC 2.94 10*3/uL (4.50-10.00)
[2024-08-03 08:30] LABS: African American GFR (CKD) >90 (>60 ml/min/1.73 sqM); Anion Gap 3 mmol/L; Blood Urea Nitrogen 7 mg/dL (7-17); Calcium 7.6 mg/dL (8.4-10.2); Carbon Dioxide 27 mmol/L (22-30); Chloride 107 mmol/L (98-107); Glucose 112 mg/dL (74-99); Non-African American GFR(CKD) 86 (>60 ml/min/1.73 sqM); Potassium 3.7 mmol/L (3.5-5.1); Sodium 137 mmol/L (137-145)
[2024-08-03 09:27] VITALS: TEMP 97.9
--- NOTE | 2024-08-03 11:56 | P.PN ---
Subjective HISTORY OF PRESENT ILLNESS: Patient is s/p cardiac catheterization yesterday with Dr. Grewal with stenting of proximal and ostial RCA. Patient examined this morning the bedside. Patient currently denies chest pain or pressure. She denies shortness of breath. Patient had previously been bradycardic and was on dopamine drip which has since been discontinued. Telemetry reveals sinus mechanism with a heart rate in the 60s70s. The patient does have a small right hematoma and required use of FemStop overnight. 08/03/2024 Patient examined this morning at bedside. Patient without complaints of chest pain or pressure. She denies shortness of breath. Patient is maintaining sinus mechanism with no significant bradycardia noted. Ultrasound of the groin reviewed yesterday. Patient did have FemoStop applied intermittently throughout the day. No further intervention is warranted. PHYSICAL EXAM: VITAL SIGNS: Reviewed. GENERAL: Well-developed in no acute distress. NECK: Supple. No JVD or thyromegaly LUNGS: Respirations even and unlabored. Lungs essentially clear to auscultation bilaterally. HEART: Regular rate and rhythm. S1 and S2 heard. EXTREMITIES: Normal range of motion. No clubbing or cyanosis. Peripheral pulses intact. No lower extremity edema ASSESSMENT: Syncope Non-STEMI, status post cardiac catheterization with stenting of proximal ostial RCA Bradycardia, requiring dopamine, resolved after stenting of RCA History of syncope History of loop recorder implantation Hypertension Ischemic cardiomyopathy 40 to 45% PLAN: Continue dual antiplatelet therapy with aspirin and Brilinta for 12 months Continue high intensity statin. LDL goal less than 70 Continue Lasix and hydralazine Avoid AV christo blocking agents Patient is stable for discharge home today. Patient to follow-up postdischarge in the office with Dr. Garber Nurse practitioner note has been reviewed by physician. Signing provider agrees with the documented findings, assessment, and plan of care documented by PROFESSOR OF PRACTICE as a scribe. Objective - Vital Signs Vital signs: Vital Signs Temp 97.9 F 08/03/24 08:00 Pulse 75 08/03/24 08:00 Resp 16 08/03/24 08:00 BP 124/63 08/03/24 08:00 Pulse Ox 98 08/03/24 08:00 FiO2 Intake & Output 08/02/24 08/03/24 08/03/24 18:59 06:59 18:59 Intake Total 80 0 Output Total 800 850 475 Balance -800 -770 -475 Weight 67.5 kg Intake: IV 80 0.9 80 Oral 0 Output: Urine 398 149 252 Other: Voiding Method Indwelling Catheter Indwelling Catheter Indwelling Catheter - Labs CBC & Chem 7: 08/03/24 07:32 08/03/24 07:32 Labs: Abnormal Lab Results - Last 24 Hours (Table) 08/03/24 08/03/24 Range/Units 07:32 07:32 WBC 2.94 L (4.50-10.00) 10*3/uL RBC 3.17 L (4.10-5.20) 10*6/uL Hgb 8.5 L (12.0-15.0) g/dL Hct 28.4 L (37.2-46.3) % MCH 26.8 L (27.0-32.0) pg MCHC 29.9 L (32.0-37.0) g/dL MPV 9.0 L (9.5-12.2) fL Glucose 112 H (74-99) mg/dL Calcium 7.6 L (8.4-10.2) mg/dL
[2024-08-03 12:40] VITALS: BP 149/60; PULSE 82
[2024-08-03 14:13] VITALS: BMI 23.3
--- NOTE | 2024-08-03 14:18 | P.DS ---
Providers Date of admission: 07/29/24 20:23 Expected date of discharge: 08/03/24 Attending physician: Tamar Knox MD Consults: 07/29/24 20:21 Consult Physician Urgent Consulting Provider: Fabian Garber Consult Reason/Comments: Syncopal episode. NSTEMI. Symptomatic bradycardia. Do you want consulting provider notified?: Already Contacted 07/30/24 14:20 Consult Physician Routine Consulting Provider: Eyad Monte Consult Reason/Comments: icu Do you want consulting provider notified?: Already Contacted Primary care physician: Physician Nonstaff Hospital Course: 79 year old M with PMH of DVT, skin CA, psoriatic arthritis, GERD, HTN, HLD presents to the ED for syncope. In the ED she underwent extensive evaluation. BP 119/67, HR 41, T 97.7F, RR 18, 97% on RA. Labs significant for RRBC 4.05, Hg 10.8, Hct 35.4, APTT 21, Na 130, Cl 94, BUN 28, glu 100, AST 79, ALT 82, Trop 4.04-3.87-3.6 with EKG showing AFib with SVR. Patient was started on heparin and dopamine drip and admitted for Cardiology evaluation. Patient was admitted for further workup and management. 07/31 Patient was seen and examined. Denies dizziness, chest pain, shortness of breath or palpitations. Maintained on heparin drip at 14 units/kg/hr and Dopamine drip at 2.5 mcg/kg/min. CBC, Coag panel and BMP significant for WBC 3.93, RBC 3.66, Hg 9.8, Hct 32.8, APTT 36.4, Na 136, glu 108, Ca 7.9. Mag 2.1. Echo shows EF 50-55% with septal wall thickness, mild-mod AR, mild MR. Plans for cardiac cath today. 08/01 Underwent cardiac cath yesterday showing 70 to 80% mid RCA disease with QUIQUE II flow, 40 to 50% disease in proximal LCx. Plans for intracordal nitroglycerin administration of RCA and IFR assessment today. 08/02 Patient was seen and examined. Underwent PTCA and stenting of proximal and ostial RCA with drug-eluting stents yesterday. She has bruising and swelling of the left groin. Arterial duplex showing 4.1 x 0.9 x 1.5 cm hematoma adjacent to the GSV, 5.9 x 2 x 2.6 hematoma adjacent to the TALENT CONSULTANT with leak, 3.5 x 0.8 x 1.3 cm collection concerning of possible extension of contained leak. Femostop re- applied. CBC and BMP significant for WBC 2.86, RBC 3.35, Hg 8.9, Hct 30.1, glu 106, Ca 7.5. 08/03 Patient was seen and examined. No chest pain. Cardiology has cleared the patient for discharge. CBC and BMP significant for WBC 2.94, RBC 3.17, Hg 8.5, Hct 28.4, glu 112, Ca 7.6. Discharge Plan: Prescription for ASA, Lipitor (higher dose), Hydralazine (higher dose), Brilinta, Lasix and Nitro SL PRN sent to pharmacy. Follow up with PCP within 1-2 days and Cardiology within 1 week of discharge. General: non toxic, no distress, appears at stated age Derm: warm, dry Head: atraumatic, normocephalic, symmetric Eyes: EOMI, no lid lag, anicteric sclera Mouth: no lip lesion, mucus membranes moist Cardiovascular: S1S2 reg, no murmur Lungs: Decreased BS bilateral, no rhonchi, no rales , no accessory muscle use Ext: no gross muscle atrophy, no edema, no contractures, bruising of the L michelet Neuro: no focal neuro deficits Psych: Alert, oriented, appropriate affect Discharge Diagnosis: NSTEMI L groin hematoma AV block Syncope likely due to above Urinary retention Lower extremity edema Hypertension Chronic normocytic anemia Psoriatic arthritis Hyperlipidemia This complex discharge took 35 minutes to complete. Patient Condition at Discharge: Stable Plan - Discharge Summary Discharge Rx Participant: No New Discharge Prescriptions: New Aspirin 81 mg PO DAILY #30 tab Atorvastatin [Lipitor] 80 mg PO DAILY #30 tab hydrALAZINE HCL [Apresoline] 50 mg PO TID #90 tab Ticagrelor [Brilinta] 90 mg PO BID #60 tab Furosemide [Lasix] 20 mg PO DAILY #30 tab Nitroglycerin Sl Tabs [Nitrostat] 0.4 mg SUBLINGUAL Q5M PRN #30 tab PRN Reason: Chest Pain Continue Folic Acid 1 mg PO DAILY metHOTREXate sodium [Methotrexate] 25 mg PO TH Psyllium Husk [Fiber Capsule] 0.4 gm PO BID Super B-Complex W/Vitamin C & Biotin 1 tab PO DAILY Citracal + Vitamin D3(Unknown Dose) 1 tab PO DAILY Cholecalciferol (Vitamin D3) [Vitamin D3 (50 Mcg = 2000 Iu)] 50 mcg PO DAILY Donepezil [Aricept] 10 mg PO HS Potassium Chloride ER [K-Dur 20] 20 meq PO DAILY Fish Oil 1360mg 1 cap PO DAILY Multivitamins, Thera [Multivitamin (formulary)] 1 tab PO BID Magnesium-Zinc 266mg-10mg 1 tab PO DAILY Discontinued Furosemide [Lasix] 40 mg PO DAILY Atorvastatin [Lipitor] 40 mg PO DAILY hydrALAZINE HCL [Apresoline] 50 mg PO BID Metoprolol Succinate [Metoprolol Succinate ER] 25 mg PO DAILY 30 Days #30 tab Losartan [Cozaar] 50 mg PO DAILY Discharge Medication List Folic Acid 1 mg PO DAILY 10/02/15 [History] metHOTREXate sodium [Methotrexate] 25 mg PO TH 10/02/15 [History] Potassium Chloride ER [K-Dur 20] 20 meq PO DAILY 07/24/23 [History] Cholecalciferol (Vitamin D3) [Vitamin D3 (50 Mcg = 2000 Iu)] 50 mcg PO DAILY 07/29/24 [History] Citracal + Vitamin D3(Unknown Dose) 1 tab PO DAILY 07/29/24 [History] Fish Oil 1360mg 1 cap PO DAILY 07/29/24 [History] Magnesium-Zinc 266mg-10mg 1 tab PO DAILY 07/29/24 [History] Multivitamins, Thera [Multivitamin (formulary)] 1 tab PO BID 07/29/24 [History] Psyllium Husk [Fiber Capsule] 0.4 gm PO BID 07/29/24 [History] Super B-Complex W/Vitamin C & Biotin 1 tab PO DAILY 07/29/24 [History] Donepezil [Aricept] 10 mg PO HS 08/02/24 [History] Aspirin 81 mg PO DAILY #30 tab 08/03/24 [Rx] Atorvastatin [Lipitor] 80 mg PO DAILY #30 tab 08/03/24 [Rx] Furosemide [Lasix] 20 mg PO DAILY #30 tab 08/03/24 [Rx] Nitroglycerin Sl Tabs [Nitrostat] 0.4 mg SUBLINGUAL Q5M PRN #30 tab 08/03/24 [Rx] Ticagrelor [Brilinta] 90 mg PO BID #60 tab 08/03/24 [Rx] hydrALAZINE HCL [Apresoline] 50 mg PO TID #90 tab 08/03/24 [Rx] Follow up Appointment(s)/Referral(s): Fabian Garber MD [Medical Doctor] - 08/07/24 2:30 pm Nonstaff,Physician [Primary Care Provider] - 1-2 days Patient Instructions/Handouts: *Surgery [facility] - After Heart Catheterization - Tax Investigator Instructions Discharge Disposition: HOME SELF-CARE
--- NOTE | 2024-08-03 17:58 | P.PN ---
Subjective Progress Note Date: 08/03/24 Patient is 79-year-old female past medical history significant for hypertension, hyperlipidemia, nonobstructive coronary artery disease, carotid artery stenosis, loop recorder, and previous episodes of syncope. Did previously have a heart catheterization December, remarkable for nonocclusive coronary artery disease. With 30 to 40% disease in the RCA, circumflex, and LAD. Brought in to the emergency department on 07/29/2024. Reportedly, was sitting in a chair outside with her daughter. Had been feeling relatively well up until this point. She became lightheaded, diaphoretic, and short of breath followed by a period of unresponsiveness. EMS was called. She was found to be bradycardic, with a heart rate reportedly in the 30s bpm. EKG done on arrival remarkable for wide-complex regular rhythm, rate 41 bpm, chronic LBBB, probable junctional rhythm. She was started on dopamine infusion. Also, found to have elevated troponins, 4.04, 3.87, and 3.6. Patient was started on IV heparin per cardiology. Remaining labs including a CBC with a WBC count of 4.6, hemoglobin 10, platelets 199. Most recent APTT 45. CMP: Sodium 133, potassium 4.2, chloride 98, serum bicarb 28, BUN 22, creatinine 0.72, glucose 111. NT proBNP 3930. TSH 0.42. Patient currently being evaluated in the intensive care unit. She is resting comfortably on room air. She is awake and alert. No focal neurological deficits. Denies any chest pain, heart palpitations, lower extremity edema. Denies any nausea or vomiting. Denies any difficulty in breathing. She does take metoprolol outpatient basis, denies taking extra doses, and states that her children organize her pillbox. Dopamine continues at 2.5 mcg/kg/min. Also, heparin infusing per protocol. Heart rhythm appears normal sinus on bedside monitor with a rate of 66 bpm. Blood pressure is normotensive at 125/68 mmHg. Plan for possible heart catheterization tomorrow. On 08/01/2024, the patient is being seen for a follow-up. The patient underwent a cardiac catheterization and the patient underwent PTCA and stenting of the proximal and ostial RCA with a drug-eluting stent. Noted this patient has been having syncope and this was thought to be unrelated to cardiac arrhythmia based on loop recorder. She was bradycardic with a junctional rhythm and a bundle branch block pattern and the troponins were elevated suggestive of an acute and STEMI and a cardiac catheterization revealed ostial and proximal RCA disease and based on that the patient underwent catheterization and angioplasty and stenting of the LAD. The patient is currently stable. Hemodynamically stable. She is on room air oxygen. Heart rate is 71 and the most recent EKG from earlier this morning showed a sinus rhythm with occasional PVCs and a left bundle branch blo ck pattern. The labs from yesterday was noted. The patient is currently on a combination of aspirin and Brilinta. Lovenox for DVT prophylaxis. Lasix 20 mg p.o. daily. No beta-blockers for now. On 08/02/2024, the patient is being seen for a follow-up. Patient is doing well. No specific complaints. The patient is postcardiac catheterization and stenting of the RCA. No syncope. No bradycardia arrhythmias. The patient did develop a hematoma in the left groin and there was some mild drop in hemoglobin and hemoglobin is currently down to 8.9 compared to 9.8. Doppler duplex of the lower extremity artery showed a 4.1 cm complex fluid collection/hematoma adjacent to the greater saphenous vein. There is also a 5.9 cm lobulated oval collection adjacent to the common femoral artery with prominent internal thrombosis but residual areas of arterial flow within them. Suspect a very narrow neck adjacent to the DATE PITTER. Another 3.5 cm rounded collection collected his primary area via a 3 mm long and a 2 mm wide neck. Based on that, the patient was offered a FemoStop that is being applied every 2 hours. There is pulses in the lower extremities bilaterally. The patient is post NSTEMI and lat[place] americ[place] studies director on the case. The patient also has cardiomyopathy with an ejection fraction 40 to 45% and she is known to have hypertension. Hemoglobin is being monitored. The patient continues to be on a combination of aspirin and Brilinta. The patient is also on a combination of Lasix 20 mg p.o. daily and hydralazine 50 mg p.o. 3 times daily. On 08/03/2024, the patient is being seen for a follow-up. Patient is doing well. No specific complaints. No chest pain. She is currently on room air oxygen. She is postcardiac catheterization and stenting of the RCA. Left groin hematoma remains clinically unchanged. She remains on a combination of aspirin and Plavix. Hemoglobin is stable at 8.5. Electrolytes are stable. Normal renal function. No syncope. No chest pain. No respiratory distress at this point. No other significant events overnight. Objective - Vital Signs Vital signs: Vital Signs Temp 97.9 F 08/03/24 08:00 Pulse 75 08/03/24 08:00 Resp 16 08/03/24 08:00 BP 124/63 08/03/24 08:00 Pulse Ox 98 08/03/24 08:00 FiO2 Intake & Output 08/02/24 08/03/24 08/03/24 18:59 06:59 18:59 Intake Total 80 0 Output Total 800 850 475 Balance -800 770 -475 Weight 67.5 kg Intake: IV 80 0.9 80 Oral 0 Output: Urine 800 850 475 Other: Voiding Method Indwelling Catheter Indwelling Catheter Indwelling Catheter - Exam GENERAL EXAM: Alert, 79-year-old female, comfortable in no apparent distress. The patient is currently on room air oxygen HEAD: Normocephalic and atraumatic EYES: Normal reaction of pupils, equal size. NOSE: Clear with pink turbinates. THROAT: No erythema or exudates. NECK: No masses, no JVD. CHEST: No chest wall deformity. LUNGS: Equal air entry with no crackles, wheeze, rhonchi or dullness. CVS: S1 and S2 normal with no audible murmur, regular rhythm. No extra heart sounds ABDOMEN: No hepatosplenomegaly, active bowel sounds, no guarding or rigidity. SPINE: No scoliosis or deformity SKIN: No rashes CENTRAL NERVOUS SYSTEM:. Alert fully oriented, cranial nerves II through XII intact, no focal deficits, tone is normal in all 4 extremities. EXTREMITIES: There is no peripheral edema, clubbing, or cyanosis. Peripheral pulses are intact. - Labs CBC & Chem 7: 08/03/24 07:32 08/03/24 07:32 Labs: Abnormal Lab Results - Last 24 Hours (Table) 08/03/24 08/03/24 Range/Units 07:32 07:32 WBC 2.94 L (4.50-10.00) 10*3/uL RBC 3.17 L (4.10-5.20) 10*6/uL Hgb 8.5 L (12.0-15.0) g/dL Hct 28.4 L (37.2-46.3) % MCH 26.8 L (27.0-32.0) pg MCHC 29.9 L (32.0-37.0) g/dL MPV 9.0 L (9.5-12.2) fL Glucose 112 H (74-99) mg/dL Calcium 7.6 L (8.4-10.2) mg/dL Assessment and Plan Assessment: Symptomatic bradycardia, recovered, postcardiac catheterization and stenting of the RCA. The patient is currently off beta-blockers. Syncope, secondary to above, currently stable and there is no recurrence of syncope Coronary artery disease and acute NSTEMI the patient is postcardiac catheterization and stenting of the proximal and ostial RCA, currently on a combination of aspirin and Brilinta. Left groin hematoma adjacent to GSV measuring 4.1 cm and another collection adjacent to the DATE PITTER measuring 5.9 cm in size. No evidence of any pseudoaneurysm formation and the patient has a FemoStop being applied to the left groin. Blood loss anemia hemoglobin is currently is stable at 8.5 CHF with an EF of around 40 to 45% Hypertension History of hyperlipidemia History of left internal carotid stenosis, 50 to 69% Remote history of DVT Chronic urinary retention, requiring intermittent straight catheterizations History of frequent urinary tract infections History of psoriatic arthritis Plan: Patient is on room air oxygen Hemodynamically stable Current rhythm appears normal sinus on bedside monitor, chronic LBBB pattern Postcardiac catheterization and stenting of the RCA proximal and ostial lesion Arterial Doppler of the left lower extremity was noted. Hemoglobin has remained stable. Adequate pulse in lower extremities bilaterally. Maintained on aspirin and Brilinta Beta-shiraz on hold Maintained on hydralazine for blood pressure control in combination with Lasix Continue monitoring the overall hemodynamics The left groin hematoma remains unchanged and the hemoglobin remains also u nchanged The patient is to be discharged today. Cleared from the pulmonary standpoint.
--- NOTE | 2024-08-17 16:48 | CDI ---
Documentation Clarification Form Date: 08/17/2024 From: George Koo Admit Date: 07/29/2024 08:23:00 PM Patient Name: Nelly Souza Visit Number: [id number] Discharge Date: 08/03/2024 02:49:00 PM ATTENTION: The Clinical Documentation Specialists (CDI) and [facility] Coding Staff appreciate your assistance in clarifying documentation. Please respond to the clarification below the line at the bottom and electronically sign. The CDI & [facility] Coding staff will review the response and follow-up if needed. Please note: Queries are made part of the Legal Health Record. If you have any questions, please contact the author of this message via ITS. Dr. Uri MD., Left groin hematoma is documented per the 08/01 Cardiac catheterization note and patient is noted to have a heparin drip. Please clarify if there is a relationship between the diagnosis and heparin drip. History/Risk Factors: 79-year-old female with GERD, hyperlipidemia, hypertension, history of DVT, psoriatic arthritis presented to the ED after syncopal episode. Clinical Indicators: 08/01 Catheterization note: Patient was prepped and draped in the usual manner. Under strict aseptic precautions and local anesthesia a 6 [place] introducer was placed in the left femoral artery. I used a regular needle because of significant calcification and micropuncture wire would not advance. There was a small hematoma noted. Patient received heparin and ACT was kept between 250 and 300The sheath was then taken out and a Angio-Seal device used to secure hemostasis but because of a hematoma I applied a FemoStop as well. Patient Toller procedure well. 08/02 Pulmonology note: Left groin hematoma adjacent to GSV measuring 4.1 cm and another collection adjacent to the [employer] ADMINISTRATOR measuring 5.9 cm in size. No evidence of any pseudoaneurysm formation and the patient has a FemoStop being applied to the left groin. The patient did develop a hematoma in the left groin and there was some mild drop in hemoglobin and hemoglobin is currently down to 8.9 compared to 9.8. Also, found to have elevated troponins, 4.04, 3.87, and 3.6. Patient was started on IV heparin per cardiology 08/03 Cardiology note: Ultrasound of the groin reviewed yesterday. Patient did have FemoStop applied intermittently throughout the day. No further intervention is warranted. Treatment: Angio-Seal, FemStop Device, Heparin Drip Please clarify the relationship, if any, which is clinically appropriate for this patient: [ x ] Left groin hematoma is related to the Heparin drip [ ] Left groin hematoma is not related to the Heparin drip [ ] Other explanation of clinical findings (please specify) MTDD
--- NOTE | 2024-08-24 10:23 | CDI ---
Documentation Clarification Form Date: 08/17/2024 From: George Koo Admit Date: 07/29/2024 08:23:00 PM Patient Name: Nelly Souza Visit Number: [id number] Discharge Date: 08/03/2024 02:49:00 PM ATTENTION: The Clinical Documentation Specialists (CDI) and [facility] Coding Staff appreciate your assistance in clarifying documentation. Please respond to the clarification below the line at the bottom and electronically sign. The CDI & [facility] Coding staff will review the response and follow-up if needed. Please note: Queries are made part of the Legal Health Record. If you have any questions, please contact the author of this message via ITS. Dr. Destiney MARIE., Left groin hematoma is documented per the 08/01 Cardiac catheterization note and patient is noted to have a heparin drip. Please clarify if there is a relationship between the diagnosis and heparin drip. History/Risk Factors: 79-year-old female with GERD, hyperlipidemia, hypertension, history of DVT, psoriatic arthritis presented to the ED after syncopal episode. Clinical Indicators: 08/01 Catheterization note: Patient was prepped and draped in the usual manner. Under strict aseptic precautions and local anesthesia a 6 [place] introducer was placed in the left femoral artery. I used a regular needle because of significant calcification and micropuncture wire would not advance. There was a small hematoma noted. Patient received heparin and ACT was kept between 250 and 300The sheath was then taken out and a Angio-Seal device used to secure hemostasis but because of a hematoma I applied a FemoStop as well. Patient Toller procedure well. 08/02 Pulmonology note: Left groin hematoma adjacent to GSV measuring 4.1 cm and another collection adjacent to the IT LEAD measuring 5.9 cm in size. No evidence of any pseudoaneurysm formation and the patient has a FemoStop being applied to the left groin. The patient did develop a hematoma in the left groin and there was some mild drop in hemoglobin and hemoglobin is currently down to 8.9 compared to 9.8. Also, found to have elevated troponins, 4.04, 3.87, and 3.6. Patient was started on IV heparin per cardiology 08/03 Cardiology note: Ultrasound of the groin reviewed yesterday. Patient did have FemoStop applied intermittently throughout the day. No further intervention is warranted. Treatment: Angio-Seal, FemStop Device, Heparin Drip Please clarify the relationship, if any, which is clinically appropriate for this patient: [ ] Left groin hematoma is related to the Heparin drip [x ] Left groin hematoma is not related to the Heparin drip [ ] Other explanation of clinical findings (please specify) MTDD
== END 2024-08-03 14:49 | disposition home or self-care (01) | DRG 321 ==
LOC: EC 17:22 → 3SCARD 20:23 → 2SICU 07-30 11:55 → 3SCARD 07-31 17:33
PROVIDERS: ADMIT Internal Medicine; ATTEND Internal Medicine
PROC: 4A023N7 Measurement of Cardiac Sampling and Pressure, Left Heart, Percutaneous Approach (ICD-10-PCS; 2024-07-31)
PROC: B240ZZ3 Ultrasonography of Single Coronary Artery, Intravascular (ICD-10-PCS; 2024-07-31)
PROC: B2111ZZ Fluoroscopy of Multiple Coronary Arteries using Low Osmolar Contrast (ICD-10-PCS; 2024-07-31)
PROC: 027034Z Dilation of Coronary Artery, One Artery with Drug-eluting Intraluminal Device, Percutaneous Approach (ICD-10-PCS; principal; 2024-07-31 13:00)
DX: I44.30 Unspecified atrioventricular block (principal); I21.A1 Myocardial infarction type 2; I74.3 Embolism and thrombosis of arteries of the lower extremities; D68.32 Hemorrhagic disorder due to extrinsic circulating anticoagulants; E87.1 Hypo-osmolality and hyponatremia; I11.0 Hypertensive heart disease with heart failure; L40.50 Arthropathic psoriasis, unspecified; D50.0 Iron deficiency anemia secondary to blood loss (chronic); I50.22 Chronic systolic (congestive) heart failure; L76.32 Postprocedural hematoma of skin and subcutaneous tissue following other procedure; I48.91 Unspecified atrial fibrillation; T45.515A Adverse effect of anticoagulants, initial encounter; X58.XXXA Exposure to other specified factors, initial encounter; R00.1 Bradycardia, unspecified; I25.10 Atherosclerotic heart disease of native coronary artery without angina pectoris; R33.8 Other retention of urine; E78.5 Hyperlipidemia, unspecified; I25.2 Old myocardial infarction; I25.5 Ischemic cardiomyopathy; I44.7 Left bundle-branch block, unspecified; K21.9 Gastro-esophageal reflux disease without esophagitis; Z79.02 Long term (current) use of antithrombotics/antiplatelets; Z79.82 Long term (current) use of aspirin; Z79.899 Other long term (current) drug therapy; Z82.49 Family history of ischemic heart disease and other diseases of the circulatory system; Z85.828 Personal history of other malignant neoplasm of skin; Z86.718 Personal history of other venous thrombosis and embolism; Z87.440 Personal history of urinary (tract) infections; Z96.611 Presence of right artificial shoulder joint; Z96.653 Presence of artificial knee joint, bilateral; Z88.8 Allergy status to other drugs, medicaments and biological substances; Z95.818 Presence of other cardiac implants and grafts; Y84.0 Cardiac catheterization as the cause of abnormal reaction of the patient, or of later complication, without mention of misadventure at the time of the procedure
CPT/HCPCS: 36415; 51702; 71045; 80048; 80053; 80061; 83036; 83735; 83880; 84439; 84443; 84484; 85025; 85027; 85610; 85730; 92978; 93005; 93306; 93458; 93799; 93975; 96365; 96366; 96368; 96375; 99291

== ENCOUNTER 2024-08-05 15:00 | Observation (INO) | payer MEDICARE, BC ==
--- NOTE | 2024-08-05 16:07 | ED ---
Chest Pain HPI - General Chief Complaint: Chest Pain Stated Complaint: Chest Pain Time Seen by Provider: 08/05/24 15:37 Source: patient, RN notes reviewed, old records reviewed Mode of arrival: ambulatory Limitations: no limitations - History of Present Illness Initial Comments: This is a 79 female to the ER for evaluation complicated recent medical history including multiple heart catheterizations, loop recorder and now with chest pain shortness of breath lower extremity edema and swelling. Recent discharge from hospital. No fevers no cough no congestion mainly left-sided chest pain which she believes may be related to recorder MD Complaint: chest pain -: days(s) Onset: during rest, during exertion Pain Location: substernal, left chest Pain Radiation: none Severity: moderate Severity scale (1-10): 4 Quality: sharp Consistency: constant Improves With: nothing Worsens With: nothing Anginal Symptoms: dyspnea Other Symptoms: palpitations Treatments Prior to Arrival: none - Related Data Home Medications Medication Instructions Recorded Confirmed Folic Acid 1 mg PO DAILY 10/02/15 08/05/24 metHOTREXate sodium [Methotrexate] 25 mg PO TH 10/02/15 08/05/24 Potassium Chloride ER [K-Dur 20] 20 meq PO DAILY 07/24/23 08/05/24 Cholecalciferol (Vitamin D3) 50 mcg PO DAILY 07/29/24 08/05/24 [Vitamin D3 (50 Mcg = 2000 Iu)] Citracal + Vitamin D3(Unknown Dose) 1 tab PO DAILY 07/29/24 08/05/24 Fish Oil 1360mg 1 cap PO DAILY 07/29/24 08/05/24 Magnesium-Zinc 266mg-10mg 1 tab PO DAILY 07/29/24 08/05/24 Multivitamins, Thera [Multivitamin 1 tab PO BID 07/29/24 08/05/24 (formulary)] Psyllium Husk [Fiber Capsule] 0.4 gm PO BID 07/29/24 08/05/24 Super B-Complex W/Vitamin C & 1 tab PO DAILY 07/29/24 08/05/24 Biotin Donepezil [Aricept] 10 mg PO HS 08/02/24 08/05/24 Furosemide [Lasix] 20 mg PO DAILY 08/05/24 08/05/24 Previous Rx's Medication Instructions Recorded Aspirin 81 mg PO DAILY #30 tab 08/03/24 Atorvastatin [Lipitor] 80 mg PO DAILY #30 tab 08/03/24 Nitroglycerin Sl Tabs [Nitrostat] 0.4 mg SUBLINGUAL Q5M PRN #30 tab 08/03/24 Ticagrelor [Brilinta] 90 mg PO BID #60 tab 08/03/24 hydrALAZINE HCL [Apresoline] 50 mg PO TID #90 tab 08/03/24 HYDROcodone/APAP 5-325MG [[place] 1 tab PO Q4HR PRN 3 Days #18 tab 08/06/24 5-325] Allergies Allergy/AdvReac Type Severity Reaction Status Date / Time meperidine HCl [From Demerol] Allergy Rash/Hives Verified 08/05/24 18:49 moxifloxacin HCl Allergy Anaphylaxis Verified 08/05/24 18:49 [From Avelox] prochlorperazine AdvReac agitation Verified 08/05/24 18:49 [From Compazine] prochlorperazine edisylate AdvReac agitation Verified 08/05/24 18:49 [From Compazine] prochlorperazine maleate AdvReac agitation Verified 08/05/24 18:49 [From Compazine] simvastatin [From Zocor] AdvReac severe leg Verified 08/05/24 18:49 weakness Review of Systems ROS Statement: Those systems with pertinent positive or pertinent negative responses have been documented in the HPI. ROS Other: All systems not noted in ROS Statement are negative. EKG Findings - EKG Comments: EKG Findings:: EKG is sinus 82 FL 179 QRS 159 QTc 468 - EKG Results: EKG: interpreted by MAURO Past Medical History Past Medical History: Cancer, Deep Vein Thrombosis (DVT), GERD/Reflux, Hyperl ipidemia, Hypertension, Syncope Additional Past Medical History / Comment(s): DVT years ago, psoriatic arthritis, hx. skin cancer, self-cath's due to bladder not emptying completely, syncopal episodes with dizziness History of Any Multi-Drug Resistant Organisms: None Reported Past Surgical History: Back Surgery, Joint Replacement, Orthopedic Surgery Additional Past Surgical History / Comment(s): henok knee replacements & henok hip replaced, vein stripping, left hand fusion, left retinal repair of tear, right carpal tunnel, back surgery x2. R shoulder replacement 02/25/2024 Past Anesthesia/Blood Transfusion Reactions: No Reported Reaction Additional Past Anesthesia/Blood Transfusion Reaction / Comment(s): seems to require alot of anesthesia to be sedated per pt. Past Psychological History: No Psychological Hx Reported Smoking Status: Never smoker Past Alcohol Use History: None Reported Past Drug Use History: None Reported - Past Family History Father Family Medical History: CVA/TIA, Myocardial Infarction ([place]) Additional Family Medical History / Comment(s): x3 CVA Mother Family Medical History: Cancer Additional Family Medical History / Comment(s): Heart Failure Daughter(s) Family Medical History: Cancer General Exam Limitations: no limitations General appearance: alert, in no apparent distress Head exam: Present: atraumatic, normocephalic, normal inspection Eye exam: Present: normal appearance, PERRL, EOMI. Absent: scleral icterus, conjunctival injection, periorbital swelling ENT exam: Present: normal exam, mucous membranes moist Neck exam: Present: normal inspection. Absent: tenderness, meningismus, lymphadenopathy Respiratory exam: Present: normal lung sounds bilaterally. Absent: respiratory distress, wheezes, rales, rhonchi, stridor Cardiovascular Exam: Present: regular rate, normal rhythm, normal heart sounds. Absent: systolic murmur, diastolic murmur, rubs, gallop, clicks GI/Abdominal exam: Present: soft, normal bowel sounds. Absent: distended, tenderness, guarding, rebound, rigid Extremities exam: Present: normal inspection, full ROM, normal capillary refill. Absent: tenderness, pedal edema, joint swelling, calf tenderness Back exam: Present: normal inspection Neurological exam: Present: alert, oriented X3, CN II-XII intact Psychiatric exam: Present: normal affect, normal mood Skin exam: Present: warm, dry, intact, normal color. Absent: rash Course Vital Signs 08/05/24 08/05/24 08/05/24 15:17 16:00 17:56 Temperature 98.2 F Pulse Rate 82 79 76 Respiratory 20 16 20 Rate Blood Pressure 157/89 154/76 137/82 O2 Sat by Pulse 98 97 97 Oximetry 08/05/24 08/05/24 08/05/24 18:00 19:00 20:00 Temperature Pulse Rate 78 79 89 Respiratory 20 20 18 Rate Blood Pressure 137/82 143/97 138/70 O2 Sat by Pulse 97 96 97 Oximetry 08/05/24 08/05/24 08/06/24 22:19 23:34 02:15 Temperature Pulse Rate 78 75 68 Respiratory 17 16 18 Rate Blood Pressure 120/72 121/66 122/68 O2 Sat by Pulse 96 96 95 Oximetry 08/06/24 08/06/24 08/06/24 04:00 06:00 08:00 Temperature Pulse Rate 61 67 76 Respiratory 18 16 18 Rate Blood Pressure 131/66 144/72 152/76 O2 Sat by Pulse 95 95 98 Oximetry 08/06/24 08/06/24 08/06/24 09:16 12:00 14:00 Temperature 98.1 F Pulse Rate 77 73 92 Respiratory 18 18 18 Rate Blood Pressure 168/79 131/68 136/94 O2 Sat by Pulse 96 97 97 Oximetry 08/06/24 15:05 Temperature Pulse Rate 92 Respiratory 16 Rate Blood Pressure 147/71 O2 Sat by Pulse 97 Oximetry - Reevaluation(s) Reevaluation #1: 08/05/24 16:20 Medical records reviewed Reevaluation #2: 08/05/24 18:41 Patient still with chest pain here in the ER Reevaluation #3: 08/05/24 18:41 Patient informed of results and questions answered Reevaluation #4: Was pt. sent in by a medical professional or institution (, PA, CONFERENCE SERVICES COORDINATOR, urgent care, hospital, or jail...) When possible be specific @ -no Did you speak to anyone other than the patient for history (EMS, parent, family, police, friend...)? What history was obtained from this source @ -no Did you review nursing and triage notes (agree or disagree)? Why? @ -agree Are old charts reviewed (outside hosp., previous admission, EMS record, old EKG, old radiological studies, urgent care reports/EKG's, jail records)? Report findings @ -yes Differential Diagnosis (chest pain, altered mental status, abdominal pain women, abdominal pain men, vaginal bleeding, weakness, fever, dyspnea, syncope, headache, dizziness, GI bleed, back pain, seizure, CVA, palpatations, mental health, musculoskeletal)? @ -prior EKG interpreted by me (3pts min.). @ -yes X-rays interpreted by me (1pt min.). @ -yes negative for acute disease CT interpreted by me (1pt min.). @ -no U/S interpreted by me (1pt. min.). @ -no What testing was considered but not performed or refused? (CT, X-rays, U/S, labs)? Why? @ -none What meds were considered but not given or refused? Why? @ -none Did you discuss the management of the patient with other professionals (professionals i.e. Dr., PA, CONFERENCE SERVICES COORDINATOR, lab, RT, psych nurse, oncology social work, electrochemist, teacher, canine enforcement officer, director of casework department)? Give summary @ -no Was smoking cessation discussed for >3mins.? @ -no Was critical care preformed (if so, how long)? @ -no Were there social determinants of health that impacted care today? How? (Homelessness, low income, unemployed, alcoholism, drug addiction, transportation, low edu. Level, literacy, decrease access to med. care, [facility], rehab)? @ -none Was there de-escalation of care discussed even if they declined (Discuss DNR or withdrawal of care, Hospice)? DNR status @ -no What co-morbidities impacted this encounter? (DM, HTN, Smoking, COPD, CAD, Cancer, CVA, ARF, Chemo, Hep., AIDS, mental health diagnosis, sleep apnea, morbid obesity)? @ -none Was patient admitted / discharged? Hospital course, mention meds given and route, prescriptions, significant lab abnormalities, going to OR and other pertinent info. @ - 79 female to ER for evaluation of chest pain today. Patient believes it is from where her loop recorder is placed, patient did have recent cardiac stents placed x 2 and presents today for persistent chest pain elevated troponin downtrending patient admitted for cardiac observation Admitted Undiagnosed new problem with uncertain prognosis? @ -no Drug Therapy requiring intensive monitoring for toxicity (Heparin, Nitro, Insulin, Cardizem)? @ -no Were any procedures done? @ -no Diagnosis/symptom? @ -Chest pain Acute, or Chronic, or Acute on Chronic? @ -Acute Uncomplicated (without systemic symptoms) or Complicated (systemic symptoms)? @ -Complicated Side effects of treatment? @ -no Exacerbation, Progression, or Severe Exacerbation? @ -exacerbation Poses a threat to life or bodily function? How? (Chest pain, [place], [place], pneumonia, PE, COPD, DKA, ARF, appy, cholecystitis, CVA, Diverticulitis, Homicidal, Suicidal, threat to staff... and all critical care pts) @ -yes with chest pain Reevaluation #5: Differential Chest Pain: Stable Angina, Unstable Angina, STEMI, NSTEMI Aortic Dissection, Pneumothorax, Musculoskeletal, Esophageal Spasm GERD, Cholecystitis, Pancreatitis, Zoster, this is not meant to be an all-inclusive list. - Consultations Consultation #1: Spoke with [facility] who agrees to admit this patient Chest Pain MDM - MDM 79 female to ER for evaluation of chest pain today. Patient believes it is from where her loop recorder is placed, patient did have recent cardiac stents placed x 2 and presents today for persistent chest pain elevated troponin downtrending patient admitted for cardiac observation Disposition Clinical Impression: Chest pain, Atypical chest pain Disposition: ADMITTED IP TO THIS HOSP Condition: Fair Is patient prescribed a controlled substance at d/c from ED?: No Time of Disposition: 18:30
[2024-08-05 16:12] LABS: Basophils # (A) 0.02 10*3/uL (0.00-0.10); Basophils % (A) 0.6 %; Eosinophils # (A) 0.13 10*3/uL (0.04-0.35); HCT 27.6 % (37.2-46.3); HGB 8.5 g/dL (12.0-15.0); Lymphocytes # (A) 0.72 10*3/uL (0.90-5.00); Lymphocytes % (A) 22.2 %; MCH 26.8 pg (27.0-32.0); MCHC 30.8 g/dL (32.0-37.0); MCV 87.1 fL (80.0-97.0); Mean Platelet Volume 9.3 fL (9.5-12.2); Monocytes # (A) 0.38 10*3/uL (0.20-1.00); Monocytes % (A) 11.7 %; Neutrophils # (A) 1.98 10*3/uL (1.80-7.70); Neutrophils % (A) 61.2 %; Platelet Count 219 10*3/uL (140-440); RBC 3.17 10*6/uL (4.10-5.20); RDW 18.6 % (11.5-14.5); WBC 3.24 10*3/uL (4.50-10.00)
--- NOTE | 2024-08-05 16:20 | XR ---
EXAMINATION TYPE: XR chest 2V DATE OF EXAM: 08/05/2024 4:15 PM COMPARISON: Chest radiographs from 07/29/2024. CLINICAL INDICATION: Female, 79 years old with history of Chest Pain; TECHNIQUE: XR chest 2V Frontal and lateral views of the chest. FINDINGS: Lungs/Pleura: There is flattening of the diaphragm with increased lucency of the lungs. No evidence o f pneumothorax, pleural effusion or focal consolidation. Pulmonary vascularity: Unremarkable. Heart/mediastinum: Cardiomediastinal silhouette is enlarged. Atherosclerotic calcifications are seen in the aorta. Musculoskeletal: Degenerative changes of the right left shoulder.. Right shoulder arthroplasty appear s intact. Other findings: None IMPRESSION: 1. No acute cardiopulmonary disease process. 2. COPD changes. [facility], , 08/05/2024 4:17 PM
[2024-08-05 16:23] LABS: Prothrombin Time 10.8 sec (10.0-12.5)
[2024-08-05 16:24] LABS: ALT 29 U/L (4-34); AST 36 U/L (14-36); African American GFR (CKD) >90 (>60 ml/min/1.73 sqM); Albumin 3.7 g/dL (3.5-5.0); Alkaline Phosphatase 95 U/L (38-126); Anion Gap 8 mmol/L; Blood Urea Nitrogen 13 mg/dL (7-17); Calcium 9.3 mg/dL (8.4-10.2); Carbon Dioxide 27 mmol/L (22-30); Chloride 98 mmol/L (98-107); Glucose 80 mg/dL (74-99); Lipase 138 U/L (23-300); Magnesium 2.1 mg/dL (1.6-2.3); Non-African American GFR(CKD) 89 (>60 ml/min/1.73 sqM); Potassium 4.1 mmol/L (3.5-5.1); Sodium 133 mmol/L (137-145); Total Bilirubin 0.9 mg/dL (0.2-1.3); Total Protein 5.5 g/dL (6.3-8.2)
[2024-08-05 16:33] LABS: NT-Pro-B-Type Natriuretic Pept 5720 pg/mL
[2024-08-05] MEDS ORDERED: ONDANSETRON 4 MG/2 ML VIAL IVP PRN (18:39)
[2024-08-05] MEDS ORDERED: NALOXONE 0.4 MG/ML 1 ML VIAL IV PRN (18:39)
[2024-08-05] MEDS: KETOROLAC 15 MG/ML 1 ML VIAL IVP STA (19:03)
[2024-08-05] MEDS: HYDROmorphone 1 MG/ML 1 ML SYRINGE IVP STA (19:04)
[2024-08-05] MEDS: SODIUM CHLORIDE 0.9% 1,000 ML IV SCH (19:04)
[2024-08-05] MEDS: DONEPEZIL 10 MG TAB PO SCH (23:28)
[2024-08-05] MEDS: TICAGRELOR 90 MG TAB PO SCH (23:28)
[2024-08-05] MEDS: MULTIVITAMINS, THERA 1 EACH TAB PO SCH (23:28)
[2024-08-05] MEDS: hydrALAZINE HCL 50 MG TAB PO SCH (23:28)
[2024-08-05] MEDS: MORPHINE SULFATE 4 MG/ML SYRINGE IV PRN (23:29)
[2024-08-05] MEDS: PSYLLIUM HUSK 100% 6 GM PACKET PO SCH (23:29)
[2024-08-06 09:04] LABS: Basophils # (A) 0.03 10*3/uL (0.00-0.10); Eosinophils # (A) 0.19 10*3/uL (0.04-0.35); Eosinophils % (A) 6.1 %; HCT 25.7 % (37.2-46.3); HGB 7.8 g/dL (12.0-15.0); Lymphocytes % (A) 22.4 %; MCH 26.8 pg (27.0-32.0); MCHC 30.4 g/dL (32.0-37.0); MCV 88.3 fL (80.0-97.0); Mean Platelet Volume 9.4 fL (9.5-12.2); Monocytes % (A) 9.6 %; Neutrophils % (A) 60.6 %; Platelet Count 222 10*3/uL (140-440); RBC 2.91 10*6/uL (4.10-5.20); RDW 18.8 % (11.5-14.5); WBC 3.13 10*3/uL (4.50-10.00)
[2024-08-06 09:17] VITALS: TEMP 98.1
[2024-08-06] MEDS: ATORVASTATIN 80 MG TAB PO SCH (09:18)
[2024-08-06] MEDS: CHOLECALCIFEROL 25 MCG (1000 IU) TABLET PO SCH (09:19)
[2024-08-06 09:20] LABS: ALT 25 U/L (4-34); AST 30 U/L (14-36); African American GFR (CKD) >90 (>60 ml/min/1.73 sqM); Albumin/Globulin Ratio 1.7; Alkaline Phosphatase 71 U/L (38-126); Anion Gap 3 mmol/L; Blood Urea Nitrogen 9 mg/dL (7-17); Calcium 8.4 mg/dL (8.4-10.2); Carbon Dioxide 26 mmol/L (22-30); Chloride 104 mmol/L (98-107); Globulin 1.8 g/dL; Glucose 83 mg/dL (74-99); Magnesium 1.9 mg/dL (1.6-2.3); Non-African American GFR(CKD) 89 (>60 ml/min/1.73 sqM); Phosphorus 4.1 mg/dL (2.5-4.5); Sodium 133 mmol/L (137-145); Total Bilirubin 0.8 mg/dL (0.2-1.3); Total Protein 4.8 g/dL (6.3-8.2)
[2024-08-06] MEDS: FUROSEMIDE 40 MG TAB PO SCH (09:20)
[2024-08-06] MEDS: FOLIC ACID 1 MG TAB PO SCH (09:20)
[2024-08-06] MEDS: ASPIRIN 81 MG PO SCH (09:21)
[2024-08-06] MEDS: FOLIC ACID-VIT B COMPLEX-VIT C 1 CAP PO SCH (11:11)
--- NOTE | 2024-08-06 11:26 | P.CRDCN ---
History of Present Illness Consult date: 08/06/24 Consult reason: chest pain History of present illness: The patient is a 79-year-old female who is a patient of Dr. ARIADNE Grewal and recently underwent stenting of the RCA. Patient returned to the emergency room with heaviness in her chest. She states that this was similar to prior to her last admission. Patient also states that her heaviness and pain in her chest is located at the site of her loop device. DIAGNOSTICS: Sinus rhythm with left bundle branch block. Occasional PVCs Chest x-ray shows no acute cardiopulmonary process Lab data: WBC 3.1, hemoglobin 7.8, hematocrit 25.7, platelet 222, sodium 133, potassium 4.0, BUN 9, creatinine 0.58, troponin 0.4, 0.4, 0.4, AST 30, ALT 25, BNP 5720 REVIEW OF SYSTEMS: No fever or chills. No cough or expectoration. No diaphoresis. Patient denies headache, dizziness, blurred vision, double vision. Patient denies any stomach discomfort. No nausea, vomiting. No hematochezia. No hematemesis. Denies any black stools or blood in his stools. Denies dysuria or hematuria. No muscle weakness or numbness. Loop site tender to touch. No dyspnea or orthopnea. PHYSICAL EXAMINATION: This is a 79-year-old male in no apparent distress at the time of my examination. HEENT: Head is atraumatic, normocephalic. Pupils are equal, round. Mucous membranes of the mouth are moist. Neck is supple. There is no jugular venous distention. No carotid bruit is heard. CHEST EXAMINATION: Lungs are clear to auscultation. Pain to deep inspiration. HEART EXAMINATION: Heart regular rate and rhythm. S1, S2 heard. No murmurs, gallops or rub. Loop site tender to touch. ABDOMEN: Soft, nontender. Bowel sounds are heard. No organomegaly noted. EXTREMITIES: 2+ peripheral pulses with no evidence of peripheral edema and no calf tenderness noted. NEUROLOGIC EXAMINATION: Patient is awake, alert and oriented x3. FINAL ASSESSMENT AND PLAN: Chest pain, not indicative of acute coronary syndrome History of coronary artery disease recent stenting to the RCA History of ischemic cardiomyopathy, recent EF 50 to 55% Bradycardia History of syncope PLAN: Resume home medication regimen Patient may be discharged from the cardiac standpoint Followup with primary corporate quality manager I am dictating on behalf of Dr Stephan Soliman's history/physical and assessment/plan. Past Medical History Past Medical History: Cancer, Deep Vein Thrombosis (DVT), GERD/Reflux, Hyperlipidemia, Hypertension, Syncope Additional Past Medical History / Comment(s): DVT years ago, psoriatic arthritis, hx. skin cancer, self-cath's due to bladder not emptying completely, syncopal episodes with dizziness History of Any Multi-Drug Resistant Organisms: None Reported Past Surgical History: Back Surgery, Joint Replacement, Orthopedic Surgery Additional Past Surgical History / Comment(s): henok knee replacements & henok hip replaced, vein stripping, left hand fusion, left retinal repair of tear, right carpal tunnel, back surgery x2. R shoulder replacement 02/25/2024 Past Anesthesia/Blood Transfusion Reactions: No Reported Reaction Additional Past Anesthesia/Blood Transfusion Reaction / Comment(s): seems to require alot of anesthesia to be sedated per pt. Past Psychological History: No Psychological Hx Reported Smoking Status: Never smoker Past Alcohol Use History: None Reported Past Drug Use History: None Reported - Past Family History Father Family Medical History: CVA/TIA, Myocardial Infarction ([place]) Additional Family Medical History / Comment(s): x3 CVA Mother Family Medical History: Cancer Additional Family Medical History / Comment(s): Heart Failure Daughter(s) Family Medical History: Cancer Medications and Allergies Home Medications Medication Instructions Recorded Confirmed Type Folic Acid 1 mg PO DAILY 10/02/15 08/05/24 History metHOTREXate sodium [Methotrexate] 25 mg PO TH 10/02/15 08/05/24 History Potassium Chloride ER [K-Dur 20] 20 meq PO DAILY 07/24/23 08/05/24 History Cholecalciferol (Vitamin D3) 50 mcg PO DAILY 07/29/24 08/05/24 History [Vitamin D3 (50 Mcg = 2000 Iu)] Citracal + Vitamin D3(Unknown Dose) 1 tab PO DAILY 07/29/24 08/05/24 History Fish Oil 1360mg 1 cap PO DAILY 07/29/24 08/05/24 History Magnesium-Zinc 266mg-10mg 1 tab PO DAILY 07/29/24 08/05/24 History Multivitamins, Thera [Multivitamin 1 tab PO BID 07/29/24 08/05/24 History (formulary)] Psyllium Husk [Fiber Capsule] 0.4 gm PO BID 07/29/24 08/05/24 History Super B-Complex W/Vitamin C & 1 tab PO DAILY 07/29/24 08/05/24 History Biotin Donepezil [Aricept] 10 mg PO HS 08/02/24 08/05/24 History Aspirin 81 mg PO DAILY #30 tab 08/03/24 08/05/24 Rx Atorvastatin [Lipitor] 80 mg PO DAILY #30 tab 08/03/24 08/05/24 Rx Nitroglycerin Sl Tabs [Nitrostat] 0.4 mg SUBLINGUAL Q5M PRN #30 tab 08/03/24 08/05/24 Rx Ticagrelor [Brilinta] 90 mg PO BID #60 tab 08/03/24 08/05/24 Rx hydrALAZINE HCL [Apresoline] 50 mg PO TID #90 tab 08/03/24 08/05/24 Rx Furosemide [Lasix] 20 mg PO DAILY 08/05/24 08/05/24 History Allergies Allergy/AdvReac Type Severity Reaction Status Date / Time meperidine HCl [From Demerol] Allergy Rash/Hives Verified 08/05/24 18:49 moxifloxacin HCl Allergy Anaphylaxis Verified 08/05/24 18:49 [From Avelox] prochlorperazine AdvReac agitation Verified 08/05/24 18:49 [From Compazine] prochlorperazine edisylate AdvReac agitation Verified 08/05/24 18:49 [From Compazine] prochlorperazine maleate AdvReac agitation Verified 08/05/24 18:49 [From Compazine] simvastatin [From Zocor] AdvReac severe leg Verified 08/05/24 18:49 weakness Physical Exam Vitals: Vital Signs Temp Pulse Resp BP Pulse Ox 08/06/24 06:00 67 16 144/72 95 08/06/24 04:00 61 18 131/66 95 08/06/24 02:15 68 18 122/68 95 08/05/24 23:34 75 16 121/66 96 08/05/24 22:19 78 17 120/72 96 08/05/24 20:00 89 18 138/70 97 08/05/24 19:00 79 20 143/97 96 08/05/24 18:00 78 20 137/82 97 06/28/25 17:56 76 20 137/82 97 08/05/24 16:00 79 16 154/76 97 08/05/24 15:17 98.2 F 82 20 157/89 98 Intake and Output 08/05/24 08/06/24 08/06/24 22:59 06:59 14:59 Other: Weight 72.575 kg Results 08/06/24 08:28 08/06/24 08:28 Cardiac Enzymes 08/05/24 08/05/24 08/05/24 Range/Units 15:59 15:59 20:39 AST 36 (14-36) U/L Troponin I 0.442 H* 0.477 H* (0.000-0.034) ng/mL 08/05/24 Range/Units 23:01 AST (14-36) U/L Troponin I 0.462 H* (0.000-0.034) ng/mL Coagulation 08/05/24 Range/Units 15:59 PT 10.8 (10.0-12.5) sec APTT 23.0 (22.0-30.0) sec CBC 08/05/24 08/06/24 Range/Units 15:59 08:28 WBC 3.24 L 3.13 L (4.50-10.00) 10*3/uL RBC 3.17 L 2.91 L (4.10-5.20) 10*6/uL Hgb 8.5 L 7.8 L (12.0-15.0) g/dL Hct 27.6 L 25.7 L (37.2-46.3) % Plt Count 219 222 (140-440) 10*3/uL Comprehensive Metabolic Panel 08/05/24 Range/Units 15:59 Sodium 133 L (137-145) mmol/L Potassium 4.1 (3.5-5.1) mmol/L Chloride 98 (98-107) mmol/L Carbon Dioxide 27 (22-30) mmol/L BUN 13 (7-17) mg/dL Creatinine 0.58 (0.52-1.04) mg/dL Glucose 80 (74-99) mg/dL Calcium 9.3 (8.4-10.2) mg/dL AST 36 (14-36) U/L ALT 29 (4-34) U/L Alkaline Phosphatase 95 (38-126) U/L Total Protein 5.5 L (6.3-8.2) g/dL Albumin 3.7 (3.5-5.0) g/dL Current Medications Generic Name Dose Route Start Last Admin Trade Name Freq PRN Reason Stop Dose Admin Aspirin 81 mg 08/06/24 09:00 Aspirin 81 Mg PO DAILY [facility] Atorvastatin Calcium 80 mg 08/06/24 09:00 Atorvastatin 80 Mg Tab PO DAILY [facility] Cholecalciferol 50 mcg 08/06/24 09:00 Cholecalciferol 25 Mcg (1000 Iu) Tablet PO DAILY [facility] Donepezil HCl 10 mg 08/05/24 23:00 08/05/24 23:28 Donepezil 10 Mg Tab PO 10 mg HS KODY Administration Folic Acid 1 mg 08/06/24 09:00 Folic Acid 1 Mg Tab PO DAILY [facility] Furosemide 20 mg 08/06/24 09:00 Furosemide 40 Mg Tab PO DAILY [facility] Hydralazine HCl 50 mg 08/05/24 23:00 08/05/24 23:28 Hydralazine Hcl 50 Mg Tab PO 50 mg TID KODY Administration Sodium Chloride 1,000 mls @ 20 mls/hr 08/05/24 18:45 08/05/24 19:04 Saline 0.9% IV 20 mls/hr .Q24H KODY Administration Morphine Sulfate 4 mg 08/05/24 18:39 08/05/24 23:29 Morphine Sulfate 4 Mg/Ml Syringe IV 4 mg Q4HR PRN Administration Severe Pain (Scale 7 to 10) Multivit/Ca Carb/B Cmplx/FA/Prenat 1 each 08/06/24 09:00 Folic Acid-Vit B Complex-Vit C 1 Cap PO DAILY [facility] Multivitamins 1 each 08/05/24 23:00 08/05/24 23:28 Multivitamins, Thera 1 Each Tab PO 1 each BID KODY Administration Naloxone HCl 0.2 mg 08/05/24 18:39 Naloxone 0.4 Mg/Ml 1 Ml Vial IV Q2M PRN Opioid Reversal Ondansetron HCl 4 mg 08/05/24 18:39 Ondansetron 4 Mg/2 Ml Vial IVP Q8HR PRN Nausea And Vomiting Psyllium Hydrophilic Mucilloid 6 gm 08/05/24 23:00 08/05/24 23:29 Psyllium Husk 100% 6 Gm Packet PO 6 gm BID KODY Administration Ticagrelor 90 mg 08/05/24 23:00 08/05/24 23:28 Ticagrelor 90 Mg Tab PO 90 mg BID K[facility] Administration Intake and Output 08/05/24 08/06/24 08/06/24 22:59 06:59 14:59 Other: Weight 72.575 kg 08/06/24 08:28 08/05/24 15:59
--- NOTE | 2024-08-06 13:31 | P.HPIM ---
History of Present Illness H&P Date: 08/06/24 I was contacted about this patient around 11AM by Dr. Zaidi. I assumed care of the patient after our conversation. This note will serve as the H&P along with discharge summary. 79 year old M with PMH of DVT, skin CA, psoriatic arthritis, GERD, HTN, HLD, CAD presents to the ED for chest pain. Recently admitted from 07/29-08/03 for NSTEMI, underwent PTCA and stenting of proximal and ostial RCA with drug-eluting stents on 08/01. She was discharged home on ASA and Brilinta. She presented to the hosp ital yesterday for chest pain. Chest pain worse with deep inspiration. Left sided. She feels her symptoms are related to the Loop recorder. Also reports LLE swelling also getting worse since her discharge. In the ED she underwent extensive evaluation. BP 157/89, HR 82, T 98.2F, RR 20, 98% on RA. Labs significant for WBC 3.24, RBC 3.17, Hg 8.5, Hct 37.6, Na 133, Trop 0.442-0.477-0.462 with EKG showing sinus rhythm with PCVs and LBBB. Admitted for Cardiology evaluation. Cardiology evaluated the patient and cleared the patient for discharge with no further workup required. Her Troponins are flat and much improved compared to her previous hospitalization. Discharge Plan: Plans to obtain LLE venous duplex to rule out DVT. Plans for discharge home on home medications. Gardiner PRN for chest pain thats likely related to her Loop recorder. She follows up with Dr. Garber on Wednesday. General: non toxic, no distress, appears at stated age Derm: warm, dry Head: atraumatic, normocephalic, symmetric Eyes: EOMI, no lid lag, anicteric sclera Mouth: no lip lesion, mucus membranes moist Cardiovascular: S1S2 reg, no murmur Lungs: Decreased BS bilateral, no rhonchi, no rales , no accessory muscle use Ext: no gross muscle atrophy, no edema, no contractures Neuro: no focal neuro deficits Psych: Alert, oriented, appropriate affect Discharge Diagnosis: Chest pain likely MSK pain related to loop recorder Elevated Troponin in the setting of recent NSTEMI and PTCA and stenting of proximal and ostial RCA with drug-eluting stents on 08/01 LLE swelling CAD status post PTCA and stenting of proximal and ostial RCA with drug-eluting stents on 08/01 Urinary retention Hypertension Chronic normocytic anemia Psoriatic arthritis Hyperlipidemia This complex discharge took 35 minutes to complete. Past Medical History Past Medical History: Cancer, Deep Vein Thrombosis (DVT), GERD/Reflux, Hyperlipidemia, Hypertension, Syncope Additional Past Medical History / Comment(s): DVT years ago, psoriatic arthritis, hx. skin cancer, self-cath's due to bladder not emptying completely, syncopal episodes with dizziness History of Any Multi-Drug Resistant Organisms: None Reported Past Surgical History: Back Surgery, Joint Replacement, Orthopedic Surgery Additional Past Surgical History / Comment(s): henok knee replacements & henok hip replaced, vein stripping, left hand fusion, left retinal repair of tear, right carpal tunnel, back surgery x2. R shoulder replacement 02/25/2024 Past Anesthesia/Blood Transfusion Reactions: No Reported Reaction Additional Past Anesthesia/Blood Transfusion Reaction / Comment(s): seems to req uire alot of anesthesia to be sedated per pt. Past Psychological History: No Psychological Hx Reported Smoking Status: Never smoker Past Alcohol Use History: None Reported Past Drug Use History: None Reported - Past Family History Father Family Medical History: CVA/TIA, Myocardial Infarction ([place]) Additional Family Medical History / Comment(s): x3 CVA Mother Family Medical History: Cancer Additional Family Medical History / Comment(s): Heart Failure Daughter(s) Family Medical History: Cancer Medications and Allergies Home Medications Medication Instructions Recorded Confirmed Type Folic Acid 1 mg PO DAILY 10/02/15 08/05/24 History metHOTREXate sodium [Methotrexate] 25 mg PO TH 10/02/15 08/05/24 History Potassium Chloride ER [K-Dur 20] 20 meq PO DAILY 07/24/23 08/05/24 History Cholecalciferol (Vitamin D3) 50 mcg PO DAILY 07/29/24 08/05/24 History [Vitamin D3 (50 Mcg = 2000 Iu)] Citracal + Vitamin D3(Unknown Dose) 1 tab PO DAILY 07/29/24 08/05/24 History Fish Oil 1360mg 1 cap PO DAILY 07/29/24 08/05/24 History Magnesium-Zinc 266mg-10mg 1 tab PO DAILY 07/29/24 08/05/24 History Multivitamins, Thera [Multivitamin 1 tab PO BID 07/29/24 08/05/24 History (formulary)] Psyllium Husk [Fiber Capsule] 0.4 gm PO BID 07/29/24 08/05/24 History Super B-Complex W/Vitamin C & 1 tab PO DAILY 07/29/24 08/05/24 History Biotin Donepezil [Aricept] 10 mg PO HS 08/02/24 08/05/24 History Aspirin 81 mg PO DAILY #30 tab 08/03/24 08/05/24 Rx Atorvastatin [Lipitor] 80 mg PO DAILY #30 tab 08/03/24 08/05/24 Rx Nitroglycerin Sl Tabs [Nitrostat] 0.4 mg SUBLINGUAL Q5M PRN #30 tab 08/03/24 08/05/24 Rx Ticagrelor [Brilinta] 90 mg PO BID #60 tab 08/03/24 08/05/24 Rx hydrALAZINE HCL [Apresoline] 50 mg PO TID #90 tab 08/03/24 08/05/24 Rx Furosemide [Lasix] 20 mg PO DAILY 08/05/24 08/05/24 History Allergies Allergy/AdvReac Type Severity Reaction Status Date / Time meperidine HCl [From Demerol] Allergy Rash/Hives Verified 08/05/24 18:49 moxifloxacin HCl Allergy Anaphylaxis Verified 08/05/24 18:49 [From Avelox] prochlorperazine AdvReac agitation Verified 08/05/24 18:49 [From Compazine] prochlorperazine edisylate AdvReac agitation Verified 08/05/24 18:49 [From Compazine] prochlorperazine maleate AdvReac agitation Verified 08/05/24 18:49 [From Compazine] simvastatin [From Zocor] AdvReac severe leg Verified 08/05/24 18:49 weakness Physical Exam Vitals: Vital Signs Temp Pulse Resp BP Pulse Ox 08/06/24 12:00 73 18 131/68 97 08/06/24 09:16 98.1 F 77 18 168/79 96 08/06/24 08:00 76 18 152/76 98 08/06/24 06:00 67 16 144/72 95 08/06/24 04:00 61 18 131/66 95 08/06/24 02:15 68 18 122/68 95 08/05/24 23:34 75 16 121/66 96 08/05/24 22:19 78 17 120/72 96 08/05/24 20:00 89 18 138/70 97 08/05/24 19:00 79 20 143/97 96 08/05/24 18:00 78 20 137/82 97 08/05/24 17:56 76 20 137/82 97 08/05/24 16:00 79 16 154/76 97 08/05/24 15:17 98.2 F 82 20 157/89 98 Intake and Output 08/05/24 08/06/24 08/06/24 22:59 06:59 14:59 Output Total 1000 Balance -1000 Output: Urine 1000 Uretheral (Gallagher) 1000 Other: Weight 72.575 kg 72.575 kg Results CBC & Chem 7: 08/06/24 08:28 08/06/24 08:28 Labs: Abnormal Lab Results - Last 24 Hours (Table) 08/05/24 08/05/24 08/05/24 Range/Units 15:59 15:59 15:59 WBC 3.24 L (4.50-10.00) 10*3/uL RBC 3.17 L (4.10-5.20) 10*6/uL Hgb 8.5 L (12.0-15.0) g/dL Hct 27.6 L (37.2-46.3) % MCH 26.8 L (27.0-32.0) pg MCHC 30.8 L (32.0-37.0) g/dL RDW (11.5-14.5) % MPV 9.3 L (9.5-12.2) fL Lymphocytes # 0.72 L (0.90-5.00) 10*3/uL Sodium 133 L (137-145) mmol/L Troponin I 0.442 H* (0.000-0.034) ng/mL Total Protein 5.5 L (6.3-8.2) g/dL Albumin (3.5-5.0) g/dL 08/05/24 08/05/24 08/06/24 Range/Units 20:39 23:01 08:28 WBC 3.13 L (4.50-10.00) 10*3/uL RBC 2.91 L (4.10-5.20) 10*6/uL Hgb 7.8 L (12.0-15.0) g/dL Hct 25.7 L (37.2-46.3) % MCH 26.8 L (27.0-32.0) pg MCHC 30.4 L (32.0-37.0) g/dL RDW 18.8 H (11.5-14.5) % MPV 9.4 L (9.5-12.2) fL Lymphocytes # 0.70 L (0.90-5.00) 10*3/uL Sodium (137-145) mmol/L Troponin I 0.477 H* 0.462 H* (0.000-0.034) ng/mL Total Protein (6.3-8.2) g/dL Albumin (3.5-5.0) g/dL 08/06/24 Range/Units 08:28 WBC (4.50-10.00) 10*3/uL RBC (4.10-5.20) 10*6/uL Hgb (12.0-15.0) g/dL Hct (37.2-46.3) % MCH (27.0-32.0) pg MCHC (32.0-37.0) g/dL RDW (11.5-14.5) % MPV (9.5-12.2) fL Lymphocytes # (0.90-5.00) 10*3/uL Sodium 133 L (137-145) mmol/L Troponin I (0.000-0.034) ng/mL Total Protein 4.8 L (6.3-8.2) g/dL Albumin 3.0 L (3.5-5.0) g/dL Thrombosis Risk Factor Assmnt - Choose All That Apply Any of the Below Risk Factors Present?: Yes Each Risk Factor Represents 3 Points: Age 75 years or older Thrombosis Risk Factor Assessment Total Risk Factor Score: 3 Thrombosis Risk Factor Assessment Level: Moderate Risk
--- NOTE | 2024-08-06 13:57 | US ---
EXAMINATION TYPE: US venous doppler duplex LE LT DATE OF EXAM: 08/06/2024 1:39 PM COMPARISON: 08/02/2024 CLINICAL INDICATION: Female, 79 years old with history of swelling; Chest pain, recent heart cath thr ough left groin with stent placement, Pain TECHNIQUE: The lower extremity deep venous system is examined utilizing real time linear array sonog demond with graded compression, color doppler sonography, and spectral doppler. SIDE PERFORMED: Left FINDINGS: VESSELS IMAGED: Common Femoral Vein Deep Femoral Vein Greater Saphenous Vein * Femoral Vein Popliteal Vein Small Saphenous Vein * Proximal Calf Veins (* superficial vessels) Left Leg: Negative for DVT, Color Doppler imaging shows patency of the vessels. Spectral waveforms a re within normal limits. ? Hematoma seen within left groin. No evidence for pseudoaneurysm. IMPRESSION: 1. No ultrasound evidence for deep venous thrombosis. 2. Left groin hematoma. [facility], , 08/06/2024 1:54 PM
[2024-08-06 14:50] VITALS: PULSE 92
[2024-08-06 15:06] VITALS: BP 147/71; RESP 16
== END 2024-08-06 15:50 | disposition home or self-care (01) ==
LOC: EC 15:00 → 6NMEDSUR 18:39 → 3SCARD 22:35
PROVIDERS: ADMIT Family Medicine; ATTEND Family Medicine
DX: R07.1 Chest pain on breathing (principal); R79.89 Other specified abnormal findings of blood chemistry; R60.0 Localized edema; I25.10 Atherosclerotic heart disease of native coronary artery without angina pectoris; I49.3 Ventricular premature depolarization; I25.2 Old myocardial infarction; I44.7 Left bundle-branch block, unspecified; D64.9 Anemia, unspecified; L40.50 Arthropathic psoriasis, unspecified; M79.89 Other specified soft tissue disorders; R33.9 Retention of urine, unspecified; K21.9 Gastro-esophageal reflux disease without esophagitis; E78.5 Hyperlipidemia, unspecified; I10 Essential (primary) hypertension; Z79.02 Long term (current) use of antithrombotics/antiplatelets; Z79.82 Long term (current) use of aspirin; Z79.899 Other long term (current) drug therapy; Z86.718 Personal history of other venous thrombosis and embolism; Z88.1 Allergy status to other antibiotic agents; Z88.5 Allergy status to narcotic agent; Z88.8 Allergy status to other drugs, medicaments and biological substances; Z95.5 Presence of coronary angioplasty implant and graft
CPT/HCPCS: 96374; 96375; 99285; 36415; 93005; 83880; 80053 ×2; 83690; 83735 ×2; 84100; 84484; 85025 ×2; 85610; 85730; 71046; 93971; G0378 ×3; J2270; J1171; J1885